=== PATIENT | male | born 1955 | race Caucasian/White ===

== ENCOUNTER 2017-12-17 15:14 | Emergency (ER) | payer OTHER ==
--- OUTSIDE RECORDS SUMMARY | 2017-12-17 15:16 | XMS REPORT ---
:1955 Author Organization eClinicalWorks Care Team Providers Name Role Phone Marcos Daniel Provider Role Unavailable Allergies No Known Allergies Problems Problem Type Condition Code Onset Dates Condition Status Assessment Avascular necrosis of femur, M87.059 Active unspecified laterality Problem Nonalcoholic fatty liver disease K76.0 Active Assessment Hypertension I10 Active Problem Hypertension I10 Active Problem History of pulmonary embolism Z86.711 Active Problem Avascular necrosis of femur, M87.059 Active unspecified laterality Problem Deep venous thrombosis of leg I82.409 Active Problem Persistent insomnia G47.00 Active Problem On anticoagulant therapy Z79.01 Active Problem Tobacco use disorder F17.200 Active Assessment Tobacco use disorder F17.200 Active Assessment Nonalcoholic fatty liver disease K76.0 Active Assessment Persistent insomnia G47.00 Active Assessment On anticoagulant therapy Z79.01 Active Assessment Deep venous thrombosis of leg I82.409 Active Assessment History of pulmonary embolism Z86.711 Active Medications Medication Code Code Instructions Start End Date Status Dosage System Date Soma [facility] 25716624547 350 MG Orally Active 1 tablet as needed Clare [facility] 15012909817 10-325 MG Orally Active 1 tablet as every 6 hrs PRN needed Doxepin HCl ND 15431071810 100 MG Orally Active 1 capsule at bedtime Vasotec [facility] 23355972174 10 MG Orally Active 1 tablet Once a day Ibuprofen ND 92927488056 400 MG Orally Active 1 tablet with food or milk as needed Xarelto [facility] 68015900797 15 MG Orally Active 1 tablet Once a day with food Results No Known Results Summary Purpose eClinicalWorks Submission
--- NOTE | 2017-12-17 17:29 | RAD REPORT ---
EXAM DESCRIPTION: RAD - Shoulder Left 2 View - 12/17/2017 5:11 pm CLINICAL HISTORY: Left shoulder pain FINDINGS: A transverse lucency is present within the lateral aspect of the humeral head. I suspect t his represents prominent trabecula. A nondisplaced fracture can also have this appearance. If clinic ally indicated further evaluation with CT could be obtained. The bones are osteoporotic. A 2 centimeter lucency is present within the humeral head. This may represent a pseudo lesion formed by superimposition of trabecula. A true lesion can also have this appearance. Follow-up x-ray in 3 mo nths is recommended for re-evaluation. Mild to moderate osteoarthritis involves the acromioclavicular joint
--- NOTE | 2017-12-17 18:03 | EDPHYS ---
Physician Documentation [facility] Name: Red Cooper Jr Age: 62 yrs Sex: Male : 1955 Arrival Date: 12/17/2017 Time: 15:17 Bed 18 Private MD: Marcos [facility] ED Physician Minor Bañuelos HPI: 12/17 17:57 This 62 yrs old Male presents to ER via Ambulatory with complaints of gs Shoulder Pain. 17:57 The patient or guardian complains of an injury. left shoulder. Context: The problem was gs sustained at home, resulted from a fall, down stairs, The patient experiences decreased range of motion, when attempts to raise arm. Onset: The symptoms/episode began/occurred acutely, just prior to arrival. Modifying factors: The symptoms are aggravated by lifting weight, movement, rotation of arm. Associated signs and symptoms: Pertinent negatives: abdominal pain, chest pain, diaphoresis, shortness of breath. Severity of symptoms: At their worst the symptoms were moderate, in the emergency department the symptoms are unchanged. The patient has experienced a previous episode. Historical: - Allergies: 15:39 Codeine; sv 15:39 Morphine; sv 15:39 Tramadol HCl; sv 15:39 BP med; sv - Home Meds: 15:39 hydrocodone-acetaminophen 10-325 mg Oral tab [Active]; visotec [Active]; Xarelto 15 mg sv Oral tab daily [Active]; - PMHx: 15:39 Hypertension; pulmonary embolus; sv - PSHx: 15:39 right shoulder; sv - Immunization history:: Adult Immunizations up to date. - Social history:: Smoking status: Patient uses tobacco products, smokes one-half pack cigarettes per day. - Ebola Screening: : No symptoms or risks identified at this time. ROS: 17:57 All other systems are negative. gs Exam: 17:57 Head/Face: Normocephalic, atraumatic. Eyes: Pupils equal round and reactive to light, gs extra-ocular motions intact. Lids and lashes normal. Conjunctiva and sclera are non-icteric and not injected. Cornea within normal limits. Periorbital areas with no swelling, redness, or edema. ENT: Nares patent. No nasal discharge, no septal abnormalities noted. Tympanic membranes are normal and external auditory canals are clear. Oropharynx with no redness, swelling, or masses, exudates, or evidence of obstruction, uvula midline. Mucous membranes moist. Neck: Trachea midline, no thyromegaly or masses palpated, and no cervical lymphadenopathy. Supple, full range of motion without nuchal rigidity, or vertebral point tenderness. No Meningismus. Chest/axilla: Normal chest wall appearance and motion. Nontender with no deformity. No lesions are appreciated. Cardiovascular: Regular rate and rhythm with a normal S1 and S2. No gallops, murmurs, or rubs. Normal PMI, no JVD. No pulse deficits. Respiratory: Lungs have equal breath sounds bilaterally, clear to auscultation and percussion. No rales, rhonchi or wheezes noted. No increased work of breathing, no retractions or nasal flaring. Abdomen/GI: Soft, non-tender, with normal bowel sounds. No distension or tympany. No guarding or rebound. No evidence of tenderness throughout. Back: No spinal tenderness. No costovertebral tenderness. Full range of motion. Skin: Warm, dry with normal turgor. Normal color with no rashes, no lesions, and no evidence of cellulitis. Neuro: Awake and alert, GCS 15, oriented to person, place, time, and situation. Cranial nerves II-XII grossly intact. Motor strength 5/5 in all extremities. Sensory grossly intact. Cerebellar exam normal. Normal gait. 17:57 Constitutional: The patient appears alert, awake. 17:57 Musculoskeletal/extremity: ROM: limited active range of motion due to pain, limited passive range of motion due to pain, Pulses: are normal with no appreciated deficits, Sensation intact. Joints: the left shoulder displays limited range of motion, painful range of motion, tenderness. Vital Signs: 15:37 BP 125 / 83; Pulse 96; Resp 18; Temp 98.9; Pulse Ox 96% ; Weight 102.06 kg; Height 5 sv ft. 10 in. (177.80 cm); Pain 9/10; 18:28 BP 100 / 74; Pulse 76; Resp 14; Temp 97.2; Pulse Ox 99% on R/A; Pain 7/10; ch 15:37 Body Mass Index 32.28 (102.06 kg, 177.80 cm) sv MDM: 17:57 Patient medically screened. gs 17:57 Differential diagnosis: Anterior dislocation without fracture, humeral head fracture, gs tendonitis. Data reviewed: vital signs, nurses notes. Response to treatment: the patient's symptoms have markedly improved after treatment, and as a result, I will discharge patient. 12/17 15:40 Order name: Shoulder Left (2 View) XRAY; Complete Time: 17:32 sv 12/17 18:03 Order name: Sling; Complete Time: 18:21 gs Administered Medications: No medications were administered Disposition: 12/17/17 18:02 Discharged to Home. Impression: 2-part nondisplaced fracture of surgical neck of left humerus. - Condition is Stable. - Discharge Instructions: Humerus Fracture, Treated with Immobilization. - Medication Reconciliation Form, Thank You Letter, Antibiotic Education, Prescription Opioid Use form. - Follow up: Ugo Hodgson MD; When: 2 - 3 days; Reason: Re-evaluation by your physician. Signatures: Dispatcher [employer] EDSarina Wynne RN RN Jing Lazo RN RN Minor Bañuelos MD MD Corrections: (The following items were deleted from the chart) 18:30 18:02 12/17/2017 18:02 Discharged to Home. Impression: 2-part nondisplaced fracture of ch surgical neck of left humerus. Condition is Stable. Forms are Medication Reconciliation Form, Thank You Letter, Antibiotic Education, Prescription Opioid Use. Follow up: Ugo Hodgson; When: 2 - 3 days; Reason: Re-evaluation by your physician. gs
--- NOTE | 2017-12-17 18:03 | ER ---
Nurse's Notes [facility] Name: Red Cooper Jr Age: 62 yrs Sex: Male : 1955 Arrival Date: 12/17/2017 Time: 15:17 Bed 18 Private MD: Daniel Rodríguez Diagnosis: 2-part nondisplaced fracture of surgical neck of left humerus Presentation: 12/17 15:36 Presenting complaint: Patient states: left shoulder pain. Pt reports was coming down sv stairs and was on the last step and slipped and fell and landed on his left shoulder. Transition of care: patient was not received from another setting of care. Onset of symptoms was December 13, 2017. Care prior to arrival: None. 15:36 Method Of Arrival: Ambulatory sv 15:36 Acuity: JENNY 3 sv 18:29 Risk Assessment: Do you want to hurt yourself or someone else? Patient reports no ch desire to harm self or others. Initial Sepsis Screen: Does the patient meet any 2 criteria? No. Patient's initial sepsis screen is negative. Does the patient have a suspected source of infection? No. Patient's initial sepsis screen is negative. Historical: - Allergies: 15:39 Codeine; sv 15:39 Morphine; sv 15:39 Tramadol HCl; sv 15:39 BP med; sv - Home Meds: 15:39 hydrocodone-acetaminophen 10-325 mg Oral tab [Active]; visotec [Active]; Xarelto 15 mg sv Oral tab daily [Active]; - PMHx: 15:39 Hypertension; pulmonary embolus; sv - PSHx: 15:39 right shoulder; sv - Immunization history:: Adult Immunizations up to date. - Social history:: Smoking status: Patient uses tobacco products, smokes one-half pack cigarettes per day. - Ebola Screening: : No symptoms or risks identified at this time. Screenin:59 Abuse screen: Denies threats or abuse. Denies injuries from another. Nutritional ch screening: No deficits noted. Tuberculosis screening: No symptoms or risk factors identified. Fall Risk None identified. Assessment: 17:59 General: Appears in no apparent distress. comfortable, Behavior is calm, cooperative, ch appropriate for age. Pain: Complains of pain in left shoulder Pain currently is 7 out of 10 on a pain scale. at worst was 9 out of 10 on a pain scale. Pain began suddenly. Neuro: No deficits noted. Cardiovascular: No deficits noted. Respiratory: Airway is patent Respiratory effort is even, unlabored, Breath sounds are clear bilaterally. GI: No signs and/or symptoms were reported involving the gastrointestinal system. : No signs and/or symptoms were reported regarding the genitourinary system. Derm: Skin is pink, warm \T\ dry. Musculoskeletal: Capillary refill < 3 seconds, in bilateral fingers. toes. Range of motion: limited in left shoulder. 18:28 Reassessment: Patient appears in no apparent distress at this time. Patient and/or ch family updated on plan of care and expected duration. Pain level reassessed. Patient is alert, oriented x 3, equal unlabored respirations, skin warm/dry/pink. Patient states symptoms have not improved. pt states he has hydrocodone at home he will take. . Vital Signs: 15:37 BP 125 / 83; Pulse 96; Resp 18; Temp 98.9; Pulse Ox 96% ; Weight 102.06 kg; Height 5 sv ft. 10 in. (177.80 cm); Pain 9/10; 18:28 BP 100 / 74; Pulse 76; Resp 14; Temp 97.2; Pulse Ox 99% on R/A; Pain 7/10; ch 15:37 Body Mass Index 32.28 (102.06 kg, 177.80 cm) sv ED Course: 15:17 Patient arrived in ED. mr 15:17 Daniel Rodríguez DO is Private Physician. mr 15:37 Triage completed. sv 15:39 Arm band placed on right wrist. sv 17:08 Patient moved to radiology via wheelchair. mh1 17:08 Shoulder Left (2 View) XRAY In Process Unspecified. EDMS 17:08 X-ray completed. Patient tolerated procedure well. mh1 17:08 Patient moved back from radiology. mh1 17:32 Minor Bañuelos MD is Attending Physician. gs 17:59 Sarina Jones, JAYA is Primary Nurse. ch 17:59 No apparent distress. Resting quietly. ch 17:59 Patient has correct armband on for positive identification. Placed in gown. Bed in low ch position. Call light in reach. Side rails up X 1. Adult w/ patient. 17:59 No provider procedures requiring assistance completed. Patient did not have IV access ch during this emergency room visit. 18:01 Ugo Hodgson MD is Referral Physician. 18:28 Sling applied to left arm. ch Administered Medications: No medications were administered Outcome: 18:02 Discharge ordered by . 18:28 Discharged to home ambulatory. 18:28 Condition: stable 18:28 Discharge instructions given to patient, Instructed on discharge instructions, follow up and referral plans. medication usage, Demonstrated understanding of instructions, follow-up care. 18:30 Patient left the ED. Signatures: Dispatcher [employer] EDSarina Wynne RN RN ch Verde, Stephanie, RN RN sv Rivera, Maria mr Mosley [facility] Minor Bañuelos MD MD
[2017-12-17 18:38] VITALS: BP 100/74; TEMP 97.2; O2SAT 99
== END 2017-12-17 18:30 | disposition home or self-care (01) ==
LOC: ER 15:14
DX: S42.222A 2-part displaced fracture of surgical neck of left humerus, initial encounter for closed fracture (principal); W10.9XXA Fall (on) (from) unspecified stairs and steps, initial encounter; Y93.89 Activity, other specified; Y92.009 Unspecified place in unspecified non-institutional (private) residence as the place of occurrence of the external cause; Z88.6 Allergy status to analgesic agent; Z88.5 Allergy status to narcotic agent; Z88.8 Allergy status to other drugs, medicaments and biological substances; I10 Essential (primary) hypertension; F17.210 Nicotine dependence, cigarettes, uncomplicated
CPT/HCPCS: 99283

== ENCOUNTER 2018-08-29 18:07 | Emergency (ER) | payer OTHER ==
--- OUTSIDE RECORDS SUMMARY | 2018-08-29 18:08 | XMS REPORT ---
[...] End Date Status Dosage System Date Soma [facility] 54658578475 350 MG Orally Active 1 tablet as needed Tennga [facility] 01686255766 10-325 MG Orally Active 1 tablet as every 6 hrs PRN needed Doxepin HCl ND 98365728893 100 MG Orally Active 1 capsule at bedtime Vasotec [facility] 24491181715 10 MG Orally Active 1 tablet Once a day Ibuprofen ND 97098402279 400 MG Orally Active 1 tablet with food or milk as needed Xarelto [facility] 13140387632 15 MG Orally Active 1 tablet Once a day with food Results No Known Results Summary Purpose eClinicalWorks Submission
--- OUTSIDE RECORDS SUMMARY | 2018-08-29 18:09 | XMS REPORT ---
:1955 Author Organization eClinicalWorks Care Team Providers Name Role Phone Daniel Rodríguez Provider Role Unavailable Allergies No Known Allergies Problems Problem Type Condition Code Onset Dates Condition Status Assessment Need for influenza vaccination Z23 Active Problem Nonalcoholic fatty liver disease K76.0 Active Problem Hypertension I10 Active Problem History of pulmonary embolism Z86.711 Active Problem Avascular necrosis of femur, M87.059 Active unspecified laterality Problem Deep venous thrombosis of leg I82.409 Active Problem Persistent insomnia G47.00 Active Problem On anticoagulant therapy Z79.01 Active Problem Tobacco use disorder F17.200 Active Medications Medication Code Code Instructions Start End Date Status Dosage System Date Xarelto [facility] 91586157010 15 MG Orally Active 1 tablet Once a day with food Doxepin HCl [facility] 32743738359 100 MG Orally Active 1 capsule at bedtime [place] [facility] 51019475959 10-325 MG Orally Active 1 tablet as every 6 hrs PRN needed Ibuprofen ND 93756581067 400 MG Orally Active 1 tablet with food or milk as needed Vasotec [facility] 84333977455 10 MG Orally Active 1 tablet Once a day Soma ND 64966509512 350 MG Orally Active 1 tablet as needed Results No Known Results Immunizations Vaccine Administration Date Afluria May 02, 2018 Summary Purpose eClinicalWorks Submission
--- OUTSIDE RECORDS SUMMARY | 2018-08-29 18:09 | XMS REPORT ---
:1955 Author Organization eClinicalWorks Care Team Providers Name Role Phone Daniel Rodríguez Provider Role Unavailable Allergies, Adverse Reactions, Alerts Substance Reaction Event Type Tramadol HCl Info Not Available Drug Allergy Stadol Info Not Available Drug Allergy Morphine Sulfate Info Not Available Drug Allergy Problems Problem Type Condition Code Onset Dates Condition Status Assessment Hypertension I10 Active Problem Nonalcoholic fatty liver disease K76.0 Active Problem Hypertension I10 Active Problem History of pulmonary embolism Z86.711 Active Problem Avascular necrosis of femur, M87.059 Active unspecified laterality Problem Deep venous thrombosis of leg I82.409 Active Problem Persistent insomnia G47.00 Active Problem On anticoagulant therapy Z79.01 Active Problem Tobacco use disorder F17.200 Active Assessment Persistent insomnia G47.00 Active Assessment Nonalcoholic fatty liver disease K76.0 Active Assessment On anticoagulant therapy Z79.01 Active Assessment Deep venous thrombosis of leg I82.409 Active Assessment History of pulmonary embolism Z86.711 Active Assessment Tobacco use disorder F17.200 Active Assessment Avascular necrosis of femur, M87.059 Active unspecified laterality Medications Medication Code Code Instructions Start End Date Status Dosage System Date Ibuprofen [facility] 81494682060 400 MG Orally Active 1 tablet with food or milk as needed Xarelto [facility] 43542274437 15 MG Orally Active 1 tablet Once a day with food Crane [facility] 67146113663 10-325 MG Orally Active 1 tablet as every 6 hrs PRN needed Doxepin HCl ND 93872013401 100 MG Orally Active 1 capsule at bedtime Vasotec [facility] 82063504645 10 MG Orally Active 1 tablet Once a day Soma ND 14976682046 350 MG Orally Active 1 tablet as needed Results No Known Results Summary Purpose eClinicalWorks Submission
[2018-08-29] MEDS ORDERED: NA CHLORIDE 0.9% 1,000 ML ONE (18:54)
[2018-08-29 19:05] LABS: Absolute Lymphocytes (CBC) 1.4 K/uL (0.7-4.9); Absolute Monocytes 1.2 K/uL (0.1-1.3); Basophils % 0.9 % (0-1.3); Hematocrit 44.9 % (39.6-49.0); Lymphocytes % 15.2 % (15.3-44.8); MPV 8.4 fL (7.6-11.3); Monocytes % 13.8 % (3.3-12.3); RBC Red Blood Cell Count 4.67 M/uL (4.33-5.43)
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
[2018-08-29 19:07] LABS: Protime INR 1.01
[2018-08-29 19:24] LABS: ALT/SGPT 25 U/L (12-78); AST/SGOT 29 U/L (15-37); Albumin 3.7 g/dL (3.4-5.0); Alkaline Phosphatase 63 U/L (45-117); BUN Blood Urea Nitrogen 15 mg/dL (7-18); Bicarbonate 27 mmol/L (21-32); Bilirubin Direct 0.2 mg/dL (0-0.2); Bilirubin Total 0.6 mg/dL (0.2-1.0); Glucose Level 98 mg/dL (74-106); Lipase 149 U/L (73-393); Magnesium 1.9 mg/dL (1.8-2.4); NT PRO-BNP 172 pg/mL (<125); Protein, Total 7.1 g/dL (6.4-8.2); Sodium Level 139 mmol/L (136-145); Troponin (Emerg Dept Use Only) < 0.02 ng/mL (0.0-0.045)
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
[2018-08-29 22:02] LABS: Urine Blood TRACE (NEG); Urine Glucose NEGATIVE (NEG); Urine Protein NEGATIVE (NEG)
[2018-08-29 22:34] LABS: Barbiturates NEGATIVE (NEGATIVE); Benzodiazepines NEGATIVE (NEGATIVE); Cocaine NEGATIVE (NEGATIVE); METHAMPHETAM NEGATIVE (NEGATIVE); Methadone NEGATIVE (NEGATIVE); Opiates POSITIVE (NEGATIVE); Phencyclidine NEGATIVE (NEGATIVE); THC Cannibis NEGATIVE (NEGATIVE)
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
[2018-08-29 23:49] VITALS: BP 123/89; TEMP 98.6; O2SAT 97
--- NOTE | 2018-08-30 06:34 | EKG ---
Test Date: 2018-08-29 Test Time: 18:44:29 Certification And Selection Specialist: SWG MEASUREMENT RESULTS: Intervals: Rate: 76 MO: 152 QRSD: 94 QT: 386 QTc: 434 [place]: P: -21 MO: 152 QRS: -11 T: 10 INTERPRETIVE STATEMENTS: Normal sinus rhythm Normal ECG Compared to ECG 12/19/2014 16:32:57 Sinus bradycardia no longer present Electronically Signed On 08-30-18 06:26:59 BLENDING TANK TENDER HELPER by Kodak Boucher
== END 2018-08-29 23:03 | disposition home or self-care (01) ==
LOC: ER 18:07
DX: S00.83XA Contusion of other part of head, initial encounter (principal); S20.229A Contusion of unspecified back wall of thorax, initial encounter; S20.219A Contusion of unspecified front wall of thorax, initial encounter; S80.02XA Contusion of left knee, initial encounter; S80.212A Abrasion, left knee, initial encounter; V49.40XA Driver injured in collision with unspecified motor vehicles in traffic accident, initial encounter; Z79.01 Long term (current) use of anticoagulants; Z88.5 Allergy status to narcotic agent; Z88.6 Allergy status to analgesic agent; Z88.8 Allergy status to other drugs, medicaments and biological substances; Z86.711 Personal history of pulmonary embolism; I10 Essential (primary) hypertension
CPT/HCPCS: 36415; 70450; 71045; 71260; 72125; 74177; 80048; 80076; 80307; 80320; 81003; 83690; 83735; 83880; 84484; 85025; 85610; 87086; 87088; 93005; 96360; 96361; 99285; J7030; Q9967

== ENCOUNTER 2020-04-24 12:54 | Emergency (ER) | payer OTHER ==
[2020-04-24] MEDS ORDERED: LIDOCAINE 1% MPF 5 ML VIAL ONE (14:09)
[2020-04-24] MEDS ORDERED: HYDROCODONE/APAP 10/325 TAB ONE (14:10)
[2020-04-24] MEDS ORDERED: TETANUS & DIPHTHERIA TOX,ADULT 0.5 ML VIAL ONE (14:10)
--- NOTE | 2020-04-24 14:41 | RAD REPORT ---
EXAM DESCRIPTION: RAD - Elbow Right 3 View - 04/24/2020 2:30 pm CLINICAL HISTORY: PAIN COMPARISON: No comparisons FINDINGS: No acute fracture or dislocation. Posterior soft tissue swelling seen.
[2020-04-24] MEDS ORDERED: SMZ./TMP. 800/160 MG TABLET ONE (15:54)
--- NOTE | 2020-04-24 16:19 | EDPHYS ---
Physician Documentation [facility] Name: Red Cooper Jr Age: 64 yrs Sex: Male : 1955 Arrival Date: 04/24/2020 Time: 12:55 Bed 13 Private MD: Marcos [facility] ED Physician Juancarlos Carrasco HPI: 04/24 13:59 This 64 yrs old Male presents to ER via Ambulatory with complaints of Elbow pm1 Injury, Laceration. 13:59 The patient or guardian complains of a laceration, irregular. The complaints affect the pm1 right elbow. Context: The problem was sustained at home, resulted from a fall, missed his footing on last step of stairs and landed on the floor with right elbow. Occurred last night around 2200. No headache, head injury, neck pain. Onset: The symptoms/episode began/occurred last night. Treatment prior to arrival includes: dressing. Modifying factors: The symptoms are alleviated by remaining still, the symptoms are aggravated by movement. Associated signs and symptoms: Pertinent positives: swelling, of the right forearm and hand. Severity of symptoms: in the emergency department the symptoms are actually worse. The patient has not experienced similar symptoms in the past. Historical: - Allergies: 13:11 BP med; jd3 13:11 Codeine; jd3 13:11 Demerol; jd3 13:11 Morphine; jd3 13:11 Tramadol HCl; jd3 - Home Meds: 13:11 Xarelto 15 mg Oral tab daily [Active]; visotec [Active]; hydrocodone-acetaminophen jd3 10-325 mg Oral tab [Active]; enalapril maleate 10 mg Oral tab 1 tab once daily [Active]; - PMHx: 13:11 Hypertension; pulmonary embolus; jd3 - PSHx: 13:11 right shoulder; IVC filter; jd3 - Immunization history:: Adult Immunizations up to date. - Social history:: Smoking status: . ROS: 13:59 Constitutional: Negative for fever, chills, and weight loss, Neck: Negative for injury, pm1 pain, and swelling, Neuro: Negative for headache, weakness, numbness, tingling, and seizure. 13:59 Cardiovascular: Negative for chest pain, palpitations, and edema, Respiratory: Negative for shortness of breath, cough, wheezing, and pleuritic chest pain, Abdomen/GI: Negative for abdominal pain, nausea, vomiting, diarrhea, and constipation, Back: Negative for injury and pain. 13:59 MS/extremity: Positive for laceration, pain, swelling, of the right elbow, Negative for decreased range of motion, deformity. 13:59 Skin: Positive for laceration(s), of the right elbow, Negative for cellulitis. Exam: 13:59 Constitutional: This is a well developed, well nourished patient who is awake, alert, pm1 and in no acute distress. Head/Face: Normocephalic, atraumatic. 13:59 Cardiovascular: Exam negative for acute changes, Rate: normal, Rhythm: regular, Pulses: no pulse deficits are appreciated. 13:59 Respiratory: Exam negative for acute changes, respiratory distress, shortness of breath. 13:59 Musculoskeletal/extremity: Extremities: grossly normal except: noted in the right elbow: laceration, There is no evidence of deformity, ROM: intact in all extremities, Circulation is intact in all extremities. Pulses: noted to be 2+ in the right radial artery, Compartment Syndrome exam of affected extremity: is normal. no numbness, no tingling, no sensation deficit, no palor, no weak pulses. 13:59 Neuro: Exam negative for acute changes, Orientation: is normal, Mentation: is normal, Motor: is normal. Vital Signs: 13:11 BP 151 / 79; Pulse 70; Resp 17 S; Temp 98.2(O); Pulse Ox 98% on R/A; Weight 95.25 kg jd3 (R); Height 5 ft. 8 in. (172.72 cm) (R); Pain 9/10; 14:48 BP 142 / 81; Pulse 66; Resp 16; Temp 97.6(TE); Pulse Ox 98% on R/A; mh5 15:45 BP 134 / 67; Pulse 59; Resp 15 S; Pulse Ox 99% on R/A; ca1 16:30 BP 136 / 76; Pulse 61; Resp 15 S; Pulse Ox 98% on R/A; ca1 13:11 Body Mass Index 31.93 (95.25 kg, 172.72 cm) jd3 Laceration: 16:14 Wound Repair of 7cm ( 2.8in ) subcutaneous laceration to right elbow. Irregularly pm1 shaped.. Distal neuro/vascular/tendon intact. Anesthesia: Local anesthetic administered with 5 mls of 1% lidocaine. Wound prep: Extensive cleansing with betadine with hibiclenz by me, Wound irrigation with saline by me, Particulate matter removal of grass by me, Wound explored extensively, Copious irrigation. Skin closed with 7 4-0 Prolene using simple sutures and sterile technique. Dressed with Neosporin, 4x4's, Kerlix, sling. Patient tolerated well. MDM: 13:41 Patient medically screened. pm1 16:15 Data reviewed: vital signs. Data interpreted: Pulse oximetry: on room air is 98 %. pm1 Interpretation: normal. Counseling: I had a detailed discussion with the patient and/or guardian regarding: the historical points, exam findings, and any diagnostic results supporting the discharge/admit diagnosis, radiology results, the need for outpatient follow up. 16:15 Special discussion: I discussed in detail with the patient the higher chance of wound pm1 infection based on his presenting history. 16:15 ED course: Instructed on suture removal in 14 days. pm1 04/24 13:51 Order name: Elbow Right 3 View XRAY; Complete Time: 14:46 pm1 04/24 13:51 Order name: Prolene, Sutures; Complete Time: 14:07 pm1 04/24 13:51 Order name: Dressing - Wound; Complete Time: 14:01 pm1 04/24 13:51 Order name: Gloves, Sterile; Complete Time: 14:01 pm1 04/24 13:51 Order name: Setup Suture Tray; Complete Time: 14:01 pm1 04/24 13:52 Order name: Sling; Complete Time: 16:48 pm1 Administered Medications: 14:06 Drug: Tetanus-Diphtheria Toxoid Adult 0.5 ml {Qa Engineer: [employer]. Exp: ca1 09/23/2022. Lot #: [id number]. } Route: IM; Site: right deltoid; 15:19 Follow up: Response: No adverse reaction ca1 14:06 Drug: [place] 10 mg-325 mg 1 tabs {Note: rass 0.} Route: PO; ca1 15:19 Follow up: Response: No adverse reaction; Pain is decreased; RASS: Alert and Calm (0) ca1 15:43 Drug: Bactrim (160 mg-800 mg (DS) 1 tablet Route: PO; ca1 16:14 Drug: Lidocaine (1 %) 5 ml {Note: by DELISA Guerrero.} Volume: 5 ml; Route: Infiltration; ca1 16:45 Drug: Ancef 1 grams Route: IM; Site: right deltoid; ca1 Disposition: 04/25 07:14 Co-signature as Attending Physician, Juancarlos Carrasco MD I agree with the assessment and crescencio plan of care. Disposition: 04/24/20 16:19 Discharged to Home. Impression: Laceration without foreign body of elbow. - Condition is Stable. - Discharge Instructions: Laceration Care, Adult. - Prescriptions for Keflex 500 mg Oral Capsule - take 1 capsule by ORAL route every 6 hours for 10 days; 40 capsule. Bactrim DS 800- 160 mg Oral Tablet - take 1 tablet by ORAL route every 12 hours for 10 days; 20 tablet. - Medication Reconciliation Form, Thank You Letter, Antibiotic Education, Prescription Opioid Use form. - Follow up: Emergency Department; When: As needed; Reason: Worsening of condition. Follow up: Private Physician; When: 2 - 3 days; Reason: Recheck today's complaints, Continuance of care, Re-evaluation by your physician. - Problem is new. - Symptoms have improved. Signatures: Dispatcher [employer] EDNJ Juancarlos Carrasco MD MD cha Marinas, Patrick, NP TRACK MECHANIC pm1 Dave Reinoso RN RN jNarda Chairez RN RN ca1 Corrections: (The following items were deleted from the chart) 04/24 16:50 16:19 04/24/2020 16:19 Discharged to Home. Impression: Laceration without foreign body ca1 of elbow. Condition is Stable. Forms are Medication Reconciliation Form, Thank You Letter, Antibiotic Education, Prescription Opioid Use. Follow up: Emergency Department; When: As needed; Reason: Worsening of condition. Follow up: Private Physician; When: 2 - 3 days; Reason: Recheck today's complaints, Continuance of care, Re-evaluation by your physician. Problem is new. Symptoms have improved. pm1
--- NOTE | 2020-04-24 16:19 | ER ---
Nurse's Notes [facility] Name: Red Cooper Jr Age: 64 yrs Sex: Male : 1955 Arrival Date: 04/24/2020 Time: 12:55 Bed 13 Private MD: Daniel Rodríguez Diagnosis: Laceration without foreign body of elbow Presentation: 04/24 13:09 Chief complaint: Patient states: "i fell off my steps last night and landed on my jd3 elbow, but it is cut up pretty good.". Coronavirus screen: At this time, the client does not indicate any symptoms associated with coronavirus-19. Ebola Screen: Patient negative for fever greater than or equal to 101.5 degrees Fahrenheit, and additional compatible Ebola Virus Disease symptoms. Initial Sepsis Screen: Does the patient meet any 2 criteria? No. Patient's initial sepsis screen is negative. Does the patient have a suspected source of infection? No. Patient's initial sepsis screen is negative. Risk Assessment: Do you want to hurt yourself or someone else? Patient reports no desire to harm self or others. Onset of symptoms was April 23, 2020. 13:09 Method Of Arrival: Ambulatory jd3 13:09 Acuity: JENNY 3 jd3 Historical: - Allergies: 13:11 BP med; jd3 13:11 Codeine; jd3 13:11 Demerol; jd3 13:11 Morphine; jd3 13:11 Tramadol HCl; jd3 - Home Meds: 13:11 Xarelto 15 mg Oral tab daily [Active]; visotec [Active]; hydrocodone-acetaminophen jd3 10-325 mg Oral tab [Active]; enalapril maleate 10 mg Oral tab 1 tab once daily [Active]; - PMHx: 13:11 Hypertension; pulmonary embolus; jd3 - PSHx: 13:11 right shoulder; IVC filter; jd3 - Immunization history:: Adult Immunizations up to date. - Social history:: Smoking status: . Screenin:40 Abuse screen: Denies threats or abuse. Denies injuries from another. Nutritional ca1 screening: No deficits noted. Tuberculosis screening: No symptoms or risk factors identified. Fall Risk Fall in past 12 months (25 points). Assessment: 13:40 General: Appears in no apparent distress. comfortable, Behavior is calm, cooperative, ca1 appropriate for age. Pain: Complains of pain in right elbow Pain currently is 9 out of 10 on a pain scale. Neuro: Level of Consciousness is awake, alert, obeys commands, Oriented to person, place, time, situation. Derm: Skin is healthy with good turgor, Skin is pink, warm \\T\\ dry. Musculoskeletal: Circulation, motion, and sensation intact. Capillary refill < 3 seconds, Range of motion: limited in right elbow. Injury Description: Laceration sustained to right elbow is jagged, 2.6 to 7.5 cm long, was sustained 30-60 minutes ago. a small amount of bleeding noted at this time. 14:45 Reassessment: Patient appears in no apparent distress at this time. Patient and/or ca1 family updated on plan of care and expected duration. Pain level reassessed. Patient is alert, oriented x 3, equal unlabored respirations, skin warm/dry/pink. 15:45 Reassessment: Patient appears in no apparent distress at this time. Patient and/or ca1 family updated on plan of care and expected duration. Pain level reassessed. Patient is alert, oriented x 3, equal unlabored respirations, skin warm/dry/pink. 16:49 Reassessment: Patient appears in no apparent distress at this time. Patient and/or ca1 family updated on plan of care and expected duration. Pain level reassessed. Patient is alert, oriented x 3, equal unlabored respirations, skin warm/dry/pink. Vital Signs: 13:11 BP 151 / 79; Pulse 70; Resp 17 S; Temp 98.2(O); Pulse Ox 98% on R/A; Weight 95.25 kg jd3 (R); Height 5 ft. 8 in. (172.72 cm) (R); Pain 9/10; 14:48 BP 142 / 81; Pulse 66; Resp 16; Temp 97.6(TE); Pulse Ox 98% on R/A; mh5 15:45 BP 134 / 67; Pulse 59; Resp 15 S; Pulse Ox 99% on R/A; ca1 16:30 BP 136 / 76; Pulse 61; Resp 15 S; Pulse Ox 98% on R/A; ca1 13:11 Body Mass Index 31.93 (95.25 kg, 172.72 cm) j ED Course: 12:55 Patient arrived in ED. ag5 12:55 Daniel Rodríguez DO is Private Physician. ag5 13:10 Triage completed. jd3 13:11 Arm band placed on. jd3 13:40 Cesar Vargas NP is PHCP. pm1 13:40 Juancarlos Carrasco MD is Attending Physician. pm1 13:40 Patient has correct armband on for positive identification. Bed in low position. Call ca1 light in reach. Side rails up X 1. Pulse ox on. NIBP on. Warm blanket given. 14:01 Narda Perdomo, RN is Primary Nurse. ca1 14:30 Elbow Right 3 View XRAY In Process Unspecified. EDMS 16:14 Assist provider with laceration repair on right elbow that was between 2.6 to 7.5 cm ca1 using sutures. Set up tray. Performed by Cesar Vargas BACK TACKER Dressed with 4X4s, Kerlix, Neosporin, Patient tolerated well. 16:40 Patient did not have IV access during this emergency room visit. ca1 16:48 Sling applied to right arm. ca1 Administered Medications: 14:06 Drug: Tetanus-Diphtheria Toxoid Adult 0.5 ml {Jumpbasting Facing Baster: Help/Systems. Exp: ca1 09/23/2022. Lot #: [id number]. } Route: IM; Site: right deltoid; 15:19 Follow up: Response: No adverse reaction ca1 14:06 Drug: [place] 10 mg-325 mg 1 tabs {Note: rass 0.} Route: PO; ca1 15:19 Follow up: Response: No adverse reaction; Pain is decreased; RASS: Alert and Calm (0) ca1 15:43 Drug: Bactrim (160 mg-800 mg (DS) 1 tablet Route: PO; ca1 16:14 Drug: Lidocaine (1 %) 5 ml {Note: by DELISA Guerrero.} Volume: 5 ml; Route: Infiltration; ca1 16:45 Drug: Ancef 1 grams Route: IM; Site: right deltoid; ca1 Outcome: 16:19 Discharge ordered by . pm1 16:48 Discharged to home ambulatory. ca1 16:48 Condition: stable 16:48 Discharge instructions given to patient, Instructed on discharge instructions, follow up and referral plans. medication usage, Demonstrated understanding of instructions, follow-up care, medications, Prescriptions given X 2. 16:50 Patient left the ED. ca1 Signatures: Dispatcher [employer] EDMS Cesar Vargas, DELISA BACK TACKER pm1 Anila Vogel 5 Dave Reinoso RN RN jd3 Narda Perdomo RN RN ca1 Alissa Sosa ag5 Corrections: (The following items were deleted from the chart) 13:13 13:11 Pulse 70bpm; Resp 17bpm; Spontaneous; Pulse Ox 98% RA; Temp 98.2F Oral; 95.25 kg jd3 Reported; Height 5 ft. 8 in. Reported; BMI: 31.9; Pain 9/10; jd3
[2020-04-24] MEDS ORDERED: CEFAZOLIN SODIUM 1 GM/VIAL ONE (16:50)
[2020-04-24] MEDS ORDERED: WATER FOR INJ,STERILE 10 ML ONE (16:50)
[2020-04-24 17:12] VITALS: TEMP 97.6
[2020-04-24 17:15] VITALS: BP 136/76; O2SAT 98
--- OUTSIDE RECORDS SUMMARY | 2020-04-28 01:07 | XMS REPORT | Continuity of Care Document ---
:1955 Author Organization [facility] t Address [address] [place] [address] Care Team Providers Name Role Phone Unavailable Unavailable Unavailable Problems Condition Condition Condition Status Onset Resolution Last Treating Co mments Source Name Details Category Date Date Treatment Clinician Date Avascular Avascular Diagnosis Active [facility] necrosis necrosis [facility] - of femur, of femur, José Miguel bobbi unspecifie unspecifie l d d Outpati laterality laterality en t Clinics Nonalcohol Nonalcohol Diagnosis Active [facility] ic fatty ic fatty [facility] - liver liver Memoria disease disease l [facility] ent Clinics Hypertensi Hypertensi Diagnosis Active [facility] on on [facility] - Memoria l [facility] ent Clinics History of History of Diagnosis Active [facility] pulmonary pulmonary [facility] s - embolism embolism Memori a l [facility] ent Clinics Deep Deep Diagnosis Active [facility] venous venous [facility] - thrombosis thrombosis Me moria of leg of leg l [facility] ent [facility] Persistent Persistent Diagnosis Active [facility] insomnia insomnia [facility] - Memoria [facility] ent [facility] On On Diagnosis Active [facility] anticoagul anticoagul Desiree kes - ant ant Memoria therapy therapy l [facility] ent [facility] Tobacco Tobacco Diagnosis Active [facility] use use [facility] - disorder disorder Memori a l [facility] ent [facility] Mixed Mixed Diagnosis Active [facility] hyperlipid hyperlipid Desiree kes - emia emia Memoria [facility] ent [facility] Hyperkalem Hyperkalem Diagnosis Active [facility] ia ia [facility] - Memoria [facility] ent [facility] Allergies, Adverse Reactions, Alerts Allergy Allergy Status Severity Reaction(s) Onset Inactive Treating Comm ents Source Name Type Date Date Clinician Tramadol Adverse Active Info Not [facility] HCl Reaction Available [facility] - [facility] ent [facility] Stadol Adverse Active Info Not [facility] Reaction Available kes - Memoria [facility] ent [facility] Morphine Adverse Active Info Not [facility] Sulfate Reaction Available [place] [facility] - Memoria [facility] ent Clinics Medications Ordered Filled Start Stop Current Ordering Indication Dosage Frequency Signature Comments Components Source Medication Medication Date Date Medication? Clinician (SIG) Name Name Atorzac Atorvastati 2019 Yes Daniel [address] [facility] n Calcium n Calcium 2-11 Rodríguez Luke s - 00:00: Memoria 00 [facility] Hydrochloro Hydrochloro 2019 Yes Daniel [address] [facility] thiazide thiazide 2-11 Rodríguez in the Luke s - 00:00: morning Memoria 00 [facility] ent [facility] Vasotec Vasotec Yes Daniel [address] [facility] Rodríguez [facility] ent [facility] Xarelto Xarelto Yes Daniel [address] [facility] Rodríguez with food kes - [facility] ent [facility] [place] Yes Daniel [address] [facility]o Hydrochloro Yes Daniel [address] [facility] thiazide thiazide Rodríguez in the Luke s - morning [facility] ent [facility] Atorvastati Atorvastati Yes Daniel TAKE [address] [facility] n Calcium n Calcium Rodríguez TABLET BY [facility] DAY [facility] Immunizations Ordered Filled Immunization Date Status Comments Sourc e Immunization Name Name Vaughn Mendes 2018-05-[address] [facility] - 00[facility]00 [facility] Procedures This patient has no known procedures. Encounters Start End Encounter Admission Attending Care Care Encounter Source Date/Time Date/Time Type Type Clinicians Facility Department ID 2020-02-26 2020-02-26 Outpatient Nhung Morales [id number] [facility] [address] 09:45:00 09:45:00 [facility] Medicine [facility] ent Clinics 2019-09-01 2019-09-01 Outpatient [place] Hookert [id number] 13:00:00 13:00:00 [facility] 2019-07-01 2019-07-01 Outpatient [place] [id number] 13:15:00 13:15:00 [employer] 2019-06-25 2019-06-25 Outpatient Nhung Hookert [id number] [facility] 16:03:[address] 16:03:[address] Luke s - Drive [facility] Medicine Medicine Outpati ent Clinics 2019-03-30 2019-03-30 [place] [id number] 15:00:00 15:00:[address] [employer] [facility] s - Drive [facility] l Medicine Outpati ent Clinics 2019-01-08 2019-01-08 [place] [id number] 14:30:00 14:30:00 [place] [employer] s - Drive [facility] Medicine Outpati ent Clinics 2018-11-26 2018-11-26 [place] [id number] 16:00:00 16:00:00 [place] [employer] [facility] - Drive [facility] Medicine Outpati ent Clinics 2018-05-02 2018-05-02 [place] [id number] 11:00:00 11:00:00 [place] [employer] [facility] - Drive [facility] Medicine Outpati ent Clinics 2018-03-14 2018-03-14 [place] [id number] 09:15:00 09:15:00 [place] [employer] s - Drive [facility] Medicine Outpati ent Clinics 2017-11-12 2017-11-12 [place] [id number] 09:15:00 09:15:00 [place] [employer] s - Drive [facility] Medicine Outpati ent Clinics Results This patient has no known results.
--- OUTSIDE RECORDS SUMMARY | 2020-04-28 01:08 | XMS REPORT ---
:1955 Author Organization [employer] Care Team Providers Name Role Phone Daniel Rodríguez Provider Role Unavailable Allergies, Adverse Reactions, Alerts Substance Reaction Event Type Tramadol HCl Info Not Available Drug Allergy Stadol Info Not Available Drug Allergy Morphine Sulfate Info Not Available Drug Allergy Problems Problem Type Condition Code Onset Dates Condition Statu s Problem Persistent insomnia G47.00 Active Problem Nonalcoholic fatty liver disease K76.0 Active Problem Avascular necrosis of femur, M87.059 Active unspecified laterality Problem Hypertension I10 Active Problem Mixed hyperlipidemia E78.2 Active Problem Tobacco use disorder F17.200 Active Problem Deep venous thrombosis of leg I82.409 Active Problem History of pulmonary embolism Z86.711 Active Problem On anticoagulant therapy Z79.01 Act waylon Assessment Deep venous thrombosis of leg I82.409 Active Assessment Tobacco use disorder F17.200 Active Assessment Hyperkalemia E87.5 Active Assessment Persistent insomnia G47.00 Active Assessment History of pulmonary embolism Z86.711 Active Assessment Mixed hyperlipidemia E78.2 Active Assessment Nonalcoholic fatty liver disease K76.0 Active Assessment Avascular necrosis of femur, M87.059 Active unspecified laterality Assessment On anticoagulant therapy Z79.01 Act waylon Assessment Hypertension I10 Active Medications Medication Code Code Instructions Start End Status Dosage System Date Date Hydrochlorothiazide [facility] 49879539579 12.5 MG Orally A ctive 1 capsule Once a day in the morning Atorvastatin Calcium [facility] 16452951818 10 MG Orally Ac tive 1 tablet Once a day Xarelto [facility] 70292402461 15 MG Orally Active 1 table t Once a day with food [place] [facility] 84174963357 10-325 MG Active 1 tablet Orally every 6 as needed hrs PRN Vasotec [facility] [id number] 10 MG Orally Active 1 table t Once a day Hydrochlorothiazide [facility] 09970098457 12.5 MG Orally A ctive 1 capsule Once a day in the morning Atorvastatin Calcium [facility] 19113414031 10 MG Active TAKE 1 TABLET BY MOUTH EVERY DAY Results No Known Results Summary Purpose [employer] Submission
== END 2020-04-24 16:50 | disposition home or self-care (01) ==
LOC: ER 12:54
PROC: 0JQG0ZZ Repair Right Lower Arm Subcutaneous Tissue and Fascia, Open Approach (ICD-10-PCS; principal; 2020-04-24)
DX: S51.011A Laceration without foreign body of right elbow, initial encounter (principal); W10.9XXA Fall (on) (from) unspecified stairs and steps, initial encounter; Y93.9 Activity, unspecified; Y92.009 Unspecified place in unspecified non-institutional (private) residence as the place of occurrence of the external cause; I10 Essential (primary) hypertension; Z23 Encounter for immunization; Z79.01 Long term (current) use of anticoagulants; Z86.711 Personal history of pulmonary embolism; Z88.5 Allergy status to narcotic agent; Z88.6 Allergy status to analgesic agent; Z88.8 Allergy status to other drugs, medicaments and biological substances
CPT/HCPCS: 73080; 90471; 90714; 96372; 99284; 12002; J0690

== ENCOUNTER 2020-09-25 07:24 | Emergency (ER) | payer OTHER ==
--- OUTSIDE RECORDS SUMMARY | 2020-09-25 07:26 | XMS REPORT | Continuity of Care Document ---
:1955 Author Organization [facility] t Address [address] [place] [address] Care Team Providers Name Role Phone Unavailable Unavailable Unavailable Problems This patient has no known problems. Allergies, Adverse Reactions, Alerts Allergy Allergy Status Severity Reaction(s) Onset Inactive Treating Comm ents Source Name Type Date Date Clinician Tramadol Adverse Active Info Not [facility] Reaction Available [facility] Stadol Adverse Active Info Not [facility] Reaction Available [facility] Morphine Adverse Active Info Not [facility] Sulfate Reaction Available [facility] Medications Ordered Filled Start Stop Current Ordering Indication Dosage Frequency Signature Comments Components Source Medication Medication Date Date Medication? Clinician (SIG) Name Name Atorradhikatati Atorvastati 2018-07 Yes Daniel [address] [facility] n Calcium n Calcium 2-11 Rodríguez [facility] - 00:00: Memoria 00 [facility] Hydrochloro Hydrochloro 2018-07 Yes Daniel [address] [facility] thiazide thiazide 2-11 Rodríguez in the Luke s - 00:00: morning Memoria 00 [facility] Vasotec Vasotec Yes Daniel [address] [facility]ics Xarelto Xarelto Yes Daniel [address] [address] Rod[facility]guez with food [facility] Waka Waka Yes Daniel [address] [address] Rod[facility]guez as needed [facility] Hydrochloro Hydrochloro Yes Daniel [address] [facility] thiazide thiazide Rodríguez in the Luke s - morning [facility] ent [facility] Atorvastati Atorvastati Yes Daniel TAKE [address] [facility] n Calcium n Calcium Rodríguez TABLET BY [facility] l Out[facility]i ent Clinics Immunizations Ordered Filled Immunization Date Status Comments Sourc e Immunization Name Name Vaughn Mendes 2018-05-[address] [facility] Procedures This patient has no known procedures. Encounters Start End Encounter Admission Attending Care Care Encounter Source Date/Time Date/Time Type Type Clinicians Facility Department ID 2020-08-18 2020-08-18 Out[facility] [id number] [facility] 2020-05-18 2020-05-18 [facility] [id number] [facility] 2020-05-18 2020-05-18 [facility] [id number] [facility] 2020-02-26 2020-02-26 [facility] [id number] [address] 09:45[facility]00 09:45:00 t [facility] - [facility] Medicine Outpati ent Clinics 2019-09-01 2019-09-01 [facility] [id number] [address] 13:00:00 13:00:00 t [place] [facility] - [facility] Out[facility] Clinics 2019-07-01 2019-07-01 [facility] [id number] 13:15:00 13:15:00 t [place] [employer] Luke [facility] - Drive [facility] Out[facility] Clinics 2019-06-25 2019-06-25 [facility] [id number] [address] 16:03:00 16:03:00 t [employer] [facility] - [facility] Medicine Outpat[facility] ent Clinics 2019-03-30 2019-03-30 [facility] [id number] [address] 15:00:00 15:00:00 t [place] - [facility] Medicine Outpati ent Clinics 2019-01-08 2019-01-08 [facility] [id number] 14:30:00 14:30:00 t [place] [facility] Medicine Outpati ent Clinics 2018-11-26 2018-11-26 [facility] [id number] 16:00:00 16:00:00 t [place] [facility] Medicine Outpati ent Clinics 2018-05-02 2018-05-02 [facility] [id number] 11:00:00 11:00:00 t [place] [facility] Medicine Outpati ent Clinics 2018-03-14 2018-03-14 [facility] [id number] 09:15:00 09:15:00 t [place] [facility] Medicine Outpati ent Clinics 2017-11-12 2017-11-12 [facility] [id number] 09:15:00 09:15:00 t [place] [facility] Outpat[facility] ent Clinics Results This patient has no known results.
--- NOTE | 2020-09-25 09:11 | ER ---
Nurse's Notes [facility] Name: Red Cooper Jr Age: 64 yrs Sex: Male : 1955 Arrival Date: 09/25/2020 Time: 07:26 Bed 27 Private MD: Diagnosis: Laceration without foreign body, right foot-planter Presentation: 09/25 07:26 Chief complaint: EMS states: small laceration to bottom of right pinky toe after iw hitting it on the couch this morning. Coronavirus screen: At this time, the client does not indicate any symptoms associated with coronavirus-19. Ebola Screen: Patient negative for fever greater than or equal to 101.5 degrees Fahrenheit, and additional compatible Ebola Virus Disease symptoms Patient denies exposure to infectious person. Patient denies travel to an Ebola-affected area in the 21 days before illness onset. No symptoms or risks identified at this time. Complicating Factors: There are no complicating factors for this patient. Initial Sepsis Screen: Does the patient meet any 2 criteria? No. Patient's initial sepsis screen is negative. Does the patient have a suspected source of infection? No. Patient's initial sepsis screen is negative. Risk Assessment: Do you want to hurt yourself or someone else? Patient reports no desire to harm self or others. Onset of symptoms was September 25, 2020. 07:26 Method Of Arrival: EMS: [facility] iw 07:26 Acuity: JENNY 4 iw Historical: - Allergies: 07:28 Demerol; iw 07:28 Morphine; iw 07:28 Tramadol HCl; iw - Home Meds: 07:28 enalapril maleate 10 mg Oral tab 1 tab once daily [Active]; hydrocodone-acetaminophen iw 10-325 mg Oral tab [Active]; Xarelto 15 mg Oral tab daily [Active]; - PMHx: 07:28 Hypertension; pulmonary embolus; iw - PSHx: 07:28 right shoulder; IVC filter; iw - Immunization history:: Adult Immunizations not up to date. - Social history:: Smoking status: Patient reports the use of cigarette tobacco products, denies chronic smoking, but will smoke occasionally. - Family history:: not pertinent. Screenin:00 Abuse screen: Denies threats or abuse. Denies injuries from another. Nutritional ca1 screening: No deficits noted. Tuberculosis screening: No symptoms or risk factors identified. Fall Risk None identified. Assessment: 09:00 General: Appears in no apparent distress. uncomfortable, Behavior is calm, cooperative, ca1 appropriate for age. Pain: Complains of pain in right foot and plantar aspect of right fifth toe Pain currently is 10 out of 10 on a pain scale. Neuro: Level of Consciousness is awake, alert, obeys commands, Oriented to person, place, time, situation. Derm: Skin is healthy with good turgor, Skin is pink, warm \T\ dry. Musculoskeletal: Circulation, motion, and sensation intact. Capillary refill < 3 seconds. Injury Description: Laceration sustained to plantar aspect of right fifth toe is clean, 0.5 to 2.5 cm long, was sustained less than 30 minutes ago. is bleeding a small amount. 10:00 Reassessment: Patient appears in no apparent distress at this time. Patient is alert, ca1 oriented x 3, equal unlabored respirations, skin warm/dry/pink. Vital Signs: 07:42 BP 126 / 65; Pulse 96; Resp 16; Temp 97.8; Pulse Ox 97% on R/A; Weight 93.44 kg; Height iw 5 ft. 9 in. (175.26 cm); 10:00 BP 128 / 71; Pulse 86; Resp 16 S; Pulse Ox 98% on R/A; ca1 07:42 Body Mass Index 30.42 (93.44 kg, 175.26 cm) iw ED Course: 07:26 Patient arrived in ED. iw 07:27 Triage completed. iw 07:28 Arm band placed on. iw 08:48 Juancarlos Carrasco MD is Attending Physician. crescencio 09:00 Patient has correct armband on for positive identification. Bed in low position. Call ca1 light in reach. Side rails up X2. Pulse ox on. NIBP on. 09:07 Narda Perdomo, JAYA is Primary Nurse. ca1 09:09 Kiran Vogel MD is Referral Physician. crescencio 09:30 Assist provider with laceration repair on plantar aspect of right fifth toe that was ca1 2.5 cm. or less using sutures. Set up tray. Performed by Juancarlos Carrasco MD Dressed with 4X4s, Kerlix, Patient tolerated well. 09:30 Patient did not have IV access during this emergency room visit. ca1 09:35 Foot Right 3 View In Process Unspecified. EDMS 10:10 Ortho shoe applied to right foot. ca1 Administered Medications: 09:12 Drug: Bactrim (160 mg-800 mg (DS) 1 tablet Route: PO; ca1 09:52 Follow up: Response: No adverse reaction ca1 09:28 Drug: Lidocaine-Epinephrine -1%: (1:100,000) 3 ml {Note: By Dr. Carrasco at bedside.} ca1 Volume: 20 ml; Route: Infiltration; 09:31 Drug: Tetanus-Diphtheria Toxoid Adult 0.5 ml {Food Beverage Manager: [employer]. Exp: ca1 12/25/2021. Lot #: [id number]. } Route: IM; Site: right deltoid; 10:20 Follow up: Response: No adverse reaction ca1 09:43 Drug: Phenergan 25 mg Route: IM; Site: right deltoid; ca1 10:20 Follow up: Response: No adverse reaction; Nausea is decreased ca1 09:45 Drug: Demerol 50 mg {Note: rass 0.} Route: IM; Site: left deltoid; ca1 10:20 Follow up: Response: No adverse reaction; Pain is decreased; RASS: Alert and Calm (0) ca1 09:52 Drug: Bactroban Ointment 2 % 1 application Route: Topical; Site: affected area; ca1 Outcome: 09:10 Discharge ordered by . crescencio 10:23 Discharged to home via wheelchair, with friend. ca1 10:23 Condition: stable 10:23 Discharge instructions given to patient, Instructed on discharge instructions, follow up and referral plans. medication usage, wound care, Demonstrated understanding of instructions, follow-up care, medications, wound care, Prescriptions given X 2. 10:25 Patient left the ED. ca1 Signatures: Dispatcher [employer] Juancarlos Abdullahi MD MD cha Williams, Irene, RN RN iw Narda Perdomo RN RN ca1 Corrections: (The following items were deleted from the chart) 07:43 07:42 Pulse 96bpm; Resp 16bpm; Pulse Ox 97% RA; Temp 97.8F; 93.44 kg; Height 5 ft. 9 iw in.; BMI: 30.4; iw 07:43 07:28 Allergies: BP med; iw iw 07:43 07:28 Allergies: Codeine; iw iw 10:22 10:22 Reassessment: Patient appears in no apparent distress at this time. Patient is ca1 alert, oriented x 3, equal unlabored respirations, skin warm/dry/pink. ca1
--- NOTE | 2020-09-25 09:11 | EDPHYS ---
Physician Documentation [facility] Name: Red Cooper Jr Age: 64 yrs Sex: Male : 1955 Arrival Date: 09/25/2020 Time: 07:26 Bed 27 Private MD: ED Physician Juancarlos Carrasco HPI: 09/25 09:02 This 64 yrs old Male presents to ER via EMS with complaints of Laceration. crescencio 09:02 The patient presents with decreased range of motion, pain, that is acute. The crescencio complaints affect the right foot, plantar aspect of right fifth toe. Context: The problem was sustained at home. Onset: The symptoms/episode began/occurred just prior to arrival. Modifying factors: The symptoms are alleviated by elevation of extremity, the symptoms are aggravated by weight bearing, movement. Associated signs and symptoms: The patient has no apparent associated signs or symptoms. Severity of symptoms: At their worst the symptoms were mild, in the emergency department the symptoms are unchanged. The patient has not experienced similar symptoms in the past. Historical: - Allergies: 07:28 Demerol; iw 07:28 Morphine; iw 07:28 Tramadol HCl; iw - Home Meds: 07:28 enalapril maleate 10 mg Oral tab 1 tab once daily [Active]; hydrocodone-acetaminophen iw 10-325 mg Oral tab [Active]; Xarelto 15 mg Oral tab daily [Active]; - PMHx: 07:28 Hypertension; pulmonary embolus; iw - PSHx: 07:28 right shoulder; IVC filter; iw - Immunization history:: Adult Immunizations not up to date. - Social history:: Smoking status: Patient reports the use of cigarette tobacco products, denies chronic smoking, but will smoke occasionally. - Family history:: not pertinent. ROS: 09:02 Constitutional: Negative for fever, chills, and weight loss, Eyes: Negative for injury, crescencio pain, redness, and discharge, ENT: Negative for injury, pain, and discharge, Neck: Negative for injury, pain, and swelling, Cardiovascular: Negative for chest pain, palpitations, and edema, Respiratory: Negative for shortness of breath, cough, wheezing, and pleuritic chest pain, Abdomen/GI: Negative for abdominal pain, nausea, vomiting, diarrhea, and constipation, Back: Negative for injury and pain, : Negative for injury, bleeding, discharge, and swelling, Skin: Negative for injury, rash, and discoloration, Neuro: Negative for headache, weakness, numbness, tingling, and seizure, Psych: Negative for depression, anxiety, suicide ideation, homicidal ideation, and hallucinations, Allergy/Immunology: Negative for hives, rash, and allergies, Endocrine: Negative for neck swelling, polydipsia, polyuria, polyphagia, and marked weight changes, Hematologic/Lymphatic: Negative for swollen nodes, abnormal bleeding, and unusual bruising. 09:02 MS/extremity: Positive for decreased range of motion, pain, swelling, tenderness, of the plantar aspect of right fifth toe. Exam: 09:02 Constitutional: This is a well developed, well nourished patient who is awake, alert, crescencio and in no acute distress. Head/Face: Normocephalic, atraumatic. Eyes: Pupils equal round and reactive to light, extra-ocular motions intact. Lids and lashes normal. Conjunctiva and sclera are non-icteric and not injected. Cornea within normal limits. Periorbital areas with no swelling, redness, or edema. ENT: Nares patent. No nasal discharge, no septal abnormalities noted. Tympanic membranes are normal and external auditory canals are clear. Oropharynx with no redness, swelling, or masses, exudates, or evidence of obstruction, uvula midline. Mucous membranes moist. Neck: Trachea midline, no thyromegaly or masses palpated, and no cervical lymphadenopathy. Supple, full range of motion without nuchal rigidity, or vertebral point tenderness. No Meningismus. Chest/axilla: Normal chest wall appearance and motion. Nontender with no deformity. No lesions are appreciated. Cardiovascular: Regular rate and rhythm with a normal S1 and S2. No gallops, murmurs, or rubs. Normal PMI, no JVD. No pulse deficits. Respiratory: Lungs have equal breath sounds bilaterally, clear to auscultation and percussion. No rales, rhonchi or wheezes noted. No increased work of breathing, no retractions or nasal flaring. Abdomen/GI: Soft, non-tender, with normal bowel sounds. No distension or tympany. No guarding or rebound. No evidence of tenderness throughout. Back: No spinal tenderness. No costovertebral tenderness. Full range of motion. Male : Normal genitalia with no discharge or lesions. Skin: Warm, dry with normal turgor. Normal color with no rashes, no lesions, and no evidence of cellulitis. Neuro: Awake and alert, GCS 15, oriented to person, place, time, and situation. Cranial nerves II-XII grossly intact. Motor strength 5/5 in all extremities. Sensory grossly intact. Cerebellar exam normal. Normal gait. Psych: Awake, alert, with orientation to person, place and time. Behavior, mood, and affect are within normal limits. 09:02 Musculoskeletal/extremity: Extremities: grossly normal except: noted in the plantar aspect of right fifth toe: contusion, decreased ROM, laceration, ROM: limited active range of motion due to pain, limited passive range of motion due to pain, Circulation is intact in all extremities. Sensation intact. Compartment Syndrome exam of affected extremity: is normal. DVT Exam: negative Homans' sign noted on exam, no appreciated bluish discoloration, no erythema, no increased warmth, pain, swelling, tenderness. Vital Signs: 07:42 BP 126 / 65; Pulse 96; Resp 16; Temp 97.8; Pulse Ox 97% on R/A; Weight 93.44 kg; Height iw 5 ft. 9 in. (175.26 cm); 10:00 BP 128 / 71; Pulse 86; Resp 16 S; Pulse Ox 98% on R/A; ca1 07:42 Body Mass Index 30.42 (93.44 kg, 175.26 cm) iw Laceration: 09:30 Wound Repair of 1cm ( 0.4in ) subcutaneous laceration to plantar aspect of right fifth crescencio toe. Irregularly shaped.. Distal neuro/vascular/tendon intact. Anesthesia: Local anesthetic administered with 3 mls of 1% lidocaine w/ Epi. Wound prep: Moderate cleansing with betadine by ak. Skin closed with 3 5-0 Prolene using interrupted sutures and sterile technique. Dressed with Neosporin. Patient tolerated well. MDM: 08:48 Patient medically screened. [facility] 09:06 Differential diagnosis: penetrating trauma. Data reviewed: vital signs, nurses notes, [facility] radiologic studies, plain films. Data interpreted: nuclear monitoring technician: rate is 96 beats/min, Pulse oximetry: on room air is 97 %. Test interpretation: by ED physician or midlevel provider: plain radiologic studies. Counseling: I had a detailed discussion with the patient and/or guardian regarding: radiology results. 09/25 08:58 Order name: Foot Right 3 View XRAY ca1 09/25 08:58 Order name: Foot Right 3 View EDMS 09/25 09:02 Order name: Prolene, Sutures; Complete Time: 09:28 crescencio 09/25 09:02 Order name: Dressing - Wound; Complete Time: 09:28 crescencio 09/25 09:02 Order name: Gloves, Sterile; Complete Time: 09:28 crescencio 09/25 09:02 Order name: Setup Suture Tray; Complete Time: 09:28 crescencio 09/25 09:02 Order name: Post-op shoe; Complete Time: 10:20 crescencio Administered Medications: 09:12 Drug: Bactrim (160 mg-800 mg (DS) 1 tablet Route: PO; ca1 09:52 Follow up: Response: No adverse reaction ca1 09:28 Drug: Lidocaine-Epinephrine -1%: (1:100,000) 3 ml {Note: By Dr. Carrasco at bedside.} ca1 Volume: 20 ml; Route: Infiltration; 09:31 Drug: Tetanus-Diphtheria Toxoid Adult 0.5 ml {[employer]: [employer]. Exp: ca1 12/25/2021. Lot #: [id number]. } Route: IM; Site: right deltoid; 10:20 Follow up: Response: No adverse reaction ca1 09:43 Drug: Phenergan 25 mg Route: IM; Site: right deltoid; ca1 10:20 Follow up: Response: No adverse reaction; Nausea is decreased ca1 09:45 Drug: Demerol 50 mg {Note: rass 0.} Route: IM; Site: left deltoid; ca1 10:20 Follow up: Response: No adverse reaction; Pain is decreased; RASS: Alert and Calm (0) ca1 09:52 Drug: Bactroban Ointment 2 % 1 application Route: Topical; Site: affected area; ca1 Disposition: 09/25/20 09:10 Discharged to Home. Impression: Laceration without foreign body, right foot - planter. - Condition is Stable. - Discharge Instructions: Laceration Care, Adult, Laceration Care, Adult, [id number]. - Prescriptions for Bactroban 2 % Topical Ointment - Apply to affected area 1 application by TOPICAL route every 12 hours; 15 gram. Bactrim DS 800- 160 mg Oral Tablet - take 1 tablet by ORAL route every 12 hours for 10 days; 20 tablet. - Medication Reconciliation Form, Thank You Letter, Antibiotic Education, Prescription Opioid Use form. - Follow up: Private Physician; When: 2 - 3 days; Reason: Recheck today's complaints, Continuance of care, Re-evaluation by your physician. Follow up: Kiran Vogel MD; When: 2 - 3 days; Reason: Recheck today's complaints, Re-evaluation by your physician. - Problem is new. - Symptoms have improved. Signatures: Dispatcher [employer] EDJuancarlos Mosher MD MD cha Williams, Irene RN RN iw Narda Perdomo RN RN ca1 Corrections: (The following items were deleted from the chart) 07:43 07:28 Allergies: BP med; [facility] 07:43 07:28 Allergies: Codeine; iw 09:31 09:02 Wound Repair of 1cm ( 0.4in ) subcutaneous laceration to right foot and plantar crescencio aspect of right fifth toe. Irregularly shaped.. Distal neuro/vascular/tendon intact. Anesthesia: Local anesthetic administered with 3 mls of 1% lidocaine w/ Epi. Wound prep: Moderate cleansing by me. Skin closed with 1 5-0 Prolene using interrupted sutures and sterile technique. Dressed with Neosporin, pressure dressing. Patient tolerated well. [facility] 10:25 09:10 09/25/2020 09:10 Discharged to Home. Impression: Laceration without foreign body, ca1 right foot - planter. Condition is Stable. Forms are Medication Reconciliation Form, Thank You Letter, Antibiotic Education, Prescription Opioid Use. Follow up: Private Physician; When: 2 - 3 days; Reason: Recheck today's complaints, Continuance of care, Re-evaluation by your physician. Follow up: Kiran Vogel; When: 2 - 3 days; Reason: Recheck today's complaints, Re-evaluation by your physician. Problem is new. Symptoms have improved. [facility]
[2020-09-25] MEDS ORDERED: MUPIROCIN 2% OINT 22GM TUBE TOP ONE (09:27)
[2020-09-25] MEDS ORDERED: LIDOCAINE 1% W/EPI 1:100,000 MDV 20 ML VIAL ONE (09:27)
[2020-09-25] MEDS ORDERED: SMZ./TMP. 800/160 MG TABLET ONE (09:27)
[2020-09-25] MEDS ORDERED: TETANUS & DIPHTHERIA TOX,ADULT 0.5 ML VIAL ONE (09:40)
[2020-09-25] MEDS ORDERED: MEPERIDINE HCL 50 MG/ML ONE (10:03)
[2020-09-25] MEDS ORDERED: PROMETHAZINE INJ 25 MG/ML AMP ONE (10:03)
[2020-09-25 10:34] VITALS: TEMP 97.8
[2020-09-25 10:35] VITALS: BP 128/71; O2SAT 98
--- NOTE | 2020-09-25 11:40 | RAD REPORT ---
EXAM DESCRIPTION: RAD - Foot Right 3 View - 09/25/2020 9:29 am CLINICAL HISTORY: PAIN COMPARISON: No comparisons FINDINGS: Mild soft tissue swelling is seen along the lateral aspect of the foot. A minimal fracture is suspected involving the base of the proximal phalanx of the fifth toe. Posterior and plantar calc aneal spurs are present.
== END 2020-09-25 10:25 | disposition home or self-care (01) ==
LOC: ER 07:24
PROC: 0JQQ0ZZ Repair Right Foot Subcutaneous Tissue and Fascia, Open Approach (ICD-10-PCS; principal; 2020-09-25)
DX: S91.114A Laceration without foreign body of right lesser toe(s) without damage to nail, initial encounter (principal); W22.03XA Walked into furniture, initial encounter; Y92.9 Unspecified place or not applicable; I10 Essential (primary) hypertension; F17.210 Nicotine dependence, cigarettes, uncomplicated; Z23 Encounter for immunization; Z79.01 Long term (current) use of anticoagulants; Z86.711 Personal history of pulmonary embolism; Z88.5 Allergy status to narcotic agent; Z88.6 Allergy status to analgesic agent
CPT/HCPCS: 73630; 90471; 90714; 96372; 99284; 12001; J2550; J2175

== ENCOUNTER 2021-11-29 11:40 | Emergency (ER) | payer OTHER ==
--- OUTSIDE RECORDS SUMMARY | 2021-11-29 11:42 | XMS REPORT | Continuity of Care Document ---
:1955 Author Organization [facility] t Address [address] [place] [address] Care Team Providers Name Role Phone Dejuan Rodríguez Primary Care Physician Joaquin Rodríguez Attending Clinician Unavailable YAYA Attending Clinician Unavailable COTA Attending Clinician Unavailable ESDRAS Attending Clinician Unavailable RADIOLOGY Attending Clinician Unavailable Radiology Attending Clinician Unavailable Jacqueline RAMÍREZ Attending Clinician MUTENDERSIRENA Attending Clinician Unavailable Mutendermiyai HOTEL SUPERINTENDENT Attending Clinician Stacia Urbano Attending Clinician Unavailable Jovon LAKE B Attending Clinician Unavailable EDMATTHEW Attending Clinician Unavailable Haily Attending Clinician Unavailable Mary Jo DEWITT Admitting Clinician Unavailable MUTENDERSIRENA Admitting Clinician Unavailable Physician, Primary or Family Admitting Clinician Unavailabl e EDIONWE Admitting Clinician Unavailable Payers Payer Name Policy Type Policy Number Effective Date Expiration Date S [facility] [id number] 2021 STARPLUS OON 00:00:00 EXCEPT [facility] DUAL [id number] 2021 COMP HMO D SNP 00:00:00 [facility] [place] STAR [id number] 2015 PLUS 00:00:00 Problems Condition Condition Condition Status Onset Resolution Last Treating Co mments Source Name Details Category Date Date Treatment Clinician Date Vomiting Vomiting Disease Active 2020-07 NPI:1 83 1-14 [id number] 00:00: 00 Shoulder Shoulder Disease Active NPI:1 83 pain, pain, 9-16 [id number] right right 00:00: 00 No known No known Disease NPI:1 52 active active [id number] problems problems Allergies, Adverse Reactions, Alerts Allergy Allergy Status Severity Reaction(s) Onset Inactive Treating Comm ents Source Name Type Date Date Clinician butorpha DA Active U [facility] nol 2- Clear tartrate 00:00: Baer 00 [facility] morphine DA Active U [facility] 2-03 Clear 00:00: Baer 00 [facility] tramadol DA Active U ELEVATED LFT [facility] A 2- Clear 00:00: Baer 00 [facility] MORPHINE DRUG Active Med Other-Cmnt NPI: 183 INGREDI 03-17 [id number] 00:00: 00 BUTORPHA DRUG Active Med Other-Cmnt NPI: 183 NOL INGREDI 03-17 [id number] TARTRATE 00:00: 00 TRAMADOL DRUG Active Med Other-Cmnt NPI: 183 INGREDI 8 [id number] 00:00: 00 Morphine Propensi Active Other - See Psychosi s NPI:183 ty to comments 03-17 [id number] adverse 00:00: reaction 00 s to drug Butorpha Propensi Active Other - See Headache , NPI:183 nol ty to comments 8 Hot [id number] Tartrate adverse 00:00: flashes reaction 00 s to drug Tramadol Propensi Active Other - See Can't N PI:183 ty to comments 8 urinate [id number] adverse 00:00: reaction 00 s to drug Butorpha Allergy Active 2008-07 Other NPI:152 nol to 2-02 reaction( [id number] [facility] 00:00: s): e 00 [facility]ILL[facility], Other - See comments, Unknown, UnknownHe adache, Hot flashes Morphine Allergy Active 2008-07 Other NPI:152 to 2-02 reaction( [id number] substanc 00:00: s): Other e 00 - See comments, PSYCHOSIS , Unknown, UnknownPs ychosis Pravasta Allergy Active 2008-07 NPI:152 tin to 2- [id number] substanc 00:00: e 00 Tramadol Allergy Active 2008-07 Other NPI:152 to 2-02 reaction( [id number] substanc 00:00: s): e 00 ELEVATED LFT, Other - See comments, Unknown, UnknownCa n't urinate butorpha DA Active U 2008-07 [facility] nol 2-02 Clear tartrate 00:00: Baer 00 [facility] morphine DA Active U 2008-07 [facility] 2- Clear 00:00: Baer 00 [facility] pravasta DA Active U 2008-07 [facility] tin 2-02 Clear 00:00: Baer 00 [facility] tramadol DA Active U 2008-07 [facility] 2-02 Clear 00:00: Baer 00 [facility] butorpha DA Active U 2008-07 [facility] nol 2-02 Clear tartrate 00:00: Baer 00 [facility] morphine DA Active U 2008-07 [facility] 2-02 Clear 00:00: Baer 00 [facility] pravasta DA Active U 2008-07 [facility] tin 2-02 Clear 00:00: Baer 00 [facility] tramadol DA Active U 2008-07 [facility] 2-02 Clear 00:00: Baer 00 [facility] Tramadol Adverse Active Info Not NPI:1 74 HCl Reaction Available [id number] 79 Stadol Adverse Active Info Not NPI:174 Reaction Available 79213 79 Morphine Adverse Active Info Not NPI:1 74 Sulfate Reaction Available 0485 879 Social History Social Habit Start Date Stop Date Quantity Comments Source History SDOH NPI:[id number] Alcohol Frequency History SDOH NPI:[id number] 81 Alcohol Std Drinks History SDOH NPI:[id number] 81 Alcohol Binge Exposure to Not sure NPI:[id number] 1 SARS-CoV-2 (event) Cigarettes smoked 2021-08-31 2021-08-31 NPI:843 [id number] current (pack per 00:00:00 00:00:00 day) - Reported Tobacco use and 2021-08-31 2021-08-31 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 Clinician (SIG) Name Name atorradhikatati Yes 1{tbl} 1 tablet. 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 tablet 32 rivaroxaban 2020-07 Yes 15mg Take 15 mg NPI:183 (XARELTO) 1-16 by mouth [id number] 1 15 mg Tab 13:49: daily. tablet 32 rivaroxaban 2020-07 Yes 15mg Take 15 mg NPI:183 (XARELTO) 1-16 by mouth [id number] 1 15 mg Tab 13:49: daily. tablet 32 hydroCHLORO Yes NPI:15 2 thiazide 5-05 [id number] (HYDRODiuri 00:00: l) 12.5 MG 00 tablet Atorvastati Atorvastati 2018-07 Yes Daniel 1 tablet NPI:174 n Calcium n Calcium 2-11 Rodríguez 0485 879 00:00: 00 Hydrochloro Hydrochloro 2019 Yes Daniel 1 capsule NPI:174 thiazide thiazide 2-11 Rodríguez in the 0485 879 00:00: morning 00 Vasotec Vasotec Yes Daniel 1 tablet NPI :174 Rodríguez [id number] Xarelto Xarelto Yes Daniel 1 tablet NPI :174 Rodríguez with food [id number] [place] Yes Daniel 1 tablet NPI:174 Rodríguez as needed 1604510 Hydrochloro Hydrochloro Yes Daniel 1 capsule NPI:174 thiazide thiazide Rodríguez in the 0485 879 morning Atorvastati Atorvastati Yes Daniel TAKE 1 NPI:174 n Calcium n Calcium Rodríguez TABLET BY [id number] MOUTH EVERY DAY Immunizations Ordered Immunization Filled Immunization Date Status Commen ts Source Name Name Vaughn Mendes 2018-05-02 Completed 00:00:00 Vital Signs Vital Name Observation Time Observation Value Comments Source Body height 2021-08-31 20:26:00 175.3 cm NPI:1528 [id number] Body weight 2021-08-31 20:26:00 103.964 kg NPI:1528 [id number] BMI 2021-08-31 20:26:00 33.85 kg/m2 NPI:1528 144350 Systolic blood pressure 2021-08-27 21:30:40 137 mm[Hg] Diastolic blood 2021-08-27 21:30:40 74 mm[Hg] NPI:1 [id number] pressure Heart rate 2021-08-27 21:30:40 63 /min NPI:1831 [id number] Respiratory rate 2021-08-27 21:30:40 18 /min Oxygen saturation in 2021-08-27 21:30:40 97 /min Arterial blood by Pulse oximetry Body height 2021-08-27 17:11:00 175.3 cm NPI:1831 [id number] Body weight 2021-08-27 17:11:00 112.5 kg NPI:1831 [id number] BMI 2021-08-27 17:11:00 36.63 kg/m2 NPI:183 [id number] Body temperature 2021-08-27 17:08:00 36.5 Alexandra Procedures Procedure Date / Time Performed Performing Clinician Omega karen MR LUMBAR SPINE WO 2021-09-29 17:46:28 Requisition, Paper NPI:18 [id number] CONTRAST NOTICE OF PRIVACY 2021-09-29 15:18:21 Doctor Unassigned, No PRACTICES Name CONSENT/REFUSAL FOR 2021-09-29 15:16:36 Doctor Unassigned, 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 I:[id number] DIAGNOSIS AND TREATMENT Name ASSIGNMENT OF BENEFITS 2021-09-29 15:16:11 Doctor Unassigned, No Name CT PELVIS WO CONTRAST 2021-08-27 19:57:43 Brady Sommers N PI:[id number] XR FEMUR 2 VW LEFT 2021-08-27 17:55:47 Brady Sommers XR HIPS 3 VW LEFT 2021-08-27 17:55:47 Brady Sommers NPI:1 [id number] Encounters Start End Encounter Admission Attending Care Care Encounter Source Date/Time Date/Time Type Type Clinicians Facility Department ID 2021-09-27 Outpatient JASWINDER RodríguezLC STLC NPI:174 09:57:01 [facility] [id number] 2021-09-25 Outpatient Marcos STGÉNESISLC STLMLC NPI:174 13:14:00 [facility] [id number] 2021-09-19 Outpatient Marcos STGÉNESISLC STLC NPI:174 11:19:00 [facility] [id number] 2021-09-14 Outpatient YAYA [facility] [id number] NPI:152 17:05:40 [place] [id number] 2021-09-01 Outpatient Rodríguez, STLMLC STLMLC [id number] NPI:174 11:11:01 Daniel [id number] 2021-08-28 Outpatient COTA, [facility] [id number] NPI:152 10:58:16 [place] [id number] 2021-08-16 Outpatient Rodríguez, STLMLC STLMLC [id number] NPI:174 13:34:44 Daniel [id number] 2021-08-16 Outpatient Rodríguez, STLMLC STLMLC [id number] NPI:174 13:34:30 Daniel 95617 [id number] 2021-08-16 Outpatient Rodríguez, STLMLC STLMLC [id number] NPI:174 12:59:44 Daniel 12350 [id number] 2021-08-16 Outpatient Rodríguez, STLMLC STLMLC [id number] NPI:174 12:31:55 Daniel 19883 [id number] 2021-08-16 Outpatient Rodríguez, STLMLC STLMLC [id number] NPI:174 12:25:32 Daniel [id number] 2021-08-16 Outpatient Rodríguez, STLMLC STLMLC [id number] NPI:174 11:59:34 Daniel 11655 [id number] 2021-08-16 Outpatient Rodríguez, STLMLC STLMLC [id number] NPI:174 11:30:32 Daniel 65928 [id number] 2021-08-16 Outpatient Rodríguez, STLMLC STLMLC [id number] NPI:174 11:21:27 Daniel 89913 [id number] 2021-08-16 Outpatient Rodríguez, STLMLC STLMLC [id number] NPI:174 11:07:05 Daniel [id number] 2021-08-16 Outpatient Rodríguez, STLMLC STLMLC [id number] NPI:174 11:06:43 Daniel 94721 [id number] 2021-08-16 Outpatient Rodríguez, STLMLC STLMLC [id number] NPI:174 11:06:18 Daniel [id number] 2021-08-16 Outpatient Rodríguez, STLMLC STLMLC [id number] NPI:174 11:06:03 [facility] [id number] 2021-11-17 2021-11-17 ambulatory STLMLC STLMLC [id number] NPI:174 00:00:00 00:00:00 [id number] 2021-11-17 2021-11-17 ambulatory STLMLC STLMLC [id number] NPI:174 00:00:00 00:00:00 [id number] 2021-11-08 2021-11-08 Outpatient DEWITT, [facility] [id number] [place] 00:00:00 00:00:00 VAIBHAVE 069 Metho di 2021-11-01 2021-11-01 Outpatient DEWITT, [facility] [id number] [place] 00:00:00 00:00:00 VAIBHAVE 036 Metho di 2021-10-27 2021-10-27 Outpatient DEWITT, [facility] [id number] [place] 00:00:00 00:00:00 VAIBHAVE 946 Metho di 2021-10-20 2021-10-20 Outpatient DEWITT, [facility] [id number] [place] 00:00:00 00:00:00 VAIBHAVE 719 Metho di 2021-10-10 2021-10-10 Outpatient DEWITT, [facility] [id number] [place] 00:00:00 00:00:00 VAIBHAVE 098 Metho di 2021-09-29 2021-09-29 Outpatient R RADIOLOGY [facility] [id number] NPI:183 09:22:34 23:59:00 [id number] 2021-09-29 2021-09-29 Hospital Radiology [facility] [id number] NPI:183 08:45:00 23:59:00 [facility] [id number] [place] 4.2.7.2.686 [place] [id number] 2021-09-27 2021-09-27 ambulatory STLMLC STLMLC [id number] NPI:174 00:00:00 00:00:00 [id number] 2021-09-27 2021-09-27 ambulatory STLMLC STLMLC [id number] NPI:174 00:00:00 00:00:00 [id number] 2021-09-26 2021-09-26 ambulatory STLMLC STLMLC [id number] NPI:174 00:00:00 00:00:00 [id number] 2021-09-19 2021-09-19 ambulatory STLMLC STLMLC [id number] NPI:174 00:00:00 00:00:00 [id number] 2021-08-31 2021-08-31 Office MadelinjyotiSHLEBY 6400 1.2.840.114 [id number] NPI:152 15:00:00 16:23:[address] [id number] [id number] 2021-08-27 2021-08-27 Emergency X MUTENDEREKI [facility] [id number] NPI:183 11:00:00 15:39:00 , BRADY 7996 986 3359-02-06 2021-08-27 Emergency Mutendereki [facility] 1.2.840.114 [id number] NPI:183 11:00:00 15:39:00 , [facility] [id number] [id number] [place] 4.2.7.2.686 [place] [id number] [place] [address] ([facility]) 2021-08-24 2021-08-24 Emergency EM White, [facility]AC[facility] AERS [id number] [facility] 15:25:00 16:37:00 Jesus [id number] [facility] 2021-08-24 2021-08-24 Emergency EM White, HCACL [facility]L [id number] [facility] 15:25:00 16:37:00 Jesus 09 [facility] 2021-06-22 2021-06-22 ambulatory STLMLC STLMLC [id number] NPI:174 00:00:00 00:00:00 [id number] 2021-06-08 2021-06-08 Transition LANDON Sigala 1.2.840.114 [id number] NPI:183 00:00:00 00:00:00 of Darius BERNABE 350.1.13.10 [id number] [place] 4.2.7.2.686 [id number] 2021-06-04 2021-06-06 Outpatient Kateryna [facility] [id number] NPI:183 15:51:00 13:45:00 MADDIE [id number] 2021-05-17 2021-05-17 Outpatient STLMLC STLMLC [id number] NPI:174 00:00:00 00:00:00 [id number] 2021-02-25 2021-02-25 Emergency EM Haily, [facility] AERS [id number] [facility] 12:19:00 13:45:00 Tarrell [id number] [facility] 2020-11-23 2020-11-23 Outpatient STLMLC STLMLC [id number] NPI:174 00:00:00 00:00:00 [id number] 2020-08-18 2020-08-18 Outpatient STLMLC STLMLC [id number] NPI:174 00:00:00 00:00:00 [id number] 2020-05-18 2020-05-18 Outpatient STLMLC STLMLC [id number] NPI:174 00:00:00 00:00:00 [id number] 2020-05-18 2020-05-18 Outpatient STLMLC STLMLC [id number] NPI:174 00:00:00 00:00:00 [id number] 2020-02-26 2020-02-26 Out[facility] [id number] NPI:174 09:45:00 09:45:[address] 0485 879 [employer] [facility] Medicine Medicine 2019-09-01 2019-09-01 Out[facility] [id number] NPI:174 13:00:00 13:00:[address] 0485 879 [employer] [facility] Medicine 2019-07-01 2019-07-01 Outpatient [facility] [id number] NPI:174 13:15:00 13:15:[address] 0485 879 [employer] [facility] Medicine Medicine 2019-06-25 2019-06-25 Out[facility] [id number] NPI:174 16:03:00 16:03:[address] 0485 879 [employer] [facility] Medicine 2019-03-30 2019-03-30 Out[facility] [id number] NPI:174 15:00:00 15:00:[address] [facility] Medicine 2019-01-08 2019-01-08 Out[facility] [id number] NPI:174 14:30:00 14:30:[address] [facility] Medicine 2018-11-26 2018-11-26 Out[facility] [id number] NPI:174 16:00:00 16:00:[address] [facility] Medicine 2018-05-02 2018-05-02 Out[facility] [id number] NPI:174 11:00:00 11:00:[address] [facility] Medicine Medicine 2018-03-14 2018-03-14 Out[facility] [id number] NPI:174 09:15:00 09:15:[address] [facility] Medicine 2017-11-12 2017-11-12 [facility] [id number] NPI:174 09:15:00 09:15:[address] [facility] Medicine Results Test Description Test Time Test Comments Results Result Sour e Comments - XR HIP FRANKI 2021-08-24 W/PELVIS 00:00:00 [facility] : 1955 Sex: M FAX: Jesus Urbano MD [phone] [place]: [place] St: PRE Name: MAL COOPER FSED : 1955 Age/S: 65/M [address] [facility] Unit #: [id number] Loc: [place] [address] Phys: Jesus Urbano MD Acct: [id number] Dis Date: Status: PRE ER PHONE #: Exam Date: 08/24/2021 1550 FAX #: Reason: fall, left hip pain. [facility] avasc necrosis EXAMS: CPT CODE: [id number] XR HIP FRANKI W/PELVIS 55555 PROCEDURE INFORMATION: Exam: XR Bilateral Hips Exam date and time: 08/24/2021 3:39 PM Age: 65 years old Clinical indication: Injury or trauma; Fall; Sprain or strain; Bilateral; Hip; Additional info: Fall, left hip pain. [facility] avasc necrosis TECHNIQUE: Imaging protocol: XR bilateral hips. Views: 3 or 4 views of hips with pelvis when performed. COMPARISON: No relevant prior studies available. FINDINGS: Bones/joints: Marked sclerotic and lytic architectural distortion within the left femoral head, consistent with avascular necrosis. The left femoral head contours are relatively well preserved. The bilateral hip joint spaces are preserved. Moderate lower lumbar degenerative changes. No acute fracture, malalignment, or dislocation of the bilateral hips or imaged pelvis. No aggressive bony lesions. Soft tissues: Unremarkable soft tissues. No unusual radiopaque foreign bodies. IMPRESSION: 1. Left femoral head avascular necrosis. 2. Lower lumbar spondylosis. 3. No acute fracture. at 1602 Reported and signed by: Robles Tucker M.D. CC: Jesus Urbano MD Technologist: RT Sruthi(R)(CT) Trnscrd Date/Time/By: 08/24/2021 (160) : By: [email or web address] Orig Print D/T: S: 08/24/2021 (1638) PAGE 1 Signed Report CBC W/AUTO DIFF 2021-02-26 00:20:00 Test Item Value Reference Range Interpretation Comme nts WHITE BLOOD CELL (test code = WBC) 10.1 K/uL 3.5-11.0 N RED BLOOD CELL (test code = RBC) 3.72 M/uL 4.00-5.60 L HEMOGLOBIN (test code = HGB) 12.2 GM/DL 12.5-16.9 L HEMATOCRIT (test code = HCT) 34.8 % 40.0-54.0 L MEAN CELL VOLUME (test code = MCV) 93.5 fL 81.0-99.0 N MEAN CELL HGB (test code = MCH) 32.8 pg 27.0-31.0 H MEAN CELL HGB CONCETRATION (test code = MCHC) 35.1 GM/DL 33.0-37. 0 N RED CELL DISTRIBUTION WIDTH CV (test code = RDW) 13.8 % 11.5- 14.5 N PLATELET COUNT (test code = PLT) 174 K/mm3 150-400 N MEAN PLATELET VOLUME (test code = MPV) 12.2 FL 8.8-13.1 N NEUTROPHIL % (test code = NT%) 76.2 % 40.0-76.0 H LYMPHOCYTE % (test code = LY%) 11.6 % 15.0-40.0 L MIXED % (test code = MX%) 12.2 % 3.0-15.0 N NEUTROPHIL # (test code = NT#) 7.7 K/uL 1.8-7.6 H LYMPHOCYTE # (test code = LY#) 1.2 K/uL 1.0-3.8 N MIXED # (test code = MX#) 1.2 k/mm3 0.1-0.8 H BASIC METABOLIC [id number] 13:06:00 Test Item Value Reference Range Interpretation Comments SODIUM (test code = NA/ABG) 136 MEQ/L 134-147 N POTASSIUM (test code = K/ABG) 5.2 MEQ/L 3.4-5.0 H CHLORIDE (test code = CL/ABG) 104 MEQ/L 100-108 N CREATININE ABG (test code = 1.4 mg/dL 0.8-1.3 H CREAABG) POC IONIZED CALCIUM (test code = 1.15 MMOL/L 1.12-1.32 N POCCA) POC GLUCOSE (test code = POCGLU) 124 MG/DL
--- NOTE | 2021-11-29 12:11 | ER ---
Nurse's Notes [facility] Name: Red Cooper Jr Age: 66 yrs Sex: Male : 1955 Arrival Date: 11/29/2021 Time: 11:43 Bed 12 Private MD: Diagnosis: Pain in right toe(s) Presentation: 11/29 12:05 Chief complaint: Patient states: Pain and swelling to right little toe x 1 week, jl7 reports having old sutures in from a laceration repair here 1 year ago. Coronavirus screen: At this time, the client does not indicate any symptoms associated with coronavirus-19. Ebola Screen: No symptoms or risks identified at this time. Initial Sepsis Screen: Does the patient meet any 2 criteria? No. Patient's initial sepsis screen is negative. Does the patient have a suspected source of infection? No. Patient's initial sepsis screen is negative. Risk Assessment: Do you want to hurt yourself or someone else? Patient reports no desire to harm self or others. Onset of symptoms was November 22, 2021. 12:05 Method Of Arrival: Ambulatory jl7 12:05 Acuity: JENNY 3 jl7 Triage Assessment: 12:07 General: Appears in no apparent distress. uncomfortable, Behavior is calm, cooperative, jl7 appropriate for age. Pain: Complains of pain in right fifth toe Pain currently is 6 out of 10 on a pain scale. Historical: - Allergies: 12:07 Demerol; jl7 12:07 Morphine; jl7 12:07 Tramadol HCl; jl7 - PMHx: 12:07 Hypertension; pulmonary embolus; jl7 - PSHx: 12:07 IVC filter; jl7 - Immunization history:: Client reports receiving the 2nd dose of the Covid vaccine. - Social history:: Smoking status: Patient reports the use of cigarette tobacco products, cigars. Screenin:10 Abuse screen: Denies threats or abuse. Denies injuries from another. Nutritional ld1 screening: No deficits noted. Tuberculosis screening: No symptoms or risk factors identified. Fall Risk None identified. Assessment: 12:10 Reassessment: See triage assessment. ld1 Vital Signs: 12:05 BP 150 / 100; Pulse 77; Resp 17; Temp 97.8; Pulse Ox 100% on R/A; Weight 99.79 kg; jl7 Height 5 ft. 9 in. (175.26 cm); Pain 6/10; 12:05 Body Mass Index 32.49 (99.79 kg, 175.26 cm) jl7 ED Course: 11:43 Patient arrived in ED. ds1 11:54 Gustavo Mccann PA is PHCP. [facility] 11:54 Cj Griffith DO is Attending Physician. [facility] 11:57 Mary Solorio, RN is Primary Nurse. ld1 12:06 Triage completed. jl7 12:07 Arm band placed on right wrist. jl7 12:10 Patient has correct armband on for positive identification. Bed in low position. Call ld1 light in reach. Side rails up X2. Pulse ox on. NIBP on. Door closed. Noise minimized. 12:10 No provider procedures requiring assistance completed. Patient did not have IV access ld1 during this emergency room visit. Administered Medications: No medications were administered Outcome: 12:11 Discharge ordered by MD. [facility] 12:16 Discharged to home ambulatory. ld1 12:16 Condition: stable 12:16 Discharge instructions given to patient, Instructed on discharge instructions, follow up and referral plans. Demonstrated understanding of instructions, follow-up care. 12:17 Patient left the ED. ld1 Signatures: Gustavo Mccann PA PA jmm Sanford, Demi ds1 Carroll Bradshaw RN RN [facility] Mary Solorio, RN RN ld1
--- NOTE | 2021-11-29 12:11 | EDPHYS ---
Physician Documentation [facility] Name: Red Cooper Jr Age: 66 yrs Sex: Male : 1955 Arrival Date: 11/29/2021 Time: 11:43 Bed 12 Private MD: ED Physician Cj Griffith HPI: 11/29 12:10 This 66 yrs old Male presents to ER via Ambulatory with complaints of Toe Swelling/pain.jmm 12:10 The patient presents with pain. Onset: The symptoms/episode began/occurred gradually. jmm This is a 66 year old male with a history of htn, pe that presents to the ED with complaints of right 5th toe pain secondary to a suture placed 1.5 year ago. Patient was sent by pcp due to pain. Denies fever, chills, foul smelling drainage.. Historical: - Allergies: 12:07 Demerol; jl7 12:07 Morphine; jl7 12:07 Tramadol HCl; jl7 - PMHx: 12:07 Hypertension; pulmonary embolus; jl7 - PSHx: 12:07 IVC filter; jl7 - Immunization history:: Client reports receiving the 2nd dose of the Covid vaccine. - Social history:: Smoking status: Patient reports the use of cigarette tobacco products, cigars. ROS: 12:10 Constitutional: Negative for fever, chills, and weight loss, Cardiovascular: Negative jmm for chest pain, palpitations, and edema, Respiratory: Negative for shortness of breath, cough, wheezing, and pleuritic chest pain. 12:10 MS/extremity: Positive for pain. 12:10 All other systems are negative. Exam: 12:10 Constitutional: This is a well developed, well nourished patient who is awake, alert, jmm and in no acute distress. Head/Face: atraumatic. Eyes: EOMI, no conjunctival erythema appreciated ENT: Moist Mucus Membranes Neck: Trachea midline, Supple Chest/axilla: Normal chest wall appearance and motion. Cardiovascular: Regular rate and rhythm. No edema appreciated Respiratory: Normal respirations, no respiratory distress appreciated Abdomen/GI: Non distended, soft Back: Normal ROM 12:10 Skin: no erythema or induration, purulent drainage appreciated to the right 5th toe. 12:10 Neuro: Orientation: is normal, Mentation: is normal, Memory: is normal. 12:10 Psych: Behavior/mood is pleasant, cooperative. Vital Signs: 12:05 BP 150 / 100; Pulse 77; Resp 17; Temp 97.8; Pulse Ox 100% on R/A; Weight 99.79 kg; jl7 Height 5 ft. 9 in. (175.26 cm); Pain 6/10; 12:05 Body Mass Index 32.49 (99.79 kg, 175.26 cm) jl7 MDM: 12:10 Patient medically screened. [facility] 12:10 Data reviewed: vital signs, nurses notes. Counseling: I had a detailed discussion with ibeth the patient and/or guardian regarding: the historical points, exam findings, and any diagnostic results supporting the discharge/admit diagnosis, the need for outpatient follow up, to return to the emergency department if symptoms worsen or persist or if there are any questions or concerns that arise at home. Administered Medications: No medications were administered Disposition: 13:12 Co-signature as Attending Physician, Cj Griffith DO I was immediately available on-site ms3 in the Emergency Department for consultation in the care of the patient.. Disposition Summary: 11/29/21 12:11 Discharge Ordered Location: Home [facility] Condition: Stable [facility] Diagnosis - Pain in right toe(s) [facility] Followup: [facility] - With: Private Physician - When: As needed - Reason: Recheck today's complaints, Continuance of care, Re-evaluation by your physician Forms: - Medication Reconciliation Form [facility] - Thank You Letter jm - Antibiotic Education jmm - Prescription Opioid Use [facility] Signatures: Gustavo Mccann PA PA jmm Leal, Jahala RN RN jl7 Cj Griffith DO DO ms3
[2021-11-29 12:41] VITALS: BP 150/100; TEMP 97.8; O2SAT 100
== END 2021-11-29 12:17 | disposition home or self-care (01) ==
LOC: ER 11:40
DX: M79.674 Pain in right toe(s) (principal); I10 Essential (primary) hypertension; F17.290 Nicotine dependence, other tobacco product, uncomplicated; Z88.5 Allergy status to narcotic agent; Z86.711 Personal history of pulmonary embolism
CPT/HCPCS: 99283

== ENCOUNTER 2022-01-05 13:38 | Emergency (ER) | payer OTHER ==
--- OUTSIDE RECORDS SUMMARY | 2022-01-05 13:40 | XMS REPORT | Continuity of Care Document ---
:1955 Author Organization [facility] t Address 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 Clinician Stacia Urbano Attending Clinician Unavailable Jovon LAKE B Attending Clinician Unavailable EDIONLORI Attending Clinician Unavailable Haily Attending Clinician Unavailable Mary Jo DEWITT Admitting Clinician Unavailable MUTENDERSIRENA Admitting Clinician Unavailable Physician, Primary or Family Admitting Clinician Unavailabl e EDIONWE Admitting Clinician Unavailable Payers Payer Name Policy Type Policy Number Effective Date Expiration Date S Formerly [facility] [id number] 2021 STARPLUS OON 00:00:00 EXCEPT HHS [facility]/[facility] DUAL [id number] 2021 COMP HMO D SNP 00:00:00 [facility] [place] [id number] 2015 PLUS 00:00:00 Problems Condition Condition Condition Status Onset Resolution Last Treating Co mments Source Name Details Category Date Date Treatment Clinician Date Vomiting Vomiting Disease Active 2020-07 Unive rs 1-14 ity of 00:00: [facility] Shoulder Shoulder Disease Active Unive rs pain, pain, 9-16 ity of right right 00:00: [facility] No known No known Disease [place] active active Health problems problems Allergies, Adverse Reactions, Alerts Allergy Allergy Status Severity Reaction(s) Onset Inactive Treating Comm ents Source Name Type Date Date Clinician butorpha DA Active U [facility] nol 2-03 Clear tartrate 00:00: Baer 00 [facility] morphine DA Active U PSYCHOSIS [facility] 2-03 Clear 00:00: Baer 00 [facility] tramadol DA Active U ELEVATED LFT HC A 2-03 Clear 00:00: Baer 00 [facility] MORPHINE DRUG Active Med Other-Cmnt Univ ers INGREDI 8-27 ity of 00:00: [facility] BUTORPHA DRUG Active Med Other-Cmnt Univ ers NOL INGREDI 827 ity of TARTRATE 00:00: [facility] TRAMADOL DRUG Active Med Other-Cmnt Univ ers INGREDI 8-27 ity of 00:00: [facility] Morphine Propensi Active Other - See Psychosi s Univers ty to comments 8-27 ity of adverse 00:00: [place] reaction 00 Medical s to Branch drug Butorpha Propensi Active Other - See Headache , Univers nol ty to comments 8-27 Hot ity of Tartrate adverse 00:00: flashes [place] reaction 00 Medical s to Branch drug Tramadol Propensi Active Other - See Can't U nivers ty to comments 8-27 urinate ity of adverse 00:00: [place] reaction 00 Medical s to Branch drug Butorpha Allergy Active 2008-07 Other [place] nol to 2-02 reaction( Health substanc 00:00: s): e 00 CHILLS, Other - See comments, Unknown, UnknownHe adache, Hot flashes Morphine Allergy Active 2008-07 Other [place] to 08-23 reaction( Health substanc 00:00: s): Other e 00 - See comments, PSYCHOSIS , Unknown, UnknownPs ychosis Pravasta Allergy Active 2008-07 [place] tin to 08-23 Health substanc 00:00: e 00 Tramadol Allergy Active 2008-07 Other [place] to 08-23 reaction( Health substanc 00:00: s): e 00 ELEVATED LFT, Other - See comments, Unknown, UnknownCa n't urinate butorpha DA Active U 2008-07 [facility] nol 2- Clear tartrate 00:00: Baer 00 [facility] morphine DA Active U 2008-07 [facility] 2- Clear 00:00: Baer 00 [facility] pravasta DA Active U 2008-07 [facility] tin 2- Clear 00:00: Baer 00 [facility] tramadol DA Active U 2008-07 [facility] 2- Clear 00:00: Baer 00 [facility] butorpha DA Active U 2008-07 [facility] nol 2- Clear tartrate 00:00: Baer 00 [facility] morphine DA Active U 2008-07 [facility] 2- Clear 00:00: Baer 00 [facility] pravasta DA Active U 2008-07 [facility] tin 2- Clear 00:00: Baer 00 [facility] tramadol DA Active U 2008-07 [facility] 2- Clear 00:00: Baer 00 [facility] Tramadol Adverse Active Info Not Commo n HCl Reaction Available [facility] Stadol Adverse Active Info Not Common Reaction Available [facility] Morphine Adverse Active Info Not Commo n Sulfate Reaction Available [facility] Social History Social Habit Start Date Stop Date Quantity Comments Source History SDDC University o f Alcohol Frequency [place] [facility] History [facility] University o f Alcohol Std Drinks [place] [facility] History [facility] University o f Alcohol Binge [place] [facility] Exposure to Not sure University of SARS-CoV-2 (event) [facility] Cigarettes smoked 2021-08-31 2021-08-31 [facility] (pack per 00:00:00 00:00:00 day) - Reported Tobacco use and 2021-08-31 2021-08-31 Smokeless tobacco [facility] exposure 00:00:00 00:00:00 non-user Alcohol intake 2021-08-31 2021-08-31 Current drinker [place] [facility]th 00:00:00 00:00:00 of alcohol (finding) Alcohol Comment 2015-03-17 2015-03-17 Occasional Universit y of 00:00:00 00:00:00 Drinker [facility] Sex Assigned At [birth year] [facility] 00:00:00 00:00:00 Smoking Status Start Date Stop Date Source Smokes tobacco daily 2021-08-31 00:00:00 [facility] Medications Ordered Filled Start Stop Current Ordering Indication Dosage Frequency Signature Comments Components Source Medication Medication Date Date Medication? Clinician (SIG) Name Name sayra Yes 1{tbl} 1 tablet. ME n (Lipitor) 2-10 Health 20 MG 14:31: tablet 49 rivaroxaban Yes 1 tablet [place] (Xarelto) 210 with food Healt h 15 MG 14:31: tablet 49 HYDROcodone 2021- No 2{tbl} 2 tablet, Univers -acetaminop 2-06 02-06 Oral, ity of hen (NORCO 22:15: 21:31 ONCE, 1 Kwabena as 5) 5-325 mg 00 :00 dose, On Medi ca tablet 2 08/27/21 Branc h tablet at 1615, LENNIE HYDROcodone 2021- No 2{tbl} 2 tablet, Univers -acetaminop 2-06 02-06 Oral, ity of hen (NORCO 18:30: 17:38 ONCE, 1 Kwabena as 5) 5-325 mg 00 :00 dose, On Medi ca tablet 2 08/27/21 Branc h tablet at 1230, LENNIE rivaroxaban 2020-07 Yes 15mg Take 15 mg Univers (XARELTO) 1-16 by mouth ity of 15 mg Tab 13:49: daily. [address] rivaroxaban 2020-07 Yes 15mg Take 15 mg Univers (XARELTO) 1-16 by mouth ity of 15 mg Tab 13:49: daily. [address] rivaroxaban 2020-07 Yes 15mg Take 15 mg Univers (XARELTO) 1-16 by mouth ity of 15 mg Tab 13:49: daily. [facility] [address] hydroCHLORO Yes [place] thiazide 5-05 Health (HYDRODiuri 00:00: l) 12.5 MG 00 tablet Atorvastati Atorvastati 2018-07 Yes Daniel 1 tablet Common n Calcium n Calcium 2-11 Rodríguez Spir it 00:00: - [facility]I 00 [facility] Hydrochloro Hydrochloro 2018-07 Yes Daniel 1 capsule Common thiazide thiazide 2-11 Rodríguez in the Spir it 00:00: morning - [facility]I 00 [facility] Vasotec Vasotec Yes Daniel 1 tablet Com mon Rodríguez [facility] Xarelto Xarelto Yes Daniel 1 tablet Com mon Rodríguez with food [facility] Yes Daniel 1 tablet Common Rodríguez as needed [facility] Hydrochloro Hydrochloro Yes Daniel 1 capsule Common thiazide thiazide Rodríguez in the Spir it [facility] Atorvastati Atorvastati Yes Daniel TAKE 1 Common n Calcium n Calcium Rodríguez TABLET BY Spirit MOUTH - CHI EVERY DAY [facility] Immunizations Ordered Immunization Filled Immunization Date Status Commen ts Source Name Name Aflmaritza Afluria 2018-05-02 Completed [facility] 00:00:00 [facility] Vital Signs Vital Name Observation Time Observation Value Comments Source Body height 2021-08-31 20:26:00 175.3 cm [facility] Body weight 2021-08-31 20:26:00 103.964 kg [facility] BMI 2021-08-31 20:26:00 33.85 kg/m2 [facility] Systolic blood 2021-08-27 21:30:40 137 mm[Hg] Univer sity of pressure [facility] Diastolic blood 2021-08-27 21:30:40 74 mm[Hg] Unive rsity of pressure [facility] Heart rate 2021-08-27 21:30:40 63 /min Universi of [facility] Respiratory rate 2021-08-27 21:30:40 18 /min [facility] Oxygen saturation in 2021-08-27 21:30:40 97 /min [facility] Arterial blood by [facility] Pulse oximetry Branch Body height 2021-08-27 17:11:00 175.3 cm [facility] Body weight 2021-08-27 17:11:00 112.5 kg [facility] BMI 2021-08-27 17:11:00 36.63 kg/m2 [facility] Body temperature 2021-08-27 17:08:00 36.5 [facility] Procedures Procedure Date / Time Performed Performing Clinician Salvatore jones MR LUMBAR SPINE WO 2021-09-29 17:46:28 Requisition, [facility] NOTICE OF PRIVACY 2021-09-29 15:18:21 Doctor Unassigned, No [facility] CONSENT/REFUSAL FOR 2021-09-29 15:16:36 Doctor Unassigned, No [facility] DIAGNOSIS AND [facility] TREATMENT ASSIGNMENT OF BENEFITS 2021-09-29 15:16:11 Doctor Unassigned, No [facility] CT PELVIS WO CONTRAST 2021-08-27 19:57:43 Brady Sommers [facility] XR FEMUR 2 VW LEFT 2021-08-27 17:55:47 Brady Sommers [facility] XR HIPS 3 VW LEFT 2021-08-27 17:55:47 Brady Sommers [facility] Encounters Start End Encounter Admission Attending Care Care Encounter Source Date/Time Date/Time Type Type Clinicians Facility Department ID 2021-09-27 Outpatient Rodríguez, STLMLC STLC [id number] Common 09:57:01 [facility] 2021-09-25 Outpatient Rodríguez, STLMLC STLMLC [id number] Common 13:14:00 [facility] 2021-09-19 Outpatient Rodríguez, STLMLC STLMLC [id number] Common 11:19:00 [facility] 2021-09-14 Outpatient YAYA [facility] [id number] [place] 17:05:40 [facility] 2021-09-01 Outpatient Rodríguez, STLMLC STLMLC [id number] Common 11:11:01 Daniel [facility] 2021-08-28 Outpatient COTA, [facility] [id number] [place] 10:58:16 [facility] 2021-08-16 Outpatient Rodríguez, STLMLC STLMLC [id number] Common 13:34:44 Daniel [facility] 2021-08-16 Outpatient Rodríguez, STLMLC STLMLC [id number] Common 13:34:30 Daniel [facility] 2021-08-16 Outpatient Rodríguez, STLMLC STLMLC [id number] Common 12:59:44 Daniel [facility] 2021-08-16 Outpatient Rodríguez, STLMLC STLMLC [id number] Common 12:31:55 Daniel 95620 [facility] 2021-08-16 Outpatient Rodríguez, STLMLC STLMLC [id number] Common 12:25:32 Daniel [facility] 2021-08-16 Outpatient Rodríguez, STLMLC STLMLC [id number] Common 11:59:34 Daniel 65096 [facility] 2021-08-16 Outpatient Rodríguez, STLMLC STLMLC [id number] Common 11:30:32 Daniel 11259 [facility] 2021-08-16 Outpatient Rodríguez, STLMLC STLMLC [id number] Common 11:21:27 Daniel 43588 [facility] 2021-08-16 Outpatient Rodríguez, STLMLC STLMLC [id number] Common 11:07:05 Daniel 23634 [facility] 2021-08-16 Outpatient Rodríguez, STLMLC STLMLC [id number] Common 11:06:43 Daniel 15875 [facility] 2021-08-16 Outpatient Rodríguez, STLMLC STLMLC [id number] Common 11:06:18 Daniel 87970 [facility] 2021-08-16 Outpatient Rodríguez, STLMLC STLMLC [id number] Common 11:06:03 Daniel 80549 [facility] 2021-12-20 2021-12-20 Outpatient DEWITT, [facility] [id number] [address] [place] 00:00:00 00:00:00 VAIBHAVE 956 [place] 2021-11-17 2021-11-17 ambulatory STLMLC STLMLC [id number] Common 00:00:00 00:00:00 [facility] 2021-11-17 2021-11-17 ambulatory STLMLC STLMLC [id number] Common 00:00:00 00:00:00 [facility] 2021-11-08 2021-11-08 Outpatient DEWITT, [facility] [id number] [address] [place] 00:00:00 00:00:00 VAIBHAVE 069 [place] 2021-11-01 2021-11-01 Outpatient DEWITT, [facility] [id number] [address] [place] 00:00:00 00:00:00 VAIBHAVE 036 [place] 2021-10-27 2021-10-27 Outpatient DEWITT, [facility] [id number] [address] [place] 00:00:00 00:00:00 VAIBHAVE 946 [place] 2021-10-20 2021-10-20 Outpatient DEWITT, [facility] [id number] [address] [place] 00:00:00 00:00:00 VAIBHAVE 719 [place] 2021-10-10 2021-10-10 Outpatient DEWITT, [facility] [id number] [address] [place] 00:00:00 00:00:00 VAIBHAVE 098 [place] 2021-09-29 2021-09-29 Outpatient R RADIOLOGY [facility] [id number] [facility] 09:22:34 23:59:00 ity of [facility] 2021-09-29 2021-09-29 Hospital Radiology [facility] [id number] [facility] 08:45:00 23:59:00 Lucy AMAYA [id number] ity [facility] [id number] [facility] [id number] [facility] [address] 2021-09-27 2021-09-27 ambulatory STLMLC STLMLC [id number] Common 00:00:00 00:00:00 [facility] 2021-09-27 2021-09-27 ambulatory STLMLC STLMLC [id number] Common 00:00:00 00:00:00 [facility] 2021-09-26 2021-09-26 ambulatory STLMLC STLMLC [id number] Common 00:00:00 00:00:00 [facility] 2021-09-19 2021-09-19 ambulatory STLMLC STLMLC [id number] Common 00:00:00 00:00:00 [facility] 2021-08-31 2021-08-31 Office Hawjyoti, UTP 6400 [id number] [place] 15:00:00 16:23:16 Visit Grabiel DOUGLAS [id number] [facility] [id number] 2021-08-27 2021-08-27 Emergency X MUTENDEREKI MEMB ERT [id number] Univers 11:00:00 15:39:00 , BRADY [facility] 2021-08-27 2021-08-27 Emergency Mutendereki [facility] [id number] Univers 11:00:00 15:39:00 , [facility] [id number] [facility] [id number] [facility] [place] [id number] [address] ([facility]) 2021-08-24 2021-08-24 Emergency EM White, HCACL AERS [id number] [facility] 15:25:00 16:37:00 Jesus [id number] [facility] 2021-08-24 2021-08-24 Emergency EM White, HCACL HCACL [id number] [facility] 15:25:00 16:37:00 Jesus 09 [facility] 2021-06-22 2021-06-22 ambulatory STLMLC STLMLC [id number] Common 00:00:00 00:00:00 [facility] 2021-06-08 2021-06-08 Transition LANDON Sigala [id number] Univers 00:00:00 00:00:00 of Darius BERNABE [id number] it y of ASHLEE [id number] Yovany fishman [id number] [place] [address] Branch 2021-06-04 2021-06-06 Outpatient X CEFERINO [facility] CRESENCIO [id number] Univers 15:51:00 13:45:[address] [facility] 2021-05-17 2021-05-17 Outpatient STLMLC STLMLC [id number] Common 00:00:00 00:00:00 [facility] 2021-02-25 2021-02-25 Emergency EM Haily, HCACL AERS [id number] [facility] 12:19:00 13:45:00 Shima [id number] [facility] 2020-11-23 2020-11-23 Outpatient STLMLC STLMLC [id number] Common 00:00:00 00:00:00 [facility] 2020-08-18 2020-08-18 Outpatient STLMLC STLMLC [id number] Common 00:00:00 00:00:00 [facility] 2020-05-18 2020-05-18 Outpatient STLMLC STLMLC [id number] Common 00:00:00 00:00:00 [facility] 2020-05-18 2020-05-18 Outpatient STLMLC STLMLC [id number] Common 00:00:00 00:00:00 [facility] 2020-02-26 2020-02-26 [facility] [id number] Common 09:45:00 09:45:00 [address] [place] [address] [facility] 2019-09-01 2019-09-01 Outpatient [facility] [id number] Common 13:00:00 13:00:00 [place] [address] [place] [facility] 2019-07-01 2019-07-01 Outpatient [facility] [id number] Common 13:15:00 13:15:00 [place] [address] Sp[address] [facility] 2019-06-25 2019-06-25 Out[facility] [id number] Common 16:03:00 16:03:00 [place] [address] Sp[address] [facility] 2019-03-30 2019-03-30 Out[facility] [id number] Common 15:00:00 15:00:00 [place] [address] Sp[address] [facility] 2019-01-08 2019-01-08 Out[facility] [id number] Common 14:30:00 14:30:00 [place] [address] Sp[address] [facility] 2018-11-26 2018-11-26 [facility] [id number] Common 16:00:00 16:00:00 [place] [address] Sp[address] [facility] 2018-05-02 2018-05-02 Out[facility] [id number] Common 11:00:00 11:00:00 [place] [address] Sp[address] [facility] 2018-03-14 2018-03-14 Out[facility] [id number] Common 09:15:00 09:15:00 [place] [address] Sp[address] [facility] 2017-11-12 2017-11-12 Out[facility] [id number] Common 09:15:00 09:15:00 [place] [address] Sp[place] [address] [facility] Results Test Description Test Time Test Comments Results Result Sourc e Comments - XR HIP FRANKI 2021-08-24 W/PELVIS 00:00:00 [facility] VILLA LAKEName: MAL COOPER : 1955 Sex: M FAX: Jesus Urbano MD [phone] [place]: [place] St: PRE Name: MAL COOPER FSED : 1955 Age/S: 65/M [address] [facility]. Unit #: [id number] Loc: [place] [address] Phys: Jesus Urbano MD Acct: [id number] Dis Date: Status: PRE ER PHONE #: Exam Date: 08/24/2021 1550 FAX #: Reason: fall, left hip pain. [facility] avasc necrosis EXAMS: CPT CODE: [id number] XR HIP FRANKI W/PELVIS 57850 PROCEDURE INFORMATION: Exam: XR Bilateral Hips Exam date and time: 08/24/2021 3:39 PM Age: 65 years old Clinical indication: Injury or trauma; Fall; Sprain or strain; Bilateral; Hip; Additional info: Fall, left hip pain. [facility] avasc necrosis TECHNIQUE: Imaging protocol: XR [...] CC: Jesus Urbano MD Technologist: RT Sruthi(R)(CT) Trnflrd Date/Time/By: 08/24/2021 (1306) : By: [email or web address] Orig Print D/T: S: 08/24/2021 (9600) PAGE 1 Signed Report CBC W/AUTO DIFF [...] MX#) 1.2 k/mm3 0.1-0.8 H BASIC METABOLIC [id number] 13:06:00 Test Item Value Reference Range Interpretation [...]
[2022-01-05] MEDS ORDERED: IBUPROFEN 400 MG TAB ONE (14:06)
[2022-01-05] MEDS ORDERED: HYDROCODONE/APAP 10/325 TAB ONE (14:06)
[2022-01-05] MEDS ORDERED: IBUPROFEN 200 MG TAB PO ONE (14:07)
[2022-01-05] MEDS ORDERED: dexAMETHasone 10 MG/ML VIAL ONE (14:08)
--- NOTE | 2022-01-05 14:36 | RAD REPORT ---
EXAM DESCRIPTION: RAD - Hand Right 3 View - 01/05/2022 2:10 pm CLINICAL HISTORY: SWELLING COMPARISON: No comparisons FINDINGS/IMPRESSION: No acute fracture. No malalignment. No soft tissue gas. No radiopaque foreign b joselyn at the site of concern. Degenerative changes are present at the base of the thumb and first MCP. Small 1-2 mm radiopaque foreign body in the soft tissues of the wrist at the level of the distal ulna r diaphysis.
--- NOTE | 2022-01-05 17:27 | ER ---
Nurse's Notes [facility] caret Name: Red Cooper Jr Age: 66 yrs Sex: Male : 1955 Arrival Date: 01/05/2022 Time: 13:40 Bed 11 Private MD: Daniel Rodríguez Diagnosis: Insect Envenomation Presentation: 01/05 13:51 Chief complaint: Patient states: got stung by a red wasp 3 days ago, still has swelling iw in right hand. Coronavirus screen: At this time, the client does not indicate any symptoms associated with coronavirus-19. Ebola Screen: Patient negative for fever greater than or equal to 101.5 degrees Fahrenheit, and additional compatible Ebola Virus Disease symptoms Patient denies exposure to infectious person. Patient denies travel to an Ebola-affected area in the 21 days before illness onset. No symptoms or risks identified at this time. Onset: The symptoms/episode began/occurred 3 day(s) ago. Anaphylaxis evaluation, no signs or symptoms of anaphylaxis were noted. Initial Sepsis Screen: Does the patient meet any 2 criteria? No. Patient's initial sepsis screen is negative. Does the patient have a suspected source of infection? No. Patient's initial sepsis screen is negative. Risk Assessment: Do you want to hurt yourself or someone else? Patient reports no desire to harm self or others. Onset of symptoms was January 01, 2022. 13:51 Method Of Arrival: Ambulatory iw 13:51 Acuity: JENNY 4 iw Historical: - Allergies: 14:07 Demerol; iw 14:07 Morphine; iw 14:07 Tramadol HCl; iw - PMHx: 14:07 Hypertension; pulmonary embolus; iw - PSHx: 14:07 IVC filter; iw Screenin:10 Abuse screen: Denies threats or abuse. Denies injuries from another. Nutritional iw screening: No deficits noted. Tuberculosis screening: No symptoms or risk factors identified. Fall Risk None identified. Assessment: 14:09 General: Appears in no apparent distress. Behavior is calm, cooperative. Pain: iw Complains of pain in right hand. Neuro: Level of Consciousness is awake, alert, obeys commands, Oriented to person, place, time, situation, Moves all extremities. Cardiovascular: Patient's skin is warm and dry. Respiratory: Airway is patent Respiratory effort is even, unlabored, Breath sounds are clear bilaterally. Derm: Skin is pink, warm \T\ dry. Musculoskeletal: Swelling present in right hand. 15:54 Reassessment: Patient appears in no apparent distress at this time. Patient and/or jb4 family updated on plan of care and expected duration. Pain level reassessed. Patient is alert, oriented x 3, equal unlabored respirations, skin warm/dry/pink. Patient states feeling better. 17:38 Reassessment: Patient appears in no apparent distress at this time. Patient and/or jb4 family updated on plan of care and expected duration. Pain level reassessed. Patient is alert, oriented x 3, equal unlabored respirations, skin warm/dry/pink. Vital Signs: 13:58 BP 143 / 93; Pulse 89; Resp 16; Temp 98.0; Pulse Ox 96% on R/A; iw 17:38 BP 163 / 90; Pulse 58; Resp 16; Pulse Ox 97% on R/A; jb4 ED Course: 13:40 Patient arrived in ED. rg4 13:40 Daniel Rodríguez DO is Private Physician. rg4 13:45 Gustavo Mccann PA is PHCP. jmm 13:45 Devaughn Lyon MD is Attending Physician. jmm 13:52 Triage completed. iw 13:58 Aleshia Song, RN is Primary Nurse. iw 14:10 No provider procedures requiring assistance completed. Patient did not have IV access iw during this emergency room visit. 14:11 Hand Right 3 View XRAY In Process Unspecified. EDMS 17:27 Jaspal Martínez MD is Referral Physician. jmm 17:38 Patient has correct armband on for positive identification. Bed in low position. Call jb4 light in reach. Side rails up X 1. Administered Medications: 14:07 Drug: Decadron (dexamethasone) 10 mg Route: IM; Site: left deltoid; iw 16:00 Follow up: Response: No adverse reaction; Marked relief of symptoms jb4 14:07 Drug: Ibuprofen 800 mg Route: PO; iw 16:00 Follow up: Response: No adverse reaction; Marked relief of symptoms jb4 14:07 Drug: [place] (HYDROcodone-acetaminophen) 10 mg-325 mg 1 tabs Route: PO; iw 16:00 Follow up: Response: No adverse reaction; Marked relief of symptoms jb4 17:37 Drug: Bactrim (trimethoprim-sulfamethoxazole) (160 mg-800 mg (DS) 1 tablet Route: PO; jb4 17:38 Follow up: Response: Medication administered at discharge. jb4 17:37 Drug: Doxycycline 100 mg Route: PO; jb4 17:38 Follow up: Response: Medication administered at discharge. jb4 Medication: 17:38 VIS not applicable for this client. jb4 Outcome: 17:27 Discharge ordered by . ibeth 17:38 Discharged to home ambulatory. jb4 17:38 Condition: stable 17:38 Discharge instructions given to patient, Instructed on discharge instructions, follow up and referral plans. medication usage, Demonstrated understanding of instructions, follow-up care, medications, Prescriptions given X 3. 17:39 Patient left the ED. jb4 Signatures: Dispatcher [employer] EDMS Gustavo Mccann PA PA jmm Williams, Irene, Eli Christie RN rg4 Ricky Mendez RN RN jb4
--- NOTE | 2022-01-05 17:27 | EDPHYS ---
Physician Documentation [facility] Name: Red Cooper Jr Age: 66 yrs Sex: Male : 1955 Arrival Date: 01/05/2022 Time: 13:40 Bed 11 Private MD: Marcos Daniel ED Physician Devaughn Lyon HPI: 01/05 13:52 This 66 yrs old Male presents to ER via Ambulatory with complaints of Hand Swelling, jmm Bee Sting. 13:52 The patient or guardian reports pain. Onset: The symptoms/episode began/occurred jmm acutely, 3 day(s) ago. Modifying factors: The symptoms are alleviated by nothing, the symptoms are aggravated by nothing. This is a 36 year old male with a history of htn, pe that presents to the ED with complaints of right hand swelling which occurred after a sting from a wasp. Patient states he developed increased swelling and pain today. Denies fever or chills. . Historical: - Allergies: 14:07 Demerol; iw 14:07 Morphine; iw 14:07 Tramadol HCl; iw - PMHx: 14:07 Hypertension; pulmonary embolus; iw - PSHx: 14:07 IVC filter; iw ROS: 13:52 Constitutional: Negative for fever, chills, and weight loss, Cardiovascular: Negative jmm for chest pain, palpitations, and edema, Respiratory: Negative for shortness of breath, cough, wheezing, and pleuritic chest pain. 13:52 MS/extremity: Positive for pain. 13:52 All other systems are negative. Exam: 13:52 Constitutional: This is a well developed, well nourished patient who is awake, alert, jmm and in no acute distress. Head/Face: atraumatic. Eyes: EOMI, no conjunctival erythema appreciated ENT: Moist Mucus Membranes Neck: Trachea midline, Supple Chest/axilla: Normal chest wall appearance and motion. Cardiovascular: Regular rate and rhythm. No edema appreciated Respiratory: Normal respirations, no respiratory distress appreciated Abdomen/GI: Non distended, soft Back: Normal ROM Skin: General appearance color normal 13:52 Musculoskeletal/extremity: edema noted to the right hand, compartments are soft, full radial pulse, sensation is intact, rom limited by pain and swelling. 13:52 Skin: Appearance: Color: normal in color. 13:52 Neuro: Orientation: is normal, Mentation: is normal, Memory: is normal. 13:52 Psych: Behavior/mood is pleasant, cooperative. Vital Signs: 13:58 BP 143 / 93; Pulse 89; Resp 16; Temp 98.0; Pulse Ox 96% on R/A; iw 17:38 BP 163 / 90; Pulse 58; Resp 16; Pulse Ox 97% on R/A; jb4 MDM: 13:52 Patient medically screened. [facility] 17:26 Data reviewed: vital signs, nurses notes. Counseling: I had a detailed discussion with [facility] the patient and/or guardian regarding: the historical points, exam findings, and any diagnostic results supporting the discharge/admit diagnosis, the need for outpatient follow up, to return to the emergency department if symptoms worsen or persist or if there are any questions or concerns that arise at home. 19:46 ED course: Patient is alert and non toxic in appearance in the ED. No pain on the [facility] flexor surface. Edema most likely allergic vs infectious. Patient given strict return precautions. Patient understood and agrees with the plan of care. Dr. Coburn evaluated the patient as well and agrees with the plan of care. . 17 13:52 Order name: Hand Right 3 View XRAY; Complete Time: 14:59 [facility] Administered Medications: 14:07 Drug: Decadron (dexamethasone) 10 mg Route: IM; Site: left deltoid; iw 16:00 Follow up: Response: No adverse reaction; Marked relief of symptoms jb4 14:07 Drug: Ibuprofen 800 mg Route: PO; iw 16:00 Follow up: Response: No adverse reaction; Marked relief of symptoms jb4 14:07 Drug: [place] (HYDROcodone-acetaminophen) 10 mg-325 mg 1 tabs Route: PO; iw 16:00 Follow up: Response: No adverse reaction; Marked relief of symptoms jb4 17:37 Drug: Bactrim (trimethoprim-sulfamethoxazole) (160 mg-800 mg (DS) 1 tablet Route: PO; jb4 17:38 Follow up: Response: Medication administered at discharge. jb4 17:37 Drug: Doxycycline 100 mg Route: PO; jb4 17:38 Follow up: Response: Medication administered at discharge. jb4 Disposition: 01/06 08:07 Co-signature as Attending Physician, Devaughn Lyon MD I agree with the assessment ma2 and plan of care. Disposition Summary: 01/05/22 17:27 Discharge Ordered Location: Home [facility] Condition: Stable [facility] Diagnosis - Insect Envenomation [facility] Followup: jm - With: Jaspal Martínez MD - When: 2 - 3 days - Reason: Recheck today's complaints, Continuance of care, Re-evaluation by your physician Discharge Instructions: - Discharge Summary Sheet [facility] - Insect Bite, Adult [facility] Forms: - Medication Reconciliation Form [facility] - Thank You Letter [facility] - Antibiotic Education [facility] - Prescription Opioid Use [facility] Prescriptions: - Doxycycline Hyclate 100 mg Oral Tablet - take 1 tablet by ORAL route every 12 hours; 20 tablet; Refills: 0, Product [facility] Selection Permitted - Medrol (Richard) 4 mg Oral Tablets, Dose Pack - take 1 tablet by ORAL route as directed - follow package instructions; 1 m packet; Refills: 0, Product Selection Permitted - Bactrim DS 800-160 mg Oral Tablet - take 1 tablet by ORAL route every 12 hours for 10 days; 20 tablet; Refills: 0, [facility] Product Selection Permitted Signatures: Dispatcher [employer] EDGustavo Quintero PA PA jmm Williams, Irene, RN RN Ricky Ram RN RN jb4 Devaughn Lyon MD MD ma2
[2022-01-05] MEDS ORDERED: DOXYCYCLINE 100 MG CAP PO ONE (17:38)
[2022-01-05] MEDS ORDERED: SMZ./TMP. 800/160 MG TABLET ONE (17:38)
[2022-01-05 17:44] VITALS: TEMP 98
[2022-01-05 17:46] VITALS: BP 163/90; O2SAT 97
== END 2022-01-05 17:39 | disposition home or self-care (01) ==
LOC: ER 13:38
DX: T63.441A Toxic effect of venom of bees, accidental (unintentional), initial encounter (principal); I10 Essential (primary) hypertension; Z88.5 Allergy status to narcotic agent
CPT/HCPCS: 73130; 96372; 99283; J1100

== ENCOUNTER 2022-03-11 18:34 | Emergency (ER) | payer OTHER ==
--- OUTSIDE RECORDS SUMMARY | 2022-03-11 18:38 | XMS REPORT | Continuity of Care Document ---
:1955 Author Organization [facility] t Address [address] [place] [address] Care Team Providers Name Role Phone Daniel Rodríguez Primary Care Physician [phone] Daniel Rodríguez Attending Clinician Unavailable DELFINO JAVIER Attending Clinician Unavailable MICHAEL COTA Attending Clinician Unavailable CAL DEWITT Attending Clinician Unavailable RADIOLOGY Attending Clinician Unavailable Radiology Attending Clinician Unavailable Grabiel Herrera Attending Clinician BRADY SOMMERS Attending Clinician Unavailable Brady Black Attending Clinician Jesus Urbano Attending Clinician Unavailable Pattie Sigala RN Attending Clinician Unavailable MADDIE DE LA VEGA Attending Clinician Unavailable Shima Johansen Attending Clinician Unavailable CAL DEWITT Admitting Clinician Unavailable FRANKY BRADY Admitting Clinician Unavailable Physician, No Primary or Family Admitting Clinician UnavailMADDIE Haley Admitting Clinician Unavailable Payers Payer Name Policy Type Policy Number Effective Date Expiration Date S asher [facility] [id number] 2021 STARPLUS OON 00:00:00 EXCEPT HHS [facility] DUAL [id number] 2021 COMP HMO D SNP 00:00:00 [facility] STAR [id number] 2015 PLUS 00:00:00 Problems Condition Condition Condition Status Onset Resolution Last Treating Co mments Source Name Details Category Date Date Treatment Clinician Date Vomiting Vomiting Disease Active 2020-07 Unive rs 1-14 ity of 00:00: [place] 00 [facility] Shoulder Shoulder Disease Active Unive rs pain, pain, 9-16 ity of right right 00:00: 00 [facility] No known No known Disease [place] active active Health problems problems Allergies, Adverse Reactions, Alerts Allergy Allergy Status Severity Reaction(s) Onset Inactive Treating Comm ents Source Name Type Date Date Clinician butorpha DA Active U [facility] nol 2-03 Clear tartrate 00:00: [facility] 00 [facility] morphine DA Active U [facility] 2-03 Clear 00:00: [place] 00 [facility] tramadol DA Active U ELEVATED LFT HC A 2-03 Clear 00:00: Ba[place] 00 [facility] MORPHINE DRUG Active Med Other-Cmnt Univ ers INGREDI 8- ity of 00:00: [place] 00 [facility] BUTORPHA DRUG Active Med Other-Cmnt Univ ers NOL INGREDI 8 ity of TARTRATE 00:00: [place] 00 [facility] TRAMADOL DRUG Active Med Other-Cmnt Univ ers INGREDI 827 ity of 00:00: [place] 00 [facility] Morphine Propensi Active Other - See Psychosi s Univers ty to comments 03-17 ity of adverse 00:00: [place] reaction 00 Medical s to Branch drug Butorpha Propensi Active Other - See Headache , Univers nol ty to comments 03-17 Hot ity of Tartrate adverse 00:00: flashes [place] reaction 00 Medical s to Branch drug Tramadol Propensi Active Other - See Can't U nivers ty to comments 8-27 urinate ity of adverse 00:00: [place] reaction 00 Medical s to Branch drug Butorpha Allergy Active 2008-07 Other [place] nol to 08-23 reaction( Health substanc 00:00: s): [...] nol 2-02 Clear tartrate 00:00: [place] 00 [facility] morphine DA Active U 2008-07 [facility] 2-02 Clear 00:00: [place] 00 [facility] pravasta DA Active U 2008-07 [facility] tin 2-02 Clear 00:00: [place] 00 [facility] tramadol DA Active U 2008-07 [facility] 2-02 Clear 00:00: [place] 00 [facility] butorpha DA Active U 2008-07 [facility] nol 2-02 Clear tartrate 00:00: [place] 00 [facility] morphine DA Active U 2008-07 [facility] 2-02 Clear 00:00: [place] 00 [facility] pravasta DA Active U 2008-07 [facility] tin 2-02 Clear 00:00: [place] 00 [facility] tramadol DA Active U 2008-07 [facility] 2-02 Clear 00:00: [place] 00 [facility] Tramadol Adverse Active Info Not Commo n HCl Reaction Available [facility] Stadol Adverse Active Info Not Common Reaction Available [facility] Morphine Adverse Active Info Not Commo n Sulfate Reaction Available [facility] Social History Social Habit Start Date Stop Date Quantity Comments Source History [facility]VA University o f Alcohol Frequency [facility] Branch History [facility] University o f Alcohol Std Drinks [facility] History SDOH University o f Alcohol Binge [facility] al Branch Exposure to Not sure University of SARS-CoV-2 (event) [facility] Cigarettes smoked 2021-08-31 2021-08-31 [facility] current (pack per 00:00:00 00:00:00 day) - Reported Tobacco use and 2021-08-31 2021-08-31 Smokeless tobacco [facility] exposure 00:00:00 00:00:00 non-user Alcohol intake 2021-08-31 2021-08-31 Current drinker [facility] 00:00:00 00:00:00 of alcohol (finding) Alcohol Comment 2015-03-17 2015-03-17 Occ[facility]ional Universit y of 00:00:00 00:00:00 Drinker [facility] Sex Assigned At [birth year] [facility] 00:00:00 00:00:00 Smoking Status Start Date Stop Date Source Smokes tobacco daily 2021-08-31 00:00:00 [facility] Medications Ordered Filled Start Stop Current Ordering Indication Dosage Frequency Signature Comments Components Source Medication Medication Date Date Medication? Clinician (SIG) Name Name sayra Yes 1{tbl} 1 tablet. UT n (Lipitor) 2-10 Health 20 MG 14:31: tablet 49 rivaroxaban Yes 1 tablet [facility] (Xarelto) 2-10 with food Healt h 15 MG 14:31: tablet 49 HYDROcodone 2021- No 2{tbl} 2 tablet, Univers -acetaminop 2-12 21-06 Oral, ity of hen (NORCO 22:15: 21:31 [...] ity of 15 mg Tab 13:49: daily. [place] tablet Medical Branch rivaroxaban 2020-07 Yes 15mg Take 15 mg Univers (XARELTO) 1-16 by mouth ity of 15 mg Tab 13:49: daily. [place] tablet 32 Medical Branch rivaroxaban 2020-07 Yes 15mg Take 15 mg Univers (XARELTO) 1-16 by mouth ity of 15 mg Tab 13:49: daily. [place] [address] Medical Branch hydroCHLORO Yes [facility] thiazide 5-05 Health (HYDRODiuri 00:00: l) 12.5 MG 00 tablet Atorvastati Atorvastati 2018-07 Yes Daniel 1 tablet Common n Calcium n Calcium 2-11 Rodríguez Spir it 00:00: [facility] 00 [facility] Hydrochloro Hydrochloro 2018-07 Yes Daniel 1 capsule Common thiazide thiazide 2-11 Rodríguez in the Spir it 00:00: morning [facility] 00 [facility] Vasotec Vasotec Yes Daniel 1 tablet Com mon Rodríguez [facility] Xarelto Xarelto Yes Daniel 1 tablet Com mon Rodríguez with food [facility] [place] Yes Daniel 1 tablet Common Rodríguez as needed [facility] Hydrochloro Hydrochloro Yes Daniel 1 capsule Common thiazide thiazide Rodríguez in the Spir it [facility] Atorvastati Atorvastati Yes Daniel TAKE 1 Common n Calcium n Calcium Rodríguez TABLET BY [facility] MOUTH [facility] EVERY DAY [facility] Immunizations Ordered Immunization Filled Immunization Date Status Commen ts Source Name Name Afluria Afluria 2018-05-02 Completed [facility] 00:00:00 [facility] Vital Signs Vital Name Observation Time Observation Value Comments Source Body height 2021-08-31 20:26:00 175.3 cm [facility] Body weight 2021-08-31 20:26:00 103.964 kg [facility] BMI 2021-08-31 20:26:00 33.85 kg/m2 [facility] Systolic blood 2021-08-27 21:30:40 137 mm[Hg] Univer sity of pressure [facility] Diastolic blood 2021-08-27 21:30:40 74 mm[Hg] Unive rsity of pressure [facility] Heart rate 2021-08-27 21:30:40 63 /min [facility] Respiratory rate 2021-08-27 21:30:40 18 /min [facility] Oxygen saturation in 2021-08-27 21:30:40 97 /min [facility] Arterial blood by [facility] Pulse oximetry Branch Body height 2021-08-27 17:11:00 175.3 cm [facility] Body weight 2021-08-27 17:11:00 112.5 kg [facility] BMI 2021-08-27 17:11:00 36.63 kg/m2 [facility] Body temperature 2021-08-27 17:08:00 36.5 Alexandra [facility] Procedures Procedure Date / Time Performed Performing Clinician Salvatore e MR LUMBAR SPINE WO 2021-09-29 17:46:28 Requisition, Paper [facility] NOTICE OF PRIVACY 2021-09-29 15:18:21 Doctor Unassigned, No [facility] CONSENT/REFUSAL FOR 2021-09-29 15:16:36 Doctor Unassigned, No [facility] DIAGNOSIS AND [facility] TREATMENT ASSIGNMENT OF BENEFITS 2021-09-29 15:16:11 Doctor Unassigned, No [facility] CT PELVIS WO CONTRAST 2021-08-27 19:57:43 Brady Sommers [facility] XR FEMUR 2 VW LEFT 2021-08-27 17:55:47 Brady Sommers [facility] XR HIPS 3 VW LEFT 2021-08-27 17:55:47 Brady Sommers [facility] Encounters Start End Encounter Admission Attending Care Care Encounter Source Date/Time Date/Time Type Type Clinicians Facility Department ID 2022-02-06 [facility] [id number] Common 16:22:00 [facility] 2022-01-17 [facility] [id number] Common 09:38:00 [facility] 2021-09-27 Outpatient Rodríguez, STLMLC STLMLC [id number] Common 09:57:01 Daniel [facility] 2021-09-25 Outpatient Rodríguez, STLMLC STLMLC [id number] Common 13:14:00 Daniel [facility] 2021-09-19 Outpatient Rodríguez, STLMLC STLMLC [id number] Common 11:19:00 Daniel [facility] 2021-09-14 Outpatient JAVIER, [facility] [id number] [place] 17:05:40 [facility] 2021-09-01 Outpatient Rodríguez, STLMLC STLMLC [id number] Common 11:11:01 Daniel [facility] 2021-08-28 Outpatient COTA, [facility] [id number] [place] 10:58:16 [facility] 2021-08-16 Outpatient Rodríguez, STLMLC STLMLC [id number] Common 13:34:44 Daniel [facility] 2021-08-16 Outpatient Rodríguez, STLMLC STLMLC [id number] Common 13:34:30 Daniel [facility] 2021-08-16 Outpatient Rodríguez, STLMLC STLMLC [id number] Common 12:59:44 Daniel [facility] 2021-08-16 Outpatient Rodríguez, STLMLC STLMLC [id number] Common 12:31:55 Daniel 36316 [facility] 2021-08-16 Outpatient Rodríguez, STLMLC STLMLC [id number] Common 12:25:32 Daniel 80040 [facility] 2021-08-16 Outpatient Rodríguez, STLMLC STLMLC [id number] Common 11:59:34 Daniel 74501 [facility] 2021-08-16 Outpatient Rodríguez, STLMLC STLMLC [id number] Common 11:30:32 Daniel 80254 [facility] 2021-08-16 Outpatient Rodríguez, STLMLC STLMLC [id number] Common 11:21:27 Daniel 70206 [facility] 2021-08-16 Outpatient Rodríguez, STLMLC STLMLC [id number] Common 11:07:05 Daniel 01685 [facility] 2021-08-16 Outpatient Rodríguez, STLMLC STLMLC [id number] Common 11:06:43 Daniel 01441 [facility] 2021-08-16 Outpatient Rodríguez, STLMLC STLMLC [id number] Common 11:06:18 Daniel 90324 [facility] 2021-08-16 Outpatient Rodríguez, STLMLC STLMLC [id number] Common 11:06:03 Daniel 26805 [facility] 2022-01-17 2022-01-17 ambulatory STLMLC STLMLC [id number] Common 00:00:00 00:00:00 [facility] 2022-01-08 2022-01-08 ambulatory STLMLC STLMLC [id number] Common 00:00:00 00:00:00 [facility] 2021-12-20 2021-12-20 Outpatient DEWITT, [facility] [id number] [place] 00:00:00 00:00:00 VAIBHAVE 956 [place] 2021-11-17 2021-11-17 ambulatory STLMLC STLMLC [id number] Common 00:00:00 00:00:00 [facility] 2021-11-17 2021-11-17 ambulatory STLMLC STLMLC [id number] Common 00:00:00 00:00:00 [facility] 2021-11-08 2021-11-08 Outpatient DEWITT, [facility] [id number] [address] [place] [address] 00:00:00 00:00:00 VAIBHAVE 069 [place] 2021-11-01 2021-11-01 Outpatient DEWITT, [facility] [id number] [address] [place] [address] 00:00:00 00:00:00 VAIBHAVE [address] 2021-10-27 2021-10-27 Outpatient DEWITT, [facility] [id number] [address] [place] [address] 00:00:00 00:00:00 VAIBHAVE [address] 2021-10-20 2021-10-20 Outpatient ESDRAS, [facility] [id number] 00:00:00 00:00:00 VAIBHAVE 719 [place] 2021-10-10 2021-10-10 Outpatient ESDRAS, [facility] [id number] [place] 00:00:00 00:00:00 VAIBHAVE 098 Metho juvencio 2021-09-29 2021-09-29 Outpatient R RADIOLOGY [facility] [id number] Univers 09:22:34 23:59:00 ity [facility] 2021-09-29 2021-09-29 Hospital Radiology [facility] [id number] Univers 08:45:00 23:59:00 Encounter JOSE LUIS [id number] evgeny [facility] [id number] [facility] [id number] [facility] 804 Branch 2021-09-27 2021-09-27 ambulatory STLMLC STLMLC [id number] Common 00:00:00 00:00:00 [facility] 2021-09-27 2021-09-27 ambulatory STLMLC STLMLC [id number] Common 00:00:00 00:00:00 [facility] 2021-09-26 2021-09-26 ambulatory STLMLC STLMLC [id number] Common 00:00:00 00:00:00 [facility] 2021-09-19 2021-09-19 ambulatory STLMLC STLMLC [id number] Common 00:00:00 00:00:00 [facility] 2021-08-31 2021-08-31 Office Hawks, [facility] 6400 [id number] [place] 15:00:00 16:23:16 Visit Grabiel KING [id number] [facility] [id number] 2021-08-27 2021-08-27 Emergency X MUTENDEREKI [facility] ERT [id number] Univers 11:00:00 15:39:00 , BRADY ity [facility] 2021-08-27 2021-08-27 Emergency Mutendereki [facility] [id number] Univers 11:00:00 15:39:00 , Brady CALIX [id number] ity of CLEAR [id number] Yovany BAER [id number] [place] [address] Branch ([facility]) 2021-08-24 2021-08-24 Emergency EM White, HCACL AERS [id number] [facility] 15:25:00 16:37:00 Jesus [id number] [facility] 2021-08-24 2021-08-24 Emergency EM White, HCACL HCACL [id number] [facility] 15:25:00 16:37:00 Jesus 09 [facility] 2021-06-22 2021-06-22 ambulatory STLMLC STLMLC [id number] Common 00:00:00 00:00:00 [facility] 2021-06-08 2021-06-08 Transition LANDON Sigala [id number] Univers 00:00:00 00:00:00 of Darius Pattie Jessica BERNABE [id number] it y of [place] [id number] Yovany fishman [id number] [place] [address] Branch 2021-06-04 2021-06-06 Outpatient X CEFERINO, [facility] [id number] Univers 15:51:00 13:45:00 MADDIE ity [facility] 2021-05-17 2021-05-17 Outpatient STLMLC STLMLC [id number] Common 00:00:00 00:00:00 [facility] 2021-02-25 2021-02-25 Emergency EM Haily, [facility]AC[facility] AERS [id number] [facility] 12:19:00 13:45:00 Shima [id number] [facility] 2020-11-23 2020-11-23 Outpatient STLMLC STLMLC [id number] Common 00:00:00 00:00:00 [facility] 2020-08-18 2020-08-18 Outpatient STLMLC STLMLC [id number] Common 00:00:00 00:00:00 [facility] 2020-05-18 2020-05-18 Outpatient STLMLC STLMLC [id number] Common 00:00:00 00:00:00 [facility] 2020-05-18 2020-05-18 Outpatient STLMLC STLMLC [id number] Common 00:00:00 00:00:00 [facility] 2020-02-26 2020-02-26 Out[facility] [id number] Common 09:45:00 09:45:[address] [facility] 2019-09-01 2019-09-01 Outpatient [facility] [id number] Common 13:00:00 13:00:[address] [facility] 2019-07-01 2019-07-01 Outpatient [facility] [id number] Common 13:15:00 13:15:[address] [facility] 2019-06-25 2019-06-25 Out[facility] [id number] Common 16:03:00 16:03:[address] [facility] 2019-03-30 2019-03-30 Out[facility] [id number] Common 15:00:00 15:00:[address] [facility] 2019-01-08 2019-01-08 Outpatient [facility] [id number] Common 14:30:00 14:30:[address] [facility] 2018-11-26 2018-11-26 Out[facility] [id number] Common 16:00:00 16:00:[address] [facility] 2018-05-02 2018-05-02 Out[facility] [id number] Common 11:00:00 11:00:[address] [facility] 2018-03-14 2018-03-14 Out[facility] [id number] Common 09:15:00 09:15:[address] [facility] 2017-11-12 2017-11-12 Outpatient [facility] [id number] Common 09:15:00 09:15:[address] [facility] Results Test Description Test Time Test Comments Results Result [facility] e Comments - XR HIP FRANKI 2021-08-24 W/PELVIS 00:00:00 [facility]: MAL COOPER : 1955 Sex: M FAX: Jesus Urbano MD [phone] [place]: [place] St: PRE Name: MAL COOPER FSED : 1955 Age/S: 65/M [address] [facility] Unit #: [id number] Loc: [place] [address] Phys: Jesus Urbano MD Acct: [id number] Dis Date: Status: PRE ER PHONE #: Exam Date: 08/24/2021 1550 FAX #: Reason: fall, left hip pain. h avasc necrosis EXAMS: CPT CODE: [id number] XR HIP FRANKI W/PELVIS [id number] PROCEDURE INFORMATION: Exam: XR Bilateral Hips Exam date and time: 08/24/2021 3:39 PM Age: 65 years old Clinical indication: Injury or trauma; Fall; Sprain or strain; Bilateral; Hip; Additional info: Fall, left hip pain. Pmh avasc necrosis TECHNIQUE: Imaging protocol: XR bilateral [...] CC: Jesus Urbano MD Technologist: RT Sruthi(R)(CT) Trnilrd Date/Time/By: 08/24/2021 (1602) : By: [email or web address] Orig Print D/T: S: 08/24/2021 (2451) PAGE 1 Signed Report CBC W/AUTO DIFF [...] MX#) 1.2 k/mm3 0.1-0.8 H BASIC METABOLIC [id number] 13:06:00 Test Item Value Reference Range Interpretation [...]
--- NOTE | 2022-03-11 19:15 | RAD REPORT ---
EXAM DESCRIPTION: RAD - Chest Single View - 03/11/2022 6:56 pm CLINICAL HISTORY: BLUNT CHEST TRAUMA COMPARISON: Portable August 2018 TECHNIQUE: AP portable chest image was obtained 03/11/2022 6:56 pm . FINDINGS: Lungs are clear. Interstitial markings match comparison. Heart and vasculature are normal. No measurable pleural effusion and no pneumothorax. No acute bony abnormality seen. No acute aortic findings suspected. IMPRESSION: No acute cardiopulmonary process.
[2022-03-11 19:17] LABS: Absolute Lymphocytes (CBC) 1.7 K/uL (0.7-4.9); Hematocrit 40.3 % (39.6-49.0); Lymphocytes % 14.8 % (15.3-44.8); MCV 91.4 fL (80-100); MPV 7.8 fL (7.6-11.3)
[2022-03-11] MEDS ORDERED: NA CHLORIDE 0.9% 1,000 ML ONE (19:20)
[2022-03-11] MEDS ORDERED: FENTANYL CITR 100 MCG/2 ML ONE ×2 (19:20→20:21)
[2022-03-11] MEDS ORDERED: TETANUS & DIPHTHERIA TOX,ADULT 0.5 ML VIAL ONE (19:21)
[2022-03-11 19:23] LABS: Protime INR 1.08
[2022-03-11 19:37] LABS: Potassium 4.2 mmol/L (3.5-5.1); Troponin High Sensitivity 16.2 pg/mL (<58.9)
[2022-03-11] MEDS ORDERED: CEFAZOLIN SODIUM 1 GM/VIAL ONE (19:42)
--- NOTE | 2022-03-11 20:25 | RAD REPORT ---
EXAM DESCRIPTION: CT - Head C Spine Cap Wo Con - 03/11/2022 8:03 pm CLINICAL HISTORY: fall, head, neck, chest and abdomen pain COMPARISON: <Comparisons> TECHNIQUE: Axial [address] head images were obtained. Axial [address] cervical spine images were obtain ed with sagittal and coronal reconstruction images reviewed. Axial 5 mm images of the chest, abdomen and pelvis were obtained. All CT scans are performed using dose optimization technique as appropriate and may include automated exposure control or mA/KV adjustment according to patient size. FINDINGS: No intracranial hemorrhage, mass or edema. No midline shift or abnormal fluid collection. Ventricles are normal. Volume loss changes minimal. No significant chronic ischemic change. Mastoid a ir cells and paranasal sinuses are clear. No skull fracture. Dense arterial tree calcifications are present. Cervical bodies are normal in height and alignment. No fracture or acute bone finding.All disc levels except C2-3 show some degree of loss in height. Endplate spurring and uncovertebral joint hypertroph y changes are present. Bony foraminal encroachment changes are present from C3-4 through C6-7.No prev ertebral soft tissue thickening or paraspinal mass.Central canal detail is inherently limited on CT i maging. CT chest shows no pneumothorax, pulmonary contusion or pleural fluid collection. No mediastinal hem atoma and the aorta and pulmonary arteries are unremarkable. No chest will mass or abnormal axillary finding. No displaced rib fracture or other significant bony finding. Minimal hiatal hernia present. CT abdomen and pelvis show no injury to solid abdominal viscera. Bilateral renal cysts are present. G allbladder and biliary tree are unremarkable. No bowel injury or significant finding. No free air, fr ee fluid or abnormal stranding. No mass or bulky lymphadenopathy. Minimal fat filled inguinal hernias are present. No urinary bladder abnormality. No measurable hematoma in the subcutaneous fatty tissu es. No acute traumatic bone injury. AVN of the left femoral head is present. IMPRESSION: No significant CT Head finding. Cervical spine degenerative changes are present without acute finding. No significant CT Chest finding. No significant CT Abdomen and Pelvis finding. AVN of the left femoral head.
[2022-03-11] MEDS ORDERED: HYDROMORPHONE HCL 1 MG/ML INJ ONE ×2 (20:27→21:20)
--- NOTE | 2022-03-11 21:23 | RAD REPORT ---
EXAM DESCRIPTION: RAD - Hand Right 3 View - 03/11/2022 8:42 pm CLINICAL HISTORY: PAIN, trauma COMPARISON: Hand Right 3 View dated 01/05/2022 FINDINGS: No fracture is identified. There is no dislocation or periosteal reaction noted. IP joint space narrowing seen. Small marginal spurs are present. No erosive component. First MCP joint degene rative changes are present. No air or foreign body in the soft tissues. IMPRESSION: Right hand degenerative bone and joint changes as detailed. No acute finding.
--- NOTE | 2022-03-11 21:24 | RAD REPORT ---
EXAM DESCRIPTION: RAD - Hand Left 3 View - 03/11/2022 8:42 pm CLINICAL HISTORY: PAIN COMPARISON: None. FINDINGS: No fracture, dislocation or periosteal reaction noted. No acute or destructive bone proces s seen. IP joint space narrowing is present. Small marginal spurs are seen without erosive component. First MCP joint degenerative change present and mild. Mild degenerative change at the trapezium firs t metacarpal articulation. No air or foreign body in the soft tissues. IMPRESSION: Left hand bone and joint degenerative change. No acute finding.
--- NOTE | 2022-03-11 21:44 | EDPHYS ---
Physician Documentation [facility] Name: Red Cooper Jr Age: 66 yrs Sex: Male : 1955 Arrival Date: 03/11/2022 Time: 18:38 Bed 17 Private MD: ED Physician Juancarlos Carrasco HPI: 03/11 18:45 This 66 yrs old Male presents to ER via EMS with complaints of Fall Injury. cp 18:45 Details of fall: The patient fell from a height, dock, and struck water, [place]. cp Onset: The symptoms/episode began/occurred just prior to arrival. Associated injuries: The patient sustained injury to the chest, specifically the left lateral anterior chest and left lateral posterior chest, abrasion, contusion, ecchymosis, pain with breathing, pain with movement, right hand, laceration, painful injury, left hand, laceration, painful injury. Historical: - Allergies: 18:46 Demerol; jl7 18:46 Morphine; jl7 18:46 Tramadol HCl; jl7 - Home Meds: 18:46 enalapril maleate 10 mg Oral tab 1 tab once daily [Active]; Xarelto 10 mg oral tab jl7 [Active]; - PMHx: 18:46 Hypertension; pulmonary embolus; jl7 - PSHx: 18:46 IVC filter; jl7 - Immunization history: Last tetanus immunization: unknown. - Social history:: Smoking status: Patient reports the use of cigarette tobacco products, smokes one-half pack cigarettes per day. ROS: 18:50 Constitutional: Negative for body aches, chills, fever, poor PO intake. cp 18:50 Cardiovascular: Positive for chest pain, Negative for edema, palpitations. cp 18:50 Eyes: Negative for injury, pain, redness, and discharge. cp 18:50 Neck: Negative for pain with movement, pain at rest, stiffness. 18:50 Respiratory: Negative for cough, shortness of breath, wheezing. 18:50 Abdomen/GI: Positive for abdominal pain, Negative for vomiting, diarrhea, constipation. 18:50 Skin: Positive for laceration(s), of the chest, abdomen, right hand and left hand. cp 18:50 Neuro: Negative for altered mental status, headache, loss of consciousness, syncope, weakness. 18:50 All other systems are negative. cp Exam: 18:55 Constitutional: The patient appears in no acute distress, alert, awake, cp non-diaphoretic, non-toxic, well developed, well nourished, uncomfortable. 18:55 Head/Face: Normocephalic, atraumatic. cp 18:55 Eyes: Periorbital structures: appear normal, Conjunctiva: normal, no exudate, no injection, Sclera: no appreciated abnormality, Lids and lashes: appear normal, bilaterally. 18:55 ENT: External ear(s): are unremarkable, Nose: is normal, Mouth: Lips: moist, Oral mucosa: pink and intact, moist, Posterior pharynx: Airway: no evidence of obstruction, patent. 18:55 Neck: C-spine: vertebral tenderness, is not appreciated, crepitus, is not appreciated. 18:55 Chest/axilla: Inspection: ecchymosis, that is mild, of the left lateral anterior chest and left lateral posterior chest Palpation: crepitus, is not appreciated, tenderness, that is severe, of the left lateral anterior chest and left lateral posterior chest. 18:55 Cardiovascular: Rate: normal, Rhythm: irregular, Edema: is not appreciated, JVD: is not appreciated. 18:55 Respiratory: the patient does not display signs of respiratory distress, Respirations: labored breathing, is not present, shallow respirations, that is mild, Breath sounds: decreased breath sounds, are not appreciated, rhonchi, are not appreciated, stridor, is not appreciated, wheezing: is not appreciated. 18:55 Abdomen/GI: Inspection: bruising, anterior aspect of left lateral abdomen, distension, is not seen, Bowel sounds: active, all quadrants, Palpation: soft, in all quadrants, moderate abdominal tenderness, in the anterior aspect of left lateral abdomen and left upper quadrant, rebound tenderness, is not appreciated, involuntary guarding, is not appreciated. 18:55 Back: pain, that is moderate, of the thoracic area, ROM is painful, with all movement. 18:55 Musculoskeletal/extremity: Extremities: noted in the right hand: laceration, pain, swelling, tenderness, noted in the left hand: pain, swelling, tenderness. 18:55 Neuro: Orientation: to person, place \T\ time. Mentation: is normal, Motor: moves all fours, strength is normal, Sensation: is normal. Vital Signs: 18:38 BP 102 / 76; Pulse 87; Resp 19; Temp 98.2; Pulse Ox 97% ; Weight 97.52 kg; Height 5 ft. jl7 9 in. (175.26 cm); Pain 10/10; 19:00 BP 118 / 76; Pulse 92; Resp 17; Pulse Ox 96% ; jl7 21:42 BP 120 / 80; Pulse 94; Resp 17; Pulse Ox 100% ; ke1 18:38 Body Mass Index 31.75 (97.52 kg, 175.26 cm) jl7 [place] Coma Score: 18:38 Eye Response: spontaneous(4). Verbal Response: oriented(5). Motor Response: obeys jl7 commands(6). Total: 15. 19:00 Eye Response: spontaneous(4). Verbal Response: oriented(5). Motor Response: obeys jl7 commands(6). Total: 15. Trauma Score (Adult): 18:38 Eye Response: spontaneous(1); Verbal Response: oriented(1); Motor Response: obeys jl7 commands(2); Systolic BP: > 89 mm Hg(4); Respiratory Rate: 10 to 29 per min(4); [place] Score: 15; Trauma Score: 12 MDM: 18:45 Patient medically screened. 21:15 Data reviewed: vital signs, nurses notes, lab test result(s), EKG, radiologic studies, cp CT scan, plain films. Test interpretation: by ED physician or midlevel provider: ECG, plain radiologic studies. 03/11 18:41 Order name: Basic Metabolic Panel; Complete Time: 19:41 03/11 19:41 Interpretation: Normal except: CL 109; CO2 20; BUN 34; CRE 1.64; GFR 45. 03/11 18:41 Order name: CBC with Diff; Complete Time: 19:25 03/11 19:25 Interpretation: Normal except: WBC 11.60; HGB 13.2; MCV 91.4; LYM% 14.8; NEUT A 8.2. 03/11 18:41 Order name: NT PRO-BNP; Complete Time: 19:41 03/11 19:41 Interpretation: Abnormal: NT PRO-BNP 2901. 03/11 18:41 Order name: PT-INR; Complete Time: 19:25 03/11 18:41 Order name: Troponin HS; Complete Time: 19:41 cp 03/11 18:41 Order name: Type And Screen; Complete Time: 20:02 cp 03/11 18:41 Order name: XRAY Chest (1 view); Complete Time: 19:25 cp 03/11 18:41 Order name: Ptt, Activated; Complete Time: 19:25 cp 03/11 18:41 Order name: CT Traumagram (Head C Spine CAP W Con) cp 03/11 19:45 Order name: Head C Spine Cap Wo Con; Complete Time: 20:33 EDMS 03/11 21:08 Interpretation: Report reviewed. 03/11 20:18 Order name: Hand Right 3 View XRAY cp 03/11 20:18 Order name: XRAY Hand LEFT 3 View 03/11 20:53 Order name: INCENTIVE SPIROMETRY cp 03/11 18:41 Order name: EKG; Complete Time: 18:43 cp 03/11 18:41 Order name: Cardiac monitoring; Complete Time: 19:18 cp 03/11 18:41 Order name: EKG - Nurse/Tech; Complete Time: 22:12 cp 03/11 18:41 Order name: IV Saline Lock; Complete Time: 19:18 cp 03/11 18:41 Order name: Labs collected and sent; Complete Time: 19:18 cp 03/11 18:41 Order name: O2 Per Protocol; Complete Time: 19:18 cp 03/11 18:41 Order name: O2 Sat Monitoring; Complete Time: 19:18 cp 03/11 19:42 Order name: Wound Care; Complete Time: 22:12 cp EC:44 Rate is 86 beats/min. Rhythm is irregular. QRS interval is normal. QT interval is cp normal. Interpreted by me. Reviewed by me. 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 Exp: ke1 11/25/2023. Lot #: [id number]. } Route: IM; Site: right deltoid; 22:28 Follow up: Response: No adverse reaction ke 19:28 Drug: NS 0.9% 1000 ml Route: IV; Rate: 500 ml/hr; Site: right forearm; ke1 20:30 Follow up: IV Status: Completed infusion ke1 19:43 Drug: Ancef (cefazolin) 1 grams Route: IVPB; Site: right forearm; ke1 22:29 Follow up: Response: No adverse reaction; IV Status: Completed infusion ke1 20:16 Not Given (Physician Discretion): fentaNYL (PF) 25 mcg IVP once ke1 20:20 Drug: Dilaudid (HYDROmorphone) 1 mg Route: IVP; Site: right forearm; ke1 20:45 Follow up: Response: Pain is decreased ke1 21:14 Drug: Dilaudid (HYDROmorphone) 1 mg Route: IVP; Site: right forearm; ke1 21:30 Follow up: Response: No adverse reaction; Marked relief of symptoms; Pain is decreased ke1 Disposition Summary: 03/11/22 21:44 Discharge Ordered Location: Home crescencio Problem: new crescencio Symptoms: have improved crescencio Condition: Stable crescencio Diagnosis - Laceration without foreign body of left front wall of thorax without penetration crescencio into thoracic cavity, initial encounter - Hand Laceration/ Open wound of hand - bilateral crescencio - Fall down embankment (hill), initial encounter crescencio - Contusion of thorax, unspecified, initial encounter crescencio Followup: cp - With: Private Physician - When: 1 - 2 days - Reason: Wound Recheck Discharge Instructions: - Discharge Summary Sheet cp - Contusion cp - Nonsutured Laceration Care cp - Blunt Chest Trauma cp Forms: - Medication Reconciliation Form crescencio - Thank You Letter crescencio - Antibiotic Education crescencio - Prescription Opioid Use crescencio Prescriptions: - Doxycycline Hyclate 100 mg Oral Tablet - take 1 tablet by ORAL route every 12 hours; 20 tablet; Refills: 0, Product cp Selection Permitted - Cyclobenzaprine 5 mg Oral Tablet - take 1 tablet by ORAL route 3 times per day As needed; 15 tablet; Refills: 0, crescencio Product Selection Permitted Signatures: Dispatcher [employer] EDMS Juancarlos Carrasco MD MD cha Page, Corey, PA PA cp Leal, Jahala RN RN jl7 Mark Sanchez RN RN ke1 Corrections: (The following items were deleted from the chart) 19:45 18:46 Head C Spine Cap W Con ordered. EDMS EDMS
--- NOTE | 2022-03-11 21:44 | ER ---
Nurse's Notes [facility] Name: Red Cooper Jr Age: 66 yrs Sex: Male : 1955 Arrival Date: 03/11/2022 Time: 18:38 Bed 17 Private MD: Diagnosis: Laceration without foreign body of left front wall of thorax without penetration into thoracic cavity, initial encounter;Hand Laceration/ Open wound of hand-bilateral;Fall down embankment (hill), initial encounter;Contusion of thorax, unspecified, initial encounter Presentation: 03/11 18:38 Chief complaint: EMS states: Pt tripped over flip flop and fell about [address] [facility] concrete at the docs, multiple abrasions to arms and left lateral abdomen, pt denies SOB, did not hit head, does take Xarelto. Care prior to arrival: None. Mechanism of Injury: Fall from standing position. approximately 9 feet. Trauma event details: Injury occurred in the [facility], Injury occurred: in a public building. Injury occurred: March 11, 2022 Injury occurred at: 17:20. 18:38 Acuity: JENNY 2 jl7 18:38 Method Of Arrival: EMS: [facility] jl7 18:46 Coronavirus screen: At this time, the client does not indicate any symptoms associated [facility] with coronavirus-19. Ebola Screen: No symptoms or risks identified at this time. Initial Sepsis Screen: Does the patient meet any 2 criteria? No. Patient's initial sepsis screen is negative. Does the patient have a suspected source of infection? No. Patient's initial sepsis screen is negative. Risk Assessment: Do you want to hurt yourself or someone else? Patient reports no desire to harm self or others. Onset of symptoms was March 11, 2022 at 17:20. Historical: - Allergies: 18:46 Demerol; jl7 18:46 Morphine; jl7 18:46 Tramadol HCl; jl7 - Home Meds: 18:46 enalapril maleate 10 mg Oral tab 1 tab once daily [Active]; Xarelto 10 mg oral tab jl7 [Active]; - PMHx: 18:46 Hypertension; pulmonary embolus; jl7 - PSHx: 18:46 IVC filter; jl7 - Immunization history: Last tetanus immunization: unknown. - Social history:: Smoking status: Patient reports the use of cigarette tobacco products, smokes one-half pack cigarettes per day. Screenin:38 Abuse screen: Denies threats or abuse. Denies injuries from another. Tuberculosis jl7 screening: No symptoms or risk factors identified. 18:47 Nutritional screening: No deficits noted. jl7 19:00 Fall Risk IV access (20 points). Total Correa Fall Scale indicates No Risk (0-24 pts). jl7 Primary Survey: 18:38 NO uncontrolled hemorrhage observed. A: The client is alert. Airway: patent. jl7 Breathing/Chest: Spontaneous respiratory effort, equal unlabored respirations, breath sounds clear bilaterally, regular pattern, symmetrical chest rise and fall. Respiratory effort: spontaneous, unlabored, Breath sounds: clear, bilaterally. Respiratory pattern: regular, Chest inspection: symmetrical rise and fall of the chest. Circulation: Hemorrhage: No external hemorrhage noted. Pulses: palpable right radial artery and left radial artery. Skin color: pink, Skin temperature: warm, Cardiac rhythm: atrial fibrillation. Disability Client is alert. Exposure/Environment: All clothing and personal items were removed. Forensic evidence collection is not deemed to be indicated at this time. Items placed in patient belonging bag. There is no evidence of uncontrolled external bleeding. Obvious injury(ies) are noted at this time: multiple abrasions to bilateral arms and left lateral abdomen. 19:00 Reassessment Alertness and Airway: Airway Patent Breathing: Respiratory effort ke1 Spontaneous Breath sounds Clear Respiratory pattern Regular Chest inspection Symmetrical Circulation: Heart rhythm Atrial fibrillation Heart tones Present. Assessment: 18:38 General: Appears in no apparent distress. uncomfortable, Behavior is calm, cooperative, jl7 appropriate for age. Pain: Complains of pain in anterior aspect of left lateral abdomen Pain currently is 1000 out of 10 on a pain scale. Neuro: Jason Agitation-Sedation Scale (RASS): +1 Restless Level of Consciousness is awake, alert, obeys commands, Oriented to person, place, time, situation. Cardiovascular: Patient's skin is warm and dry. Respiratory: Airway is patent Respiratory effort is even, unlabored, Respiratory pattern is regular, symmetrical. Derm: Skin is pink, warm \T\ dry. Vital Signs: 18:38 BP 102 / 76; Pulse 87; Resp 19; Temp 98.2; Pulse Ox 97% ; Weight 97.52 kg; Height 5 ft. jl7 9 in. (175.26 cm); Pain 10/10; 19:00 BP 118 / 76; Pulse 92; Resp 17; Pulse Ox 96% ; jl7 21:42 BP 120 / 80; Pulse 94; Resp 17; Pulse Ox 100% ; ke1 18:38 Body Mass Index 31.75 (97.52 kg, 175.26 cm) jl7 [place] Coma Score: 18:38 Eye Response: spontaneous(4). Verbal Response: oriented(5). Motor Response: obeys jl7 commands(6). Total: 15. 19:00 Eye Response: spontaneous(4). Verbal Response: oriented(5). Motor Response: obeys jl7 commands(6). Total: 15. Trauma Score (Adult): 18:38 Eye Response: spontaneous(1); Verbal Response: oriented(1); Motor Response: obeys jl7 commands(2); Systolic BP: > 89 mm Hg(4); Respiratory Rate: 10 to 29 per min(4); [place] Score: 15; Trauma Score: 12 ED Course: 18:38 Patient arrived in ED. jl7 18:38 Juancarlos Rodrigues PA is PHCP. cp 18:38 Jing Asher MD is Attending Physician. cp 18:38 Patient has correct armband on for positive identification. Placed in gown. Bed in low jl7 position. Call light in reach. Side rails up X2. 18:38 Client placed on continuous cardiac and pulse oximetry monitoring. NIBP monitoring jl7 applied. Warm blanket given. 18:38 Patient maintains SpO2 saturation greater than 95% on room air. Thermoregulation: warm jl7 blanket given to patient. 18:42 Triage completed. jl7 18:46 Arm band placed on right wrist. jl7 18:55 Initial lab(s) drawn, by il, sent to lab. T\T\S collected, blood band applied to patient. jl7 Inserted saline lock: 22 gauge in right forearm, using aseptic technique. Blood collected. 18:58 XRAY Chest (1 view) In Process Unspecified. EDMS 19:07 Carroll Bradshaw, JAYA is Primary Nurse. jl7 19:40 Juancarlos Carrasco MD is Attending Physician. cp 20:05 Head C Spine Cap Wo Con In Process Unspecified. EDMS 20:44 Hand Right 3 View XRAY In Process Unspecified. EDMS 20:44 XRAY Hand LEFT 3 View In Process Unspecified. EDMS 22:23 wound treatment. IV discontinued. ke1 Administered Medications: 19:24 Drug: fentaNYL (PF) 25 mcg Route: IVP; Site: right forearm; ke1 19:45 Follow up: Response: Pain is decreased ke1 19:27 Drug: Tetanus-Diphtheria Toxoid Adult 0.5 ml {Director Of Compensation: [employer]. Exp: ke1 11/25/2023. Lot #: [id number]. } Route: IM; Site: right deltoid; 22:28 Follow up: Response: No adverse reaction ke1 19:28 Drug: NS 0.9% 1000 ml Route: IV; Rate: 500 ml/hr; Site: right forearm; ke1 20:30 Follow up: IV Status: Completed infusion ke1 19:43 Drug: Ancef (cefazolin) 1 grams Route: IVPB; Site: right forearm; ke1 22:29 Follow up: Response: No adverse reaction; IV Status: Completed infusion ke1 20:16 Not Given (Physician Discretion): fentaNYL (PF) 25 mcg IVP once ke1 20:20 Drug: Dilaudid (HYDROmorphone) 1 mg Route: IVP; Site: right forearm; ke1 20:45 Follow up: Response: Pain is decreased ke1 21:14 Drug: Dilaudid (HYDROmorphone) 1 mg Route: IVP; Site: right forearm; ke1 21:30 Follow up: Response: No adverse reaction; Marked relief of symptoms; Pain is decreased ke1 Medication: 22:25 VIS not applicable for this client. ke1 Outcome: 21:44 Discharge ordered by . crescencio 22:26 Discharged to home via wheelchair. ke1 22:26 Condition: good 22:26 Discharge instructions given to patient. 22:29 Patient left the ED. ke1 Signatures: Dispatcher [employer] Juancarlos Abdullahi MD MD cha Page, Corey, PA PA cp Leal, Jahala RN RN jl7 Mark Sanchez RN RN ke1 Corrections: (The following items were deleted from the chart) 19:29 19:24 fentaNYL (PF) 25 mcg IVP in right antecubital ke1 ke1 19:29 19:28 NS 0.9% 1000 ml IV at 500 ml/hr in right antecubital ke1 ke1
[2022-03-12 01:37] VITALS: TEMP 98.2
[2022-03-12 01:42] VITALS: BP 120/80; O2SAT 100
--- NOTE | 2022-03-12 08:07 | EKG ---
Test Date: 2022-03-11 Test Time: 20:37:41 Superintendent Logging: BOED MEASUREMENT RESULTS: Intervals: Rate: 86 CT: QRSD: 94 QT: 358 QTc: 428 [place]: P: CT: QRS: 18 T: 50 INTERPRETIVE STATEMENTS: Atrial fibrillation Nonspecific T wave abnormality Abnormal ECG Compared to ECG 08/29/2018 18:44:29 T-wave abnormality now present Sinus rhythm no longer present Electronically Signed On 03-12-22 08:06:20 CDT by Eugene Mack
--- NOTE | 2022-03-12 08:07 | EKG ---
Test Date: 2022-03-11 Test Time: 20:38:44 Slab Stripper: OBED MEASUREMENT RESULTS: Intervals: Rate: 92 MD: QRSD: 96 QT: 364 QTc: 450 [place]: P: MD: QRS: 26 T: 61 INTERPRETIVE STATEMENTS: Atrial fibrillation Abnormal ECG Compared to ECG 03/11/2022 20:37:41 T-wave abnormality no longer present Electronically Signed On 03-12-22 08:06:19 CDT by Eugene Mack
== END 2022-03-11 22:29 | disposition home or self-care (01) ==
LOC: ER 18:34
DX: S21.112A Laceration without foreign body of left front wall of thorax without penetration into thoracic cavity, initial encounter (principal); S61.412A Laceration without foreign body of left hand, initial encounter; S61.411A Laceration without foreign body of right hand, initial encounter; S20.20XA Contusion of thorax, unspecified, initial encounter; W17.81XA Fall down embankment (hill), initial encounter; Z23 Encounter for immunization; I10 Essential (primary) hypertension; F17.210 Nicotine dependence, cigarettes, uncomplicated; Z88.5 Allergy status to narcotic agent; Z79.01 Long term (current) use of anticoagulants
CPT/HCPCS: 96365; 93005 ×2; 85025; 80048; 36415; 86900; 86850; 85610; 86901; 85730; 84484; 83880; 70450; 71250; 72125; 71045; 73130 ×2; 90471; 90714; 96375; 99284; 96366; J3010 ×2; J1170 ×2; J7030; J0690

== ENCOUNTER 2023-01-11 11:31 | Emergency (ER) | payer OTHER ==
--- OUTSIDE RECORDS SUMMARY | 2023-01-11 11:39 | XMS REPORT | Continuity of Care Document ---
:1955 Author Organization [facility] t Address [address] [facility]. [address] [place] [address] Care Team Providers Name Role Phone Daniel Rodríguez Primary Care Physician [phone] Daniel Rodríguez Attending Clinician Unavailable DELFINO JAVIER Attending Clinician Unavailable MICHAEL COTA Attending Clinician Unavailable WILLIAM TY Attending Clinician Unavailable Callum Stallworth Attending Clinician CALLUM HAAS Attending Clinician Unavailable Doctor Unassigned, [place] Attending Clinician Unavailable TOMMIE NICK Attending Clinician Unavailable Tommie Nick MD Attending Clinician Tej Martines MD Attending Clinician TEJ MARTINES Attending Clinician Unavailable Max Alejandro CRNA Attending Clinician Leandro Begum MD Attending Clinician [phone] Mal Buckley PTA Attending Clinician Unavailable Dl LAND, William Attending Clinician Nurse, Chris Alan Attending Clinician Unavailable Doc Kaiser MD Attending Clinician Michelle Zamorano PT Attending Clinician Unavailable CAL DEWITT Attending Clinician Unavailable RADIOLOGY Attending Clinician Unavailable Radiology Attending Clinician Unavailable Grabiel Herrera Attending Clinician FERNANDA SOMMERS Attending Clinician Unavailable Fernanda Black Attending Clinician Jessu Urbano Attending Clinician Unavailable Pattie Sigala RN Attending Clinician Unavailable MADDIE DE LA VEGA Attending Clinician Unavailable Anjelica Gilmore Attending Clinician Maddie De La Vega MD Attending Clinician Shima Johansen Attending Clinician Unavailable TOMMIE NICK Admitting Clinician Unavailable TEJ MARTINES Admitting Clinician Unavailable Tej Martines MD Admitting Clinician WILLIAM TY Admitting Clinician Unavailable CAL DEWITT Admitting Clinician Unavailable FERNANDA SOMMERS Admitting Clinician Unavailable Physician, No Primary or Family Admitting Clinician Unavaila MADDIE Bah Admitting Clinician Unavailable Maddie De La Vega MD Admitting Clinician Payers Payer Name Policy Type Policy Number Effective Date Expiration Date S asher [facility] [id number] 2021 [employer] [place] 00:00:00 EXCEPT [facility] MEDICA[facility] OF [id number] 2022 [place] 00:[place]:00 [facility] [id number] [facility] [place] [id number] [facility] [id number] [facility] Problems Condition Condition Condition Status Onset Resolution Last Treating Co mments Source Name Details Category Date Date Treatment Clinician Date Avascular Avascular Disease Active Overview: Univers necrosis necrosis 4-24 Formattin ity of of bone of of bone of 00:00: g of this [place] left hip left hip 00 note Medica l might be Branch different from the original. Added automatic ally from request for surgery [id number] Atrial Atrial Disease Active Univers fibrillati fibrillati 2-13 it y of on with on with 00:00: [place] RVR RVR [address] [place] [address] Branch Obesity Obesity Disease Active Univers (BMI (BMI 2-13 ity of 30-39.9) 30-39.9) 00:00: [address] Branch Primary Primary Disease Active Univers hypertensi hypertensi 2-13 it y of on on 00:00: [address] Branch Cigarette Cigarette Disease Active Uni vers smoker smoker 2-13 ity of 00:00: [address] Vomiting Vomiting Disease Active 2020-07 Unive rs 1-14 ity of 00:00: [address] Shoulder Shoulder Disease Active Unive rs pain, pain, 9-16 ity of right right 00:00: [address] [id number] Stage 3a Problem Comm on chronic Spirit kidney - [facility] disease [facility] [id number] Morbid Problem Commo n 9104 (severe) Spirit obesity - [facility] due to [facility] [id number] Body mass Problem Com mon index Spirit [BMI] - [facility] 40.0-44.9, [facility] [id number] Nonalcohol Problem Co mmon ic fatty Spirit liver - [facility] disease [facility] Deep Deep Problem Common venous venous Spirit thrombosis thrombosis - [facility] of leg of leg [facility] Hypertensi Hypertensi Problem C ommon on on Spirit - [facility] [id number] Tobacco Problem Commo n use Spirit disorder - [facility] [id number] On Problem Common anticoagul Spirit ant - [facility] therapy [facility] [id number] History of Problem Co mmon pulmonary Spirit embolism - [facility] [id number] Persistent Problem Co mmon insomnia [facility] - [facility] [id number] 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, - [facility] unspecifie [facility] laterality [facility] [id number] Mixed Problem Common hyperlipid Spirit emia - [facility] [id number] Iron Problem Common deficiency Spirit anemia, - [facility] unspecifie [facility] iron [facility] type No known No known Disease [place] active active Health problems problems Allergies, Adverse Reactions, Alerts Allergy Allergy Status Severity Reaction(s) Onset Inactive Treating Comm ents Source Name Type Date Date Clinician butorpha DA Active U [facility] nol 2 Clear tartrate 00:00: [place] 00 [facility] morphine DA Active U PSYCHOSIS [facility] 08-24 Clear 00:00: [place] 00 [facility] tramadol DA Active U ELEVATED LFT HC A 08-24 Clear 00:00: [place] 00 [facility] MORPHINE DRUG Active Med Other-Cmnt [facility] ers INGREDI 03-17 ity of 00:00: [place] 00 Medical Branch BUTORPHA DRUG Active Med Other-Cmnt [facility] ers NOL INGREDI 03-17 ity of TARTRATE 00:00: [place] 00 Medical [...] See Can't U nivers ty to comments 8 urinate ity of adverse 00:00: [place] reaction 00 Medical s to Branch drug butorpha DA Active U 2008-07 [facility] nol 2- Clear tartrate 00:00: [place] 00 [facility] morphine DA Active U 2008-07 [facility] 2- Clear 00:00: [place] 00 [facility] pravasta DA Active U 2008-07 [facility] tin 2 Clear 00:00: [place] 00 [facility] tramadol DA Active U 2008-07 [facility] 2 Clear 00:00: [place] 00 [facility] butorpha DA Active U 2008-07 [facility] nol 08-23 Clear tartrate 00:00: [place] 00 [facility] morphine DA Active U 2008-07 [facility] - Clear 00:00: [place] 00 [facility] pravasta DA Active U 2008-07 [facility] tin - Clear 00:00: [place] 00 [facility] tramadol DA Active U 2008-07 [facility] - Clear 00:00: [place] 00 [facility] Butorpha Allergy Active 2008-07 Other [place] nol [...] - See comments, Unknown, UnknownCa n't urinate MIRTAZAP DRUG Active Anxiety Univers INE INGREDI 7-20 ity of 00:00: [place] 00 Medical Branch Mirtazap Propensi Active Anxiety Leg Unive rs ine ty to 7-20 swelling ity of adverse 00:00: [place] reaction 00 Medical s Branch PRAVASTA DRUG Active Other-Cmnt Univ ers TIN INGREDI 2-12 ity of 00:00: [place] 00 Medical Branch Pravasta Drug Active Other - See Pancreati Univers tin Allergy comments 2-12 c ity of 00:00: problems [place] 00 Medical Branch 1285 Drug Active Unknown Common allergy [facility] morphine morphine Active Unknown Commo n [facility] tramadol tramadol Active Unknown Commo n [facility] Social History Social Habit Start Date Stop Date Quantity Comments Source History SDOH University o f Alcohol Frequency [place] M edical Branch History SDOH University o f Alcohol Std Drinks [place] [facility] History SDOH University o f Alcohol Binge [place] Medic al Branch Gender identity [facility] Sexual orientation [facility] History of Tobacco Current Smoker Co mmon [facility] - Use [facility] Exposure to 2022-11-30 2022-12-10 Not sure University of SARS-CoV-2 (event) 00:00:00 15:00:00 [facility] Tobacco use and 2022-04-06 2022-04-06 Smokeless tobacco Un iversity of exposure 00:00:00 00:00:00 non-user [facility] Cigarettes smoked 2021-08-31 2021-08-31 [facility] (pack per 00:00:00 00:00:00 day) - Reported Alcohol intake 2021-08-31 2021-08-31 Current drinker [facility] 00:00:00 00:00:00 of alcohol (finding) Alcohol Comment 2015-03-17 2015-03-17 Occasional Universit y of 00:00:00 00:00:00 Drinker [facility] Sex Ass[birth year] At [birth year] [facility] 00:00:00 00:00:00 Hospital Smoking Status Start Date Stop Date Source Tobacco smoking consumption [facility] unknown Smokes tobacco daily 2022-04-06 00:00:00 Univers ity of [facility] Medications Ordered Filled Start Stop Current Ordering Indication Dosage Frequency Signature Comments Components Source Medication Medication Date Date Medication? Clinician (SIG) Name Name ketorolac No 30mg 30 mg, Unive rs (TORADOL) 12-03 Intramuscu ity of injection 19:00: 18:45 lar, ONCE, [place] 30 mg 00 :00 1 dose, On [facility] 12/03/22 at 1400, LENNIE acetaminoph 2022- No 975mg 975 mg, U nivers en 12-03 Oral, ONCE ity of (TYLENOL) 18:30: 18:43 NOW, 1 [place] tablet 975 00 :00 dose, On Medic al mg [facility] 12/03/22 at 1330, LENNIE gabapentin 2022- No 300mg 300 mg, Un jocelyn (NEURONTIN) 12-03 Oral, ity of capsule 300 17:30: 18:43 ONCE, 1 [place] mg 00 :00 dose, On [facility] 12/03/22 at 1230, LENNIE gabapentin 3-0 Yes [id number] 100mg Take 1 Univers (NEURONTIN) 5-15 [id number] capsule by ity of 100 mg 00:00: mouth in [place] capsule 00 the Medical morning Branch and 1 capsule at noon and 1 capsule in the evening. acetaminoph 3-0 Yes [id number] 650mg Take 1 Univers en (TYLENOL 5-15 [id number] tablet by i ty of ARTHRITIS 00:00: mouth [place] PAIN) 650 00 every 8 Medical mg CR (eight) Branch tablet hours as needed for Pain. gabapentin 3-0 Yes [id number] 100mg Take 1 Univers (NEURONTIN) 5-15 [id number] capsule by ity of 100 mg 00:00: mouth in [place] capsule 00 the Medical morning Branch and 1 capsule at noon and 1 capsule in the evening. acetaminoph 3-0 Yes [id number] 650mg Take 1 Univers en (TYLENOL 5-15 [id number] tablet by i ty of ARTHRITIS 00:00: mouth [place] PAIN) 650 00 every 8 Medical mg CR (eight) Branch tablet hours as needed for Pain. gabapentin 2022-0 Yes [id number] 100mg Take 1 Univers (NEURONTIN) 5-15 [id number] capsule by ity of 100 mg 00:00: mouth in [place] capsule 00 the Medical morning Branch and 1 capsule at noon and 1 capsule in the evening. acetaminoph 3-0 Yes [id number] 650mg Take 1 Univers en (TYLENOL 5-15 [id number] tablet by i ty of ARTHRITIS 00:00: mouth [place] PAIN) 650 00 every 8 Medical mg CR (eight) Branch tablet hours as needed for Pain. gabapentin 3-0 Yes [id number] 100mg Take 1 Univers (NEURONTIN) 5-15 [id number] capsule by ity of 100 mg 00:00: mouth in [place] capsule 00 the Medical morning Branch and 1 capsule at noon and 1 capsule in the evening. acetaminoph 2023-0 Yes [id number] 650mg Take 1 Univers en (TYLENOL 5-15 [id number] tablet by i ty of ARTHRITIS 00:00: mouth [place] PAIN) 650 00 every 8 Medical mg CR (eight) Branch tablet hours as needed for Pain. gabapentin 3-0 Yes [id number] 100mg Take 1 Univers (NEURONTIN) 5-15 [id number] capsule by ity of 100 mg 00:00: mouth in [place] capsule 00 the Medical morning Branch and 1 capsule at noon and 1 capsule in the evening. acetaminoph 2023-0 Yes [id number] 650mg Take 1 Univers en (TYLENOL 5-15 [id number] tablet by i ty of ARTHRITIS 00:00: mouth [place] PAIN) 650 00 every 8 Medical mg CR (eight) Branch tablet hours as needed for Pain. gabapentin 2023-0 Yes [id number] 100mg Take 1 Univers (NEURONTIN) 5-15 [id number] capsule by ity of 100 mg 00:00: mouth in [place] capsule the morning Branch and 1 capsule at noon and 1 capsule in the evening. acetaminoph 2023-0 Yes [id number] 650mg Take 1 Univers en (TYLENOL 5-15 [id number] tablet by i ty of ARTHRITIS 00:00: mouth [place] PAIN) 650 00 every 8 Medical mg CR (eight) Branch tablet hours as needed for Pain. gabapentin 2022-0 Yes [id number] 100mg Take 1 Univers (NEURONTIN) 5-15 [id number] capsule by ity of 100 mg 00:00: mouth in [place] capsule the and 1 capsule at noon and 1 capsule in the evening. acetaminoph 3-0 Yes [id number] 650mg Take 1 Univers en (TYLENOL 5-15 [id number] tablet by i ty of ARTHRITIS 00:00: mouth [place] PAIN) 650 00 every 8 Medical mg CR (eight) Branch tablet hours as needed for Pain. gabapentin 2022-0 Yes [id number] 100mg Take 1 Univers (NEURONTIN) 5-15 [id number] capsule by ity of 100 mg 00:00: mouth in [place] capsule the and 1 capsule at noon and 1 capsule in the evening. acetaminoph 2022-0 Yes [id number] 650mg Take 1 Univers en (TYLENOL 5-15 [id number] tablet by i ty of ARTHRITIS 00:00: mouth [place] PAIN) 650 00 every 8 Medical mg CR (eight) Branch tablet hours as needed for Pain. aspirin 2022-0 Yes 325mg 325 mg, Univer s tablet 325 11-27 Oral, ity of mg 14:00: DAILY, [place] [address] First dose Medical on Sat Branch 11/27/22 at 0900, Until Discontinu ed, Routine, PACU aspirin 2022-0 202- No 325mg 325 mg, Unive rs tablet 325 11-27- Oral, ity of mg 14:00: 23:12 DAILY, [place] 00 :57 First dose Medical on e Branch 11/27/22 at 0900, Until Discontinu ed, Routine, PACU HYDROcodone 2022- No 1{tbl} 1 tablet, Univers -acetaminop 11-26-08 Oral, ity of hen (NORCO) 21:15: 20:05 ONCE, 1 [place] 10-325 mg 00 :00 dose, On Medica l tablet 1 Sat11/26/22 Branc h tablet at 1615, Routine HYDROcodone 2022- No 1{tbl} 1 tablet, Univers -acetaminop 11-26- Oral, ity of hen (NORCO) 21:15: 20:05 ONCE, 1 [place] 10-325 mg 00 :00 dose, On Medica l tablet 1 Sat11/26/22 Branc h tablet at 1615, Routine albumin 2022- No IV Univers (ALBUMINAR 11-26- Infusion, ity of 25%) 25 % 16:54: 17:10 CONTINUOUS [place] injection 00 :07 PRN, Medical Starting Branch on Sat11/26/22 at 1154, Until Sat11/26/22 at 1210, Intra-op albumin 2022- No IV Univers (ALBUMINAR 11-26- Infusion, ity of 25%) 25 % 16:54: 17:10 CONTINUOUS [place] injection 00 :07 PRN, Medical Starting Branch on Sat11/26/22 at 1154, Until Sat11/26/22 at 1210, Intra-op ePHEDrine 2022- No Slow IV Univ ers 25 mg/5 mL 11-26 Push, ONCE it y of (5 mg/mL) 16:47: 17:09 INTRA [place] syringe 00 :49 PROCEDURE, Medica l Starting Branch on Sat11/26/22 at 1147, Until Sat11/26/22 at 1209, Routine, Intra-op ePHEDrine 2022- No Slow IV Univ ers 25 mg/5 mL 11-26- Push, ONCE it y of (5 mg/mL) 16:47: 17:09 INTRA [place] syringe 00 :49 PROCEDURE, Medica l Starting Branch on Sat11/26/22 at 1147, Until Sat11/26/22 at 1209, Routine, Intra-op Melatonin 5 2023-0 Yes 5mg Take 1 Univ ers mg tablet 5-08 tablet by ity o f 16:12: mouth in [place] [address] the Medical morning. Branch Melatonin 5 2023-0 Yes 5mg Take 1 Univ ers mg tablet 5-08 tablet by ity o f 16:12: mouth in [place] [address] the Medical morning. Branch Melatonin 5 2023-0 Yes 5mg Take 1 Univ ers mg tablet 5-08 tablet by ity o f 16:12: mouth in [place] [address] the Medical morning. Branch Melatonin 5 2023-0 Yes 5mg Take 1 Univ ers mg tablet 5-08 tablet by ity o f 16:12: mouth in [place] [address] the Medical morning. Branch Melatonin 5 2023-0 Yes 5mg Take 1 Univ ers mg tablet 5-08 tablet by ity o f 16:12: mouth in [place] [address] the Medical morning. Branch Melatonin 5 2023-0 Yes 5mg Take 1 Univ ers mg tablet 5-08 tablet by ity o f 16:12: mouth in [place] [address] the Medical morning. Branch Melatonin 5 2023-0 Yes 5mg Take 1 Univ ers mg tablet 5-08 tablet by ity o f 16:12: mouth in [place] [address] the Medical morning. Branch Melatonin 5 2023-0 Yes 5mg Take 1 Univ ers mg tablet 5-08 tablet by ity o f 16:12: mouth in [place] [address] the Medical morning. Branch Melatonin 5 2023-0 Yes 5mg Take 1 Univ ers mg tablet 5-08 tablet by ity o f 16:12: mouth in [place] [address] the Medical morning. Branch Melatonin 5 2023-0 Yes 5mg Take 1 Univ ers mg tablet 5-08 tablet by ity o f 16:12: mouth in [place] [address] the Medical morning. Branch Melatonin 5 2023-0 Yes 5mg Take 1 Univ ers mg tablet 5-08 tablet by ity o f 16:12: mouth in [place] [address] the Medical morning. Branch Melatonin 5 2023-0 Yes 5mg Take 1 Univ ers mg tablet 5-08 tablet by ity o f 16:12: mouth in [place] [address] the Medical morning. Branch Melatonin 5 2023-0 Yes 5mg Take 1 Univ ers mg tablet 5-08 tablet by ity o f 16:12: mouth in [place] 57 the Medical morning. Branch ketamine 2022-0 2022- No Intravenou Un jocelyn (KETALAR) 5-08 05-08 s, ONCE ity of injection 15:54: 17:08 INTRA [place] 00 :44 PROCEDURE, Medical Starting Branch on Sat11/26/22 at 1054, Until Sat11/26/22 at 1208, Routine, Intra-op ketamine 2022-0 2022- No Intravenou Un jocelyn (KETALAR) 5-08 05-08 s, ONCE ity of injection 15:54: 17:08 INTRA [place] 00 :44 PROCEDURE, Medical Starting Branch on Sat11/26/22 at 1054, Until Sat11/26/22 at 1208, Routine, Intra-op FENTanyl PF 2022-0 Yes 25ug 25 mcg, Uni vers (SUBLIMAZE 5-08 Slow IV ity of (PF)) 15:34: Push, [place] injection 41 Q5MIN PRN, Medi ca 25 mcg 4 doses, Branch Starting on Sat11/26/22 at 1034, Until Discontinu ed, Routine, Pain (scale 7-10), PACU FENTanyl PF 2022-0 Yes 25ug 25 mcg, Uni vers (SUBLIMAZE 5-08 Slow IV ity of (PF)) 15:34: Push, [place] injection 41 Q5MIN PRN, Medi ca 25 mcg 4 doses, Branch Starting on Sat11/26/22 at 1034, Until Discontinu ed, Routine, Pain (scale 4-6), PACU FENTanyl PF 2022-0 2022- No 25ug 25 mcg, Un jocelyn (SUBLIMAZE 5-08 05-08 Slow IV ity o f (PF)) 15:34: 23:12 Push, [place] injection 41 :57 Q5MIN PRN, Medi ca 25 mcg 4 doses, Branch Starting on Sat11/26/22 at 1034, Until Sat11/26/22 at 1812, Routine, Pain (scale 7-10), PACU FENTanyl PF 2022-0 2022- No 25ug 25 mcg, Un jocelyn (SUBLIMAZE 5-08 05-08 Slow IV ity o f (PF)) 15:34: 23:12 Push, [place] injection 41 :57 Q5MIN PRN, Medi ca 25 mcg 4 doses, Branch Starting on Sat11/26/22 at 1034, Until Sat11/26/22 at 1812, Routine, Pain (scale 4-6), PACU sugammadex 2022- No IV Push, Un jocelyn (BRIDION) 11-26 ONCE INTRA ity of injection 15:27: 15:44 PROCEDURE, [place] 00 :04 Starting Medical on Mon Branch 11/26/22 at 1027, Until Sat11/26/22 at 1044, Routine, Intra-op sugammadex 2022- No IV Push, Un jocelyn (BRIDION) 11-26 ONCE INTRA ity of injection 15:27: 15:44 PROCEDURE, [place] 00 :04 Starting Medical on Mon Branch 11/26/22 at 1027, Until Sat11/26/22 at 1044, Routine, Intra-op ondansetron 2022- No Slow IV Un jocelyn (ZOFRAN 11-26 Push, ONCE ity o f (PF)) 15:19: 15:44 INTRA [place] injection 00 :04 PROCEDURE, Medi ca Starting Branch on 11/26/22 at 1019, Until Sat11/26/22 at 1044, Routine, Intra-op ondansetron 2022- No Slow IV Un jocelyn (ZOFRAN 11-26 Push, ONCE ity o f (PF)) 15:19: 15:44 INTRA [place] injection 00 :04 PROCEDURE, [facility] ca Starting Branch on Sat11/26/22 at 1019, Until Sat11/26/22 at 1044, Routine, Intra-op tranexamic 2022- No Intravenou Univers acid 11-26-08 s, ity of (CYKLOKAPRO 15:17: 15:44 CONTINUOUS [place] N) 1,000 mg 00 :04 PRN, Medical in NaCl Starting Branch 0.9% (NS) on Sat 100 mL 11/26/22 at piggyback 1017, Until Sat11/26/22 at 1044, Administer over 60 Minutes, 100 mL, Intra-op tranexamic 2022- No Intravenou Univers acid 11-26 05-08 s, ity of (CYKLOKAPRO 15:17: 15:44 CONTINUOUS [place] N) 1,000 mg 00 :04 PRN, Medical in NaCl Starting Branch 0.9% (NS) on Sat 100 mL 11/26/22 at piggyback 1017, Until Sat11/26/22 at 1044, Administer over 60 Minutes, 100 mL, Intra-op cefTRIAXone 2022- No Slow IV Un jocelyn (ROCEPHIN) 11-26 Push, ONCE it y of injection 15:07: 15:44 INTRA [place] : PROCEDURE, Medical Starting Branch on Sat11/26/22 at 1007, Until Sat11/26/22 at 1044, LENNIE, Intra-op cefTRIAXone 2022- No Slow IV Un jocelyn (ROCEPHIN) 11-26 Push, ONCE it y of injection 15:07: 15:44 INTRA [place] PROCEDURE, Medical Starting Branch on Sat11/26/22 at 1007, Until Sat11/26/22 at 1044, LENNIE, Intra-op HYDROmorphO 2022- No Slow IV Un jocelyn ne 11-26 Push, ONCE ity of (DILAUDID) 14:04: 15:44 INTRA [place] injection 00 :04 PROCEDURE, Medi ca Starting Branch on Sat11/26/22 at 0904, Until Discontinu ed, Routine, Intra-op HYDROmorphO 2022- No Slow IV Un jocelyn ne 11-26 Push, ONCE ity of (DILAUDID) 14:04: 15:44 INTRA [place] injection 00 :04 PROCEDURE, Medi ca Starting Branch on Sat11/26/22 at 0904, Until Discontinu ed, Routine, Intra-op bupivacaine 2022- No PRN, Unive rs (preserv 11-26 Starting ity of free) 13:57: 15:44 on Sat (SENSORCAIN 00 :38 11/26/22 at [facility]) 0.25 0857, Branch % (2.5 Intra-op mg/mL) 30 mL, BUPivacaine liposome (PF) (EXPAREL (PF)) 1.3 % (13.3 mg/mL) 266 mg, NaCl 0.9% (NS) 50 mL sodium 2022- No PRN, Univers chloride 11-26 Starting ity of 0.9 % 13:57: 15:44 on Mon [place] irrigation 00 :38 11/26/22 at [facility] solution 0857, Branch Until Sat11/26/22 at 1044, Intra-op acetaminoph 2022- No IV Unive rs en ADULT 11-26 Infusion, ity o f ([facility]) 13:47: 15:44 Administer [place] injection 00 :04 over 15 Medical Minutes, Branch ONCE INTRA PROCEDURE, Starting on Sat11/26/22 at 0847, Until Discontinu ed, Routine, Intra-op dexamethaso 2022- No IV Push, U nivers ne 11-26 ONCE INTRA ity of (DECADRON 13:47: 15:44 PROCEDURE, [place] PHOSPHATE) 00 :04 Starting Medic al injection on Sat Branch 11/26/22 at 0847, Until Discontinu ed, Routine, Intra-op dexmedeTOMI 2022- No Intravenou Univers Dine 11-26 s, ONCE ity of (PRECEDEX) 13:47: 15:44 INTRA [place] injection 00 :04 PROCEDURE, [facility] Starting Branch on Sat11/26/22 at 0847, Until Discontinu ed, Routine, Intra-op acetaminoph 2022- No IV Unive rs en ADULT 11-26 Infusion, ity o f ([facility]) 13:47: 15:44 Administer [place] injection 00 :04 over 15 Medical Minutes, Branch ONCE INTRA PROCEDURE, Starting on Sat11/26/22 at 0847, Until Discontinu ed, Routine, Intra-op dexamethaso 2022- No IV Push, U nivers ne 11-26 ONCE INTRA ity of (DECADRON 13:47: 15:44 PROCEDURE, [place] PHOSPHATE) 00 :04 Starting Medic al injection on Sat Branch 11/26/22 at 0847, Until Discontinu ed, Routine, Intra-op dexmedeTOMI 2022- No Intravenou Univers Dine 11-26 s, ONCE ity of (PRECEDEX) 13:47: 15:44 INTRA [place] injection 00 :04 PROCEDURE, [facility] Starting Branch on Sat11/26/22 at 0847, Until Discontinu ed, Routine, Intra-op ceFAZolin 2022- No Intravenou U nivers (ANCEF) 11-26-08 s, ONCE ity of injection 13:35: 15:44 INTRA [place] 00 :04 PROCEDURE, Medical Starting Branch on Sat11/26/22 at 0835, Until Discontinu ed, LENNIE, Intra-op ceFAZolin 2022- No Intravenou U nivers (ANCEF) 11-26-08 s, ONCE ity of injection 13:35: 15:44 INTRA [place] 00 :04 PROCEDURE, Medical Starting Branch on Sat11/26/22 at 0835, Until Discontinu ed, LENNIE, Intra-op PHENYLephri 2022- No Slow IV Un jocelyn ne 1000 11-2608 Push, ONCE ity o f mcg/10 mL 13:23: 15:44 INTRA [place] in 0.9% 00 :04 PROCEDURE, Medica l NaCl Starting Branch syringe on Sat11/26/22 at 0823, Until Discontinu ed, Routine, Intra-op PHENYLephri 2022- No Slow IV Un jocelyn ne 1000 11-26-08 Push, ONCE ity o f mcg/10 mL 13:23: 15:44 INTRA [place] in 0.9% 00 :04 PROCEDURE, Medica l NaCl Starting Branch syringe on Sat11/26/22 at 0823, Until Discontinu ed, Routine, Intra-op rocuronium 2022- No IV Push, Un jocelyn (ZEMURON) 11-26-08 ONCE INTRA ity of injection 13:17: 15:44 PROCEDURE, [place] 00 :04 Starting Medical on Sat Branch 11/26/22 at 0817, Until Discontinu ed, Routine, Intra-op lidocaine 2022- No Intravenou U nivers 1% 11-26-08 s, ONCE ity of (XYLOCAINE) 13:17: 15:44 [place]TRA [place] 100 mg/10 00 :04 PROCEDURE, Medi ca mL (1 %) Starting Branch injection on Sat11/26/22 at 0817, Until Discontinu ed, Routine, Intra-op propofoL IV 2022- No Intravenou Univers infusion 11-2608 s, ONCE ity of 13:17: 15:44 INTRA [place] 00 :04 PROCEDURE, Medical Starting Branch on Sat11/26/22 at 0817, Until Discontinu ed, Routine, Intra-op rocuronium IV Push, Un jocelyn (ZEMURON) 11-26-08 ONCE INTRA ity of injection 13:17: 15:44 PROCEDURE, [place] 00 :04 Starting Medical on Sat Branch 11/26/22 at 0817, Until Discontinu ed, Routine, Intra-op lidocaine 2022- No Intravenou U nivers 1% 11-26 s, ONCE ity of (XYLOCAINE) 13:17: 15:44 [place]TRA [place] 100 mg/10 00 :04 PROCEDURE, Medi ca mL (1 %) Starting Branch injection on Sat11/26/22 at 0817, Until Discontinu ed, Routine, Intra-op propofoL IV Intravenou Univers infusion 11-26 s, ONCE ity of 13:17: 15:44 INTRA [place] 00 :04 PROCEDURE, Medical Starting Branch on Sat11/26/22 at 0817, Until Discontinu ed, Routine, Intra-op lactated 2022- No IV [facility] IV 11-26-08 Infusion, ity of infusion 13:11: 15:44 CONTINUOUS [place] 00 :04 PRN, Medical Starting Branch on Sat11/26/22 at 0811, Until Discontinu ed, Routine, Intra-op lactated 2022- No IV [facility] ringers IV 11-26-08 Infusion, ity of infusion 13:11: 15:44 CONTINUOUS [place] 00 :04 PRN, Medical Starting Branch on Sat11/26/22 at 0811, Until Discontinu ed, Routine, Intra-op bupivacaine Caudal [facility] vers (preserv 11-26 Block, ity of free) 13:06: 15:44 ONCE INTRA [place] (SENSORCAIN 00 :04 PROCEDURE, Me dical E MPF) 0.25 Starting Bran ch % (2.5 on Sat mg/mL) 11/26/22 at injection 0806, Until Discontinu ed, Routine, Intra-op bupivacaine 2022- No Caudal Uni vers (preserv 11-26 Block, ity of free) 13:06: 15:44 ONCE INTRA [place] (SENSORCAIN 00 :04 PROCEDURE, Me dical E MPF) 0.25 Starting Bran ch % (2.5 on Mon mg/mL) 11/26/22 at injection 0806, Until Discontinu ed, Routine, Intra-op FENTanyl PF 2022- No Intravenou [facility] (SUBLIMAZE 11-26- s, ONCE ity o f (PF)) 13:03: 15:44 INTRA [place] injection 00 :04 PROCEDURE, Medi ca Starting Branch on Sat11/26/22 at 0803, Until Discontinu ed, Routine, Intra-op FENTanyl PF 2022- No Intravenou [facility] (SUBLIMAZE 11-26- s, ONCE ity o f (PF)) 13:03: 15:44 INTRA [place] injection 00 :04 PROCEDURE, Medi ca Starting Branch on Sat11/26/22 at 0803, Until Discontinu ed, Routine, Intra-op celecoxib 2022- No 400mg 400 mg, Uni vers (CELEBREX) 11-26 Oral, ity of capsule 400 12:15: 12:13 ONCE, 1 [place] mg 00 :00 dose, On Medical Sat11/26/22 Branch at 0715, Routine, DSU Pre-op gabapentin 2022- No 300mg 300 mg, [facility] (NEURONTIN) 11-26 Oral, ity of tablet 300 12:15: 12:15 ONCE, 1 [place] mg 00 :00 dose, On Medical Sat11/26/22 Branch at 0715, Routine, DSU Pre-op lactated 2022- No 1000mL at 42 Un[facility] ringers IV 11-26 mL/hr, ity of infusion 12:15: 12:22 1,000 mL, [place] 1,000 mL 00 :00 IV Medical Infusion, Branch ONCE, 1 dose, On Sat11/26/22 at 0715, Routine, DSU Pre-op celecoxib 2022- No 400mg 400 mg, [facility] vers (CELEBREX) 5-08 05-08 Oral, ity of capsule 400 12:15: 12:13 ONCE, 1 [place] mg 00 :00 dose, On Medical 11/26/22 Branch at 0715, Routine, DSU Pre-op gabapentin 2022-2022- No 300mg 300 mg, [facility] (NEURONTIN) 11-26-08 Oral, ity of tablet 300 12:15: 12:15 ONCE, 1 [place] mg 00 :00 dose, On Medical 11/26/22 Branch at 0715, Routine, DSU Pre-op lactated 2022- No 1000mL at 42 [facility] ringers IV 11-26-08 mL/hr, ity of infusion 12:15: 12:22 1,000 mL, [place] 1,000 mL 00 :00 IV Medical Infusion, Branch ONCE, 1 dose, On 11/26/22 at 0715, Routine, DSU Pre-op Melatonin 5 3-0 Yes 5mg Take 1 [facility] mg tablet 5-08 tablet by ity o f 10:44: mouth in [place] [id number] the Medical morning. Branch Melatonin 5 3-0 Yes 5mg Take 1 [facility] ers mg tablet 5-08 tablet by ity o f 10:44: mouth in [place] [address] the Medical morning. Branch rivaroxaban 3-0 2023- No 15mg Take 1 Uni vers 15 mg 5-08 05-08 tablet by ity of tablet 10:29: 00:00 mouth in [place] 44 :00 the Medical morning. Branch rivaroxaban 3-0 2023- No 15mg Take 1 [facility] vers 15 mg 5-08 05-08 tablet by ity of tablet 10:29: 00:00 mouth in [place] 44 :00 the Medical morning. Branch rivaroxaban 2023-0 2023- No 15mg Take 1 [facility] vers 15 mg 5-08 05-08 tablet by ity of tablet 10:29: 00:00 mouth in [place] 44 :00 the Medical morning. Branch rivaroxaban 2023-0 2023- No 15mg Take 1 [facility] vers 15 mg 5-08 05-08 tablet by ity of tablet 10:29: 00:00 mouth in [place] 44 :00 the Medical morning. Branch rivaroxaban 2023-0 2023- No 15mg Take 1 [facility] vers 15 mg 5-08 05-08 tablet by ity of tablet 10:29: 00:00 mouth in [place] 44 :00 the Medical morning. Branch tranexamic 2023-0 2023- Yes 1000mg [facility] ers acid 5-08 05-08 ity of (CYKLOKAPRO 05:00: 16:59 [place] N) 1,000 mg 00 :00 Medical in NaCl Branch 0.9% (NS) 250 mL piggyback tranexamic 2023-0 2023- Yes 1000mg [facility] ers acid 5-08 05-08 ity of (CYKLOKAPRO 05:00: 16:59 [place] N) 1,000 mg 00 :00 Medical in NaCl Branch 0.9% (NS) 250 mL piggyback tranexamic 2023-0 2023- No 1000mg Univ ers acid 5-08 05-08 ity of (CYKLOKAPRO 05:00: 16:59 [place] N) 1,000 mg 00 :00 Medical in NaCl Branch 0.9% (NS) 250 mL piggyback rivaroxaban 2023-0 Yes 15mg Take 1 [facility] ers 15 mg 5-08 tablet by ity of tablet 00:00: mouth in [place] 00 the Medical morning. Branch Indication s: dvt prophylaxa is rivaroxaban 2023-0 Yes 15mg Take 1 [facility] ers 15 mg 5-08 tablet by ity of tablet 00:00: mouth in [place] 00 the Medical morning. Branch Indication s: dvt prophylaxa is rivaroxaban 2023-0 Yes 15mg Take 1 [facility] ers 15 mg 5-08 tablet by ity of tablet 00:00: mouth in [place] 00 the Medical morning. Branch Indication s: dvt prophylaxa is rivaroxaban 2023-0 Yes 15mg Take 1 [facility] ers 15 mg 5-08 tablet by ity of tablet 00:00: mouth in [place] 00 the Medical morning. Branch Indication s: dvt prophylaxa is rivaroxaban 2023-0 Yes 15mg Take 1 [facility] ers 15 mg 5-08 tablet by ity of tablet 00:00: mouth in [place] 00 the Medical morning. Branch Indication s: dvt prophylaxa is rivaroxaban 2023-0 Yes 15mg Take 1 [facility] 15 mg 5-08 tablet by ity of tablet 00:00: mouth in [place] 00 the Medical morning. Branch Indication s: dvt prophylaxa is rivaroxaban 2023-0 Yes 15mg Take 1 [facility] ers 15 mg 5-08 tablet by ity of tablet 00:00: mouth in [place] 00 the Medical morning. Branch Indication s: dvt prophylaxa is rivaroxaban 2023-0 Yes 15mg Take 1 [facility] ers 15 mg 5-08 tablet by ity of tablet 00:00: mouth in [place] 00 the Medical morning. Branch Indication s: dvt prophylaxa is rivaroxaban 2023-0 Yes 15mg Take 1 [facility] ers 15 mg 5-08 tablet by ity of tablet 00:00: mouth in [place] 00 the Medical morning. Branch Indication s: dvt prophylaxa is rivaroxaban 2023-0 Yes 15mg Take 1 [facility] ers 15 mg 5-08 tablet by ity of tablet 00:00: mouth in [place] 00 the Medical morning. Branch Indication s: dvt prophylaxa is rivaroxaban 2023-0 Yes 15mg Take 1 [facility] ers 15 mg 5-08 tablet by ity of tablet 00:00: mouth in [place] 00 the Medical morning. Branch Indication s: dvt prophylaxa is rivaroxaban 2023-0 Yes 15mg Take 1 [facility] ers 15 mg 5-08 tablet by ity of tablet 00:00: mouth in [place] 00 the Medical morning. Branch Indication s: dvt prophylaxa is rivaroxaban 2023-0 Yes 15mg Take 1 [facility] 15 mg 5-08 tablet by ity of tablet 00:00: mouth in [place] 00 the Medical morning. Branch Indication s: dvt prophylaxa is aspirin 325 2023-0 2023- Yes [id number] 325mg Take 1 [facility] mg tablet -02 24-06 tablet by ity of 00:00: 04:59 mouth in [place] 00 :00 the Medical morning Branch and 1 tablet in the evening. Take with meals. Do all this for 28 days. aspirin 325 2023-0 2023- Yes [id number] 325mg Take 1 [facility] mg tablet -02 24-06 tablet by ity of 00:00: 04:59 mouth in [place] 00 :00 the Medical morning Branch and 1 tablet in the evening. Take with meals. Do all this for 28 days. aspirin 325 2023-0 2023- Yes [id number] 325mg Take 1 [facility] mg tablet -02 24-06 tablet by ity of 00:00: 04:59 mouth in [place] 00 :00 the Medical morning Branch and 1 tablet in the evening. Take with meals. Do all this for 28 days. aspirin 325 2022- Yes [id number] 325mg Take 1 [facility] mg tablet 11-26-06 tablet by ity of 00:00: 04:59 mouth in [place] 00 :00 the [facility] morning [place] and 1 tablet in the evening. Take with meals. Do all this for 28 days. aspirin 325 2022- Yes [id number] 325mg Take 1 [facility] mg tablet 11-26-06 tablet by ity of 00:00: 04:59 mouth in [place] 00 :00 the [facility] and 1 tablet in the evening. Take with meals. Do all this for 28 days. aspirin 325 2022- Yes [id number] 325mg Take 1 [facility] mg tablet 11-26- tablet by ity of 00:00: 04:59 mouth in [place] 00 :00 the [facility] morning [place] and 1 tablet in the evening. Take with meals. Do all this for 28 days. aspirin 325 2022- Yes [id number] 325mg Take 1 [facility] mg tablet 11-26- tablet by ity of 00:00: 04:59 mouth in [place] 00 :00 the [facility] and 1 tablet in the evening. Take with meals. Do all this for 28 days. aspirin 325 2022- Yes [id number] 325mg Take 1 [facility] mg tablet 11-26- tablet by ity of 00:00: 04:59 mouth in [place] 00 :00 the [facility] and 1 tablet in the evening. Take with meals. Do all this for 28 days. aspirin 325 2022- Yes [id number] 325mg Take 1 [facility] mg tablet 11-26- tablet by ity of 00:00: 04:59 mouth in [place] 00 :00 the [facility] and 1 tablet in the evening. Take with meals. Do all this for 28 days. HYDROcodone 2022- Yes [id number] 1{tbl} Take 1 U nivers -acetaminop 11-26-16 tablet by it y of hen 10-325 00:00: 04:59 mouth [place] mg tablet 00 :00 every 6 Medical (six) Branch hours as needed for Pain (scale 4-6) or Pain (scale 7-10) for up to 7 days. Indication s: acute pain HYDROcodone 2022-2022- Yes 4647 1{tbl} Take 1 U nivers -acetaminop 5-08 05-16 tablet by it y of hen 10-325 00:00: 04:59 mouth [place] mg tablet 00 :00 every 6 Medical (six) Branch hours as needed for Pain (scale 4-6) or Pain (scale 7-10) for up to 7 days. Indication s: acute pain HYDROcodone 2022- Yes 4647 1{tbl} Take 1 U nivers -acetaminop 5-08 05-16 tablet by it y of hen 10-325 00:00: 04:59 mouth [place] mg tablet 00 :00 every 6 Medical (six) Branch hours as needed for Pain (scale 4-6) or Pain (scale 7-10) for up to 7 days. Indication s: acute pain HYDROcodone 2022- Yes 4647 1{tbl} Take 1 U nivers -acetaminop 5-08 05-16 tablet by it y of hen 10-325 00:00: 04:59 mouth [place] mg tablet 00 :00 every 6 Medical (six) Branch hours as needed for Pain (scale 4-6) or Pain (scale 7-10) for up to 7 days. Indication s: acute pain HYDROcodone 2022- Yes 4647 1{tbl} Take 1 U nivers -acetaminop 5-08 05-16 tablet by it y of hen 10-325 00:00: 04:59 mouth [place] mg tablet 00 :00 every 6 Medical (six) Branch hours as needed for Pain (scale 4-6) or Pain (scale 7-10) for up to 7 days. Indication s: acute pain HYDROcodone 2022- Yes 4647 1{tbl} Take 1 U nivers -acetaminop 5-08 05-16 tablet by it y of hen 10-325 00:00: 04:59 mouth [place] mg tablet 00 :00 every 6 Medical (six) Branch hours as needed for Pain (scale 4-6) or Pain (scale 7-10) for up to 7 days. Indication s: acute pain Melatonin 5 Yes 5mg Take 1 Univ ers mg tablet 4-27 tablet by ity o f 12:18: mouth in [place] 40 the Medical morning. Branch rivaroxaban Yes 15mg Take 1 [facility] ers 15 mg 4-27 tablet by ity of tablet 12:15: mouth in [place] 08 the Medical morning. Branch enoxaparin 2022- Yes [id number] 40mg inject 0.4 [facility] (LOVENOX) 4-21 04-27 mL under ity o f 40 mg/0.4 00:00: 04:59 the skin [place] mL 00 :00 in the Medical injection morning Branch for 5 days. enoxaparin 2022- Yes [id number] 40mg inject 0.4 [facility] (LOVENOX) 4-21 04-27 mL under ity o f 40 mg/0.4 00:00: 04:59 the skin [place] mL 00 :00 in the Medical injection morning Branch for 5 days. enoxaparin 2022- No [id number] 40mg inject 0.4 [facility] (LOVENOX) 4-21 04-27 mL under ity o f 40 mg/0.4 00:00: 04:59 the skin [place] mL 00 :00 in the Medical injection morning Branch for 5 days. enoxaparin 2022- No [id number] 40mg inject 0.4 [facility] (LOVENOX) 4-21 04-27 mL under ity o f 40 mg/0.4 00:00: 04:59 the skin [place] mL 00 :00 in the Medical injection morning Branch for 5 days. enoxaparin 2022- No [id number] 40mg inject 0.4 [facility] (LOVENOX) 11-09 04-27 mL under ity o f 40 mg/0.4 00:00: 04:59 the skin [place] mL 00 :00 in the Medical injection morning Branch for 5 days. HYDROcodone Yes 1{tbl} Take 1 [facility] -acetaminop 4-05 tablet by ity of hen 10-325 00:00: mouth as [place] mg tablet 00 needed. Medical Branch HYDROcodone 2022- No 1{tbl} Take 1 U nivers -acetaminop 4-05 05-08 tablet by it y of hen 10-325 00:00: 00:00 mouth as [place] mg tablet 00 :00 needed. Medical Branch HYDROcodone 2022-0 3- No 1{tbl} Take 1 U nivers -acetaminop 4-05 05-08 tablet by it y of hen 10-325 00:00: 00:00 mouth as [place] mg tablet 00 :00 needed. Medical Branch HYDROcodone 2022-0 3- No 1{tbl} Take 1 U nivers -acetaminop 4-05 05-08 tablet by it y of hen 10-325 00:00: 00:00 mouth as [place] mg tablet 00 :00 needed. Medical Branch HYDROcodone 2022-2022- No 1{tbl} Take 1 U nivers -acetaminop 4-05 05-08 tablet by it y of hen 10-325 00:00: 00:00 mouth as [place] mg tablet 00 :00 needed. Medical Branch hydroCHLORO 2023-0 Yes 12.5mg Take 1 [facility] thiazide 3-27 capsule by ity o f 12.5 mg 00:00: mouth in [place] capsule 00 the Medical morning. Branch hydroCHLORO 2023-0 Yes 12.5mg Take 1 [facility] [place] thiazide 3-27 capsule by ity o f 12.5 mg 00:00: mouth in [place] capsule 00 the Medical morning. Branch hydroCHLORO 2023-0 Yes 12.5mg Take 1 [facility] [place] thiazide 3-27 capsule by ity o f 12.5 mg 00:00: mouth in [place] capsule 00 the Medical morning. Branch hydroCHLORO 2023-0 Yes 12.5mg Take 1 [facility] [place] thiazide 3-27 capsule by ity o f 12.5 mg 00:00: mouth in [place] capsule 00 the Medical morning. Branch hydroCHLORO 2023-0 Yes 12.5mg Take 1 [facility] [place] thiazide 3-27 capsule by ity o f 12.5 mg 00:00: mouth in [place] capsule 00 the Medical morning. Branch hydroCHLORO 2023-0 Yes 12.5mg Take 1 [facility] [place] thiazide 3-27 capsule by ity o f 12.5 mg 00:00: mouth in [place] capsule 00 the Medical morning. Branch hydroCHLORO 2023-0 Yes 12.5mg Take 1 [facility] [place] thiazide 3-27 capsule by ity o f 12.5 mg 00:00: mouth in [place] capsule 00 the Medical morning. Branch hydroCHLORO 2023-0 Yes 12.5mg Take 1 [facility] [place] thiazide 3-27 capsule by ity o f 12.5 mg 00:00: mouth in [place] capsule 00 the Medical morning. Branch hydroCHLORO 2023-0 Yes 12.5mg Take 1 [facility] [place] thiazide 3-27 capsule by ity o f 12.5 mg 00:00: mouth in [place] capsule 00 the Medical morning. Branch hydroCHLORO 2023-0 Yes 12.5mg Take 1 [facility] [place] thiazide 3-27 capsule by ity o f 12.5 mg 00:00: mouth in [place] capsule 00 the Medical morning. Branch hydroCHLORO 2023-0 Yes 12.5mg Take 1 [facility] [place] thiazide 3-27 capsule by ity o f 12.5 mg 00:00: mouth in [place] capsule 00 the Medical morning. Branch hydroCHLORO 2023-0 Yes 12.5mg Take 1 [facility] [place] thiazide 3-27 capsule by ity o f 12.5 mg 00:00: mouth in [place] capsule 00 the Medical morning. Branch hydroCHLORO 2023-0 Yes 12.5mg Take 1 [facility] [place] thiazide 3-27 capsule by ity o f 12.5 mg 00:00: mouth in [place] capsule 00 the Medical morning. Branch hydroCHLORO 2023-0 Yes 12.5mg Take 1 [facility] [place] thiazide 3-27 capsule by ity o f 12.5 mg 00:00: mouth in [place] capsule 00 the Medical morning. Branch hydroCHLORO 2023-0 Yes 12.5mg Take 1 [facility] [place] thiazide 3-27 capsule by ity o f 12.5 mg 00:00: mouth in [place] capsule 00 the Medical morning. Branch hydroCHLORO 2023-0 Yes 12.5mg Take 1 [facility] [place] thiazide 3-27 capsule by ity o f 12.5 mg 00:00: mouth in [place] capsule 00 the Medical morning. Branch metoprolol 2023-0 Yes [id number] 25mg Take 1 U nivers succinate 3-17 tablet by ity o f XL 25 mg 24 00:00: mouth in [place] hr tablet 00 the Medical morning. Branch metoprolol 2023-0 Yes [id number] 25mg Take 1 U nivers succinate 3-17 tablet by ity o f XL 25 mg 24 00:00: mouth in [place] hr tablet 00 the Medical morning. Branch metoprolol 2023-0 Yes [id number] 25mg Take 1 U nivers succinate 3-17 tablet by ity o f XL 25 mg 24 00:00: mouth in [place] hr tablet 00 the Medical morning. Branch metoprolol 2022-0 Yes [id number] 25mg Take 1 U nivers succinate 3-17 tablet by ity o f XL 25 mg 24 00:00: mouth in [place] hr tablet 00 the Medical morning. Branch metoprolol 2022-0 Yes [id number] 25mg Take 1 U nivers succinate 3-17 tablet by ity o f XL 25 mg 24 00:00: mouth in [place] hr tablet 00 the Medical morning. Branch metoprolol 2022-0 Yes [id number] 25mg Take 1 U nivers succinate 3-17 tablet by ity o f XL 25 mg 24 00:00: mouth in [place] hr tablet 00 the Medical morning. Branch metoprolol 2022-0 Yes [id number] 25mg Take 1 U nivers succinate 3-17 tablet by ity o f XL 25 mg 24 00:00: mouth in [place] hr tablet 00 the Medical morning. Branch metoprolol 2022-0 Yes [id number] 25mg Take 1 U nivers succinate 3-17 tablet by ity o f XL 25 mg 24 00:00: mouth in [place] hr tablet 00 the Medical morning. Branch metoprolol 2022-0 Yes [id number] 25mg Take 1 U nivers succinate 3-17 tablet by ity o f XL 25 mg 24 00:00: mouth in [place] hr tablet 00 the Medical morning. Branch metoprolol 2022-0 Yes [id number] 25mg Take 1 U nivers succinate 3-17 tablet by ity o f XL 25 mg 24 00:00: mouth in [place] hr tablet 00 the Medical morning. Branch metoprolol 2022-0 Yes [id number] 25mg Take 1 U nivers succinate 3-17 tablet by ity o f XL 25 mg 24 00:00: mouth in [place] hr tablet 00 the Medical morning. Branch metoprolol 3-0 Yes [id number] 25mg Take 1 U nivers succinate 3-17 tablet by ity o f XL 25 mg 24 00:00: mouth in [place] hr tablet 00 the Medical morning. Branch metoprolol 3-0 Yes [id number] 25mg Take 1 U nivers succinate 3-17 tablet by ity o f XL 25 mg 24 00:00: mouth in [place] hr tablet 00 the Medical morning. Branch metoprolol 3-0 Yes [id number] 25mg Take 1 U nivers succinate 3-17 tablet by ity o f XL 25 mg 24 00:00: mouth in [place] hr tablet 00 the Medical morning. Branch metoprolol 3-0 Yes [id number] 25mg Take 1 U nivers succinate 3-17 tablet by ity o f XL 25 mg 24 00:00: mouth in [place] hr tablet 00 the Medical morning. Branch metoprolol 3-0 Yes [id number] 25mg Take 1 U nivers succinate 3-17 tablet by ity o f XL 25 mg 24 00:00: mouth in [place] hr tablet 00 the Medical morning. Branch metoprolol 3-0 Yes [id number] 25mg Take 1 U nivers succinate 3-17 tablet by ity o f XL 25 mg 24 00:00: mouth in [place] hr tablet 00 the Medical morning. Branch metoprolol 2022-0 Yes [id number] 25mg Take 1 U nivers succinate 3-17 tablet by ity o f XL 25 mg 24 00:00: mouth in [place] hr tablet 00 the Medical morning. Branch metoprolol 2022-0 Yes [id number] 25mg Take 1 U nivers succinate 3-17 tablet by ity o f XL 25 mg 24 00:00: mouth in [place] hr tablet 00 the Medical morning. Branch metoprolol 3-0 Yes [id number] 25mg Take 1 U nivers succinate 3-17 tablet by ity o f XL 25 mg 24 00:00: mouth in [place] hr tablet 00 the Medical morning. Branch metoprolol 3-0 Yes [id number] 25mg Take 1 U nivers succinate 3-17 tablet by ity o f XL 25 mg 24 00:00: mouth in [place] hr tablet 00 the Medical morning. Branch metoprolol 3-0 Yes [id number] 25mg Take 1 U nivers succinate 3-17 tablet by ity o f XL 25 mg 24 00:00: mouth in [place] hr tablet 00 the Medical morning. Branch metoprolol 3-0 Yes [id number] 25mg Take 1 U nivers succinate 3-17 tablet by ity o f XL 25 mg 24 00:00: mouth in [place] hr tablet 00 the Medical morning. Branch atorvastati 2023-0 Yes 20mg Take 1 Univ ers n 20 mg 2-24 tablet by ity of tablet 00:00: mouth in [place] 00 the Medical morning. Branch atorvastati 2023-0 Yes 20mg Take 1 Univ ers n 20 mg 2-24 tablet by ity of tablet 00:00: mouth in [place] the Medical morning. Branch atorvastati 2023-0 Yes 20mg Take 1 Univ ers n 20 mg 2-24 tablet by ity of tablet 00:00: mouth in [place] the Medical morning. Branch atorvastati 2023-0 Yes 20mg Take 1 Univ ers n 20 mg 2-24 tablet by ity of tablet 00:00: mouth in [place] the Medical morning. Branch atorvastati 2023-0 Yes 20mg Take 1 Univ ers n 20 mg 2-24 tablet by ity of tablet 00:00: mouth in [place] the Medical morning. Branch atorvastati 2023-0 Yes 20mg Take 1 Univ ers n 20 mg 2-24 tablet by ity of tablet 00:00: mouth in [place] the Medical morning. Branch atorvastati 2023-0 Yes 20mg Take 1 Univ ers n 20 mg 2-24 tablet by ity of tablet 00:00: mouth in [place] the Medical morning. Branch atorvastati 2023-0 Yes 20mg Take 1 Univ ers n 20 mg 2-24 tablet by ity of tablet 00:00: mouth in [place] the Medical morning. Branch atorvastati 2023-0 Yes 20mg Take 1 Univ ers n 20 mg 2-24 tablet by ity of tablet 00:00: mouth in [place] 00 the Medical morning. Branch atorvastati 2023-0 Yes 20mg Take 1 Univ ers n 20 mg 2-24 tablet by ity of tablet 00:00: mouth in [place] 00 the Medical morning. Branch atorvastati 2023-0 Yes 20mg Take 1 Univ ers n 20 mg 2-24 tablet by ity of tablet 00:00: mouth in [place] 00 the Medical morning. Branch atorvastati 2023-0 Yes 20mg Take 1 Univ ers n 20 mg 2-24 tablet by ity of tablet 00:00: mouth in [place] 00 the Medical morning. Branch atorvastati 2022-0 Yes 20mg Take 1 Univ ers n 20 mg 2-24 tablet by ity of tablet 00:00: mouth in [place] 00 the Medical morning. Branch atorvastati 2022-0 Yes 20mg Take 1 Univ ers n 20 mg 2-24 tablet by ity of tablet 00:00: mouth in [place] 00 the Medical morning. Branch atorvastati 2022-0 Yes 20mg Take 1 Univ ers n 20 mg 2-24 tablet by ity of tablet 00:00: mouth in [place] 00 the Medical morning. Branch atorvastati 2022-0 Yes 20mg Take 1 Univ ers n 20 mg 2-24 tablet by ity of tablet 00:00: mouth in [place] 00 the Medical morning. Branch enalapril 2022-0 2022- No 10mg Take 10 mg U nivers 10 mg 2-22 -22 by mouth ity of tablet 14:53: 00:00 in the [place] 52 :00 morning. Medical Branch metoprolol 2022-0 Yes [id number] 25mg Take 1 U nivers succinate 2-22 tablet by ity o f XL 25 mg 24 00:00: mouth in [place] hr tablet 00 the Medical morning. Branch metoprolol 2022-0 Yes [id number] 25mg Take 1 U nivers succinate 2-22 tablet by ity o f XL 25 mg 24 00:00: mouth in [place] hr tablet 00 the Medical morning. Branch metoprolol 2022-0 Yes [id number] 25mg Take 1 U nivers succinate 2-22 tablet by ity o f XL 25 mg 24 00:00: mouth in [place] hr tablet 00 the Medical morning. Branch metoprolol 2022-0 3- No [id number] 25mg Take 1 [facility] succinate 2-22 03-17 tablet by ity of XL 25 mg 24 00:00: 00:00 mouth in [place] hr tablet 00 :00 the Medical morning. Branch metoprolol 2022-0 3- No [id number] 25mg Take 1 [facility] succinate 2-22 03-17 tablet by ity of XL 25 mg 24 00:00: 00:00 mouth in [place] hr tablet 00 :00 the Medical morning. Branch rivaroxaban 2022-0 Yes 15mg Take 15 mg [facility] 15 mg 2-13 by mouth ity of tablet 13:33: daily. [place] 14 Medical Branch enalapril 3-0 Yes 10mg Take 10 mg [facility] 10 mg 2-13 by mouth ity of tablet 13:33: in the [place] 14 morning. Medical Branch rivaroxaban 2023-0 Yes 15mg Take 15 mg [facility] 15 mg 2-13 by mouth ity of tablet 13:33: daily. [place] 14 Medical Branch enalapril 3-0 Yes 10mg Take 10 mg [facility] 10 mg 2-13 by mouth ity of tablet 13:33: in the [place] 14 morning. Medical Branch rivaroxaban 2023-0 Yes 15mg Take 15 mg [facility] 15 mg 2-13 by mouth ity of tablet 13:33: daily. [place] 14 Medical Branch enalapril 3-0 Yes 10mg Take 10 mg [facility] 10 mg 2-13 by mouth ity of tablet 13:33: in the [place] 14 morning. Medical Branch rivaroxaban 3-0 Yes 15mg Take 15 mg [facility] 15 mg 2-13 by mouth ity of tablet 13:33: daily. [place] 14 Medical Branch enalapril 3-0 Yes 10mg Take 10 mg [facility] 10 mg 2-13 by mouth ity of tablet 13:33: in the [place] 14 morning. Medical Branch rivaroxaban 3-0 Yes 15mg Take 15 mg [facility] 15 mg 2-13 by mouth ity of tablet 13:33: daily. [place] 14 Medical Branch enalapril 3-0 Yes 10mg Take 10 mg [facility] 10 mg 2-13 by mouth ity of tablet 13:33: in the [place] 14 morning. Medical Branch rivaroxaban 3-0 Yes 15mg Take 15 mg [facility] 15 mg 2-13 by mouth ity of tablet 13:33: daily. [place] 14 Medical Branch enalapril 3-0 Yes 10mg Take 10 mg [facility] 10 mg 2-13 by mouth ity of tablet 13:33: in the [place] 14 morning. Medical Branch rivaroxaban 2023-0 Yes 15mg Take 15 mg [facility] 15 mg 2-13 by mouth ity of tablet 13:33: daily. [place] 14 Medical Branch rivaroxaban 3-0 Yes 15mg Take 15 mg [facility] 15 mg 2-13 by mouth ity of tablet 13:33: daily. [place] 14 Medical Branch rivaroxaban Yes 15mg Take 15 mg [facility] 15 mg 2-13 by mouth ity of tablet 13:33: daily. [address] rivaroxaban Yes 15mg Take 15 mg [facility] 15 mg 2-13 by mouth ity of tablet 13:33: daily. [address] rivaroxaban Yes 15mg Take 15 mg [facility] 15 mg 2-13 by mouth ity of tablet 13:33: daily. [address] rivaroxaban Yes 15mg Take 15 mg [facility] 15 mg 2-13 by mouth ity of tablet 13:33: daily. [address] rivaroxaban Yes 15mg Take 15 mg [facility] 15 mg 2-13 by mouth ity of tablet 13:33: daily. [address] rivaroxaban Yes 15mg Take 15 mg [facility] 15 mg 2-13 by mouth ity of tablet 13:33: daily. [address] rivaroxaban Yes 15mg Take 15 mg [facility] 15 mg 2-13 by mouth ity of tablet 13:33: daily. [address] atorvastati Yes 1{tbl} 1 tablet. [place] (Lipitor) [...] ity of 15 mg Tab 13:49: daily. [address] rivaroxaban 2020-07 Yes 15mg Take 15 mg [facility] (XARELTO) 1-16 by mouth ity of 15 mg Tab 13:49: daily. [address] rivaroxaban 2020-07 Yes 15mg Take 15 mg [facility] (XARELTO) 1-16 by mouth ity of 15 mg Tab 13:49: daily. [address] rivaroxaban 2020-07 Yes 15mg Take 15 mg [facility] (XARELTO) 1-16 by mouth ity of 15 mg Tab 13:49: daily. [address] rivaroxaban 2020-07 Yes 15mg Take 15 mg [facility] (XARELTO) 1-16 by mouth ity of 15 mg Tab 13:49: daily. [address] rivaroxaban 2020-07 Yes 15mg Take 15 mg [facility] (XARELTO) 1-16 by mouth ity of 15 mg Tab 13:49: daily. [address] rivaroxaban 2020-07 Yes 15mg Take 15 mg [facility] (XARELTO) 1-16 by mouth ity of 15 mg Tab 13:49: daily. [address] rivaroxaban 2020-07 Yes 15mg Take 15 mg [facility] (XARELTO) 1-16 by mouth ity of 15 mg Tab 13:49: daily. [address] rivaroxaban 2020-07 Yes 15mg Take 15 mg [facility] (XARELTO) 1-16 by mouth ity of 15 mg Tab 13:49: daily. [address] rivaroxaban 2020-07 Yes 15mg Take 15 mg [facility] (XARELTO) 1-16 by mouth ity of 15 mg Tab 13:49: daily. [address] rivaroxaban 2020-07 Yes 15mg Take 15 mg [facility] (XARELTO) 1-16 by mouth ity of 15 mg Tab 13:49: daily. [address] rivaroxaban 2020-07 Yes 15mg Take 15 mg [facility] (XARELTO) 1-16 by mouth ity of 15 mg Tab 13:49: daily. [address] rivaroxaban 2020-07 Yes 15mg Take 15 mg [facility] (XARELTO) 1-16 by mouth ity of 15 mg Tab 13:49: daily. [place] tablet [facility] hydroCHLORO 0 Yes [facility] thiazide 5-05 [facility] (HYDRODiuri 00:00: l) 12.5 MG 00 tablet Atorvastati Atorvastati 2018-07 Yes Daniel 1 tablet Common n Calcium n Calcium 2-11 [facility] 00:[facility]: - [facility] 00 [facility] Hydrochloro Hydrochloro 2018-07 Yes Daniel 1 capsule Common thiazide thiazide 2-11 [facility] in the Spir [facility] 00:00: morning - [facility] 00 [facility] Vasotec Vasotec Yes Daniel 1 tablet Com mon Rodríguez [facility] Xarelto Xarelto Yes Daniel 1 tablet Com mon Rodríguez with food [facility] [place] Yes Daniel 1 tablet Common Rodríguez as needed [facility] Hydrochloro Hydrochloro Yes Daniel 1 capsule Common thiazide thiazide [facility] in the Sp[facility] morning [facility] Atorvastati Atorvastati Yes Daniel TAKE 1 Common n Calcium n Calcium Rodríguez TABLET BY Spirit MOUTH - [facility] EVERY DAY [facility] Vasotec 10 Vasotec 10 No Vasotec 10 MG MG MG Xarelto 15 Xarelto 15 No 1{table QD Xarelto 15 MG MG t_with_ MG food} Flax Seeds Flax Seeds No Flax Seeds Vasotec 10 Vasotec 10 No 1{table QD Vasotec 10 MG MG t} MG hydroCHLORO hydroCHLORO No 1{capsu QD hydroCHLOR thiazide thiazide le_in_t Othiazide 12.5 MG 12.5 MG he_morn 12.5 MG ing} Multivitami Multivitami No Multivitam n n in [place] No 1{table [place] 10-325 MG 10-325 MG t_as_ne 10-325 MG eded} Atorvastati Atorvastati No Atorvastat n Calcium n Calcium in Calcium 20 MG 20 MG 20 MG Fish Oil Fish Oil No Fish Oil Stafford 3 Stafford 3 No Stafford 3 hydroCHLORO hydroCHLORO No hydroCHLOR thiazide thiazide Othiazide 12.5 MG 12.5 MG 12.5 MG Atorvastati Atorvastati No 1{table QD Atorvastat n Calcium n Calcium t} in Calcium 20 MG 20 MG 20 MG [place] No 1{table [place] 10-325 MG 10-325 MG t_as_ne 10-325 MG eded} Fish Oil Fish Oil No Fish Oil Stafford 3 Stafford 3 No Stafford 3 Flax Seeds Flax Seeds No Flax Seeds Multivitami Multivitami No Multivitam n n in Atorvastati Atorvastati No Atorvastat n Calcium n Calcium in Calcium 20 MG 20 MG 20 MG Vasotec 10 Vasotec 10 No 1{table QD Vasotec 10 MG MG t} MG hydroCHLORO hydroCHLORO No 1{capsu QD hydroCHLOR thiazide thiazide le_in_t Othiazide 12.5 MG 12.5 MG he_morn 12.5 MG ing} Enalapril Enalapril No Enalapril Maleate 10 Maleate 10 Maleate 10 MG MG MG Xarelto 15 Xarelto 15 No 1{table QD Xarelto 15 MG MG t_with_ MG food} hydroCHLORO hydroCHLORO No hydroCHLOR thiazide thiazide Othiazide 12.5 MG 12.5 MG 12.5 MG Vasotec 10 Vasotec 10 No Vasotec 10 MG MG MG Atorvastati Atorvastati No 1{table QD Atorvastat n Calcium n Calcium t} in Calcium 20 MG 20 MG 20 MG hydroCHLORO hydroCHLORO No 1{capsu QD hydroCHLOR thiazide thiazide le_in_t Othiazide 12.5 MG 12.5 MG he_morn 12.5 MG ing} Fish Oil Fish Oil No Fish Oil Multivitami Multivitami No Multivitam n n in [place] No 1{table [place] 10-325 MG 10-325 MG t_as_ne 10-325 MG eded} Stafford 3 Stafford 3 No Stafford 3 Atorvastati Atorvastati No Atorvastat n Calcium n Calcium in Calcium 20 MG 20 MG 20 MG Atorvastati Atorvastati No 1{table QD Atorvastat n Calcium n Calcium t} in Calcium 20 MG 20 MG 20 MG Vasotec 10 Vasotec 10 No 1{table QD Vasotec 10 MG MG t} MG hydroCHLORO hydroCHLORO No hydroCHLOR thiazide thiazide Othiazide 12.5 MG 12.5 MG 12.5 MG Xarelto 15 Xarelto 15 No 1{table QD Xarelto 15 MG MG t_with_ MG food} Enalapril Enalapril No Enalapril Maleate 10 Maleate 10 Maleate 10 MG MG MG Vasotec 10 Vasotec 10 No Vasotec 10 MG MG MG Flax Seeds Flax Seeds No Flax Seeds hydroCHLORO hydroCHLORO No 1{capsu QD hydroCHLOR thiazide thiazide le_in_t Othiazide 12.5 MG 12.5 MG he_morn 12.5 MG ing} Xarelto 15 Xarelto 15 No 1{table QD Xarelto 15 MG MG t_with_ MG food} Vasotec 10 Vasotec 10 No 1{table QD Vasotec 10 MG MG t} MG Atorvastati Atorvastati No 1{table QD Atorvastat n Calcium n Calcium t} in Calcium 20 MG 20 MG 20 MG [place] No 1{table [place] 10-325 MG 10-325 MG t_as_ne 10-325 MG eded} Multivitami Multivitami No Multivitam n n in Vasotec 10 Vasotec 10 No 1{table QD Vasotec 10 MG MG t} MG hydroCHLORO hydroCHLORO No 1{capsu QD hydroCHLOR thiazide thiazide le_in_t Othiazide 12.5 MG 12.5 MG he_morn 12.5 MG ing} Fish Oil Fish Oil No Fish Oil Atorvastati Atorvastati No 1{table QD Atorvastat n Calcium n Calcium t} in Calcium 20 MG 20 MG 20 MG Flax Seeds Flax Seeds No Flax Seeds hydroCHLORO hydroCHLORO No hydroCHLOR thiazide thiazide Othiazide 12.5 MG 12.5 MG 12.5 MG Enalapril Enalapril No Enalapril Maleate 10 Maleate 10 Maleate 10 MG MG MG Vasotec 10 Vasotec 10 No Vasotec 10 MG MG MG Xarelto 15 Xarelto 15 No 1{table QD Xarelto 15 MG MG t_with_ MG food} Stafford 3 Stafford 3 No Stafford 3 Atorvastati Atorvastati No Atorvastat n Calcium n Calcium in Calcium 20 MG 20 MG 20 MG [place] No 1{table [place] 10-325 MG 10-325 MG t_as_ne 10-325 MG eded} Multivitami Multivitami No Multivitam n n in Vasotec 10 Vasotec 10 No 1{table QD Vasotec 10 MG MG t} MG hydroCHLORO hydroCHLORO No 1{capsu QD hydroCHLOR thiazide thiazide le_in_t Othiazide 12.5 MG 12.5 MG he_morn 12.5 MG ing} Fish Oil Fish Oil No Fish Oil Atorvastati Atorvastati No 1{table QD Atorvastat n Calcium n Calcium t} in Calcium 20 MG 20 MG 20 MG Flax Seeds Flax Seeds No Flax Seeds hydroCHLORO hydroCHLORO No hydroCHLOR thiazide thiazide Othiazide 12.5 MG 12.5 MG 12.5 MG Enalapril Enalapril No Enalapril Maleate 10 Maleate 10 Maleate 10 MG MG MG Vasotec 10 Vasotec 10 No Vasotec 10 MG MG MG Xarelto 15 Xarelto 15 No 1{table QD Xarelto 15 MG MG t_with_ MG food} Stafford 3 Stafford 3 No Stafford 3 Atorvastati Atorvastati No Atorvastat n Calcium n Calcium in Calcium 20 MG 20 MG 20 MG [place] No 1{table [place] 10-325 MG 10-325 MG t_as_ne 10-325 MG eded} Multivitami Multivitami No Multivitam n n in Vasotec 10 Vasotec 10 No 1{table QD Vasotec 10 MG MG t} MG hydroCHLORO hydroCHLORO No 1{capsu QD hydroCHLOR thiazide thiazide le_in_t Othiazide 12.5 MG 12.5 MG he_morn 12.5 MG ing} Fish Oil Fish Oil No Fish Oil Atorvastati Atorvastati No 1{table QD Atorvastat n Calcium n Calcium t} in Calcium 20 MG 20 MG 20 MG Flax Seeds Flax Seeds No Flax Seeds hydroCHLORO hydroCHLORO No hydroCHLOR thiazide thiazide Othiazide 12.5 MG 12.5 MG 12.5 MG Enalapril Enalapril No Enalapril Maleate 10 Maleate 10 Maleate 10 MG MG MG Vasotec 10 Vasotec 10 No Vasotec 10 MG MG MG Xarelto 15 Xarelto 15 No 1{table QD Xarelto 15 MG MG t_with_ MG food} Stafford 3 Stafford 3 No Stafford 3 Atorvastati Atorvastati No Atorvastat n Calcium n Calcium in Calcium 20 MG 20 MG 20 MG [place] No 1{table [place] 10-325 MG 10-325 MG t_as_ne 10-325 MG eded} Multivitami Multivitami No Multivitam n n in Vasotec 10 Vasotec 10 No 1{table QD Vasotec 10 MG MG t} MG hydroCHLORO hydroCHLORO No 1{capsu QD hydroCHLOR thiazide thiazide le_in_t Othiazide 12.5 MG 12.5 MG he_morn 12.5 MG ing} Fish Oil Fish Oil No Fish Oil Atorvastati Atorvastati No 1{table QD Atorvastat n Calcium n Calcium t} in Calcium 20 MG 20 MG 20 MG Flax Seeds Flax Seeds No Flax Seeds hydroCHLORO hydroCHLORO No hydroCHLOR thiazide thiazide Othiazide 12.5 MG 12.5 MG 12.5 MG Enalapril Enalapril No Enalapril Maleate 10 Maleate 10 Maleate 10 MG MG MG Vasotec 10 Vasotec 10 No Vasotec 10 MG MG MG Xarelto 15 Xarelto 15 No 1{table QD Xarelto 15 MG MG t_with_ MG food} Stafford 3 Stafford 3 No Stafford 3 Atorvastati Atorvastati No Atorvastat n Calcium n Calcium in Calcium 20 MG 20 MG 20 MG [place] No 1{table [place] 10-325 MG 10-325 MG t_as_ne 10-325 MG eded} Multivitami Multivitami No Multivitam n n in Vasotec 10 Vasotec 10 No 1{table QD Vasotec 10 MG MG t} MG hydroCHLORO hydroCHLORO No 1{capsu QD hydroCHLOR thiazide thiazide le_in_t Othiazide 12.5 MG 12.5 MG he_morn 12.5 MG ing} Fish Oil Fish Oil No Fish Oil Atorvastati Atorvastati No 1{table QD Atorvastat n Calcium n Calcium t} in Calcium 20 MG 20 MG 20 MG Flax Seeds Flax Seeds No Flax Seeds hydroCHLORO hydroCHLORO No hydroCHLOR thiazide thiazide Othiazide 12.5 MG 12.5 MG 12.5 MG Enalapril Enalapril No Enalapril Maleate 10 Maleate 10 Maleate 10 MG MG MG Vasotec 10 Vasotec 10 No Vasotec 10 MG MG MG Xarelto 15 Xarelto 15 No 1{table QD Xarelto 15 MG MG t_with_ MG food} Stafford 3 Stafford 3 No Stafford 3 Atorvastati Atorvastati No Atorvastat n Calcium n Calcium in Calcium 20 MG 20 MG 20 MG [place] No 1{table [place] 10-325 MG 10-325 MG t_as_ne 10-325 MG eded} Xarelto 15 Xarelto 15 No 1{table QD Xarelto 15 MG MG t_with_ MG food} Fish Oil Fish Oil No Fish Oil Atorvastati Atorvastati No 1{table QD Atorvastat n Calcium n Calcium t} in Calcium 20 MG 20 MG 20 MG Stafford 3 Stafford 3 No Stafford 3 Flax Seeds Flax Seeds No Flax Seeds hydroCHLORO hydroCHLORO No hydroCHLOR thiazide thiazide Othiazide 12.5 MG 12.5 MG 12.5 MG [place] No 1{table [place] 10-325 MG 10-325 MG t_as_ne 10-325 MG eded} Vasotec 10 Vasotec 10 No Vasotec 10 MG MG MG Atorvastati Atorvastati No Atorvastat n Calcium n Calcium in Calcium 20 MG 20 MG 20 MG Enalapril Enalapril No Enalapril Maleate 10 Maleate 10 Maleate 10 MG MG MG Vasotec 10 Vasotec 10 No 1{table QD Vasotec 10 MG MG t} MG hydroCHLORO hydroCHLORO No 1{capsu QD hydroCHLOR thiazide thiazide le_in_t Othiazide 12.5 MG 12.5 MG he_morn 12.5 MG ing} Multivitami Multivitami No Multivitam n n in Atorvastati Atorvastati No 1{table QD Atorvastat n Calcium n Calcium t} in Calcium 20 MG 20 MG 20 MG [place] No 1{table [place] 10-325 MG 10-325 MG t_as_ne 10-325 MG eded} Vasotec 10 Vasotec 10 No Vasotec 10 MG MG MG Multivitami Multivitami No Multivitam n n in hydroCHLORO hydroCHLORO No hydroCHLOR thiazide thiazide Othiazide 12.5 MG 12.5 MG 12.5 MG Stafford 3 Stafford 3 No Stafford 3 Flax Seeds Flax Seeds No Flax Seeds Xarelto 15 Xarelto 15 No 1{table QD Xarelto 15 MG MG t_with_ MG food} Atorvastati Atorvastati No Atorvastat n Calcium n Calcium in Calcium 20 MG 20 MG 20 MG Vasotec 10 Vasotec 10 No 1{table QD Vasotec 10 MG MG t} MG Enalapril Enalapril No Enalapril Maleate 10 Maleate 10 Maleate 10 MG MG MG Fish Oil Fish Oil No Fish Oil hydroCHLORO hydroCHLORO No 1{capsu QD hydroCHLOR thiazide thiazide le_in_t Othiazide 12.5 MG 12.5 MG he_morn 12.5 MG ing} Atorvastati Atorvastati No 1{table QD Atorvastat n Calcium n Calcium t} in Calcium 20 MG 20 MG 20 MG [place] No 1{table [place] 10-325 MG 10-325 MG t_as_ne 10-325 MG eded} Vasotec 10 Vasotec 10 No Vasotec 10 MG MG MG Multivitami Multivitami No Multivitam n n in hydroCHLORO hydroCHLORO No hydroCHLOR thiazide thiazide Othiazide 12.5 MG 12.5 MG 12.5 MG Stafford 3 Stafford 3 No Stafford 3 Flax Seeds Flax Seeds No Flax Seeds Xarelto 15 Xarelto 15 No 1{table QD Xarelto 15 MG MG t_with_ MG food} Atorvastati Atorvastati No Atorvastat n Calcium n Calcium in Calcium 20 MG 20 MG 20 MG Vasotec 10 Vasotec 10 No 1{table QD Vasotec 10 MG MG t} MG Enalapril Enalapril No Enalapril Maleate 10 Maleate 10 Maleate 10 MG MG MG Fish Oil Fish Oil No Fish Oil hydroCHLORO hydroCHLORO No 1{capsu QD hydroCHLOR thiazide thiazide le_in_t Othiazide 12.5 MG 12.5 MG he_morn 12.5 MG ing} hydroCHLORO hydroCHLORO No hydroCHLOR thiazide thiazide Othiazide 12.5 MG 12.5 MG 12.5 MG Enalapril Enalapril No Enalapril Maleate 10 Maleate 10 Maleate 10 MG MG MG Atorvastati Atorvastati No Atorvastat n Calcium n Calcium in Calcium 20 MG 20 MG 20 MG Vasotec 10 Vasotec 10 No 1{table QD Vasotec 10 MG MG t} MG Flax Seeds Flax Seeds No Flax Seeds [place] No 1{table [place] 10-325 MG 10-325 MG t_as_ne 10-325 MG eded} Stafford 3 Stafford 3 No Stafford 3 Vasotec 10 Vasotec 10 No Vasotec 10 MG MG MG Fish Oil Fish Oil No Fish Oil Multivitami Multivitami No Multivitam n n in Xarelto 15 Xarelto 15 No 1{table QD Xarelto 15 MG MG t_with_ MG food} Xarelto 15 Xarelto 15 No 1{table QD Xarelto 15 MG MG t_with_ MG food} Fish Oil Fish Oil No Fish Oil Atorvastati Atorvastati No Atorvastat n Calcium n Calcium in Calcium 20 MG 20 MG 20 MG hydroCHLORO hydroCHLORO No hydroCHLOR thiazide thiazide Othiazide 12.5 MG 12.5 MG 12.5 MG Multivitami Multivitami No Multivitam n n in Vasotec 10 Vasotec 10 No 1{table QD Vasotec 10 MG MG t} MG [place] No 1{table [place] 10-325 MG 10-325 MG t_as_ne 10-325 MG eded} Flax Seeds Flax Seeds No Flax Seeds Atorvastati Atorvastati No 1{table QD Atorvastat n Calcium n Calcium t} in Calcium 20 MG 20 MG 20 MG Enalapril Enalapril No Enalapril Maleate 10 Maleate 10 Maleate 10 MG MG MG hydroCHLORO hydroCHLORO No 1{capsu QD hydroCHLOR thiazide thiazide le_in_t Othiazide 12.5 MG 12.5 MG he_morn 12.5 MG ing} Vasotec 10 Vasotec 10 No Vasotec 10 MG MG MG Stafford 3 Stafford 3 No Stafford 3 Atorvastati Atorvastati No 1{table QD Atorvastat n Calcium n Calcium t} in Calcium 20 MG 20 MG 20 MG [place] No 1{table [place] 10-325 MG 10-325 MG t_as_ne 10-325 MG eded} Vasotec 10 Vasotec 10 No Vasotec 10 MG MG MG Multivitami Multivitami No Multivitam n n in hydroCHLORO hydroCHLORO No hydroCHLOR thiazide thiazide Othiazide 12.5 MG 12.5 MG 12.5 MG Stafford 3 Stafford 3 No Stafford 3 Flax Seeds Flax Seeds No Flax Seeds Xarelto 15 Xarelto 15 No 1{table QD Xarelto 15 MG MG t_with_ MG food} Atorvastati Atorvastati No Atorvastat n Calcium n Calcium in Calcium 20 MG 20 MG 20 MG Vasotec 10 Vasotec 10 No 1{table QD Vasotec 10 MG MG t} MG Enalapril Enalapril No Enalapril Maleate 10 Maleate 10 Maleate 10 MG MG MG Fish Oil Fish Oil No Fish Oil hydroCHLORO hydroCHLORO No 1{capsu QD hydroCHLOR thiazide thiazide le_in_t Othiazide 12.5 MG 12.5 MG he_morn 12.5 MG ing} Immunizations Ordered Filled Immunization Date Status Comments Sourc e Immunization Name Name Influenza Virus 2022-04-06 Completed [facility] Influenza Virus 2022-04-06 Completed [facility] 65+ Influenza Virus 2022-04-06 Completed [facility] Vacc[facility] 00:00:[facility] [place] [facility] 65+ Influenza Virus 2022-04-06 Completed [facility] Vacc[facility]quad 00:00:00 [place] [facility] 65+ Influenza Virus 2022-04-06 Completed [facility] Vaccine[facility]quad 00:00:00 [place] [facility] 65+ Influenza Virus 2022-04-06 Completed [facility] Vaccine[facility]quad 00:00:00 [place] [facility] 65+ Influenza Virus 2022-04-06 Completed [facility]quad 00:00:00 [place] [facility] 65+ Influenza Virus 2022-04-06 Completed [facility] Vacc[facility]quad 00:00:00 [place] [facility] 65+ Influenza Virus 2022-04-06 Completed [facility] Vaccine,quad 00:00:00 [place] [facility] 65+ Influenza Virus 2022-04-06 Completed [facility] Vaccine,quad 00:00:00 [place] [facility] 65+ Influenza Virus 2022-04-06 Completed [facility] Vaccine,quad 00:00:00 [place] [facility] 65+ Influenza Virus 2022-04-06 Completed [facility] Vaccine,quad 00:00:00 [place] [facility] 65+ Influenza Virus 2022-04-06 Completed [facility] Vaccine,quad 00:00:00 [place] [facility] 65+ Influenza Virus 2022-04-06 Completed [facility] Vaccine,quad 00:00:00 [place] [facility] 65+ Influenza Virus 2022-04-06 Completed [facility] Vaccine,quad 00:00:00 [place] [facility] 65+ Influenza Virus 2022-04-06 Completed [facility] Vaccine,quad 00:00:00 [place] [facility] 65+ Influenza Virus 2022-04-06 Completed [facility] Vaccine,quad 00:00:00 [place] [facility] 65+ Influenza Virus 2022-04-06 Completed [facility] Vaccine,quad 00:00:00 [place] [facility] 65+ Influenza Virus 2022-04-06 Completed [facility] Vaccine,quad 00:00:00 [place] [facility] 65+ Influenza Virus 2022-04-06 Completed [facility] Vaccine,quad 00:00:00 [place] [facility] 65+ Influenza Virus 2022-04-06 Completed [facility] Vaccine,quad 00:00:00 [place] [facility] 65+ Influenza Virus 2022-04-06 Completed [facility] Vaccine,quad 00:00:00 [place] [facility] 65+ Influenza Virus 2022-04-06 Completed [facility] Vaccine,quad 00:00:00 [place] [facility] 65+ Influenza Virus 2022-04-06 Completed [facility] Vaccine,quad 00:00:00 [place] [facility] 65+ Influenza Virus 2022-04-06 Completed [facility] Vaccine,quad 00:00:00 [place] [facility] 65+ Influenza Virus 2022-04-06 Completed [facility] Vaccine,quad 00:00:00 [place] [facility] 65+ Influenza Virus 2022-04-06 Completed [facility] Vaccine,quad 00:00:00 [place] [facility] 65+ Influenza Virus 2022-04-06 Completed [facility] Vaccine,quad 00:00:00 [place] [facility] 65+ Influenza Virus 2022-04-06 Completed [facility] Vaccine,quad 00:00:00 [place] [facility] 65+ Influenza Virus 2022-04-06 Completed [facility] Vaccine,quad 00:00:00 [place] [facility] 65+ Influenza Virus 2022-04-06 Completed [facility] Vaccine,quad 00:00:00 [place] [facility] 65+ Influenza Virus 2022-04-06 Completed [facility] Vaccine,quad 00:00:00 [place] [facility] 65+ Influenza Virus 2022-04-06 Completed [facility] Vaccine,quad 00:00:00 [place] [facility] 65+ Influenza Virus 2022-04-06 Completed [facility] Vaccine,quad 00:00:00 [place] [facility] 65+ Influenza Virus 2022-04-06 Completed [facility] Vaccine,quad 00:00:00 [place] [facility] 65+ Influenza Virus 2022-04-06 Completed [facility] Vaccine,quad 00:00:00 [place] [facility] 65+ Influenza Virus 2022-04-06 Completed [facility] Vaccine,quad 00:00:00 [facility] 65+ Influenza Virus 2022-04-06 Completed [facility] Vaccine,quad 00:00:00 [facility] 65+ Influenza Virus 2022-04-06 Completed [facility] Vaccine,quad 00:00:00 [facility] 65+ Influenza Virus 2022-04-06 Completed [facility] Vaccine,quad 00:00:00 [place] [facility] 65+ Influenza Virus 2022-04-06 Completed [facility] Vaccine,quad 00:00:00 [facility] 65+ Influenza Virus 2022-04-06 Completed [facility] Vaccine,quad 00:00:00 [facility] FluAD FluAD 2021-05-22 Completed [facility] 13:03:00 [facility] FluAD FluAD 2021-05-22 Completed [facility] - 13:03:00 [facility] FluAD FluAD 2021-05-22 Completed [facility] - 13:03:00 [facility] FluAD FluAD 2021-05-22 Completed [facility] - 13:03:00 [facility] FluAD FluAD 2021-05-22 Completed [facility] - 13:03:00 [facility] FluAD FluAD 2021-05-22 Completed [facility] - 13:03:00 [facility] FluAD FluAD 2021-05-22 Completed [facility] - 13:03:00 [facility] FluAD FluAD 2021-05-22 Completed [facility] - 13:03:00 [facility] FluAD FluAD 2021-05-22 Completed [facility] - 13:03:00 [facility] FluAD FluAD 2021-05-22 Completed [facility] - 13:03:00 [facility] FluAD FluAD 2021-05-22 Completed [facility] - 13:03:00 [facility] FluAD FluAD 2021-05-22 Completed [facility] - 13:03:00 [facility] FluAD FluAD 2021-05-22 Completed [facility] - 13:03:00 [facility] FluAD FluAD 2021-05-22 Completed [facility] - 13:03:00 [facility] Afluria Afluria 2018-05-02 Completed [facility] - 11:21:00 [facility] Afluria Afluria 2018-05-02 Completed [facility] - 11:21:00 [facility] Afluria Afluria 2018-05-02 Completed [facility] - 11:21:00 [facility] Afluria Afluria 2018-05-02 Completed [facility] - 11:21:00 [facility] Afluria Afluria 2018-05-02 Completed [facility] - 11:21:00 [facility] Afluria Afluria 2018-05-02 Completed [facility] - 11:21:00 [facility] Afluria Afluria 2018-05-02 Completed [facility] - 11:21:00 [facility] Afluria Afluria 2018-05-02 Completed [facility] - 11:21:00 [facility] Afluria Afluria 2018-05-02 Completed [facility] - 11:21:00 [facility] Afluria Afluria 2018-05-02 Completed [facility] - 11:21:00 [facility] Afluria Afluria 2018-05-02 Completed [facility] - 11:21:00 [facility] Afluria Afluria 2018-05-02 Completed [facility] - 11:21:00 [facility] Afluria Afluria 2018-05-02 Completed [facility] - 11:21:00 [facility] Afluria Afluria 2018-05-02 Completed [facility] - 11:21:00 [facility] Afluria Afluria 2018-05-02 Completed [facility] - 11:21:00 [facility] Afluria Afluria 2018-05-02 Completed [facility] - 00:00:00 [facility] Vital Signs Vital Name Observation Time Observation Value Comments Source Body height 2023-01-10 13:08:00 175.3 cm [facility] Body weight 2023-01-10 13:08:00 97.705 kg [facility] BMI 2023-01-10 13:08:00 31.81 kg/m2 [facility] Systolic blood 2022-12-10 20:30:00 110 mm[Hg] [facility] pressure [facility] Diastolic blood 2022-12-10 20:30:00 72 mm[Hg] [facility] Heart rate 2022-12-10 20:30:00 76 /min [facility] Body height 2022-12-10 20:30:00 172.7 cm [facility] Body weight 2022-12-10 20:30:00 99.383 kg [facility] BMI 2022-12-10 20:30:00 33.31 kg/m2 [facility] Body weight 2022-12-03 17:19:00 90.719 kg [facility] BMI 2022-12-03 17:19:00 30.41 kg/m2 [facility] Oxygen saturation in 2022-12-03 17:19:00 98 /min [facility] Arterial blood by [facility] Pulse oximetry Branch Systolic blood 2022-12-03 17:19:00 150 mm[Hg] [facility] of pressure [facility] Diastolic blood 2022-12-03 17:19:00 99 mm[Hg] [facility] pressure [facility] Heart rate 2022-12-03 17:19:00 99 /min [facility] Body temperature 2022-12-03 17:19:00 37 Alexandra [facility] Respiratory rate 2022-12-03 17:19:00 18 /min [facility] Body height 2022-12-03 17:19:00 172.7 cm [facility] Body height 2022-11-29 13:43:00 172.7 cm [facility] Body weight 2022-11-29 13:43:00 98.884 kg [facility] BMI 2022-11-29 13:43:00 33.15 kg/m2 [facility] [place] [facility] Branch Systolic blood 2022-11-26 20:45:00 121 mm[Hg] Univer sity of [facility] Diastolic blood 2022-11-26 20:45:00 78 mm[Hg] Unive rsity of pressure [facility] Respiratory rate 2022-11-26 20:45:00 19 /min Univ ersity of [facility] Oxygen saturation in 2022-11-26 20:45:00 97 /min University of Arterial blood by [facility] ca Pulse oximetry Branch Heart rate 2022-11-26 20:21:00 63 /min [facility] Body temperature 2022-11-26 15:42:00 36.39 Alexandra Univ [facility] Body height 2022-11-15 17:00:00 172.7 cm [facility] Body weight 2022-11-15 17:00:00 98.884 kg [facility] BMI 2022-11-15 17:00:00 33.15 kg/m2 [facility] Systolic blood 2022-11-26 16:32:00 78 mm[Hg] Univer [facility]ity of [facility] Diastolic blood 2022-11-26 16:32:00 56 mm[Hg] Unive rsity of pressure [facility] Respiratory rate 2022-11-26 16:32:00 11 /min Univ ers[facility] Oxygen saturation in 2022-11-26 16:32:00 91 /min [facility] Arterial blood by [facility] Pulse oximetry Branch Heart rate 2022-11-26 16:00:00 74 /min [facility] Body temperature 2022-11-26 15:42:00 36.39 Alexandra Univ [facility] Body height 2022-11-15 17:00:00 172.7 cm [facility] Body weight 2022-11-15 17:00:00 98.884 kg [facility] BMI 2022-11-15 17:00:00 33.15 kg/m2 [facility] Respiratory rate 2022-11-26 15:34:00 23 /min Univ [facility] Body height 2022-11-09 14:34:00 172.7 cm [facility] Body weight 2022-11-09 14:34:00 98.884 kg [facility] BMI 2022-11-09 14:34:00 33.15 kg/m2 [facility] Systolic blood 2022-10-05 19:07:00 121 mm[Hg] Univer [facility] Diastolic blood 2022-10-05 19:07:00 74 mm[Hg] Unive rsity of [facility] Heart rate 2022-10-05 19:07:00 79 /min [facility] Respiratory rate 2022-10-05 19:07:00 22 /min Univ [facility] Body height 2022-10-05 19:07:00 172.7 cm [facility] Body weight 2022-10-05 19:07:00 99.111 kg [facility] [place] [facility] [place] BMI 2022-10-05 19:07:00 33.22 kg/m2 Universi ty [facility] Oxygen saturation in 2022-10-05 19:07:00 97 /min University of Arterial blood by [facility] Pulse oximetry Branch Systolic blood 2022-09-03 19:25:00 99 mm[Hg] Univer sity of pressure [facility] Diastolic blood 2022-09-03 19:25:00 65 mm[Hg] Unive rsity of pressure [facility] Heart rate 2022-09-03 19:25:00 89 /min Universi ty [facility] Respiratory rate 2022-09-03 19:25:00 16 /min Univ ersity of [facility] Body height 2022-09-03 19:25:00 172.7 cm Universi ty [facility] Body weight 2022-09-03 19:25:00 96.616 kg Universi ty [facility] BMI 2022-09-03 19:25:00 32.39 kg/m2 Universi ty [facility] Oxygen saturation in 2022-09-03 19:25:00 96 /min University of Arterial blood by [facility] Pulse oximetry Branch height 2022-07-11 13:10:00 61 [in_i] [facility] weight 2022-07-11 13:10:00 221.1 [lb_av] [facility] temperature 2022-07-11 13:10:00 97.7 [degF] Common [facility] bmi 2022-07-11 13:10:00 41.77 kg/m2 [facility] oximetry 2022-07-11 13:10:00 95 % [facility] respiratory rate 2022-07-11 13:10:00 17 /min Comm on [facility] blood pressure 2022-07-11 13:10:00 112 mm[Hg] Common [facility] - systolic [facility] blood pressure 2022-07-11 13:10:00 64 mm[Hg] Common [facility] - diastolic [facility] Body height 2022-05-24 13:05:00 172.7 cm Universi ty of [facility] Body weight 2022-05-24 13:05:00 100.245 kg Universi ty of [facility] BMI 2022-05-24 13:05:00 33.60 kg/m2 Universi ty of [facility] Body height 2022-04-26 13:37:00 172.7 cm Universi ty of [facility] Body weight 2022-04-26 13:37:00 100.245 kg Universi ty of [facility] BMI 2022-04-26 13:37:00 33.60 kg/m2 Universi ty of [facility] height 2022-04-20 09:10:00 61 [in_i] [facility] weight 2022-04-20 09:10:00 219 [lb_av] [facility] temperature 2022-04-20 09:10:00 97.5 [degF] [facility] bmi 2022-04-20 09:10:00 41.38 kg/m2 [facility] oximetry 2022-04-20 09:10:00 96 % [facility] respiratory rate 2022-04-20 09:10:00 16 /min Comm on [facility] blood pressure 2022-04-20 09:10:00 111 mm[Hg] Common [facility] - systolic [facility] blood pressure 2022-04-20 09:10:00 69 mm[Hg] Common [facility] - diastolic [facility] Systolic blood 2022-04-06 13:28:00 120 mm[Hg] Univer sity of pressure [facility] Diastolic blood 2022-04-06 13:28:00 76 mm[Hg] Unive rsity of pressure [facility] Heart rate 2022-04-06 13:28:00 69 /min Universi ty of [facility] Body height 2022-04-06 13:28:00 172.7 cm Universi ty of [facility] Body weight 2022-04-06 13:28:00 100.517 kg Universi ty [facility] BMI 2022-04-06 13:28:00 33.69 [facility]m2 [facility] Oxygen saturation in 2022-04-06 13:28:00 100 /min University Arterial blood by [facility] Pulse oximetry Branch height 2022-01-17 10:30:00 61 [in_i] Common [facility] weight 2022-01-17 10:30:00 218.8 [lb_av] [facility] temperature 2022-01-17 10:30:00 97.9 [degF] Common [facility] bmi 2022-01-17 10:30:00 41.34 kg/m2 [facility] oximetry 2022-01-17 10:30:00 95 % [facility] respiratory rate 2022-01-17 10:30:00 17 /min Comm on [facility] blood pressure 2022-01-17 10:30:00 138 mm[Hg] Common [facility] - systolic [facility] blood pressure 2022-01-17 10:30:00 78 mm[Hg] Common [facility] - diastolic [facility] height 2021-09-27 09:50:00 61 [in_i] Common [facility] weight 2021-09-27 09:50:00 232.7 [lb_av] [facility] temperature 2021-09-27 09:50:00 97.0 [degF] Common [facility] bmi 2021-09-27 09:50:00 43.96 kg/m2 [facility] oximetry 2021-09-27 09:50:00 95 % [facility] respiratory rate 2021-09-27 09:50:00 16 /min Comm on [facility] blood pressure 2021-09-27 09:50:00 137 mm[Hg] Common [facility] - systolic [facility] blood pressure 2021-09-27 09:50:00 66 mm[Hg] Common [facility] - diastolic [facility] height 2021-09-27 09:20:00 61 [in_i] Common [facility] weight 2021-09-27 09:20:00 232.7 [lb_av] [facility] temperature 2021-09-27 09:20:00 97.0 [degF] Common [facility] bmi 2021-09-27 09:20:00 43.96 kg/m2 Common S [facility] oximetry 2021-09-27 09:20:00 95 % [facility] respiratory rate 2021-09-27 09:20:00 16 /min Comm on [facility] blood pressure 2021-09-27 09:20:00 137 mm[Hg] Common [facility] - systolic [facility] blood pressure 2021-09-27 09:20:00 66 mm[Hg] Common [facility] - diastolic [facility] Body height 2021-08-31 20:26:00 175.3 cm [facility] Body weight 2021-08-31 20:26:00 103.964 kg [facility] BMI 2021-08-31 20:26:00 33.85 kg/m2 [facility] Systolic blood 2021-08-27 21:30:40 137 mm[Hg] Univer sity of [facility] Diastolic blood 2021-08-27 21:30:40 74 mm[Hg] Unive rsity of [facility] Heart rate 2021-08-27 21:30:40 63 /min [facility] Respiratory rate 2021-08-27 21:30:40 18 /min [facility] Oxygen saturation in 2021-08-27 21:30:40 97 /min [facility] Arterial blood by [facility] Pulse oximetry Branch Body height 2021-08-27 17:11:00 175.3 cm [facility] Body weight 2021-08-27 17:11:00 112.5 kg [facility] BMI 2021-08-27 17:11:00 36.63 kg/m2 [facility] Body temperature 2021-08-27 17:08:00 36.5 [facility] height 2021-06-22 13:00:00 61 [in_i] [facility] weight 2021-06-22 13:00:00 221.8 [lb_av] [facility] temperature 2021-06-22 13:00:00 98.0 [degF] [facility] bmi 2021-06-22 13:00:00 41.9 kg/m2 [facility] oximetry 2021-06-22 13:00:00 95 % [facility] respiratory rate 2021-06-22 13:00:00 16 /min Comm on [facility] blood pressure 2021-06-22 13:00:00 135 mm[Hg] [facility] systolic [facility] blood pressure 2021-06-22 13:00:00 72 mm[Hg] [facility] diastolic [facility] Procedures Procedure Date / Time Performing Clinician Source Performed REFERRAL- 2022-12-24 05:01:00 Doctor Unassigned, No [facility] REQUEST/RESPONSE Name [facility] CONSENT/REFUSAL FOR 2022-12-03 18:38:36 Doctor Unassigned, No [facility] DIAGNOSIS AND TREATMENT Name [facility] ASSIGNMENT OF BENEFITS 2022-12-03 18:37:55 Doctor Unassigned, No [facility] Name [facility] XR HIPS 3 VW LEFT 2022-12-03 18:19:55 Tommie Nick [facility] DUPLEX VENOUS LEG LEFT 2022-12-03 17:45:00 Tommie Nick [facility] - BY VASCULAR LAB [facility] XR HIP 1 VW BILATERAL 2022-11-26 17:02:48 [facility]j [facility]H CONFIRMATION (LAB 2022-11-26 13:42:00 Tej Martines Un [facility] ONLY) Medical Branch ABORH CONFIRMATION (LAB 2022-11-26 13:42:00 Tej Martines Un [facility] ONLY) Medical Branch INTUBATION 2022-11-26 13:21:00 [facility] o f [facility] NERVE BLOCK 2022-11-26 13:12:38 [facility] TOTAL HIP ARTHROPLASTY 2022-11-26 12:56:00 Tej Martines [facility] BASIC METABOLIC PANEL 2022-11-26 12:17:00 Tej Martines [facility] (NA, K, CL, CO2, [facility] GLUCOSE, BUN, CREATININE, CA) CBC WITH DIFF 2022-11-26 12:17:00 Tej Martines [facility] PROTHROMBIN TIME / INR 2022-11-26 12:17:00 Tej Martines [facility] HB ABO GROUPING 2022-11-26 12:17:00 Tej Martines [facility] BASIC METABOLIC PANEL 2022-11-26 12:17:00 Tej Martines [facility] (NA, K, CL, CO2, [facility] GLUCOSE, BUN, CREATININE, CA) CBC WITH DIFF 2022-11-26 12:17:00 Tej Martines [facility] PROTHROMBIN TIME / INR 2022-11-26 12:17:00 Tej Martines [facility] HB ABO GROUPING 2022-11-26 12:17:00 Tej Martines [facility] URINALYSIS 2022-11-26 12:03:00 Tej Martines [facility] URINALYSIS 2022-11-26 12:03:00 Tej Martines [facility] DISCLOSURE AND CONSENT, 2022-11-12 05:01:00 Doctor Unassigned, N o [facility] MEDICAL AND SURGICAL Name Medical [facility] PROCEDURES DISCLOSURE AND CONSENT, 2022-11-12 05:01:00 Doctor Unassigned, N o [facility] MEDICAL AND SURGICAL Name Medical [facility] PROCEDURES ASSIGNMENT OF BENEFITS 2022-10-05 18:52:25 Doctor Unassigned, No [facility] HB ECG ROUTINE & RHYTHM 2022-09-03 19:36:45 William Ty [facility] MR HIP RIGHT WO 2022-04-13 18:38:26 Tej Martines [facility] Branch FLU 2022-04-06 15:07:35 Doctor Unassigned, No [facility] VACC(),65+YR,0 [facility] .5 ML,IM,ADJUVANTED,QUAD(F LUAD) MR LUMBAR SPINE WO 2021-09-29 17:46:28 Requisition, Paper [facility] NOTICE OF PRIVACY 2021-09-29 15:18:21 Doctor Unassigned, No [facility] PRACTICES [facility] CONSENT/REFUSAL FOR 2021-09-29 15:16:36 Doctor Unassigned, No [facility] DIAGNOSIS AND TREATMENT [facility] ASSIGNMENT OF BENEFITS 2021-09-29 15:16:11 Doctor Unassigned, No [facility] CT PELVIS WO CONTRAST 2021-08-27 19:57:43 Fernanda Sommers [facility] XR FEMUR 2 VW LEFT 2021-08-27 17:55:47 Fernanda Sommers [facility] XR HIPS 3 VW LEFT 2021-08-27 17:55:47 Fernanda Sommers [facility] Plan of Care Planned Activity Planned Date Details Comments Source Future Scheduled 2023-01-07 65+ [facility]OCOCCAL [facility] 15:39:31 VACCINE (1 - PCV) [code = 65+ PNEUMOCOCCAL VACCINE (1 - PCV)] Future Scheduled 2023-01-07 COVID-19 VACCINE (3 - [facility] 15[facility]39:31 Moderna series) [code = COVID-19 VACCINE (3 - Moderna series)] Future Scheduled 2023-01-07 INFLUENZA VACCINE [facility] 15:39:31 [code = INFLUENZA VACCINE] Future Scheduled 2023-01-07 [facility] 15:39:31 malignant neoplasm of colon (procedure) [code = 265829041] Future Scheduled 2023-01-07 [facility] Test 15:39:31 malignant neoplasm of colon (procedure) [code = 038098938] Future Scheduled 2023-01-07 [facility] Test 15:39:31 malignant neoplasm of colon (procedure) [code = 966515876] Future Scheduled 2023-01-07 [facility] Test 15:39:31 malignant neoplasm of colon (procedure) [code = 496738132] Future Scheduled 2023-01-07 [facility] Test 15:39:31 malignant neoplasm of colon (procedure) [code = 302480014] Future Scheduled 2023-01-07 SHINGLES VACCINES (1 [facility] 15:39:31 of 2) [code = SHINGLES VACCINES (1 of 2)] Encounters Start End Encounter Admission Attending Care Care Encounter Source Date/Time Date/Time Type Type Clinicians Facility Department ID 2022-08-22 Outpatient Rodríguez, STLMLC STLMLC [id number] Common 13:38:00 Daniel [address]73 [facility] 2022-07-10 Outpatient Rodríguez, STLMLC STLMLC [id number] Common 13:37:00 Daniel [facility] 2022-07-09 Outpatient Rodríguez, STLMLC STLMLC [id number] Common 09:36:00 Daniel [facility] 2022-02-06 Outpatient Rodríguez, STLMLC STLMLC [id number] Common 16:22:00 Daniel [facility] 2022-01-17 Outpatient Rodríguez, STLMLC STLMLC [id number] Common 09:38:00 Daniel [facility] 2021-09-27 Outpatient Rodríguez, STLMLC STLMLC [id number] Common 09:57:01 Daniel [facility] 2021-09-25 Outpatient Rodríguez, STLMLC STLMLC [id number] Common 13:14:00 Daniel [facility] 2021-09-19 Outpatient Rodríguez, STLMLC STLMLC [id number] Common 11:19:00 Daniel [facility] 2021-09-14 Outpatient JAVIER, [facility] [id number] [place] 17:05:40 [facility] 2021-09-01 Outpatient Rdoríguez, STLMLC STLMLC [id number] Common 11:11:01 Daniel [facility] 2021-08-28 Outpatient COTA, [facility] [id number] [place] 10:58:16 [facility] 2021-08-16 Outpatient Rodríguez, STLMLC STLMLC [id number] Common 13:34:44 Daniel [facility] 2021-08-16 Outpatient Rodríguez, STLMLC STLMLC [id number] Common 13:34:30 Daniel [facility] 2021-08-16 Outpatient Rodríguez, STLMLC STLMLC [id number] Common 12:59:44 Daniel 22900 [facility] 2021-08-16 Outpatient Rodríguez, STLMLC STLMLC [id number] Common 12:31:55 Daniel 34254 [facility] 2021-08-16 Outpatient Rodríguez, STLMLC STLMLC [id number] Common 12:25:32 Daniel 70875 [facility] 2021-08-16 Outpatient Rodríguez, STLMLC STLMLC [id number] Common 11:59:34 Daniel 99855 [facility] 2021-08-16 Outpatient Rodríguez, STLMLC STLMLC [id number] Common 11:30:32 Daniel 48807 [facility] 2021-08-16 Outpatient Rodríguez, STLMLC STLMLC [id number] Common 11:21:27 Daniel 96053 [facility] 2021-08-16 Outpatient Rodríguez, STLMLC STLMLC [id number] Common 11:07:05 Daniel 61612 [facility] 2021-08-16 Outpatient Rodríguez, STLMLC STLMLC [id number] Common 11:06:43 Daniel 11504 [facility] 2021-08-16 Outpatient Rodríguez, STLMLC STLMLC [id number] Common 11:06:18 Daniel 06501 [facility] 2021-08-16 Outpatient Rodríguez, STLMLC STLMLC [id number] Common 11:06:03 Daniel 18215 [facility] 2023-01-10 2023-01-10 Office MAKAYLA Haas 1.2.840.114 [id number] Univers 08:15:00 08:30:00 Visit [facility] [id number] it y of [place] 4.2.7.2.686 Kwabena as NIDA?BLEA [id number] Pr brad FRANCIS [address] [facility] OFFICE [facility] 2023-01-10 2023-01-10 [facility] [id number] Univers 08:20:00 08:24:00 [facility] 2023-01-02 2023-01-02 Telephone [facility] [id number] Univers 00:00:00 00:00:00 [facility] HEALTH 350.1.13.10 it y of [place] 4.2.7.2.686 Kwabena as NIDA?BLEA [id number] Pr brad FRANCIS[address] 2022-12-24 2022-12-24 Orders Doctor CALVIN 1..840.114 [id number] Univers 00:00:00 00:00:00 Only Unassigned, LUKE 350.1.13.10 ity of [facility] 4.2.7.2.686 Kwabena as [id number] [address] 2022-12-10 2022-12-10 [facility] [id number] Univers 15:30:00 23:59:00 [facility] 2022-12-10 2022-12-10 [facility] 1..840.114 [id number] Univers 15:00:00 15:15:00 Visit [facility] HEALTH 350.1.13.10 it y of [place] 4.2.7.2.686 Kwabena as NIDA?BLEA [id number] Pr brad FRANCIS[address] OFFICE [facility] 2022-12-03 2022-12-03 Emergency X FLAVIA [facility] ERT [id number] Univers 12:23:00 [facility] 2022-12-03 2022-12-03 Emergency [facility] 1..840.114 10 [id number] Univers 12:23:00 14:24:00 Tommie AMAYA 350.1.13.10 i ty [place] [id number] [facility] [address] [place] 2022-11-29 2022-11-29 Outpatient R SAMINA [facility] [id number] Univers 08:30:00 09:27:25 CALLUM itdon [facility] 2022-11-29 2022-11-29 Office [facility] 1.2.840.114 [id number] Univers 08:30:00 09:27:25 Visit [facility] 350.1.13.10 it y of [place] 4.2.7.2.686 Kwabena as NIDA?BLEA [id number] [address] OFFICE [facility] 2022-11-28 2022-11-28 Telephone [facility] 1.2.840.114 [id number] Univers 00:00:00 00:00:00 Tej CALIX 350.1.13.10 it y of [facility] 4.2.7.2.686 Kwabena as NIDA?BLEA [id number] [address] OFFICE [facility] 2022-11-26 2022-11-26 Outpatient [facility] SOR [id number] Univers 06:53:00 15:58:00 TEJBRETT pepper [facility] 2022-11-26 2022-11-26 Hospital [facility] 1.2.840.114 [id number] Univers 06:53:00 15:58:00 Encounter Tej SANDOVALBRANDEN 350.1.13.10 ity [facility] [place] [id number] [facility] [address] 2022-11-26 2022-11-26 Surgery [facility] 1.2.980.133 [id number] Univers 08:20:00 11:32:00 Tej Nanci SANODVALBRANDEN 350.1.13.10 i [place] [id number] [facility] [address] 2022-11-26 2022-11-26 Anesthesia Max Alejandro [facility] 1.2.840.11 [id number] Univers 08:11:00 10:44:00 Event MikiBullockLeandro LORIBRANDEN 35 0.1.13.10 ity [facility] 4.2.[place] [id number] [address] 2022-11-16 2022-11-16 Outpatient R BOBBI [facility] [id number] Univers 10:15:00 11:29:30 TEJ howelldon [facility] 2022-11-16 2022-11-16 Ancillary Mal Buckley [facility] 1.2.840. 114 [id number] Univers 10:15:00 11:00:00 Visit Tej Martines 350.1.13.10 ity of [facility] 4.2.7.2.[place] [id number] Pr dickay OQUENDO [address] [facility] 2022-11-12 2022-11-12 Prep For Bobbi [facility] 1..840.114 [id number] Univers 00:00:00 00:00:[address] [facility] 350.1.13.10 it y [facility] 4.2.7.2.686 Kwabena as NIDA?BLEA [id number] Pr dickay CRUZ 198 [facility] OFFICE [facility] 2022-11-09 2022-11-09 Outpatient R SAMINA [facility] [id number] Univers 10:00:00 23:59:00 CALLUM pepper [facility] 2022-11-09 2022-11-09 Office Callum Haas [facility] 1.2.840.114 [id number] Univers 11:15:00 11:15:[address] [facility] 350.1.13.10 ity of [facility] 4.2.7.2.686 Kwabena as NIDA?BLEA [id number] Pr dickay CRUZ [address] [facility] OFFICE [facility] 2022-10-05 2022-10-05 Outpatient R DL [facility] [id number] Univers 14:20:00 14:26:09 WILLIAM mendoza f [facility] 2022-10-05 2022-10-05 [facility] 1.2.840.114 [id number] Univers 14:20:00 14:26:09 Visit William S[place]OV[place] 350.1.13.10 ity [facility] 4.2.[place] [id number] Pr dic[address] 2022-10-05 2022-10-05 Orders Doctor CALVIN 1.2.840.114 [id number] Univers 00:00:00 00:00:00 Only Unassigned, LUKE 350.1.13.10 [facility] 4.2.7.2.686 Kwabena as [id number] [address] 2022-10-04 2022-10-04 [facility] [id number] [facility] 09:40:00 09:40:00 WILLIAM pepper o f [facility] 2022-09-12 2022-09-12 Telephone [facility] 1.2.790.177 [id number] Univers 00:00:00 00:00:00 Deangeloandie LOR[place] 350.1.13.10 ity [facility] [place] [id number] Pr dic[address] 2022-09-12 2022-09-12 [facility] 1.2.180.185 [id number] Univers 00:00:00 00:00:00 Qiayoliandie S[place] 350.1.13.10 ity [facility] 4[place] [id number] Pr dic[address] 2022-09-06 2022-09-06 Telephone [facility] 1.2.924.389 [id number] Univers 00:00:00 00:00:00 Qiangjun [place] 350.1.13.10 ity [facility] 4.[place] [id number] [address] 2022-09-05 2022-09-05 Outpatient [facility] [id number] Univers 09:35:36 23:59:00 WILLIAM howelly o f [facility] 2022-09-03 2022-09-03 Outpatient R DL [facility] [id number] Univers 13:20:00 13:52:58 WILLIAM pepper o f [facility] 2022-09-03 2022-09-03 [facility] 1.2.840.114 [id number] Univers 13:20:00 13:52:58 Visit Deangeloandie AMAYA 350.1.13.10 ity of [place] [phone] Pr dical NAL 059 [facility] 2022-07-11 2022-07-11 Telephone [facility] 1.2.840.114 [id number] Univers 00:00:00 00:00:00 Tej Christine HEALTH 350.1.13.10 it y of [place] 4.2.7.2.686 Kwabena as NIDA?BLEA [phone] Pr brad CRUZ [address] [place] [address] 2022-07-11 2022-07-11 OFFICE STLMLC STLMLC [id number] Co mmon 00:00:00 00:00:00 VISIT Spirit ESTAB PT - CHI LEVEL 4 [facility] 2022-07-04 2022-07-04 (TEL) STLMLC STLMLC [id number] Co mmon 00:00:00 00:00:00 [facility] 2022-05-24 2022-05-24 [facility] [id number] Univers 08:11:13 23:59:00 TEJ pepper [facility] 2022-05-24 2022-05-24 Office [facility] 1.2.717.112 [id number] Univers 08:30:00 08:35:43 Visit Tej CALIX 350.1.13.10 it y of [facility] 4.2.7.2.686 Kwabena as NIDA?BLEA [phone] Pr brad CRUZ [address] [place] [address] 2022-04-26 2022-04-26 [facility]patient [facility] [id number] Univers 08:45:00 08:49:17 TEJ pepper [facility] 2022-04-26 2022-04-26 Office [facility] 1.2.465.248 [id number] Univers 08:45:00 08:49:17 Visit Tej Christine HEALTH 350.1.13.10 it y of [place] 4.2.7.2.686 Kwabena as NIDA?BLEA [phone] Pr brad FRANCIS[address] MEDICAL OFFICE BUILDING 2022-04-20 2022-04-20 (TEL) STLMLC STLMLC [id number] Co mmon 00:00:00 00:00:00 Spirit - CHI [facility] 2022-04-20 2022-04-20 OFFICE STLMLC STLMLC [id number] Co mmon 00:00:00 00:00:00 VISIT Spirit ESTAB PT - CHI LEVEL 4 [facility] 2022-04-13 2022-04-13 Outpatient [facility] [id number] Univers 12:12:02 23:59:00 TEJBRETT pepper [facility] 2022-04-13 2022-04-13 Hospital [facility] 1.2.840.114 [id number] Univers 12:12:02 23:59:00 Encounter Tej AMAYA 350.1.13.10 ity of [place]NE [phone] [facility] [address] 2022-04-13 2022-04-13 Letter Doctor CALVIN 1.2.840.114 [id number] Univers 00:00:00 00:00:00 (Out) Unassigned, LUKE 350.1.13.10 ity of [facility] 4.2.7.2.686 Kwabena as [phone] [facility] [address] 2022-04-06 2022-04-06 Outpatient [facility] [id number] Univers 08:30:00 11:42:45 TEJ pepper [facility] 2022-04-06 2022-04-06 Office [facility] 1.2.562.784 [id number] Univers 08:30:00 11:42:45 Visit Tej Christine HEALTH 350.1.13.10 it y of [place] 4.2.7.2.686 Kwabena as NIDA?BLEA [phone] Me dical KNEY [address] [facility] OFFICE BUILDING 2022-04-06 2022-04-06 Nurse Nurse, Chris Alan [facility] 1.2.840.114 [id number] [facility] 09:20:00 10:14:[address] [facility] 350.1.13.10 itMauricio 4.2.7.2.686 Kwabena as NIDA?BLEA [phone] Pr dickay CRUZ [address] [facility] OFFICE [facility] 2022-03-01 2022-03-01 Documentat Jaun 1.2.840.1 [id number] Methodi 00:00:00 00:00:00 ion Michelle [address]323.1.[address] 3.430.2.7 Hospit a .3.724550 l .8 2022-01-17 2022-01-17 OFFICE STLMLC STLC [id number] Co mmon 00:00:00 00:00:00 [facility] LEVEL 4 [facility] 2022-01-08 2022-01-08 (TEL) STLMLC STLMLC [id number] Co mmon 00:00:00 00:00:00 [facility] 2021-12-20 2021-12-20 Outpatient [facility] [id number] [address] 00:00:00 00:00:00 VAIBHAVE [address] 2021-11-17 2021-11-17 (TEL) STLMLC STLMLC [id number] Co mmon 00:00:00 00:00:00 [facility] 2021-11-17 2021-11-17 (TEL) STLMLC STLMLC [id number] Co mmon 00:00:00 00:00:00 [facility] 2021-11-08 2021-11-08 Outpatient [facility] [id number] [address] 00:00:00 00:00:[address] 2021-11-01 2021-11-01 Outpatient [facility] [id number] [address] 00:00:00 00:00:[address] 2021-10-27 2021-10-27 Outpatient [facility] [id number] [address] 00:00:00 00:00:00 VAIBHAVE 946 [address] 2021-10-20 2021-10-20 Outpatient ESDRAS [facility] [id number] [address] 00:00:00 00:00:00 VAIBHAVE 719 [address] 2021-10-10 2021-10-10 Outpatient [facility]SDRAS [facility] [id number] [address] 00:00:00 00:00:00 VAIBHAVE 098 [address] 2021-09-29 2021-09-29 Outpatient R RADIOLOGY [facility] [id number] [facility] 09:22:34 23:59:00 ity [facility] 2021-09-29 2021-09-29 Hospital Radiology [facility] 1.2.840.114 [id number] Univers 08:45:00 23:59:00 Encounter JOSE LUIS 350.1.13.10 ity [facility] 4.2.7.2.686 [facility] [id number] [place] [address] [address] 2021-09-27 2021-09-27 OFFICE STLMLC STLMLC [id number] Co mmon 00:00:00 00:00:00 VISIT EST Spir it PT LEVEL 3 - CHI [facility] 2021-09-27 2021-09-27 SUB ANNUAL STLMLC STLMLC [id number] Common 00:00:00 00:00:00 [facility] Spirit WELLNESS - CHI VISIT [facility] 2021-09-26 2021-09-26 (TEL) STLMLC STLMLC [id number] Co mmon 00:00:00 00:00:00 Spirit - CHI [facility] 2021-09-19 2021-09-19 (TEL) STLMLC STLMLC [id number] Co mmon 00:00:00 00:00:00 Spirit - CHI [facility] 2021-08-31 2021-08-31 Office SHELBY Phillips 6400 1.2.840.114 [id number] [place] 15:00:00 16:23:16 Visit Grabiel KING 350.1.13.58 [facility] 9.2.7.2.686 [id number] [id number] 2021-08-27 2021-08-27 Emergency X MUTENDEREKI [facility] ERT [id number] Univers 11:00:00 15:39:00 , FERNANDA dantedon of [facility] 2021-08-27 2021-08-27 Emergency Mutendereki [facility] 1.2.840.114 [id number] Univers 11:00:00 15:39:00 , Fernanda CALIX 350.1.13.10 ity of [place] [phone] [place] [address] [address] ([facility]) 2021-08-24 2021-08-24 Emergency EM White, HCACL AERS [id number] [facility] 15:25:00 16:37:00 Jesus 09 [facility] 2021-06-22 2021-06-22 [facility] [id number] Co mmon 00:00:00 00:00:00 VISIT Spirit ESTAB PT - CHI LEVEL 4 [facility] 2021-06-08 2021-06-08 Transition LANDON Sigala 1.2.840.114 [id number] Univers 00:00:00 00:00:00 of Care Pattie B BERNABE 350.1.13.10 it y [place] [id number] [facility] [address] 2021-06-07 2021-06-07 Transition LANDON Sigala 1.2.840.114 [id number] Univers 00:00:00 00:00:00 of Care Pattie B BERNABE 350.1.13.10 [place] [id number] [facility] [address] 2021-06-04 2021-06-06 Outpatient X CEFERINO [facility] [id number] Univers 15:51:00 13:45:00 MADDIE pepper of [facility] 2021-06-04 2021-06-06 Emergency Anjelica Andrews [facility] 1.2.840. 114 [id number] Univers 15:51:00 13:45:00 Maddie De La Vega 350.1.13.10 ity of [place] 4.2.7.2.686 [facility] [id number] [place] 6[address] 2021-06-04 2021-06-06 Outpatient Kateryna DE LA VEGA [facility] [id number] Univers 15:51:00 13:45:00 MADDIE pepper [facility] 2021-05-17 2021-05-17 (TEL) STLMLC STLMLC [id number] Co mmon 00:00:00 00:00:00 [facility] 2021-02-25 2021-02-25 Emergency EM Haily, HCACL AERS [id number] [facility] 12:19:00 13:45:00 Tarrell 24 [facility] 2020-11-23 2020-11-23 Outpatient STLMLC STLMLC [id number] Common 00:00:00 00:00:00 [facility] 2020-08-18 2020-08-18 Outpatient STLMLC STLMLC [id number] Common 00:00:00 00:00:00 [facility] 2020-05-18 2020-05-18 Outpatient STLMLC STLMLC [id number] Common 00:00:00 00:00:00 [facility] 2020-05-18 2020-05-18 Outpatient STLMLC STLMLC [id number] Common 00:00:00 00:00:00 [facility] 2020-02-26 2020-02-26 Outpatient [facility] [id number] Common 09:45:00 09:45:00 [facility] [place] [address] [facility] 2019-09-01 2019-09-01 Outpatient [facility] [id number] Common 13:00:00 13:00:00 [facility] [place] [address] Sp[address] [facility] 2019-07-01 2019-07-01 Outpatient [facility] [id number] Common 13:15:00 13:15:00 [facility] [place] [address] [facility] 2019-06-25 2019-06-25 Outpatient [facility] [id number] Common 16:03:00 16:03:00 [facility] [address] [facility] 2019-03-30 2019-03-30 Outpatient [facility] [id number] Common 15:00:00 15:00:00 [facility] [place] [address] [facility] 2019-01-08 2019-01-08 Outpatient [facility] [id number] Common 14:30:00 14:30:00 [facility] [place] [address] [facility] 2018-11-26 2018-11-26 Outpatient [facility] [id number] Common 16:00:00 16:00:00 [facility] [place] [address] [facility] 2018-05-02 2018-05-02 Outpatient [facility] [id number] Common 11:00:00 11:00:00 [facility] [place] [address] [facility] 2018-03-14 2018-03-14 Outpatient [facility] [id number] Common 09:15:00 09:15:00 [facility] [place] [address] [facility] 2017-11-12 2017-11-12 Outpatient [facility] [id number] Common 09:15:00 09:15:00 [facility] [place] [address] [facility] Results Test Description Test Time Test Comments Results Result Comments Source ABORH Confirmation (Lab Only) 2022-11-26 13:51:00 Test Item Value Reference Range Interpretation Comme nts ABO & RH (test code = 20) AB [facility]2022-11-26 13:51:00 Test Item Value Reference Range Interpretation Comments ABO & RH (test code = 20) AB Negative [facility] (NA, K, CL, CO2, GLUCOSE, BUN, CREATININE, CA)2022-11-26 13:21:58 Test Item Value Reference Range Interpretation Comments NA (test code = 139 mmol/L 135-145 0246623174) K (test code = 4.0 mmol/L 3.5-5.0 8196165114) CL (test code = 105 mmol/L 98-108 9055972929) CO2 TOTAL (test code = 29 mmol/L 23-31 7141595503) AGAP (test code = 5 2-16 2013195950) BUN (test code = 42 mg/dL 7-23 H 5181513259) GLUCOSE (test code = 102 mg/dL 70-110 2851927525) CREATININE (test code = 2.26 mg/dL 0.60-1.25 H 3691215740) CALCIUM (test code = 8.7 mg/dL 8.6-10.6 2869087892) eGFR (test code = 28.9 mL/min/1.73m2 0823875627) ROBERT (test code = ROBERT) Association of Glomerular Filtration Rate (GFR) and Staging of Kidney Disease* + --+ --+ ------+| GFR (mL/min/1.73 m2) ?| With Kidney Damage ?| ?Without Kidney Damage+ --------+ --------+ +| ?>90 ?| ?Stage one ?| ? Normal ?+ ---+ ---+ -------+| ?60-89 ?| ?Stage two ?| ? Decreased GFR ? + --+ --+ ------+| ?30-59 ?| ?Stage three ?| ? Stage three ? + --+ --+ ------+| ?15-29 ?| ?Stage four ? | ? Stage four ?+ ---+ ---+ -------+| ?<15 (or dialysis) ? ?| ?Stage five ? | ? Stage five ?+ ---+ ---+ -------+ *Each stage assumes the associated GFR level has been in effect for at least three months. ?Stages 1 to 5, with or without kidney disease, indicate chronic kidney disease. Notes: Determination of stages one and two (with eGFR >59mL/min/1.73 m2) requires estimation of kidney damage for at least three months as defined by structural or functional abnormalities of the kidney, manifested by either:Pathological abnormalities or Markers of kidney damage (including abnormalities in the composition of the blood or urine or abnormalities in imaging tests). Lab Interpretation Abnormal (test code = 58318-5) [facility] METABOLIC PANEL (NA, K, CL, CO2, GLUCOSE, BUN, CREATININE, CA)2022-11-26 13:21:58 Test Item Value Reference Range Interpretation Comments NA (test code = 139 mmol/L 135-145 6586051508) K (test code = 4.0 mmol/L 3.5-5.0 5153013752) CL (test code = 105 mmol/L 98-108 6645818693) CO2 TOTAL (test code = 29 mmol/L 23-31 7142110731) AGAP (test code = 5 2-16 7865203904) BUN (test code = 42 mg/dL 7-23 H 2774477370) GLUCOSE (test code = 102 mg/dL 70-110 1607770803) CREATININE (test code = 2.26 mg/dL 0.60-1.25 H 9695433635) CALCIUM (test code = 8.7 mg/dL 8.6-10.6 7446580877) eGFR (test code = 28.9 mL/min/1.73m2 4466678204) ROBERT (test code = ROBERT) Association of Glomerular Filtration Rate (GFR) and Staging of Kidney Disease* + --+ --+ ------+| GFR (mL/min/1.73 m2) ?| With Kidney Damage ?| ?Without Kidney Damage+ --------+ --------+ +| ?>90 ?| ?Stage one ?| ? Normal ?+ ---+ ---+ -------+| ?60-89 ?| ?Stage two ?| ? Decreased GFR ? + --+ --+ ------+| ?30-59 ?| ?Stage three ?| ? Stage three ? + --+ --+ ------+| ?15-29 ?| ?Stage four ? | ? Stage four ?+ ---+ ---+ -------+| ?<15 (or dialysis) ? ?| ?Stage five ? | ? Stage five ?+ ---+ ---+ -------+ *Each stage assumes the associated GFR level has been in effect for at least three months. ?Stages 1 to 5, with or without kidney disease, indicate chronic kidney disease. Notes: Determination of stages one and two (with eGFR >59mL/min/1.73 m2) requires estimation of kidney damage for at least three months as defined by structural or functional abnormalities of the kidney, manifested by either:Pathological abnormalities or Markers of kidney damage (including abnormalities in the composition of the blood or urine or abnormalities in imaging tests). Lab Interpretation Abnormal (test code = 70573-6) [facility] / [id number] 12:40:21 Test Item Value Reference Range Interpretation Comments PROTIME PATIENT (test 12.3 See_Comment [Auto mated message] code = 5964-2) The system Post[employer] generated this result transmitted ref erence range: 12.0 - 1 4.7 Seconds. The re ference range was not u sed to interpret this result as normal/abnor mal. INR (test code = 6301-6) 0.9 Nor mal INR <1.1; Warfarin Therap eutic range 2.0 to 3. 0 or 2.5 to 3.5, dep ending upon the indica tions. Lab Interpretation (test Normal code = 88008-6) [facility] / [id number] 12:40:21 Test Item Value Reference Range Interpretation Comments PROTIME PATIENT (test 12.3 See_Comment [Auto mated message] code = 5964-2) The system [employer] generated this result transmitted ref erence range: 12.0 - 1 4.7 Seconds. The re ference range was not u sed to interpret this result as normal/abnor mal. INR (test code = 6301-6) 0.9 Nor mal INR <1.1; Warfarin Therap eutic range 2.0 to 3. 0 or 2.5 to 3.5, dep ending upon the indica tions. Lab Interpretation (test Normal code = 57300-3) [facility] WITH [id number] 12:39:05 Test Item Value Reference Range Interpretation Comments WBC (test code = 5.63 See_Comment [Automated 5290-2) message] The sy stem which generated this result transmitted reference range : 4.20 - 10.70 10*3/?L. The reference range was not used to interpret this result as normal/abnormal . RBC (test code = 4.40 See_Comment [Automated 317-8) message] The sy stem which generated this result transmitted reference range : 4.26 - 5.52 10*6/?L. The reference range was not used to interpret this result as normal/abnormal . HGB (test code = 13.5 g/dL 12.2-16.4 718-7) HCT (test code = 41.6 % 38.4-49.3 4544-3) MCV (test code = 94.5 fL 81.7-95.6 787-2) MCH (test code = 30.7 pg 26.1-32.7 785-6) MCHC (test code = 32.5 g/dL 31.2-35.0 786-4) RDW-SD (test code = 49.1 fL 38.5-51.6 61921-6) RDW-CV (test code = 14.1 % 12.1-15.4 788-0) PLT (test code = 128 See_Comment L [Automated 777-3) message] The sy stem which generated this result transmitted reference range : 150 - 328 10*3/ ?L. The reference r sommer was not used to interpret this result as normal/abnormal . MPV (test code = 10.8 fL 9.8-13.0 77954-8) IPF % (test code = 4.0 % 1.2-10.7 Platelet count 4592532591) measured by fluorescence method. NRBC/100 WBC (test 0.0 See_Comment [Automat ed code = 1484395512) message] The system which generated this result transmitted reference range : 0.0 - 10.0 /100 WBCs. The refer ence range was not u sed to interpret th is result as normal/abnormal . NRBC x10^3 (test code See_Comment [Auto mated = 9693357534) message] The s ystem which generated this result transmitted reference range : 10*3/?L. The reference range was not used to interpret this result as normal/abnormal . GRAN MAT (NEUT) % 51.3 % (test code = 770-8) IMM GRAN % (test code 0.20 % = 5887046234) LYMPH % (test code = 22.9 % 736-9) MONO % (test code = 14.9 % 5905-5) EOS % (test code = 9.6 % 713-8) BASO % (test code = 1.1 % 706-2) GRAN MAT x10^3(ANC) 2.89 10*3/uL 1.99-6.95 (test code = 3493113041) IMM GRAN x10^3 (test 0.00-0.06 code = 0292455258) LYMPH x10^3 (test code 1.29 10*3/uL 1.09-3.23 = 731-0) MONO x10^3 (test code 0.84 10*3/uL 0.36-1.02 = 742-7) EOS x10^3 (test code = 0.54 10*3/uL 0.06-0.53 H 711-2) BASO x10^3 (test code 0.06 10*3/uL 0.01-0.09 = 704-7) Lab Interpretation Abnormal (test code = 93398-7) [facility] WITH [id number] 12:39:05 Test Item Value Reference Range Interpretation Comments WBC (test code = 5.63 See_Comment [Automated 6590-2) message] The sy stem which generated this result transmitted reference range : 4.20 - 10.70 10*3/?L. The reference range was not used to interpret this result as normal/abnormal . RBC (test code = 4.40 See_Comment [Automated 619-8) message] The sy stem which generated this result transmitted reference range : 4.26 - 5.52 10*6/?L. The reference range was not used to interpret this result as normal/abnormal . HGB (test code = 13.5 g/dL 12.2-16.4 718-7) HCT (test code = 41.6 % 38.4-49.3 4544-3) MCV (test code = 94.5 fL 81.7-95.6 787-2) MCH (test code = 30.7 pg 26.1-32.7 785-6) MCHC (test code = 32.5 g/dL 31.2-35.0 786-4) RDW-SD (test code = 49.1 fL 38.5-51.6 99783-8) RDW-CV (test code = 14.1 % 12.1-15.4 788-0) PLT (test code = 128 See_Comment L [Automated 777-3) message] The sy stem which generated this result transmitted reference range : 150 - 328 10*3/ ?L. The reference r sommer was not used to interpret this result as normal/abnormal . MPV (test code = 10.8 fL 9.8-13.0 01480-8) IPF % (test code = 4.0 % 1.2-10.7 Platelet count 6772496594) measured by fluorescence method. NRBC/100 WBC (test 0.0 See_Comment [Automat ed code = 4820300106) message] The system which generated this result transmitted reference range : 0.0 - 10.0 /100 WBCs. The refer ence range was not u sed to interpret th is result as normal/abnormal . NRBC x10^3 (test code See_Comment [Auto mated = 9115162356) message] The s ystem which generated this result transmitted reference range : 10*3/?L. The reference range was not used to interpret this result as normal/abnormal . GRAN MAT (NEUT) % 51.3 % (test code = 770-8) IMM GRAN % (test code 0.20 % = 1980147033) LYMPH % (test code = 22.9 % 736-9) MONO % (test code = 14.9 % 5905-5) EOS % (test code = 9.6 % 713-8) BASO % (test code = 1.1 % 706-2) GRAN MAT x10^3(ANC) 2.89 10*3/uL 1.99-6.95 (test code = 7140316980) IMM GRAN x10^3 (test 0.00-0.06 code = 7030801743) LYMPH x10^3 (test code 1.29 10*3/uL 1.09-3.23 = 731-0) MONO x10^3 (test code 0.84 10*3/uL 0.36-1.02 = 742-7) EOS x10^3 (test code = 0.54 10*3/uL 0.06-0.53 H 711-2) BASO x10^3 (test code 0.06 10*3/uL 0.01-0.09 = 704-7) Lab Interpretation Abnormal (test code = 22451-7) [facility] 12:26:00 Test Item Value Reference Range Interpretation Comments ABO & RH (test code = 20) AB Negative IAT (test code = 1185) Negative [facility] -2022-11-26 12:26:00 Test Item Value Reference Range Interpretation Comments ABO & RH (test code = 20) AB Negative IAT (test code = 1185) Negative [facility]2022-[facility]-24 00:00:00result- XR HIP FRANKI [id number] 00:00:00 [facility] : 1955 Sex: M FAX: Jesus Urbano MD [phone] [place]: [place] St: PRE Name: MAL COOPER FSED : 1955 Age/S: 65/M [address] [facility] Unit #: [id number] Loc: [place] [address] Phys: Jesus Urbano MD Acct: [id number] Dis Date: Status: PRE ER PHONE #: Exam Date: 08/24/2021 1550 FAX #: Reason: fall, left hip pain. pmh avasc necrosis EXAMS: CPT CODE: [id number] XR HIP FRANKI W/PELVIS 18080 PROCEDURE INFORMATION: Exam: XR Bilateral Hips Exam date and time: 08/24/2021 3:39 PM Age: 65 years old Clinical indication: Injury or trauma; Fall; Sprain or strain; Bilateral; Hip; Additional info: Fall, left hip pain. Pmh avasc necrosis TECHNIQUE: Imaging protocol: XR bilateral hips. Views: 3 or 4 views of hips with pelvis when perfor med. COMPARISON: No relevant prior studies available. FINDINGS: [...] aggressive bony lesions. Soft tissues: Unremarkable soft tissues.No unusual radiopaque foreign bodies. IMPRESSION: 1. Left femoral head avascular necrosis. 2. Lower lumbar spondylosis. 3. No acute fracture. at 1602 Reported and signed by: Robles Tucker M.D. CC: Jesus Urbano MD Technologist: RT Sruthi(R)(CT) Trncord Date/Time/By: 08/24/2021 (1602) : By: [email or web address] Orig Print D/T: S: 08/24/2021 (4513) PAGE 1 Signed ReportCBC W/AUTO [id number] 00:20:00 Test Item Value Reference Range Interpretation Comments WHITE BLOOD CELL (test code = WBC) [...] 27.0-31.0 H MEAN CELL HGB CONCETRATION (test 35.1 GM/DL 33.0-37.0 N code = MCHC) RED CELL DISTRIBUTION WIDTH CV 13.8 % 11.5-14.5 N (test code = RDW) PLATELET COUNT (test code = PLT) 174 K/mm3 150-400 N MEAN PLATELET VOLUME (test code = 12.2 FL 8.8-13.1 N MPV) NEUTROPHIL % (test code = NT%) 76.2 % 40.0-76.0 H LYMPHOCYTE % (test code = LY%) 11.6 % 15.0-40.0 L MIXED % (test code = MX%) 12.2 % 3.0-15.0 N NEUTROPHIL # (test code = NT#) 7.7 K/uL 1.8-7.6 H LYMPHOCYTE # (test code = LY#) 1.2 K/uL 1.0-3.8 N MIXED # (test code = MX#) 1.2 k/mm3 0.1-0.8 H BASIC METABOLIC [id number] 13:06:00 Test Item Value Reference Range Interpretation [...] GLUCOSE (test code = POCGLU) 124 MG/DL Notes Date/Time Note Provider Source 2021-08-24 15:32:00-00:00 [facility] ([facility]) EMERGENCY PROVIDER REPORT REPORT#:[id number] REPORT STATUS: Signed DATE:08/24/21 TIME: 1532 PATIENT: MAL COOPER UNIT #: [id number] ROOM/BED: AGE: 65 SEX: M PCP PHYS: Undefined Provider SERVICE AUTHOR: Jesus Urbano MD * ALL edits or amendments must be made on the el [employer]/computer document * HPI-Hip/Pelvis Prob/Inj General Confirmed Patient Yes Patient Type New patient Initial Greet Date/Time 08/24/21 1525 Presentation Chief Complaint Hip injury L, Hip pain L Hx Obtained From Patient Onset Occurred Yesterday Symptom Duration Constant Progression since Onset Unchanged Context of Onset Home injury Caused by Fall on ground Location Hip, L lateral aspect Quality Aching Radiation Does not radiate Severity: Onset Moderate Severity: Current Moderate Free Text HPI Notes Free Text HPI Notes 65-year-old male patient wit h a past medical history of hypertension reports to the [facility] department complaining of left hip pain (for which she has a history of avascular necrosis) after a kristen und-level fall yesterday. Patient ambulated in with a help of a wa lker. Also complains of conjunctivitis in the right eye Review of Systems ROS Statements All systems rev neg except as marked. Focused Review of Systems Musculoskeletal Reports: Joint pain. Past Medical History - Adult Stated Complaint FALL Allergies Coded Allergies: butorphanol tartrate (From Stadol) (CHILLS 08/24) morphine (PSYCHOSIS 08/24/21) tramadol (ELEVATED LFT 08/24/21) Home Medications Active Scripts ACETAMINOPHEN (TYLENOL) 650 MG PO PRN PRN Pain ACETAMINOPHEN (TYLENOL) 650 MG PO PRN PRN Pain #30 TABS Prov: 02/25/21 DOXYCYCLINE MONOHYDRATE (MONODOX) 100 MG PO Q12H DOXYCYCLINE MONOHYDRATE (MONODOX) 100 MG PO Q12 H #14 CAPS Prov: 02/25/21 AMOXICILLIN/CLAV K (AUGMENTIN 875/125 MG) 875 MG PO Q12H AMOXICILLIN/CLAV K (AUGMENTIN 875/125 MG) 875 M G PO Q12H #14 TABS Prov: 02/25/21 IBUPROFEN (MOTRIN) 600 MG PO QID PRN PRN PAIN IBUPROFEN (MOTRIN) 600 MG PO QID PRN PRN PAIN # 30 TABS Prov: 02/25/21 Past Medical History: Reports: Hypertension. Physical Exam Vital Signs Vital Signs First Documented: Result Date Time Pulse Ox 95 02/ 1527 B/P 139/77 02/ 1527 B/P Mean 97 / 1527 O2 Delivery Room air / 1527 Temp 37.2 02/03 1527 Pulse 68 02/ 1527 Resp 18 / 1527 Last Documented: Result Date Time Pulse Ox 95 02/ 1527 B/P 139/77 02/ 1527 B/P Mean 97 02/ 1527 O2 Delivery Room air / 1527 Temp 37.2 02/ 1527 Pulse 68 02/ 1527 Resp 18 / 1527 Review of Vital Signs Reviewed Focused PE General/Const General/Const Awake, Alert, Well appearing MS Head Head Normocephalic MS Neck Neck Atraumatic, Supple, Full range of motion, No swelling, Non-tender Resp/Chest Respiratory/Chest Atraumatic, Breath sounds NL, Breath sounds = bilat, No respiratory distress, No rales, No rhonchi, No w heezing Cardiovascular Cardiovascular Heart rate NL, Regular rhythm, H eart sounds NL, Peripheral circulation NL Abdomen/GI Abdomen/GI Soft, Non-tender, No guarding, No re bound MS Back Back Inspection NL, Non-tender, No CVA tenderne ss Skin Skin Color NL, Warm, Dry, Intact, Turgor NL, No swelling Neurologic Neurologic Oriented X3, Speech NL, No motor def icits, No sensory deficits Interpretation Diagnostics Lab Results Interpretation Results Recent Impressions: RADIOLOGY - XR HIP FRANKI W/PELVIS 08/24 1545 Report Impression - Status: SIGNED Entered: 08/24/2021 1603 IMPRESSION: 1. Left femoral head avascular necrosis. 2. Lower lumbar spondylosis. 3. No acute fracture. Impression By: Mc - Robles Tucker M.D. Re-Evaluation [facility] ED Course Medication(s) Ordered Medication(s) Ordered: Central Nervous System Agents Sig/Yariel Start time Last Medication Dose Route Stop Time Status Admin Ketorolac 30 MG X1ED STA 08/24 1529 DC Tromethamine IM 08/24 1530 Patient Discharge Departure Vital Signs/Condition Vital Signs First Documented: Result Date Time Pulse Ox 95 08/24 1527 B/P 139/77 / 1527 B/P Mean 97 / 1527 O2 Delivery Room air / 1527 Temp 37.2 02/ 1527 Pulse 68 02/ 1527 Resp 18 / 1527 Last Documented: Result Date Time Pulse Ox 95 / 1527 B/P 139/77 / 1527 B/P Mean 97 / 1527 O2 Delivery Room air / 1527 Temp 37.2 02/ 1527 Pulse 68 02/ 1527 Resp 18 / 1527 All vital signs available at the time of this en try have been reviewed. Clinical Impression Clinical Impression Primary Impression: Hip pain, left Secondary Impressions: Conjunctivitis Disposition Decision Discharge )( Discharged to Home Yes (1633) )( Time 1633 )( Date 08/24/21 Discharge/Care Plan Counseled Regarding Diagnosi s, Imaging studies, Prescriptions, Need for follow- up, When to return to ED (Auto) Prescriptions Current Visit Scripts POLYMYXIN B SULF/TMP 10,000U -1MG/ML (POLYTRIM 10,000U-1MG/ML OPHTH SOLN 10 ML) 1 DROP RIGHT EYE Q3H POLYMYXIN B SULF/TMP 10,000U-1MG/ML (POLYTRIM 1 0,000U-1MG/ML OPHTH SOLN 10 ML) 1 DROP RIGHT EYE Q3H #10 ML WHILE AWAKE (MAX 6X PER DAY) ACETAMINOPHEN/CODEINE (TYLENOL WITH CODE INE #3 300/30 MG) 1 TAB PO Q4H PRN PRN ACUTE PAIN ACETAMINOPHEN/CODEINE (TYLENOL WITH CODEINE #3 300/30 MG) 1 TAB PO Q4H PRN PRN ACUTE PAIN #15 TABS Patient Instructions ED Conjunctivitis, Bacteria l, ED Hip Contusion Referrals PRIMARY CARE OUTPT CLINIC: As Needed Discharge Note I have spoken with the patie nt and/or caregivers. I have explained the patient's condition, diagnoses and ronald atment plan based on the information available to me at this time. I have answered the patient's and/ or caregiver's questions and addressed any concerns. The patient and/or careg jocelyn have as good an understanding of the patient 's diagnosis, condition and treatment plan as can be expected at this point. The vital signs have bee n stable. The patient's condition is stable and appr opriate for discharge from the emergency department. The patient will pursue further outpatient evalu ation with the primary care physician or other designated or consulting phys ician as outlined in the discharge instructions. The patient and/or caregivers are agreeable to this plan of care and follow-up instructions have been exp lained in detail. The patient and/or caregivers have received these instructio ns in written format and have expressed an understanding of the discharge inst ructions. The patient and/or caregivers are aware that any significant change in condition or worsening of symptoms should prompt an immediate return to [facility] or the closest emergency department or a call to 911. Electronically Signed by Jesus Urbano MD on 0 08/24/21 at 7732 RPT #:[id number] END OF REPORT 2021-02-25 12:22:00-00:00 [facility] ([facility]) EMERGENCY PROVIDER REPORT REPORT#:[id number] REPORT STATUS: Signed DATE:02/25/21 TIME: 122 PATIENT: MAL COOPER UNIT #: [id number] ROOM/BED: AGE: 65 SEX: M PCP PHYS: No Primary or Family Ph ysician SERVICE AUTHOR: Shima Johansen MD * ALL edits or amendments must be made on the [employer]/computer document * HPI-Extremity Prob Lower Free Text HPI Notes Free Text HPI Notes This is a 65-year-old male with a past medical h istory significant for hypertension presenting to the emergency departm ent for a foot infection. Patient reports that he was fishing this past when he dropped approximately an 80 pound fish on his foot. Only injury at the time was a scratch. Reports over the ne xt 2 days his left foot began getting progressively worsened pain with swelling and redness. No syst emic features such as nausea, vomiting, chest pain, shortness breath, fevers, chills, or fatigue. Has not attempted any [id number]-kontqrv medication. Has n o other complaints at this time. General Initial Greet Date/Time 02/25/21 1221 Presentation Chief Complaint Foot problem L Review of Systems Free Text ROS Notes Free Text ROS Notes In addition to that document ed in the HPI above, the additional ROS was obtained : Constitutional: Denies fevers or chills Eyes: Denies vision changes ENMT: Denies sore throat CV: Denies chest pain Resp: Denies SOB, or wheezing GI: Denies abdominal pain, nausea, vomiting or d iarrhea : Denies dysuria, hematuria, or difficulty uri nating MSK: Denies swelling, pain, or injury Skin: New wound. Denies new rashes, or color crescencio nge Neuro: Denies headache, new numbness, tingling o r weakness Endocrine: Denies unexpected weight loss or weig ht gain. Heme: Denies bleeding disorders Psy: Denies SI, or depressed mood Past Medical History - Adult Stated Complaint LEFT FOOT SWELLING AND PAINFUL Allergies Coded Allergies: butorphanol tartrate (From Stadol) (06/22/09) morphine (06/22/09) pravastatin (06/22/09) tramadol (06/22/09) Pt reports no significant: P ast surgical history, Family history, Social history Past Medical History: Reports: Hypertension. Physical Exam Vital Signs Vital Signs First Documented: Result Date Time Pulse Ox 95 08/ 1220 B/P 135/69 08/07 1220 B/P Mean 91 08/07 1220 O2 Delivery Room air 08/ 1220 Temp 37.2 08/ 1220 Pulse 78 08/ 1220 Resp 18 08 1220 Last Documented: Result Date Time Pulse Ox 95 08/07 1220 B/P 135/69 08/07 1220 B/P Mean 91 08/07 1220 O2 Delivery Room air 08/ 1220 Temp 37.2 08/07 1220 Pulse 78 08/07 1220 Resp 18 08/ 1220 Const: Well-nourished, Well-developed in no appa rent distress. Head: Normocephalic/Atraumatic. Eyes: No conjunctival injection, symmetrical lid s. ENMT: Atraumatic, Moist MM. Neck: Symmetric, trachea midline. Cardio: Regular rate, and rhythm. No murmurs, ru bs, or gallops. Peripheral pulses 2+ and equal in all extremities. RESP: Unlabored respiratory effort. CTAB. GI: Nontender/Nondistended, No guarding or rebou nd tenderness. MSK: Right foot and ankle is mildly swollen and tender to the touch with overlying erythema. No discharge noted. Dorsalis pedis pulses are intact. Extremities w/o deformity. No cyanosis or clubbi ng. Skin: Warm, Dry. No rashes or lesions. Neuro: Awake, Alert, Oriented (AAO) x3. Sensatio n grossly intact. Psych: Appropriate mood and affect. Review of Vital Signs Reviewed Interpretation Diagnostics Lab Results Interpretation Results Laboratory Tests: 02/25 1259 Blood Gas Sodium (134 - 147 MEQ/L) 136 Potassium (3.4 - 5.0 MEQ/L) 5.2 H Chloride (100 - 108 MEQ/L) 104 Ionized Calcium (1.12 - 1.32 MMOL/L) 1.15 Chemistry POC Creatinine (0.8 - 1.3 mg/dL) 1.4 H POC Glucose (mg/dL) (MG/DL) 124 Re-Evaluation MDM Free Text MDM Notes Free Text MDM Notes This is a 65-year-old male presented to emergency department with symptoms and physical exam evidence that is consistent with a cellulitis of the left lower extremity. No evidence of systemic invol vement as he has no systemic features. I will obtain a CBC to rule out significant infe ction and a BMP. I will give the patient a dose of Ancef here in the emergency department and discharged the patient with a prescription for doxycycl ine which will also cover vibrio given that it was a wound that was in an aquatic envir onment. Patient was in agreement with this plan. CBC and BMP were unremarkable. Patient is discharged hemodynamically stable con dition with prescription for doxycycline. He was given strict return precauti ons. CBC and BMP were unremarkable. Patient was discharged in hemodynamicall y stable condition with a prescription for doxycycline and Augmentin. ED Course Medication(s) Ordered Medication(s) Ordered: Anti-Infective Agents Sig/Yariel Start time Last Medication Dose Route Stop Time Status Admin Ceftriaxone Sodium 1,000 MG X1ED STA 02/25 1258 DC 08/ IM 02/25 1259 1316 Cefazolin Sodium 1 GM X1ED STA 02/25 1222 DC Sodium Chloride 10 ML IV / 1224 Cardiovascular Drugs Sig/Yariel Start time Last Medication Dose Route Stop Time Status Admin Lidocaine HCl 2.1 ML X1ED STA 02/25 1258 DC 08/ 07 IM 08/ 1259 1317 Patient Discharge Departure Vital Signs/Condition Vital Signs First Documented: Result Date Time Pulse Ox 95 08/07 1220 B/P 135/69 08/07 1220 B/P Mean 91 08/07 1220 O2 Delivery Room air 08/07 1220 Temp 37.2 08/07 1220 Pulse 78 08/07 1220 Resp 18 08/07 1220 Last Documented: Result Date Time Pulse Ox 95 08/07 1220 B/P 135/69 08/07 1220 B/P Mean 91 08/07 1220 O2 Delivery Room air 08/07 1220 Temp 37.2 08/07 1220 Pulse 78 08/07 1220 Resp 18 08/07 1220 All vital signs available at the time of this en try have been reviewed. Clinical Impression Clinical Impression Primary Impression: Cellulitis Discharge/Care Plan (Auto) Prescriptions Current Visit Scripts DOXYCYCLINE MONOHYDRATE (MONODOX) 100 MG PO Q12H DOXYCYCLINE MONOHYDRATE (MONODOX) 100 MG PO Q12 H #14 CAPS UNTIL FINISHED AMOXICILLIN/CLAV K (AUGMENTIN 875/125 MG) 875 MG PO Q12H 7 Days #14 TABS Patient Instructions ED Cellulitis Additional Instructions You were seen here in the emergency department f or a foot infection. We have given you a dose of IV antibiotics here in the e mergency department and a prescription for antibiotics which you are to ta ke as prescribed until completely gone. Please return to the emergency department if the redness worsens or the swelling wors ens. Please return if you develop nausea, vomiting, chest pain, shortness of breath, or for any conc erns you may have. Please follow-up with your primary care doctor nestor jones. Referrals PRIMARY CARE Departure Forms [facility] PCP LIST Electronically Signed by Shima Johansen MD on 02/08 at 1332 RPT #:[id number] END OF REPORT 2021-02-25 12:22:00-00:[address] [facility] (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 Patient reports that he was fishing this past when he dropped approximately an 80 pound fish on his foot. Only injury at the time was a scratch. Reports over the ne xt 2 days his left foot began getting progressively worsened pain with swelling and redness. No syst emic features such as nausea, vomiting, chest pain, shortness breath, fevers, chills, or fatigue. Has not attempted any rkyy-roz-ibiiyrb medication. Has n o other complaints at this time. General Initial Greet Date/Time 02/25/21 1221 Presentation Chief Complaint Foot problem L Review of Systems Free Text ROS Notes Free Text ROS Notes In addition to that document ed in the HPI above, the additional ROS was obtained : Constitutional: Denies fevers or chills Eyes: Denies vision changes ENMT: Denies sore throat CV: Denies chest pain Resp: Denies SOB, or wheezing GI: Denies abdominal pain, nausea, vomiting or d iarrhea : Denies dysuria, hematuria, or difficulty uri nating MSK: Denies swelling, pain, or injury Skin: New wound. Denies new rashes, or color crescencio nge Neuro: Denies headache, new numbness, tingling o r weakness Endocrine: Denies unexpected weight loss or weig ht gain. Heme: Denies bleeding disorders Psy: Denies SI, or depressed mood Past Medical History - Adult Stated Complaint LEFT FOOT SWELLING AND PAINFUL Allergies Coded Allergies: butorphanol tartrate (From Stadol) (06/22/09) morphine (06/22/09) pravastatin (06/22/09) tramadol (06/22/09) Pt reports no significant: P ast surgical history, Family history, Social history Past Medical History: Reports: Hypertension. Physical Exam Vital Signs Vital Signs First Documented: Result Date Time Pulse Ox 95 08/07 1220 B/P 135/69 08/07 1220 B/P Mean 91 08/07 1220 O2 Delivery Room air 08/ 1220 Temp 37.2 08/07 1220 Pulse 78 08/07 1220 Resp 18 08/ 1220 Last Documented: Result Date Time Pulse Ox 95 08/07 1220 B/P 135/69 08/07 1220 B/P Mean 91 08/07 1220 O2 Delivery Room air 08/07 1220 Temp 37.2 08/07 1220 Pulse 78 08/07 1220 Resp 18 08/07 1220 Const: Well-nourished, Well-developed in no appa rent distress. Head: Normocephalic/Atraumatic. Eyes: No conjunctival injection, symmetrical lid s. ENMT: Atraumatic, Moist MM. Neck: Symmetric, trachea midline. Cardio: Regular rate, and rhythm. No murmurs, r ubs, or gallops. Peripheral pulses 2+ and equal in all extremities. RESP: Unlabored respiratory effort. CTAB. GI: Nontender/Nondistended, No guarding or rebou nd tenderness. MSK: Right foot and ankle is mildly swollen and tender to the touch with overlying erythema. No discharge noted. Dorsalis pedis pulses are intact. Extremities w/o deformity. No cyanosis or clubbi ng. Skin: Warm, Dry. No rashes or lesions. Neuro: Awake, Alert, Oriented (AAO) x3. Sensatio n grossly intact. Psych: Appropriate mood and affect. Review of Vital Signs Reviewed Interpretation Diagnostics Lab Results Interpretation Results Laboratory Tests: 02/25 1259 Blood Gas Sodium (134 - 147 MEQ/L) 136 Potassium (3.4 - 5.0 MEQ/L) 5.2 H Chloride (100 - 108 MEQ/L) 104 Ionized Calcium (1.12 - 1.32 MMOL/L) 1.15 Chemistry POC Creatinine (0.8 - 1.3 mg/dL) 1.4 H POC Glucose (mg/dL) (MG/DL) 124 Re-Evaluation MDM Free Text MDM Notes Free Text MDM Notes This is a 65-year-old male presented to emergency department with symptoms and physical exam evidence that is consistent with a cellulitis of the left lower extremity. No evidence of s ystemic involvement as he has no systemic features. I will obtain a CBC to rule out significant infe ction and a BMP. I will give the patient a dose of Ancef here in the emergency department and discharged the patient with a prescription for doxycycl ine which will also cover vibrio given that it was a wound that was in an aquatic envir onment. Patient was in agreement with this plan. CBC and BMP were unremarkable. Patient is discharged hemodynamically stable con dition with prescription for doxycycline. He was given strict return precauti ons. CBC and BMP were unremarkable. Patient was discharged in hemodynamicall y stable condition with a prescription for doxycycline and Augmentin. ED Course Medication(s) Ordered Medication(s) Ordered: Anti-Infective Agents Sig/Yariel Start time Last Medication Dose Route Stop Time Status Admin Ceftriaxone Sodium 1,000 MG X1ED STA 02/25 1258 DC 08/ IM 02/25 1259 1316 Cefazolin Sodium 1 GM X1ED STA 02/25 1222 DC Sodium Chloride 10 ML IV 02/25 1224 Cardiovascular Drugs Sig/Yariel Start time Last Medication Dose Route Stop Time Status Admin Lidocaine HCl 2.1 ML X1ED STA 02/25 1258 DC / IM 02/25 1259 1317 Patient Discharge Departure Vital Signs/Condition Vital Signs First Documented: Result Date Time Pulse Ox 95 08/ 1220 B/P 135/69 08/07 1220 B/P Mean 91 08/07 1220 O2 Delivery Room air 08/ 1220 Temp 37.2 08/07 1220 Pulse 78 08/07 1220 Resp 18 08/ 1220 Last Documented: Result Date Time Pulse Ox 95 08/07 1220 B/P 135/69 08/07 1220 B/P Mean 91 08/07 1220 O2 Delivery Room air 08/ 1220 Temp 37.2 08/07 1220 Pulse 78 08/07 1220 Resp 18 02/25 1220 All vital signs available at the time of this en try have been reviewed. Clinical Impression Clinical Impression Primary Impression: Cellulitis Discharge/Care Plan (Auto) Prescriptions Current Visit Scripts DOXYCYCLINE MONOHYDRATE (MONODOX) 100 MG PO Q12H DOXYCYCLINE MONOHYDRATE (MONODOX) 100 MG PO Q12 H #14 CAPS UNTIL FINISHED AMOXICILLIN/CLAV K (AUGMENTIN 875/125 MG) 875 MG PO Q12H 7 Days #14 TABS Patient Instructions ED Cellulitis Additional Instructions You were seen here in the emergency department f or a foot infection. We have given you a dose of IV antibiotics here in the e mergency department and a prescription for antibiotics which you are to ta ke as prescribed until completely gone. Please return to the emergency department if the redness worsens or the swelling wors ens. Please return if you develop nausea, vomiting, chest pain, shortness of breath, or for any conc erns you may have. Please follow-up with your primary care doctor otherwis e. Referrals PRIMARY CARE Departure Forms [facility] PCP LIST Electronically Signed by Shima Johansen MD on 02/08 at 1332 Addendum 1: 02/25/21 1333 by Shima Johansen MD Provider Time Updates Greet Date/Time Date/Time Seen by Provider 02/25/21 1221 Disposition Discharge )( Discharged to Home Yes )( Time 1333 )( Date 02/25/21 Electronically Signed by Shima Johansen MD on 02/08 at 1333 RPT #:[id number] END OF REPORT"
[2023-01-11] MEDS ORDERED: FENTANYL CITR 100 MCG/2 ML ONE ×3 (11:54→17:07)
[2023-01-11] MEDS ORDERED: HYDROMORPHONE HCL 0.5 MG/0.5 ML INJ ONE ×2 (12:11→12:40)
--- NOTE | 2023-01-11 12:27 | RAD REPORT ---
EXAM DESCRIPTION: RAD - Hip Left 2 View - 01/11/2023 12:19 pm CLINICAL HISTORY: Pain;Deformity COMPARISON: No comparisons TECHNIQUE: Left hip, AP and frogleg views of the left hip. FINDINGS: There is no fracture. Displaced left total hip arthroplasty, with superior and posterior t ranslation of the femoral component relative to the acetabular cup. Triangular osseous density adjace nt to the inferior margin of the acetabular cup, may relate to a small chip fracture. Soft tissue swe lling. No other suspicious osseous lesion. IMPRESSION: Displaced left total hip arthroplasty as above. Possible chip fracture adjacent to the m argin of the acetabular cup.
[2023-01-11] MEDS ORDERED: propofoL 200 MG/20 ML VIAL IV ONE ×2 (13:06)
[2023-01-11] MEDS ORDERED: NA CHLORIDE 0.9% 1,000 ML ONE (13:11)
--- NOTE | 2023-01-11 14:10 | RAD REPORT ---
EXAM DESCRIPTION: RAD - Hip Left 1 View - 01/11/2023 1:51 pm CLINICAL HISTORY: post reduction Pain COMPARISON: Hip Left 2 View dated 01/11/2023 FINDINGS: Single frontal postsurgical image left hip. Left total hip arthroplasty. No unexpected pos toperative finding.
--- NOTE | 2023-01-11 14:37 | EDPHYS ---
Physician Documentation [facility] Name: Red Cooper Jr Age: 67 yrs Sex: Male : 1955 Arrival Date: 01/11/2023 Time: 11:31 Bed 3 Private MD: ED Physician Santiago Pinzon HPI: 01/11 11:43 This 67 yrs old Male presents to ER via EMS with complaints of Hip Pain. rn 11:43 The patient or guardian reports pain, possible dislocation. sustained from lifting and rn bending leg The patient is not able to ambulate. Patient is not able to bear weight. The complaints affect the left hip. Onset: The symptoms/episode began/occurred just prior to arrival. Modifying factors: The symptoms are alleviated by remaining still, the symptoms are aggravated by any movement. Associated signs and symptoms: Pertinent positives: None. Pertinent negatives: abdominal pain, chest pain, fever, incontinence. Severity of symptoms: At their worst the symptoms were moderate, in the emergency department the symptoms are unchanged. The patient has not experienced similar symptoms in the past. The patient has been recently seen by a physician:. Pt reports hip replacement 7 weeks ago, bending and lifting left leg, felt a pop and then fell to ground. . Historical: - Allergies: 11:35 Demerol; jl7 11:35 Morphine; jl7 11:35 Tramadol HCl; jl7 - PMHx: 11:35 Hypertension; pulmonary embolus; jl7 - PSHx: 11:35 IVC filter; Left hip; jl7 - Immunization history:: Adult Immunizations unknown. - Social history:: Smoking status: unknown. - Family history:: not pertinent. - Hospitalizations: : No recent hospitalization is reported. ROS: 11:43 Constitutional: Negative for fever, chills, and weight loss, Cardiovascular: Negative rn for chest pain, palpitations, and edema, Respiratory: Negative for shortness of breath, cough, wheezing, and pleuritic chest pain, Abdomen/GI: Negative for abdominal pain, nausea, vomiting, diarrhea, and constipation, MS/Extremity: + left hip pain Skin: Negative for injury, rash, and discoloration, Neuro: Negative for headache, weakness, numbness, tingling, and seizure. Exam: 11:43 Constitutional: This is a well developed, well nourished patient who is awake, alert, rn appears in pain Skin: Warm, dry MS/ Extremity: Pulses equal, no cyanosis. Left hip externally rotated with pain upon slightest movement Neuro: Awake and alert, GCS 15 Vital Signs: 11:48 BP 132 / 102; Pulse 100; Resp 23; Pulse Ox 97% on R/A; ld1 11:59 BP 119 / 89; Pulse 99; Resp 18; Pulse Ox 97% on R/A; Pain 10/10; ld1 12:25 BP 124 / 98; Pulse 104; Resp 18; Pulse Ox 98% ; ko1 12:45 BP 143 / 103; Pulse 101; Resp 20; Pulse Ox 99% on R/A; os 13:15 BP 142 / 102; Pulse 106; Resp 21; Pulse Ox 100% on R/A; os 14:30 BP 134 / 97; Pulse 88; Resp 17; Pulse Ox 99% on R/A; os 11:59 Pain Scale: Adult ld1 Procedures: 14:32 Reduction: of the left hip, using traction, manipulation, Patient tolerated well. Post rn reduction film - reveals improved alignment. 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 MDM: 11:33 Patient medically screened. rn 14:32 Differential diagnosis: hip fracture, dislocation. Data reviewed: vital signs, nurses rn notes, radiologic studies, plain films, and as a result, I will discharge patient. Counseling: I had a detailed discussion with the patient and/or guardian regarding: the historical points, exam findings, and any diagnostic results supporting the discharge/admit diagnosis, radiology results, the need for outpatient follow up, to return to the emergency department if symptoms worsen or persist or if there are any questions or concerns that arise at home. Response to treatment: the patient's symptoms have markedly improved after treatment, and as a result, I will discharge patient. Special discussion: I discussed with the patient/guardian in detail that at this point there is no indication for admission to the hospital. It is understood, however, that if the symptoms persist or worsen the patient needs to return immediately for re-evaluation. Based on the history and exam findings, there is no indication for further emergent testing or inpatient evaluation. I discussed with the patient/guardian the need to see the orthopedic surgeon for further evaluation of the symptoms. ED course: Hip reduced, tolerated well, feels much better, consulted with Dr. Hodgson who did original surgery 7 weeks ago, is happy with results, will see him as outpt as needed. . 01/11 11:33 Order name: XRAY Hip LEFT 2 view; Complete Time: 12:36 rn 01/11 13:26 Order name: XRAY Hip LEFT 1 view; Complete Time: 14:32 rn 01/11 11:33 Order name: IV Start; Complete Time: 11:41 rn 01/11 11:33 Order name: NPO; Complete Time: 11:41 rn Administered Medications: 11:48 Drug: fentaNYL (PF) IVP 75 mcg Route: IVP; Site: left forearm; ld1 11:59 Follow up: Response: No adverse reaction ld1 12:41 Follow up: Response: No adverse reaction; No change in condition os 12:05 Drug: HYDROmorphone IVP 0.5 mg Route: IVP; Site: left forearm; jl7 12:41 Follow up: Response: No adverse reaction; No change in condition os 12:41 Drug: HYDROmorphone IVP 0.5 mg Route: IVP; Site: left forearm; os 15:05 Drug: Propofol IVP 140 mg {Note: Propofol was administered during conscious sedation.} os Route: IVP; Site: right antecubital; 15:06 Drug: fentaNYL (PF) IVP 100 mcg Route: IVP; Site: right antecubital; os Disposition Summary: 01/11/23 14:36 Discharge Ordered Location: Home rn Problem: new rn Symptoms: have improved rn Condition: Stable rn Diagnosis - Dislocation of internal left hip prosthesis, initial encounter rn Followup: rn - With: Ugo Hodgson MD - When: As needed - Reason: Recheck today's complaints, Re-evaluation by your physician Discharge Instructions: - Discharge Summary Sheet rn - Hip Dislocation rn - Closed Reduction for Prosthetic Hip Joint Dislocation, Care After rn Forms: - Medication Reconciliation Form rn - Thank You Letter rn - Antibiotic continuous churn buttermaker - Prescription Opioid Use rn Prescriptions: - acetaminophen-codeine 300-30 mg Oral tablet - take 1 tablet by ORAL route every 6-8 hours As needed; 12 tablet; Refills: 0, rn Product Selection Permitted Signatures: Dispatcher [employer] Santiago Newman MD MD rn Leal, Jahala, RN RN jl7 Mary Griffith RN RN ld1 Dion Bullard MD MD rt Brandi Magana RN RN os
--- NOTE | 2023-01-11 14:37 | ER ---
Nurse's Notes [facility] Name: Red Cooper Jr Age: 67 yrs Sex: Male : 1955 Arrival Date: 01/11/2023 Time: 11:31 Bed 3 Private MD: Diagnosis: Dislocation of internal left hip prosthesis, initial encounter Presentation: 01/11 11:33 Chief complaint: EMS states: Left hip replacement 7 weeks ago. Pt lifted leg and felt jl7 pop. Left leg with external rotation noted. Coronavirus screen: At this time, the client does not indicate any symptoms associated with coronavirus-19. Ebola Screen: No symptoms or risks identified at this time. Initial Sepsis Screen: Does the patient meet any 2 criteria? No. Patient's initial sepsis screen is negative. Does the patient have a suspected source of infection? No. Patient's initial sepsis screen is negative. Risk Assessment: Do you want to hurt yourself or someone else? Patient reports no desire to harm self or others. Onset of symptoms was January 11, 2023. Care prior to arrival: Medication(s) given: 200 mcg Fentanyl. 11:33 Method Of Arrival: EMS: [facility] jl7 11:33 Acuity: JENNY 3 jl7 Historical: - Allergies: 11:35 Demerol; jl7 11:35 Morphine; jl7 11:35 Tramadol HCl; jl7 - PMHx: 11:35 Hypertension; pulmonary embolus; jl7 - PSHx: 11:35 IVC filter; Left hip; jl7 - Immunization history:: Adult Immunizations unknown. - Social history:: Smoking status: unknown. - Family history:: not pertinent. - Hospitalizations: : No recent hospitalization is reported. Screenin:48 [facility] ED Fall Risk Assessment (Adult) History of falling in the last 3 months, ld1 including since admission Yes- single mechanical fall (1 pt). Abuse screen: Denies threats or abuse. Denies injuries from another. Nutritional screening: No deficits noted. Tuberculosis screening: No symptoms or risk factors identified. Assessment: 11:48 General: Appears in no apparent distress. uncomfortable, Behavior is cooperative, ld1 anxious. Pain: Complains of pain in left hip Pain does not radiate. Pain currently is 10 out of 10 on a pain scale. Quality of pain is described as throbbing. Neuro: Level of Consciousness is awake, alert, obeys commands, Oriented to person, place, time, situation. Cardiovascular: Capillary refill < 3 seconds Patient's skin is warm and dry. Rhythm is atrial fibrillation. Respiratory: Airway is patent Respiratory effort is even, unlabored. GI: Abdomen is round non-distended. : No signs and/or symptoms were reported regarding the genitourinary system. EENT: No signs and/or symptoms were reported regarding the EENT system. Derm: No signs and/or symptoms reported regarding the dermatologic system. Musculoskeletal: No signs and/or symptoms reported regarding the musculoskeletal system. 14:35 Reassessment: Patient had a dislocated left hip. Conscious sedation was performed os w/consent signed by Pt. Time out, 1415, Dr. Pinzon \T\ Patriciontmicki present in the room with primary RN. Patient.s alderet score 10 preprocedure. See Paper charting for further procedure notes. Patient's post procedure melvi score 10 was achieved \T\ 1335. Vital Signs: 11:48 BP 132 / 102; Pulse 100; Resp 23; Pulse Ox 97% on R/A; ld1 11:59 BP 119 / 89; Pulse 99; Resp 18; Pulse Ox 97% on R/A; Pain 10/10; ld1 12:25 BP 124 / 98; Pulse 104; Resp 18; Pulse Ox 98% ; ko1 12:45 BP 143 / 103; Pulse 101; Resp 20; Pulse Ox 99% on R/A; os 13:15 BP 142 / 102; Pulse 106; Resp 21; Pulse Ox 100% on R/A; os 14:30 BP 134 / 97; Pulse 88; Resp 17; Pulse Ox 99% on R/A; os 11:59 Pain Scale: Adult ld1 ED Course: 11:32 Patient arrived in ED. jl7 11:33 Santiago Pinzon MD is Attending Physician. rn 11:35 Triage completed. jl7 11:35 Arm band placed on right wrist. jl7 11:46 Warm blanket given. Pillow given. Diet: Patient is NPO. Client placed on continuous mm9 cardiac and pulse oximetry monitoring. NIBP monitoring applied. personnel monitor on. Pulse ox on. NIBP on. 11:46 Maintain EMS IV. Dressing intact. Good blood return noted. Site clean \T\ dry. mm9 11:48 Mary Griffith, RN is Primary Nurse. ld1 11:48 Patient has correct armband on for positive identification. Placed in gown. Bed in low ld1 position. Call light in reach. Side rails up X2. 11:48 No provider procedures requiring assistance completed. ld1 12:21 XRAY Hip LEFT 2 view In Process Unspecified. EDMS 13:52 XRAY Hip LEFT 1 view In Process Unspecified. EDMS 14:35 Ugo Hodgson MD is Referral Physician. rn 15:09 IV discontinued, intact, bleeding controlled, No redness/swelling at site. Pressure ko1 dressing applied. Administered Medications: 11:48 Drug: fentaNYL (PF) IVP 75 mcg Route: IVP; Site: left forearm; ld1 11:59 Follow up: Response: No adverse reaction ld1 12:41 Follow up: Response: No adverse reaction; No change in condition os 12:05 Drug: HYDROmorphone IVP 0.5 mg Route: IVP; Site: left forearm; jl7 12:41 Follow up: Response: No adverse reaction; No change in condition os 12:41 Drug: HYDROmorphone IVP 0.5 mg Route: IVP; Site: left forearm; os 15:05 Drug: Propofol IVP 140 mg {Note: Propofol was administered during conscious sedation.} os Route: IVP; Site: right antecubital; 15:06 Drug: fentaNYL (PF) IVP 100 mcg Route: IVP; Site: right antecubital; os Medication: 11:48 VIS not applicable for this client. ld1 Outcome: 14:36 Discharge ordered by . rn 15:09 Discharged to home via wheelchair, with family. ko1 15:09 Condition: improved 15:09 Discharge instructions given to patient, Instructed on discharge instructions, follow up and referral plans. medication usage, Demonstrated understanding of instructions, follow-up care. 15:18 Patient left the ED. ko1 Signatures: Dispatcher [employer] Santiago Newman MD MD rn Leal, Jahala, RN RN jl7 Mary Griffith, [place]A [place] ld1 Kaye Decker RN RN ko1 Anila Vogel mm9 Brandi Magana RN RN os
[2023-01-11 15:31] VITALS: BP 134/97; O2SAT 99
== END 2023-01-11 15:18 | disposition home or self-care (01) ==
LOC: ER 11:31
PROC: 0SSBXZZ Reposition Left Hip Joint, External Approach (ICD-10-PCS; principal; 2023-01-11)
DX: T84.021A Dislocation of internal left hip prosthesis, initial encounter (principal); I10 Essential (primary) hypertension; Z88.5 Allergy status to narcotic agent; Z96.642 Presence of left artificial hip joint
CPT/HCPCS: 73502; 73501; 99285; 27252; J2704; J3010 ×2; J1170 ×2; J7030

== ENCOUNTER → 2023-08-12 | Emergency (ER) | payer OTHER ==
--- NOTE | 2023-08-12 15:00 | EDPHYS ---
Physician Documentation [facility] Name: eRd Cooper Jr Age: 67 yrs Sex: Male : 1955 Arrival Date: 08/12/2023 Time: 14:47 Bed IW8 Private MD: ED Physician Dion Bullard HPI: 08/12 15:03 This 67 yrs old Male presents to ER via Ambulatory with complaints of Ear Pain. sb4 15:03 The patient presents with pain, that is acute. The complaints affect the left ear. sb4 Onset: The symptoms/episode began/occurred yesterday. Modifying factors: The symptoms are alleviated by nothing, the symptoms are aggravated by nothing. Associated signs and symptoms: Pertinent positives: headache, sore throat. The patient has not experienced similar symptoms in the past. The patient has not recently seen a physician. Historical: - Allergies: 14:57 Demerol; ld1 14:57 Morphine; ld1 14:57 Tramadol HCl; ld1 - PMHx: 14:57 Hypertension; pulmonary embolus; ld1 - PSHx: 14:57 IVC filter; Left hip; ld1 - Immunization history:: Adult Immunizations up to date. - Social history:: Smoking status: Patient reports the use of cigarette tobacco products, smokes one pack cigarettes per day. Patient/guardian denies using alcohol. ROS: 15:03 Constitutional: Negative for fever, chills, and weight loss, sb4 15:03 ENT: Positive for ear pain, 15:03 All other systems are negative, Exam: 15:03 Constitutional: This is a well developed, well nourished patient who is awake, alert, sb4 and in no acute distress. Head/Face: Normocephalic, atraumatic. Eyes: Extra-ocular motions intact. Periorbital areas with no swelling, redness, or edema. Cardiovascular: Regular rate and rhythm with a normal S1 and S2. Respiratory: Lungs have equal breath sounds bilaterally, clear to auscultation and percussion. No rales, rhonchi or wheezes noted. No increased work of breathing, no retractions or nasal flaring. Abdomen/GI: Soft, non-tender, no distension. Skin: Warm, dry with normal turgor. Normal color with no rashes, no lesions, and no evidence of cellulitis. MS/ Extremity: Pulses equal, no cyanosis. Neurovascular intact. Full, normal range of motion. 15:03 ENT: TM's: bulging, fluid levels, on the left, Examination of the other ear shows no obvious abnormality, Posterior pharynx: is normal, no acute changes, Tonsils: absent, Vital Signs: 14:58 BP 144 / 102; Pulse 83; Resp 18; Temp 98.6(TE); Pulse Ox 99% on R/A; Weight 92.53 kg; ld1 Height 5 ft. 9 in. ; Pain 0/10; 14:58 Body Mass Index 30.13 (92.53 kg, 175.26 cm) ld1 14:58 Pain Scale: Adult ld1 MDM: 14:59 Patient medically screened. sb4 15:03 Differential diagnosis: otitis media, otitis externa, ruptured TM, foreign body, acute sb4 otalgia. Data reviewed: vital signs, nurses notes, and as a result, I will discharge patient. Counseling: I had a detailed discussion with the patient and/or guardian regarding the historical points, exam findings, and any diagnostic results supporting the discharge/admit diagnosis, to return to the emergency department if symptoms worsen or persist or if there are any questions or concerns that arise at home. Administered Medications: No medications were administered Disposition: 18:48 Co-signature as Attending Physician, Dion Bullard MD I reviewed the patient's care rt provided by the Advanced Practice Provider and agree with the diagnosis and treatment plan. Disposition Summary: 08/12/23 14:59 Discharge Ordered Notes: Location: Home sb4 Problem: new sb4 Symptoms: are unchanged sb4 Condition: Stable sb4 Diagnosis - Acute serous otitis media, left ear sb4 Followup: sb4 - With: Lorelei Garcia MD - When: As needed - Reason: Recheck today's complaints, Re-evaluation by your physician Discharge Instructions: - Discharge Summary Sheet sb4 - Otitis Media, Adult sb4 Forms: - Medication Reconciliation Form sb4 - Thank You Letter sb4 - Antibiotic Education sb4 - Prescription Opioid Use sb4 - Patient Portal Instructions sb4 - Leadership Thank You Letter sb4 Prescriptions: - Amoxicillin 875 mg Oral Tablet - take 1 tablet ORAL route every 12 hours for 10 days; 20 tablet; Refills: 0, sb4 Product Selection Permitted Signatures: Mary Griffith RN RN ld1 Brook Buckley, BRETT PA-C sb4 Dion Bullard MD MD rt
--- NOTE | 2023-08-12 15:00 | ER ---
Nurse's Notes [facility] Name: Red Cooper Jr Age: 67 yrs Sex: Male : 1955 Arrival Date: 08/12/2023 Time: 14:47 Bed IW8 Private MD: Diagnosis: Acute serous otitis media, left ear Presentation: 08/12 14:57 Chief complaint: Patient states: Headache, fever, sore throat, left ear pain. ld1 Coronavirus screen: At this time, the client does not indicate any symptoms associated with coronavirus-19. Ebola Screen: No symptoms or risks identified at this time. Risk Assessment: Do you want to hurt yourself or someone else? Patient reports no desire to harm self or others. Onset of symptoms was August 12, 2023 at 14:57. 14:57 Method Of Arrival: Ambulatory ld1 14:57 Acuity: JENNY 4 ld1 15:03 Initial Sepsis Screen: Does the patient meet any 2 criteria? No. Patient's initial ld1 sepsis screen is negative. Does the patient have a suspected source of infection? No. Patient's initial sepsis screen is negative. Triage Assessment: 14:58 General: Appears in no apparent distress. comfortable, Behavior is calm, cooperative, ld1 appropriate for age. Pain: Complains of pain in face and left ear. EENT: Reports pain in left ear. Neuro: Level of Consciousness is awake, alert, obeys commands, Oriented to person, place, time, situation. Cardiovascular: Capillary refill < 3 seconds Patient's skin is warm and dry. Respiratory: Airway is patent Respiratory effort is even, unlabored. GI: Abdomen is flat, non-distended. : No signs and/or symptoms were reported regarding the genitourinary system. Derm: No signs and/or symptoms reported regarding the dermatologic system. Musculoskeletal: No signs and/or symptoms reported regarding the musculoskeletal system. Historical: - Allergies: 14:57 Demerol; ld1 14:57 Morphine; ld1 14:57 Tramadol HCl; ld1 - PMHx: 14:57 Hypertension; pulmonary embolus; ld1 - PSHx: 14:57 IVC filter; Left hip; ld1 - Immunization history:: Adult Immunizations up to date. - Social history:: Smoking status: Patient reports the use of cigarette tobacco products, smokes one pack cigarettes per day. Patient/guardian denies using alcohol. Screenin:59 [facility] ED Fall Risk Assessment (Adult) History of falling in the last 3 months, ld1 including since admission No falls in past 3 months (0 pts). Abuse screen: Denies threats or abuse. Denies injuries from another. Nutritional screening: No deficits noted. Tuberculosis screening: No symptoms or risk factors identified. Assessment: 14:59 Reassessment: See triage assessment. ERP in triage. ld1 Vital Signs: 14:58 BP 144 / 102; Pulse 83; Resp 18; Temp 98.6(TE); Pulse Ox 99% on R/A; Weight 92.53 kg; ld1 Height 5 ft. 9 in. ; Pain 0/10; 14:58 Body Mass Index 30.13 (92.53 kg, 175.26 cm) ld1 14:58 Pain Scale: Adult ld1 ED Course: 14:50 Patient arrived in ED. mr 14:52 [facility]. sb4 14:52 Dion Blulard MD is Attending Physician. sb4 14:57 Triage completed. ld1 14:58 Arm band placed on right wrist. ld1 14:59 Lorelei Garcia MD is Referral Physician. sb4 14:59 Patient has correct armband on for positive identification. Placed in gown. Bed in low ld1 position. Call light in reach. Side rails up X2. Pulse ox on. NIBP on. Door closed. Noise minimized. Warm blanket given. 14:59 No provider procedures requiring assistance completed. Patient did not have IV access ld1 during this emergency room visit. Administered Medications: No medications were administered Medication: 14:59 VIS not applicable for this client. ld1 Outcome: 14:59 Discharge ordered by . sb4 15:03 Discharged to home ambulatory, ld1 15:03 Condition: stable 15:03 Discharge instructions given to patient, Instructed on discharge instructions, follow up and referral plans. medication usage, Demonstrated understanding of instructions, follow-up care, medications, Prescriptions given X 1, 15:03 Patient left the ED. ld1 Signatures: Lidia Rabago, Reg Reg mr Mary Griffith, RN RN ld1 Brook Buckley PA-C PA-C sb4
[2023-08-12 15:34] VITALS: BP 144/102; TEMP 98.6; O2SAT 99
== END ==
LOC: ER 14:47
DX: H65.02 Acute serous otitis media, left ear (principal); R51.9 Headache, unspecified; F17.210 Nicotine dependence, cigarettes, uncomplicated; Z88.5 Allergy status to narcotic agent
CPT/HCPCS: 99283

== ENCOUNTER → 2023-08-23 | Emergency (ER) | payer OTHER ==
[~2023-08-23] MED LIST: HYDROCODONE/APAP 5/325 MG TAB ONE
--- NOTE | 2023-08-23 16:43 | ER ---
Nurse's Notes [facility] Name: Red Cooper Jr Age: 67 yrs Sex: Male : 1955 Arrival Date: 08/23/2023 Time: 16:18 Bed 19 Private MD: Diagnosis: Acute serous otitis media, left ear Presentation: 08/23 16:25 Chief complaint: EMS states: Seen in ED on 08/12 for left ear pain, on amoxicillin but hb feeling worse, now c/o headache, left ear pain, and congestion. Coronavirus screen: Client presents with at least one sign or symptom that may indicate coronavirus-19. Provider contacted for isolation considerations. Ebola Screen: No symptoms or risks identified at this time. Initial Sepsis Screen: Does the patient meet any 2 criteria? No. Patient's initial sepsis screen is negative. Does the patient have a suspected source of infection? No. Patient's initial sepsis screen is negative. Risk Assessment: Do you want to hurt yourself or someone else? Patient reports no desire to harm self or others. Onset of symptoms was October 04, 2023. 16:25 Method Of Arrival: EMS: [facility] hb 16:25 Acuity: JENNY 3 hb Historical: - Allergies: 16:32 Demerol; hb 16:32 Morphine; hb 16:32 Tramadol HCl; hb - PMHx: 16:32 Hypertension; pulmonary embolus; hb - PSHx: 16:32 IVC filter; Left hip; hb - Immunization history:: Adult Immunizations up to date. - Social history:: Smoking status: Patient reports the use of cigarette tobacco products, smokes one-half pack cigarettes per day. Screenin:43 [facility] ED Fall Risk Assessment (Adult) Score/Fall Risk Level 0 - 2 = Low Risk hb Oriented to surroundings, Maintained a safe environment, Educated pt \T\ family on fall prevention, incl call for assistance when getting out of bed. Abuse screen: Denies threats or abuse. Denies injuries from another. Nutritional screening: No deficits noted. Tuberculosis screening: No symptoms or risk factors identified. Assessment: 16:43 General: Appears in no apparent distress. Behavior is calm, cooperative. Pain: Pain hb currently is 7 out of 10 on a pain scale. Neuro: Level of Consciousness is awake, alert, obeys commands, Oriented to person, place, time, situation. Cardiovascular: Patient's skin is warm and dry. Respiratory: Respiratory effort is even, unlabored, Respiratory pattern is regular, symmetrical. GI: No signs and/or symptoms were reported involving the gastrointestinal system. : No signs and/or symptoms were reported regarding the genitourinary system. EENT: Reports pain since left ear pain. Derm: Skin is pink, warm \T\ dry. Musculoskeletal: No signs and/or symptoms reported regarding the musculoskeletal system. Vital Signs: 16:25 BP 136 / 103; Pulse 79; Resp 16; Temp 98.1(O); Pulse Ox 100% on R/A; Weight 90.72 kg; hb Height 5 ft. 8 in. ; Pain 8/10; 16:25 Body Mass Index 30.41 (90.72 kg, 172.72 cm) hb 16:25 Pain Scale: Adult hb ED Course: 16:25 Patient arrived in ED. hb 16:26 Cj Griffith DO is Attending Physician. ms3 16:31 Triage completed. hb 16:32 Arm band placed on. hb 16:42 Jing Rain MD is Referral Physician. ms3 16:44 Patient has correct armband on for positive identification. Provided Education on: . 17:11 Sarina Akers is Primary Nurse. cp4 17:11 No provider procedures requiring assistance completed. Patient did not have IV access cp4 during this emergency room visit. Administered Medications: 16:48 Drug: HYDROcodone-acetaminophen PO 5 mg-325 mg 1 tabs PO once Route: PO; hb Medication: 16:44 VIS not applicable for this client. Outcome: 16:42 Discharge ordered by . ms3 17:11 Discharged to home ambulatory, cp4 17:11 Condition: stable 17:11 Discharge instructions given to patient, Instructed on discharge instructions, follow up and referral plans. medication usage, Demonstrated understanding of instructions, follow-up care, medications, Prescriptions given X 1, 17:12 Patient left the ED. cp4 Signatures: Nuzhat Barnett, RN RN Cj Griffith DO DO ms3 Sarina Akers cp4
--- NOTE | 2023-08-23 16:43 | EDPHYS ---
Physician Documentation [facility] Name: Red Cooper Jr Age: 67 yrs Sex: Male : 1955 Arrival Date: 08/23/2023 Time: 16:18 Bed 19 Private MD: ED Physician Cj Griffith HPI: 08/23 16:47 This 67 yrs old Male presents to ER via EMS with complaints of Headache, Ear Pain. ms3 16:47 67-year-old male with past medical history of hypertension, PE, DVT presents [place] [facility] [place] [place] for left ear pain that has been ongoing for 10 days. Patient states he also has throat pain. Patient states his discomfort is an 8/10 described as sharp and shooting pain. Patient denies any alleviating or inciting factors. Historical: - Allergies: 16:32 Demerol; hb 16:32 Morphine; hb 16:32 Tramadol HCl; hb - PMHx: 16:32 Hypertension; pulmonary embolus; hb - PSHx: 16:32 IVC filter; Left hip; hb - Immunization history:: Adult Immunizations up to date. - Social history:: Smoking status: Patient reports the use of cigarette tobacco products, smokes one-half pack cigarettes per day. ROS: 16:47 Constitutional: Negative for fever, and chills. Neck: Negative for injury, pain, and ms3 swelling, Cardiovascular: Negative for chest pain, and palpitations. Respiratory: Negative for shortness of breath, cough, wheezing, and pleuritic chest pain, Abdomen/GI: Negative for abdominal pain, nausea, vomiting, diarrhea, and constipation, 16:47 ENT: Positive for ear pain, 16:47 All other systems are negative, Exam: 16:47 Constitutional: This is a well developed, well nourished patient who is awake, alert, ms3 and in no acute distress. Head/Face: Normocephalic, atraumatic. 16:47 Chest/axilla: Normal chest wall appearance and motion. Nontender with no deformity. Cardiovascular: Regular rate and rhythm with a normal S1 and S2. No gallops, murmurs, or rubs. Normal PMI, no JVD. No pulse deficits. Respiratory: Lungs have equal breath sounds bilaterally, clear to auscultation and percussion. No rales, rhonchi or wheezes noted. No increased work of breathing, no retractions or nasal flaring. Abdomen/GI: Soft, non-tender, with normal bowel sounds. No distension or tympany. No guarding or rebound. No evidence of tenderness throughout. Skin: Warm, dry with normal turgor. Normal color with no rashes, no lesions, and no evidence of cellulitis. 16:47 ENT: External ear(s): are unremarkable, Ear canal(s): are normal, TM's: erythema, that is moderate, on the left, Vital Signs: 16:25 BP 136 / 103; Pulse 79; Resp 16; Temp 98.1(O); Pulse Ox 100% on R/A; Weight 90.72 kg; hb Height 5 ft. 8 in. ; Pain 8/10; 16:25 Body Mass Index 30.41 (90.72 kg, 172.72 cm) hb 16:25 Pain Scale: Adult hb MDM: 16:41 Patient medically screened. ms3 16:47 Differential diagnosis: otitis, trigeminal neuralgia. Data reviewed: vital signs, ms3 nurses notes, and as a result, I will discharge patient. I considered the following discharge prescriptions or medication management in the emergency department Medications were administered in the Emergency Department. See MAR. Administered Medications: 16:48 Drug: HYDROcodone-acetaminophen PO 5 mg-325 mg 1 tabs PO once Route: PO; hb Disposition Summary: 08/23/23 16:42 Discharge Ordered Notes: Location: Home ms3 Condition: Stable ms3 Diagnosis - Acute serous otitis media, left ear ms3 Followup: ms3 - With: Jing Rain MD - When: 2 - 3 days - Reason: Recheck today's complaints Discharge Instructions: - Discharge Summary Sheet ms3 - Otitis Media, Adult ms3 Forms: - Medication Reconciliation Form ms3 - Thank You Letter ms3 - Antibiotic Education ms3 - Prescription Opioid Use ms3 - Patient Portal Instructions ms3 - Leadership Thank You Letter ms3 Prescriptions: - Clindamycin HCl 300 mg Oral capsule - take 1 capsule ORAL route every 8 hours for 10 days; 30 capsule; Refills: 0, ms3 Product Selection Permitted Signatures: Nuzhat Barnett RN RN Cj Rader DO DO ms3
== END ==
LOC: ER 16:18
DX: H65.02 Acute serous otitis media, left ear (principal); I10 Essential (primary) hypertension; F17.210 Nicotine dependence, cigarettes, uncomplicated; Z88.5 Allergy status to narcotic agent

== ENCOUNTER 2024-03-16 14:50 | Emergency (ER) | payer OTHER ==
--- NOTE | 2024-03-16 15:24 | RAD REPORT ---
EXAM DESCRIPTION: RAD - Tib Fib Right - 03/16/2024 3:16 pm CLINICAL HISTORY: Right leg pain FINDINGS: No fracture is seen No bony lesion noted
[2024-03-16] MEDS ORDERED: ACETAMINOPHEN 500 MG TAB ONE (15:37)
[2024-03-16] MEDS ORDERED: methocarbamoL 500 MG TAB ONE (15:38)
--- NOTE | 2024-03-16 15:44 | ER ---
Nurse's Notes [facility] Name: Red Cooper Jr Age: 68 yrs Sex: Male : 1955 Arrival Date: 03/16/2024 Time: 14:50 Bed 9 Private MD: Diagnosis: Sprain of other specified parts of right knee;Sprain of ankle Presentation: 03/16 15:00 Chief complaint: Patient states: Pt states he stepped in a gopher hole on Saturday. Pt tl4 c/o increasing right knee pain with decreased weight bearing on the right leg since that time. No obvious deformity noted. Coronavirus screen: At this time, the client does not indicate any symptoms associated with coronavirus-19. Ebola Screen: No symptoms or risks identified at this time. Initial Sepsis Screen: Does the patient meet any 2 criteria? No. Patient's initial sepsis screen is negative. Does the patient have a suspected source of infection? No. Patient's initial sepsis screen is negative. Risk Assessment: Do you want to hurt yourself or someone else? Patient reports no desire to harm self or others. Onset of symptoms was March 13, 2024. 15:00 Method Of Arrival: EMS: [facility] tl4 15:00 Acuity: JENNY 3 tl4 Triage Assessment: 15:19 General: Appears uncomfortable, Behavior is calm, cooperative. Pain: Complains of pain tl4 in right leg. EENT: No deficits noted. No signs and/or symptoms were reported regarding the EENT system. Neuro: Level of Consciousness is awake, alert, obeys commands, Oriented to person, place, time, situation, Moves all extremities. Full function Speech is normal. Cardiovascular: Capillary refill < 3 seconds Patient's skin is warm and dry. Respiratory: Airway is patent Respiratory effort is even, unlabored, Respiratory pattern is regular, symmetrical. GI: No signs and/or symptoms were reported involving the gastrointestinal system. : No signs and/or symptoms were reported regarding the genitourinary system. Derm: No signs and/or symptoms reported regarding the dermatologic system. Musculoskeletal: Reports pain in right leg. Historical: - Allergies: 15:18 Demerol; tl4 15:18 Morphine; tl4 15:18 Tramadol HCl; tl4 - Home Meds: 15:18 Xarelto 15 mg oral tablet daily [Active]; atorvastatin oral [Active]; tl4 - PMHx: 15:18 Hypertension; pulmonary embolus; tl4 - PSHx: 15:18 IVC filter; Left hip; tl4 - Immunization history:: Adult Immunizations unknown. - Infectious Disease History:: Denies. - Social history:: Smoking status: Patient reports the use of cigarette tobacco products, smokes one-half pack cigarettes per day. Screenin:20 [facility] ED Fall Risk Assessment (Adult) History of falling in the last 3 months, tl4 including since admission Yes- single mechanical fall (1 pt) Confusion or Disorientation No (0 pts) Intoxicated or Sedated No (0 pts) Impaired Gait No (0 pts) Mobility Assist Device Used No (0 pt) Altered Elimination No (0 pt) Score/Fall Risk Level 0 - 2 = Low Risk Oriented to surroundings, Maintained a safe environment, Educated pt \T\ family on fall prevention, incl call for assistance when getting out of bed, Assessed \T\ reinforced patient's understanding of fall precautions. Abuse screen: Denies threats or abuse. Denies injuries from another. Nutritional screening: No deficits noted. Tuberculosis screening: No symptoms or risk factors identified. Assessment: 16:14 Reassessment: Patient and/or family updated on plan of care and expected duration. Pain tl4 level reassessed. Patient is alert, oriented x 3, equal unlabored respirations, skin warm/dry/pink. Patient states feeling better. Vital Signs: 15:00 BP 140 / 88; Pulse 80; Resp 18; Temp 99.8(O); Pulse Ox 96% on R/A; Weight 90.26 kg; tl4 Height 5 ft. 8 in. ; Pain 8/10; 16:14 BP 133 / 76; Pulse 69; Resp 18; Temp 98.2(O); Pulse Ox 97% on R/A; tl4 15:00 Body Mass Index 30.26 (90.26 kg, 172.72 cm) tl4 15:00 Pain Scale: Adult tl4 ED Course: 14:53 Patient arrived in ED. ec2 14:54 Nando Guevara MD is Attending Physician. ec2 15:13 Peewee Zabala RN is Primary Nurse. tl4 15:17 Triage completed. tl4 15:18 Tib Fib Right XRAY In Process Unspecified. EDMS 15:20 Arm band placed on right wrist. tl4 15:20 Patient has correct armband on for positive identification. Bed in low position. Call tl4 light in reach. Side rails up X2. Provided Education on: ed process, call tong. Client placed on continuous cardiac and pulse oximetry monitoring. NIBP monitoring applied. Door closed. Noise minimized. Lights dimmed. Moved to private room. Warm blanket given. 15:21 No provider procedures requiring assistance completed. tl4 16:14 Patient did not have IV access during this emergency room visit. Giovanny wrap to right knee tl4 and right ankle. Administered Medications: 15:55 Drug: Acetaminophen PO 1000 mg PO once Route: PO; iw 15:55 Drug: Methocarbamol PO 500 mg PO once Route: PO; iw 16:05 Drug: HYDROcodone-acetaminophen PO 5 mg-325 mg 1 tabs PO once Route: PO; tl4 16:13 Follow up: Response: No adverse reaction; Medication administered at discharge. tl4 Medication: 15:21 VIS not applicable for this client. tl4 Outcome: 15:44 Discharge ordered by . ec2 16:12 Discharged to home via wheelchair, tl4 16:12 Condition: stable 16:12 Discharge instructions given to patient, Instructed on discharge instructions, follow up and referral plans. medication usage, giovanny bandage use Demonstrated understanding of instructions, follow-up care, medications, splint care, Prescriptions given X 1, 16:15 Patient left the ED. zm Signatures: Dispatcher [employer] Aleshia Perez, JAYA [place] iw Florecita Vogel Edwin, MD MD ec2 Peewee Zabala RN RN tl4
--- NOTE | 2024-03-16 15:45 | EDPHYS ---
Physician Documentation [facility] Name: Red Cooper Jr Age: 68 yrs Sex: Male : 1955 Arrival Date: 03/16/2024 Time: 14:50 Bed 9 Private MD: ED Physician Nando Guevara HPI: 03/16 15:20 This 68 yrs old Male presents to ER via EMS with complaints of Leg Injury. ec2 15:20 Patient arrives today for evaluation of right lower extremity pains. Patient reports ec2 that he was walking and subsequently twisted his knee and ankle in a hole. Patient reports the injury occurred 3 days ago.. Historical: - Allergies: 15:18 Demerol; tl4 15:18 Morphine; tl4 15:18 Tramadol HCl; tl4 - Home Meds: 15:18 Xarelto 15 mg oral tablet daily [Active]; atorvastatin oral [Active]; tl4 - PMHx: 15:18 Hypertension; pulmonary embolus; tl4 - PSHx: 15:18 IVC filter; Left hip; tl4 - Immunization history:: Adult Immunizations unknown. - Infectious Disease History:: Denies. - Social history:: Smoking status: Patient reports the use of cigarette tobacco products, smokes one-half pack cigarettes per day. ROS: 15:20 Constitutional: as per hpi ec2 Exam: 15:20 Constitutional: GEN: NAD Head: atraumatic Eyes: EOMI Ears: External ears are ec2 normal. CV: regular rate LUNGS: no respiratory distress ABD: non-distended SKIN: no evidence of rashes MSK: Swelling and tenderness noted to the right ankle as well as right knee, intact distal neurovascular status. No obvious deformity present. Vital Signs: 15:00 BP 140 / 88; Pulse 80; Resp 18; Temp 99.8(O); Pulse Ox 96% on R/A; Weight 90.26 kg; tl4 Height 5 ft. 8 in. ; Pain 8/10; 16:14 BP 133 / 76; Pulse 69; Resp 18; Temp 98.2(O); Pulse Ox 97% on R/A; tl4 15:00 Body Mass Index 30.26 (90.26 kg, 172.72 cm) tl4 15:00 Pain Scale: Adult tl4 MDM: 14:54 Patient medically screened. ec2 15:20 Data reviewed: vital signs. ED course: Patient arrives today for right lower extremity ec2 pain. Examination remarkable for MSK findings as above. Will obtain radiographs. Evaluating for processes such as bony fracture, ligamentous injury.. 15:30 ED course: Radiographs show no bony fracture. Will discharge home, return precautions ec2 given. . 03/16 14:54 Order name: Tib Fib Right XRAY; Complete Time: 15:28 ec2 03/16 15:30 Order name: Giovanny Wrap; Complete Time: 16:14 ec2 Administered Medications: 15:55 Drug: Acetaminophen PO 1000 mg PO once Route: PO; iw 15:55 Drug: Methocarbamol PO 500 mg PO once Route: PO; iw 16:05 Drug: HYDROcodone-acetaminophen PO 5 mg-325 mg 1 tabs PO once Route: PO; tl4 16:13 Follow up: Response: No adverse reaction; Medication administered at discharge. tl4 Disposition Summary: 03/16/24 15:44 Discharge Ordered Notes: Location: Home ec2 Condition: Stable ec2 Diagnosis - Sprain of other specified parts of right knee ec2 - Sprain of ankle ec2 Followup: ec2 - With: Private Physician - When: - Reason: Re-evaluation by your physician Discharge Instructions: - Discharge Summary Sheet ec2 - Ankle Sprain, [id number] ec2 Forms: - Medication Reconciliation Form ec2 - Antibiotic Education ec2 - Prescription Opioid Use ec2 - Patient Portal Instructions ec2 - Leadership Thank You Letter ec2 Prescriptions: - methocarbamol 500 mg Oral tablet - take 1 tablet ORAL route 4 times per day; 20 tablet; Refills: 0, Product ec2 Selection Permitted Signatures: Dispatcher [employer] Aleshia Perez RN RN iw Nando Guevara MD MD ec2 Logdahl, JAYA Vides RN tl4 Corrections: (The following items were deleted from the chart) 14:55 14:55 Knee Right 3 View+RAD.RAD.BRZ ordered. EDMS EDMS 14:55 14:55 Tib Fib Right+RAD.RAD.BRZ ordered. EDMS EDMS 14:55 14:55 Ankle Right 3 View+RAD.RAD.BRZ ordered. EDMS EDMS
[2024-03-16] MEDS ORDERED: HYDROCODONE/APAP 5/325 MG TAB ONE (16:01)
[2024-03-16 16:46] VITALS: BP 133/76; TEMP 98.2; O2SAT 97
== END 2024-03-16 16:15 | disposition home or self-care (01) ==
LOC: ER 14:50
DX: S83.8X1A Sprain of other specified parts of right knee, initial encounter (principal); S93.401A Sprain of unspecified ligament of right ankle, initial encounter; F17.210 Nicotine dependence, cigarettes, uncomplicated; Z86.711 Personal history of pulmonary embolism; Z79.01 Long term (current) use of anticoagulants
CPT/HCPCS: 99284

== ENCOUNTER 2024-06-27 14:36 | Emergency (ER) | payer OTHER ==
[2024-06-27] MEDS ORDERED: TETRACAINE HCL 0.5% 4ML OPTH ONE (15:11)
[2024-06-27] MEDS ORDERED: FLUORESCEIN SODIUM 1 MG/WRAP ONE (15:11)
--- NOTE | 2024-06-27 16:13 | ER ---
Nurse's Notes [facility] Name: Red Cooper Age: 68 yrs Sex: Male : 1955 Arrival Date: 06/27/2024 Time: 14:36 Bed 15 Private MD: Diagnosis: Left eye foreign body Presentation: 06/27 14:59 Chief complaint: Patient states: sudden onset left eye discomfort while sitting his kc6 recliner this AM. pt states, "I feel like something is just cutting it up.". Coronavirus screen: At this time, the client does not indicate any symptoms associated with coronavirus-19. Ebola Screen: No symptoms or risks identified at this time. Initial Sepsis Screen: Does the patient meet any 2 criteria? No. Patient's initial sepsis screen is negative. Does the patient have a suspected source of infection? No. Patient's initial sepsis screen is negative. Risk Assessment: Do you want to hurt yourself or someone else? Patient reports no desire to harm self or others. Onset of symptoms was June 27, 2024. 14:59 Method Of Arrival: Ambulatory [facility] 14:59 Acuity: JENNY 4 kc6 Historical: - Allergies: 15:01 Demerol; kc6 15:01 Morphine; kc6 15:01 Tramadol HCl; kc6 - PMHx: 15:01 pulmonary embolus; Hypertension; kc6 - PSHx: 15:01 IVC filter; Left hip; kc6 - Immunization history:: Adult Immunizations up to date. - Infectious Disease History:: Denies. - Social history:: Smoking status: Patient reports the use of cigarette tobacco products, smokes one-half pack cigarettes per day. - Family history:: not pertinent. - Hospitalizations: : No recent hospitalization is reported. Screenin:45 [facility] ED Fall Risk Assessment (Adult) History of falling in the last 3 months, me1 including since admission No falls in past 3 months (0 pts) Confusion or Disorientation No (0 pts) Intoxicated or Sedated No (0 pts) Impaired Gait No (0 pts) Mobility Assist Device Used No (0 pt) Altered Elimination No (0 pt) Score/Fall Risk Level 0 - 2 = Low Risk Maintained a safe environment, Provided non-skid footwear, Hourly rounding (assess needs \\T\\ fall precautionary measures) done. Abuse screen: Denies threats or abuse. Nutritional screening: No deficits noted. Tuberculosis screening: No symptoms or risk factors identified. Assessment: 15:45 General: Appears uncomfortable, well developed, well nourished, Behavior is calm, me1 cooperative, appropriate for age, Reports sudden onset left eye discomfort while sitting his recliner this AM. pt states, "I feel like something is just cutting it up.". Pain: Complains of pain in left eye Pain does not radiate. Pain currently is 7 out of 10 on a pain scale. Quality of pain is described as burning, sharp, Pain began suddenly, Is continuous. Neuro: Level of Consciousness is awake, alert, obeys commands, Oriented to person, place, time, situation, Appropriate for age. Cardiovascular: Patient's skin is warm and dry. Respiratory: Airway is patent Respiratory effort is even, unlabored, Respiratory pattern is regular, symmetrical. GI: No signs and/or symptoms were reported involving the gastrointestinal system. : No signs and/or symptoms were reported regarding the genitourinary system. EENT: Eyes are tearing on left eye Reports pain in left eye. Derm: Skin is intact, is healthy with good turgor, Skin is pink, warm \\T\\ dry. Musculoskeletal: No signs and/or symptoms reported regarding the musculoskeletal system. Vital Signs: 14:59 BP 162 / 98; Pulse 75; Resp 16 S; Pulse Ox 100% on R/A; Weight 85.28 kg (R); Height 5 kc6 ft. 8 in. (R); Pain 7/10; 16:00 BP 149 / 91; Pulse 72; Resp 15; Temp 98.6; Pulse Ox 100% ; me1 14:59 Body Mass Index 28.59 (85.28 kg, 172.72 cm) kc6 14:59 Pain Scale: Adult kc6 ED Course: 14:42 Patient arrived in ED. mg5 14:51 Santiago Pinzon MD is Attending Physician. rn 15:01 Triage completed. kc6 15:01 Arm band placed on. kc6 15:14 Yenny Chapman, JAYA is Primary Nurse. me1 15:45 Patient has correct armband on for positive identification. Bed in low position. Call me1 light in reach. Side rails up X 1. Provided Education on: POC. Verbalized understanding.. 15:45 Client placed on continuous cardiac and pulse oximetry monitoring. NIBP monitoring me1 applied. Pulse ox on. NIBP on. 15:45 No provider procedures requiring assistance completed. Patient did not have IV access me1 during this emergency room visit. Administered Medications: 15:44 Drug: Tetracaine Ophthalmic Drops 0.5 % 1 drops Ophthalmic once {Note: Administered by ak1 Dr Pinzon.} Route: Ophthalmic; Site: left eye; 15:44 Follow up: Response: No adverse reaction; Pain is decreased me1 Medication: 15:45 VIS not applicable for this client. me1 Outcome: 16:12 Discharge ordered by . rn 16:15 [place] [facility] [place] Condition: stable 16:15 Discharge instructions given to patient, Instructed on discharge instructions, follow up and referral plans. Demonstrated understanding of instructions, follow-up care, 16:15 Patient left the ED. me1 Signatures: Santiago Pinzon MD MD rn Campbell, Kaitlyn, RN RN kc6 Yenny Chapman RN RN ak1 Tiffany Patel mg5 Corrections: (The following items were deleted from the chart) 44 14:59 Chief complaint: Patient states: sudden onset left eye discomfort while sitting me1 his recliner this AM. pt states, "I feel like something is just cutting it up." kc6
--- NOTE | 2024-06-27 16:13 | EDPHYS ---
Physician Documentation [facility] Name: Red Cooper Age: 68 yrs Sex: Male : 1955 Arrival Date: 06/27/2024 Time: 14:36 Bed 15 Private MD: ED Physician Santiago Pinzon HPI: 06/27 16:06 This 68 yrs old Male presents to ER via Ambulatory with complaints of Foreign Body In rn Eye. 16:06 The patient is experiencing foreign body sensation, The patient sustained None. to the rn left eye. Onset: The symptoms/episode began/occurred just prior to arrival. Aggravated by closing eye, rubbing, Alleviated by nothing. Severity of symptoms: At their worst the symptoms were mild in the emergency department the symptoms are unchanged. The patient has not experienced similar symptoms in the past. Patient states was sitting in his living room when something got in his eye. Does not know what it was. Was not doing anything that could have caused high-speed injury to the eye. Probably just dust or something. Tried to irrigate his eye and did not relieve the discomfort so came in for evaluation. Only feels it in his left eye. Historical: - Allergies: 15:01 Demerol; kc6 15:01 Morphine; kc6 15:01 Tramadol HCl; kc6 - PMHx: 15:01 pulmonary embolus; Hypertension; kc6 - PSHx: 15:01 IVC filter; Left hip; kc6 - Immunization history:: Adult Immunizations up to date. - Infectious Disease History:: Denies. - Social history:: Smoking status: Patient reports the use of cigarette tobacco products, smokes one-half pack cigarettes per day. - Family history:: not pertinent. - Hospitalizations: : No recent hospitalization is reported. ROS: 16:06 Constitutional: Negative for fever, chills, and weight loss, Eyes: Positive for left rn foreign body sensation in left eye Exam: 16:06 Constitutional: This is a well developed, well nourished patient who is awake, alert, rn and in no acute distress. Eyes: Clear eye drainage left eye. Small brown foreign body identified upper eyelid. No fluorescein uptake to indicate ulceration or corneal abrasion. Sensation resolved after tetracaine and irrigation and removal of foreign body. Vital Signs: 14:59 BP 162 / 98; Pulse 75; Resp 16 S; Pulse Ox 100% on R/A; Weight 85.28 kg (R); Height 5 kc6 ft. 8 in. (R); Pain 7/10; 16:00 BP 149 / 91; Pulse 72; Resp 15; Temp 98.6; Pulse Ox 100% ; me1 14:59 Body Mass Index 28.59 (85.28 kg, 172.72 cm) kc6 14:59 Pain Scale: Adult kc6 Procedures: 16:06 Foreign Body Removal: dust, from the left eye, by using a cotton-tipped swab, Dressing: rn none, The patient tolerated the removal well. MDM: 14:51 Medical Screening Exam initiated rn 16:06 Differential diagnosis: Corneal abrasion of Corneal ulcer of Foreign body in. Data rn reviewed: vital signs, nurses notes, and as a result, I will discharge patient. Counseling: I had a detailed discussion with the patient and/or guardian regarding the historical points, exam findings, and any diagnostic results supporting the discharge/admit diagnosis, the need for outpatient follow up, to return to the emergency department if symptoms worsen or persist or if there are any questions or concerns that arise at home. Special discussion: I discussed with the patient/guardian in detail that at this point there is no indication for admission to the hospital. It is understood, however, that if the symptoms persist or worsen the patient needs to return immediately for re-evaluation. 06/27 15:02 Order name: Eye Tray; Complete Time: 15:19 rn 06/27 15:02 Order name: Fluoresene Opth strip; Complete Time: 15:19 rn Administered Medications: 15:44 Drug: Tetracaine Ophthalmic Drops 0.5 % 1 drops Ophthalmic once {Note: Administered by ca1 Dr Pinzon.} Route: Ophthalmic; Site: left eye; 15:44 Follow up: Response: No adverse reaction; Pain is decreased [facility] Disposition Summary: 06/27/24 16:12 Discharge Ordered Notes: Location: Home rn Problem: new rn Symptoms: have improved rn Condition: Stable rn Diagnosis - Left eye foreign body rn Followup: rn - With: Private Physician - When: As needed - Reason: Recheck today's complaints, Re-evaluation by your physician Discharge Instructions: - Discharge Summary Sheet rn - Eye Foreign Body rn Forms: - Medication Reconciliation Form rn - Antibiotic transport rn - Prescription Opioid Use rn - Patient Portal Instructions rn - Leadership Thank You Letter rn Signatures: Santiago Pinzon MD MD rn BrasherPam RN RN kc6 Yenny Chapman RN RN me1
[2024-06-27 16:45] VITALS: O2SAT 100
[2024-06-27 16:46] VITALS: BP 149/91; TEMP 98.6
== END 2024-06-27 16:15 | disposition home or self-care (01) ==
LOC: ER 14:36
PROC: 08C1XZZ Extirpation of Matter from Left Eye, External Approach (ICD-10-PCS; principal; 2024-06-27)
DX: T15.92XA Foreign body on external eye, part unspecified, left eye, initial encounter (principal); F17.210 Nicotine dependence, cigarettes, uncomplicated
CPT/HCPCS: 99283

== ENCOUNTER 2024-06-30 00:45 | Inpatient (IN) | payer OTHER ==
[2024-06-30 01:22] LABS: Absolute Basophils 0.1 K/uL (0-0.5); Absolute Eosinophils 0.3 K/uL (0-0.5); Absolute Lymphocytes (CBC) 0.5 K/uL (0.7-4.9); Absolute Neutrophil 4.7 K/uL (1.8-8.0); Eosinophils % 4.1 % (0-4.4); Hematocrit 38.6 % (39.6-49.0); Hemoglobin 12.7 g/dL (13.6-17.9); MCH 31.1 pg (27.0-35.0); MCHC 32.8 g/dL (32.0-36.0); MCV 94.7 fL (80-100); Monocytes % 15.5 % (3.3-12.3); Neutrophils % 71.4 % (41.7-73.7); Nucleated Red Blood Cells % 0.1 % (0-0); Platelets 161 thou/uL (152-406); RBC Red Blood Cell Count 4.08 M/uL (4.33-5.43); Red Cell Distribution Width 14.6 % (12.1-15.2)
[2024-06-30 01:23] LABS: Protime INR 1.07
[2024-06-30 01:39] LABS: ALT/SGPT 22 U/L (16-61); AST/SGOT 26 U/L (15-37); Albumin 2.8 g/dL (3.4-5.0); Albumin/Globulin Ratio 0.7 (1.1-1.8); Alkaline Phosphatase 72 U/L (45-117); Anion Gap 11.3 mEq/L (5.0-15.0); BUN Blood Urea Nitrogen 39 mg/dL (7-18); Bicarbonate 24 mEq/L (21-32); Bilirubin Total 0.4 mg/dL (0.2-1.0); Glomerular Filtration Rate 26 ml/min (=/>90); Glucose Level 97 mg/dL (74-106); NT PRO-BNP 4019 pg/mL (<125); Potassium 5.3 mEq/L (3.5-5.1); Protein, Total 6.8 g/dL (6.4-8.2); Sodium Level 137 mEq/L (136-145); Troponin High Sensitivity 29.7 pg/mL (<58.9)
[2024-06-30 01:43] LABS: Bilirubin Direct < 0.2 mg/dL (0-0.2); Bilirubin Indirect, Calculated 0.2 mg/dL (0.2-0.8)
[2024-06-30] MEDS ORDERED: predniSONE 20 MG TAB ONE ×2 (02:02→09:24)
[2024-06-30] MEDS ORDERED: IBUPROFEN 400 MG TAB ONE (02:02)
[2024-06-30] MEDS ORDERED: ALBUTEROL 2.5 MG/3 ML NEB SOL ONE (02:02)
[2024-06-30] MEDS ORDERED: IPRATROPIUM BROM 0.5MG/2.5ML ONE (02:02)
[2024-06-30] MEDS ORDERED: BENZONATATE 100 MG CAP PO ONE (02:02)
[2024-06-30] MEDS ORDERED: GUAIFENESIN/DM 5 ML UCUP ONE (02:03)
[2024-06-30] MEDS ORDERED: HYDROCODONE/APAP 5/325 MG TAB ONE (02:03)
[2024-06-30] MEDS ORDERED: NA CHLORIDE 0.9% 1,000 ML ONE ×2 (05:04→07:54)
--- NOTE | 2024-06-30 05:44 | EDPHYS ---
Physician Documentation [facility] [place] Name: Red Cooper Age: 68 yrs Sex: Male : 1955 Arrival Date: 06/30/2024 Time: 00:45 Bed 6 Private MD: ED Physician Brandan Metzger HPI: 06/30 01:13 This 68 yrs old Male presents to ER via Unassigned with complaints of sp4 Shortness Of Breath. 06:11 Very pleasant 68-year-old male with history of pulmonary embolism and hypertension sp4 presents with worsening shortness of breath and cough starting in the morning. Patient reports subjective fever as well. . Historical: - Allergies: 01:23 Demerol; mt4 01:23 Tramadol HCl; mt4 01:23 Morphine; mt4 - PMHx: 01:23 pulmonary embolus; Hypertension; mt4 - PSHx: 01:23 Left hip; IVC filter; mt4 - Immunization history:: Adult Immunizations up to date, Client reports having NOT received the Covid vaccine. patient refuses covid vaccines . - Infectious Disease History:: Denies. - Social history:: Smoking status: Patient reports the use of cigarette tobacco products. - Family history:: not pertinent. - Coronavirus screen:: The patient has NOT traveled to [place] in the past 14 days. ROS: 06:11 Constitutional: Negative for chills, and weight loss, positive for cough, positive sp4 shortness of breath, positive subjective fever 06:11 All other systems are negative, Exam: 06:11 Constitutional: This is a well developed, well nourished patient who is awake, alert, sp4 and in no acute distress. Head/Face: Normocephalic, atraumatic. Eyes: Pupils equal round and reactive to light, extra-ocular motions intact. Lids and lashes normal. Conjunctiva and sclera are not injected. Cornea within normal limits. Periorbital areas with no swelling, redness, or edema. ENT: Nares patent. No nasal discharge, no septal abnormalities noted. Tympanic membranes are normal and external auditory canals are clear. Oropharynx with no redness, swelling, or masses, exudates, or evidence of obstruction, uvula midline. Mucous membranes moist. Neck: Trachea midline, no thyromegaly or masses palpated, and no cervical lymphadenopathy. Supple, full range of motion without nuchal rigidity, or vertebral point tenderness. Chest/axilla: Normal chest wall appearance and motion. Nontender with no deformity. No lesions are appreciated. Cardiovascular: Regular rate and rhythm with a normal S1 and S2. No gallops, murmurs, or rubs. Normal PMI, no JVD. No pulse deficits. Respiratory: Lungs have equal breath sounds bilaterally, clear to auscultation and percussion. No rales, rhonchi or wheezes noted. No increased work of breathing, no retractions or nasal flaring. Abdomen/GI: Soft, with normal bowel sounds. No distension or tympany. No guarding or rebound. No evidence of tenderness throughout. Back: No spinal tenderness. No costovertebral tenderness. Skin: Warm, dry with normal turgor. Normal color with no rashes, no lesions, and no evidence of cellulitis. MS/ Extremity: Pulses equal, no cyanosis. Neurovascular intact. Full, normal range of motion. Neuro: Awake and alert, GCS 15, oriented to person, place, time, and situation. Cranial nerves II-XII grossly intact. Motor strength 5/5 in all extremities. Sensory grossly intact. Psych: Awake, alert, with orientation to person, place and time. Behavior, mood, and affect are within normal limits 06:11 ECG was reviewed by the Attending Physician. EKG at 0051 atrial fibrillation rate 89 Vital Signs: 01:14 BP 132 / 90; Pulse 91; Resp 19; Temp 99.5(O); Pulse Ox 92% on R/A; Weight 85.28 kg (R); mt4 Height 5 ft. 8 in. ; Pain 5/10; 01:27 BP 132 / 90; Pulse 91; Resp 19; Temp 99.5(O); Pulse Ox 92% on R/A; mt4 03:33 BP 117 / 78; Pulse 83; Resp 18; Temp 99.5; Pulse Ox 92% ; Pain 4/10; bm8 05:14 BP 108 / 81; Pulse 77; Resp 19; Temp 98.7; Pulse Ox 100% on R/A; Pain 3/10; bm8 05:45 BP 118 / 84; Pulse 65; Resp 16; Pulse Ox 93% on R/A; mt4 01:14 Body Mass Index 28.59 (85.28 kg, 172.72 cm) mt4 01:14 Pain Scale: Adult mt4 03:33 Pain Scale: Adult bm8 05:14 Pain Scale: Adult bm8 [place] Score: 03:33 Eye Response: spontaneous(4). Motor Response: obeys commands(6). Verbal Response: bm8 oriented(5). Total: 15. 05:14 Eye Response: spontaneous(4). Motor Response: obeys commands(6). Verbal Response: bm8 oriented(5). Total: 15. 06:11 Eye Response: spontaneous(4). Motor Response: obeys commands(6). Verbal Response: sp4 oriented(5). Total: 15. MDM: 04:10 Medical Screening Exam initiated sp4 04:37 ED course: EXAM: XR Chest, 1 View CLINICAL HISTORY: Chest pain. TECHNIQUE: Frontal view sp4 of the chest. COMPARISON: No relevant prior studies available. FINDINGS: Lungs: Coarsened interstitial markings. No focal consolidation. Pleural space: Unremarkable. No pneumothorax. Heart: Unremarkable. No cardiomegaly. Mediastinum: Unremarkable. Normal mediastinal contour. Bones/joints: Unremarkable. No acute fracture. Vasculature: Thoracic aortic atherosclerosis. IMPRESSION: No acute disease. Electronically signed by: Dany Hopkins MD . 06:17 Differential diagnosis: Anemia Bronchitis CHF exacerbation, Chronic Obstructive sp4 Pulmonary Disease pneumonia, Pneumothorax. Data reviewed: vital signs, nurses notes, EMS record, lab test result(s), EKG, radiologic studies, plain films. Consideration of Admission/Observation Patient was admitted/placed on observation. Escalation of care including admission/observation considered. Management of patient was discussed with the following: Hospitalist: Jb LAND Admit team . 06/30 00:48 Order name: Basic Metabolic Panel; Complete Time: 04:10 sp4 06/30 00:48 Order name: CBC with Diff; Complete Time: 04:10 sp4 06/30 00:48 Order name: LFT's; Complete Time: 04:10 sp4 06/30 00:48 Order name: NT PRO-BNP; Complete Time: 04:10 sp4 06/30 00:49 Order name: PT-INR; Complete Time: 04:10 sp4 06/30 00:49 Order name: Troponin HS; Complete Time: 04:10 sp4 12/10 01:18 Order name: Influenza Screen (A ; Complete Time: 04:10 EDMS 06/30 07:28 Order name: Urinalysis w/ reflexes EDMS 06/30 07:28 Order name: Basic Metabolic Panel EDMS 06/30 07:28 Order name: Basic Metabolic Panel EDMS 06/30 07:28 Order name: Basic Metabolic Panel EDMS 06/30 07:28 Order name: Basic Metabolic Panel EDMS 06/30 07:28 Order name: CBC with Automated Diff EDMS 06/30 07:28 Order name: CBC with Automated Diff EDMS 06/30 07:28 Order name: CBC with Automated Diff EDMS 06/30 07:28 Order name: CBC with Automated Diff EDMS 06/30 07:28 Order name: Magnesium EDMS 06/30 07:28 Order name: Magnesium EDMS 06/30 07:28 Order name: Magnesium EDMS 06/30 07:28 Order name: Magnesium EDMS 06/30 07:28 Order name: NT PRO-BNP EDMS 06/30 07:28 Order name: NT PRO-BNP EDMS 06/30 07:28 Order name: NT PRO-BNP EDMS 06/30 07:28 Order name: NT PRO-BNP EDMS 06/30 00:49 Order name: XRAY Chest (1 view); Complete Time: 07:18 sp4 06/30 13:42 Order name: US EDTX 06/30 00:49 Order name: EKG; Complete Time: 00:49 sp4 06/30 00:49 Order name: Cardiac monitoring; Complete Time: 01:06 sp4 06/30 00:49 Order name: EKG - Nurse/Tech; Complete Time: 01:06 sp4 06/30 00:49 Order name: IV Saline Lock; Complete Time: 01: sp4 06/30 00:49 Order name: Labs collected and sent; Complete Time: 01:06 sp4 06/30 00:49 Order name: O2 Per Protocol; Complete Time: 01: sp4 06/30 00:49 Order name: O2 Sat Monitoring; Complete Time: 01: sp4 EC:51 Rate is 89 beats/min. Rhythm is irregularly irregular, A fib. QRS [place] is Normal. QRS sp4 interval is normal. QT interval is normal. No Q waves. T waves are Normal. No ST changes noted. Clinical impression: No evidence of ischemia. Interpreted by me. Reviewed by me. Administered Medications: 02:09 Drug: HYDROcodone-acetaminophen PO 5 mg-325 mg 1 tabs PO once Route: PO; mt4 03:34 Follow up: Response: No adverse reaction bm8 02:09 Drug: Ibuprofen PO 800 mg PO once Route: PO; mt4 03:34 Follow up: Response: No adverse reaction bm8 02:10 Drug: Dextromethorphan-Guaifenesin PO Liquid 10 mg-100 mg/5 mL 10 ml PO once Route: PO; mt4 03:35 Follow up: Response: No adverse reaction bm8 02:10 Drug: Tessalon Perle PO 200 mg PO once Route: PO; mt4 03:35 Follow up: Response: No adverse reaction bm8 02:10 Drug: Albuterol Inhalation 2.5 mg Inhalation once Route: Inhalation; mt4 03:34 Follow up: Response: No adverse reaction bm8 02:10 Drug: Ipratropium Inhalation Aerosol 0.5 mg Inhalation once Route: Inhalation; mt4 03:34 Follow up: Response: No adverse reaction bm8 02:10 Drug: predniSONE PO 60 mg PO once Route: PO; mt4 03:34 Follow up: Response: No adverse reaction bm8 05:10 Drug: NS 0.9% IV 1000 ml IV at 100 ml/hr Per protocol; to be given as a bolus over 60 bm8 minutes Route: IV; Rate: 100 ml/hr; Site: left forearm; 06:30 Follow up: Response: No adverse reaction; IV Status: Completed infusion; IV Intake: bm8 1000ml 06:30 Drug: Enoxaparin Sub-Q 80 mg Sub-Q once Route: Sub-Q; Site: abdomen; bm8 Disposition Summary: 06/30/24 05:43 Hospitalization Ordered Notes: Hospitalization Status: Inpatient Admission sp4 Condition: Fair sp4 Problem: new sp4 Symptoms: have improved sp4 Bed/Room Type: Standard sp4 Provider: Devaughn Muhammad(06/30/24 06:17) sp4 Location: Telemetry/MedSurg (Inpatient)(06/30/24 15:38) bd Room Assignment: [facility](06/30/24 15:38) bd Diagnosis - Acute on chronic renal insufficiency , Congestive Heart Failure Acute, Influenza sp4 A - Unspecified atrial fibrillation sp4 Forms: - Medication Reconciliation Form sp4 - SBAR form sp4 - Leadership Thank You Letter sp4 Signatures: Dispatcher [employer] EDMS Khushbu Rice Irene, RN RN iw Brandan Metzger MD MD sp4 Marcella Prater, DOCUMENT REVIEW ATTORNEY DOCUMENT REVIEW ATTORNEY cm12 Rober Arthur, RN RN bm8 Alison Bosch, RN RN mt4 Corrections: (The following items were deleted from the chart) 00:49 00:49 BASIC METABOLIC PANEL+C.LAB.BRZ ordered. EDMS EDMS 00:49 00:49 CBC+H.LAB.BRZ ordered. EDMS EDMS 00:49 00:49 HEPATIC FUNCTION+C.LAB.BRZ ordered. EDMS EDMS 00:49 00:49 PROBNP+C.LAB.BRZ ordered. EDMS EDMS 00:49 00:49 PROTIME (+INR)+COAG.LAB.BRZ ordered. EDMS EDMS 00:49 00:49 Troponin High Sensitivity+C.LAB.BRZ ordered. EDMS EDMS 06:17 05:43 Tucker Rinaldi sp4 sp4 09:25 05:43 Telemetry/MedSurg (Inpatient) sp4 iw 09:25 05:43 sp4 iw 15:38 09:25 [facility] ER HOLD iw bd 15:38 09:25 ERHOLD- iw bd
--- NOTE | 2024-06-30 05:44 | ER ---
Nurse's Notes [facility] Name: Red Cooper Age: 68 yrs Sex: Male : 1955 Arrival Date: 06/30/2024 Time: 00:45 Bed 6 Private MD: Diagnosis: Acute on chronic renal insufficiency , Congestive Heart Failure Acute, Influenza A ;Unspecified atrial fibrillation Presentation: 06/30 01:14 Chief complaint: EMS states: EMS states SOB with chest discomfort and cough. mt4 Coronavirus screen: cough unrelated to allergies, difficulty breathing. Ebola Screen: Patient denies exposure to infectious person. Initial Sepsis Screen: Does the patient have a suspected source of infection?. Risk Assessment: Do you want to hurt yourself or someone else? Patient reports no desire to harm self or others. Onset of symptoms was June 28, 2024. 01:14 Method Of Arrival: EMS mt4 01:14 Acuity: JENNY 3 mt4 01:14 Acuity: JENNY 2 mt4 Triage Assessment: 01:23 General: Appears in no apparent distress. comfortable, Behavior is calm, cooperative, mt4 appropriate for age. Pain: Complains of pain in chest Pain currently is 5 out of 10 on a pain scale. Quality of pain is described as aching. Neuro: Level of Consciousness is awake, alert, obeys commands, Oriented to person, place, time, situation, [place] [employer] are equal bilaterally Moves all extremities. Speech is normal. Cardiovascular: Capillary refill < 3 seconds. Respiratory: Reports shortness of breath at rest Airway is patent Respiratory effort is unlabored, Respiratory pattern is regular, symmetrical, Breath sounds are diminished in right upper lobe, left upper lobe and right lower lobe Breath sounds with wheezes in left upper lobe Onset: The symptoms/episode began/occurred yesterday, the patient has moderate shortness of breath. GI: Abdomen is non-distended. : Denies burning with urination. Musculoskeletal: Capillary refill < 3 seconds, Range of motion: intact in all extremities. Historical: - Allergies: 01:23 Demerol; mt4 01:23 Tramadol HCl; mt4 01:23 Morphine; mt4 - PMHx: 01:23 pulmonary embolus; Hypertension; mt4 - PSHx: 01:23 Left hip; IVC filter; mt4 - Immunization history:: Adult Immunizations up to date, Client reports having NOT received the Covid vaccine. patient refuses covid vaccines . - Infectious Disease History:: Denies. - Social history:: Smoking status: Patient reports the use of cigarette tobacco products. - Family history:: not pertinent. - Coronavirus screen:: The patient has NOT traveled to [place] in the past 14 days. Screenin:28 [facility] ED Fall Risk Assessment (Adult) History of falling in the last 3 months, mt4 including since admission No falls in past 3 months (0 pts) Confusion or Disorientation No (0 pts) Intoxicated or Sedated No (0 pts) Impaired Gait Yes (1 pt) Mobility Assist Device Used Yes (1 pt) Altered Elimination No (0 pt) Score/Fall Risk Level 3 or more points = High Risk. Abuse screen: Denies injuries from another. Nutritional screening: No deficits noted. Tuberculosis screening: No symptoms or risk factors identified. Exposure risk/Travel Screening: None identified. Assessment: 01:28 General: See triage. Cardiovascular:. Cardiovascular: Reports chest pain, shortness of mt4 breath, Denies Rhythm is atrial fibrillation. Respiratory: Airway is patent Respiratory effort is even, unlabored, Respiratory pattern is regular, symmetrical. Respiratory: Reports shortness of breath at rest since yesterday evening, and cough started the previous day cough that is 03:33 Reassessment: Patient appears in no apparent distress at this time. No changes from bm8 previously documented assessment. Patient and/or family updated on plan of care and expected duration. Pain level reassessed. Patient is alert, oriented x 3, equal unlabored respirations, skin warm/dry/pink. 05:14 Reassessment: Patient appears in no apparent distress at this time. Patient and/or bm8 family updated on plan of care and expected duration. Pain level reassessed. Patient is alert, oriented x 3, equal unlabored respirations, skin warm/dry/pink. pt is resting with eyes closed breathing is even unlabored with rare fits of coughing. Patient states feeling better. Patient states symptoms have improved. 06:29 Reassessment: Patient appears in no apparent distress at this time. Patient and/or bm8 family updated on plan of care and expected duration. Pain level reassessed. Patient is alert, oriented x 3, equal unlabored respirations, skin warm/dry/pink. pt asked to go to restroom, pt escorted to latrine, other [place] no change from prior assessment. 07:39 Reassessment: Patient appears in no apparent distress at this time. pt admitted , iw orders processed, pt requesting breakfast and coffee. Vital Signs: 01:14 BP 132 / 90; Pulse 91; Resp 19; Temp 99.5(O); Pulse Ox 92% on R/A; Weight 85.28 kg (R); mt4 Height 5 ft. 8 in. ; Pain 5/10; 01:27 BP 132 / 90; Pulse 91; Resp 19; Temp 99.5(O); Pulse Ox 92% on R/A; mt4 03:33 BP 117 / 78; Pulse 83; Resp 18; Temp 99.5; Pulse Ox 92% ; Pain 4/10; bm8 05:14 BP 108 / 81; Pulse 77; Resp 19; Temp 98.7; Pulse Ox 100% on R/A; Pain 3/10; bm8 05:45 BP 118 / 84; Pulse 65; Resp 16; Pulse Ox 93% on R/A; mt4 01:14 Body Mass Index 28.59 (85.28 kg, 172.72 cm) mt4 01:14 Pain Scale: Adult mt4 03:33 Pain Scale: Adult bm8 05:14 Pain Scale: Adult bm8 [place] Coma Score: 03:33 Eye Response: spontaneous(4). Motor Response: obeys commands(6). Verbal Response: bm8 oriented(5). Total: 15. 05:14 Eye Response: spontaneous(4). Motor Response: obeys commands(6). Verbal Response: bm8 oriented(5). Total: 15. 06:11 Eye Response: spontaneous(4). Motor Response: obeys commands(6). Verbal Response: sp4 oriented(5). Total: 15. ED Course: 00:45 Patient arrived in ED. jj6 00:48 Brandan Metzger MD is Attending Physician. sp4 01:06 Alison Bosch, JAYA is Primary Nurse. mt4 01:11 Inserted saline lock: 22 gauge in left forearm, using aseptic technique. Blood kmf collected. Flushed with 10 mL NS. 01:12 Initial lab(s) drawn, by wa, sent to lab. kmf 01:23 Triage completed. mt4 01:23 Arm band placed on right wrist. mt4 01:27 XRAY Chest (1 view) In Process Unspecified. EDMS 01:28 No apparent distress. Resting quietly. mt4 01:28 No provider procedures requiring assistance completed. Patient maintains SpO2 mt4 saturation greater than 95% on room air. 01:28 Patient has correct armband on for positive identification. Bed in low position. Call mt4 light in reach. Side rails up X 1. Provided Education on: labs and IV. Client placed on continuous cardiac and pulse oximetry monitoring. NIBP monitoring applied. Door closed. Lights dimmed. Warm blanket given. Pillow given. Verbal reassurance given. Assisted with urinal. 05:42 Tucker Rinaldi is Hospitalizing Provider. sp4 06:16 Hospitalizing Provider role handed off by Tucker Rinaldi sp4 06:16 Devaughn Muhammad MD is Hospitalizing Provider. sp4 07:09 Report given to Maritza RN. bm8 Administered Medications: 02:09 Drug: HYDROcodone-acetaminophen PO 5 mg-325 mg 1 tabs PO once Route: PO; mt4 03:34 Follow up: Response: No adverse reaction bm8 02:09 Drug: Ibuprofen PO 800 mg PO once Route: PO; mt4 03:34 Follow up: Response: No adverse reaction bm8 02:10 Drug: Dextromethorphan-Guaifenesin PO Liquid 10 mg-100 mg/5 mL 10 ml PO once Route: PO; mt4 03:35 Follow up: Response: No adverse reaction bm8 02:10 Drug: Tessalon Perle PO 200 mg PO once Route: PO; mt4 03:35 Follow up: Response: No adverse reaction bm8 02:10 Drug: Albuterol Inhalation 2.5 mg Inhalation once Route: Inhalation; mt4 03:34 Follow up: Response: No adverse reaction bm8 02:10 Drug: Ipratropium Inhalation Aerosol 0.5 mg Inhalation once Route: Inhalation; mt4 03:34 Follow up: Response: No adverse reaction bm8 02:10 Drug: predniSONE PO 60 mg PO once Route: PO; mt4 03:34 Follow up: Response: No adverse reaction bm8 05:10 Drug: NS 0.9% IV 1000 ml IV at 100 ml/hr Per protocol; to be given as a bolus over 60 bm8 minutes Route: IV; Rate: 100 ml/hr; Site: left forearm; 06:30 Follow up: Response: No adverse reaction; IV Status: Completed infusion; IV Intake: bm8 1000ml 06:30 Drug: Enoxaparin Sub-Q 80 mg Sub-Q once Route: Sub-Q; Site: abdomen; bm8 Medication: 01:28 VIS not applicable for this client. mt4 Intake: 06:30 IV: 1000ml; Total: 1000ml. bm8 Outcome: 05:43 Decision to Hospitalize by Provider. sp4 16:39 Patient left the ED. iw Signatures: Dispatcher [employer] EDMS Aleshia Song RN RN iw Michelle Trevino Sergey, MD MD sp4 Yaa Eastf Rober Arthur, RN RN bm8 Alisno Bosch RN RN mt4 Corrections: (The following items were deleted from the chart) 01:13 01:11 Inserted saline lock: 22 gauge in right forearm, using aseptic technique. Blood kmf collected. Flushed with 10 mL NS kmf
--- NOTE | 2024-06-30 06:04 | RAD REPORT ---
EXAM: XR Chest, 1 View CLINICAL HISTORY: Chest pain. TECHNIQUE: Frontal view of the chest. COMPARISON: No relevant prior studies available. FINDINGS: Lungs: Coarsened interstitial markings. No focal consolidation. Pleural space: Unremarkable. No pneumothorax. Heart: Unremarkable. No cardiomegaly. Mediastinum: Unremarkable. Normal mediastinal contour. Bones/joints: Unremarkable. No acute fracture. Vasculature: Thoracic aortic atherosclerosis. IMPRESSION: No acute disease. Electronically signed by: Dany Hopkins MD 06/30/2024 02:57 AM [facility] Due to temporary technical issues with the PACS/PVC Rec[employer] reporting system, reports are being jli d by the in-house radiologist without review as a courtesy to ensure prompt reporting the interpreting radiologist is fully responsible for the content of the report. Transcribed Date/Time: 06/30/2024 6:04 AM
[2024-06-30] MEDS ORDERED: ENOXAPARIN 80 MG/0.8 ML SQ ONE (06:22)
--- NOTE | 2024-06-30 07:11 | P.HP ---
Patient History Date of Service: 06/30/24 Allergies Morpholine Analogues Allergy (Severe, Verified 12/29/13 22:12) Psychosis tramadol Allergy (Intermediate, Verified 12/29/13 22:12) Can't urinate butorphanol tartrate [From Stadol] Allergy (Unknown, Verified 12/29/13 22:12) headache/hot codeine Allergy (Unverified 09/19/16 23:49) Unknown morphine Allergy (Verified 12/29/13 22:12) psychosis Stadol Allergy (Mild, Uncoded 12/29/13 22:12) Headache BP me Allergy (Uncoded 12/17/17 18:33) Unknown Tramadol HCl Allergy (Uncoded 08/01/14 22:46) Unknown Home Medications: Mupirocin Oint [Bactroban 2% Ointment*] 15 gm TP DAILY 04/03/13 Aspirin Enteric Coated [ASPIRIN 81 MG EC*] 81 mg PO DAILY #30 tab 04/04/13 Enalapril [Vasotec*] 10 mg PO DAILY #30 tab 04/04/13 Hydrocodone 10/APAP 325 [[place] 10/325*] 1 tab PO Q6HP PRN #30 tab 04/04/13 Rivaroxaban [Xarelto*] 20 mg PO DAILY AT SUPPER #30 tablet 04/04/13 Zolpidem Tartrate [Ambien*] 5 mg PO BEDTIME PRN PRN #30 tablet 04/04/13 Pantoprazole [Protonix Tab*] 40 mg PO DAILY #30 tab 12/31/13 metroNIDAZOLE [Flagyl*] 500 mg PO Q8H #21 tablet 12/31/13 - Past Medical/Surgical History Diabetic: No -: HTN -: DVT -: Smoker -: Vascular necrosis bilateral femur head -: Shingles -: TB exposure -: Pulmonary embolism -: Appendectomy -: Biopsy of kidney -: agatha filter - Social History Alcohol use: No CD- Drugs: No Caffeine use: Yes Physical Examination - Studies Laboratory Data (last 24 hrs) 06/30/24 06/30/24 06/30/24 00:53 00:53 00:53 WBC 6.60 Hgb 12.7 L Hct 38.6 L Plt Count 161 PT 12.0 INR 1.07 Sodium 137 Potassium 5.3 H BUN 39 H Creatinine 2.60 H Glucose 97 Total Bilirubin 0.4 AST 26 ALT 22 Alkaline Phosphatase 72 Microbiology Data (last 24 hrs): 06/30/24 01:01 Nasopharnyx Influenza Type A Antigen Screen - Final 06/30/24 01:01 Nasopharnyx Influenza Type B Antigen Screen - Final Assessment and Plan - Advance Directives Does patient have a Living Will: No Does patient have a Durable POA for Healthcare: No
[2024-06-30] MEDS ORDERED: ACETAMINOPHEN 500 MG TAB PO PRN (07:21)
[2024-06-30] MEDS ORDERED: ONDANSETRON 4 MG/2 ML VIAL IV PRN (07:21)
[2024-06-30] MEDS: NA CHLORIDE 0.9% 1,000 ML IV SCH (08:00)
[2024-06-30] MEDS: OSELTAMIVIR 75 MG CAP PO ONE (08:16)
[2024-06-30] MEDS ORDERED: ASPIRIN EC 81 MG TAB PO ONE (09:24)
[2024-06-30] MEDS ORDERED: GUAIFENESIN/CODEINE 5ML UCUP ONE ×2 (09:24→16:17)
[2024-06-30] MEDS: predniSONE 20 MG TAB PO SCH (09:37)
[2024-06-30] MEDS: GABAPENTIN 100 MG CAP PO SCH (09:37)
[2024-06-30] MEDS: ASPIRIN EC 81 MG TAB PO SCH (09:37)
[2024-06-30] MEDS: RIVAROXABAN 15 MG TABLET PO SCH (09:37)
[2024-06-30] MEDS: GUAIFENESIN/CODEINE 5ML UCUP PO PRN (09:38)
[2024-06-30] MEDS ORDERED: HYDROCODONE/APAP 10/325 TAB ONE (11:48)
[2024-06-30] MEDS ORDERED: methocarbamoL 750 MG TAB ONE (11:48)
[2024-06-30] MEDS: methocarbamoL 750 MG TAB PO PRN (11:50)
[2024-06-30] MEDS: HYDROCODONE/APAP 10/325 TAB PO PRN (11:50)
[2024-06-30 11:56] VITALS: BMI 28.5
[2024-06-30] MEDS: ARFORMOTEROL TARTRATE 15 MCG/2 ML VIAL.NEB NEB SCH (12:29)
--- NOTE | 2024-06-30 12:31 | P.CNS ---
Date of Consult: 06/30/24 Reason for Consult: Shortness of breath possible COPD Chief Complaint: Shortness of breath History of Present Illness: 68 years of age IV active smoker sick for 1-1/2 days and started complaining of cough congestion chest discomfort shortness of breath and it appeared in the hospital he is feeling better denies any fever or chills tested positive for influenza Allergies Morpholine Analogues Allergy (Severe, Verified 12/29/13 22:12) Psychosis tramadol Allergy (Intermediate, Verified 12/29/13 22:12) Can't urinate butorphanol tartrate [From Stadol] Allergy (Unknown, Verified 12/29/13 22:12) headache/hot codeine Allergy (Unverified 09/19/16 23:49) Unknown morphine Allergy (Verified 12/29/13 22:12) psychosis Stadol Allergy (Mild, Uncoded 12/29/13 22:12) Headache BP me Allergy (Uncoded 12/17/17 18:33) Unknown Tramadol HCl Allergy (Uncoded 08/01/14 22:46) Unknown Home Medications: Mupirocin Oint [Bactroban 2% Ointment*] 15 gm TP DAILY 04/03/13 Aspirin Enteric Coated [ASPIRIN 81 MG EC*] 81 mg PO DAILY #30 tab 04/04/13 Enalapril [Vasotec*] 10 mg PO DAILY #30 tab 04/04/13 Hydrocodone 10/APAP 325 [[place] 10/325*] 1 tab PO Q6HP PRN #30 tab 04/04/13 Rivaroxaban [Xarelto*] 20 mg PO DAILY AT SUPPER #30 tablet 04/04/13 Zolpidem Tartrate [Ambien*] 5 mg PO BEDTIME PRN PRN #30 tablet 04/04/13 Pantoprazole [Protonix Tab*] 40 mg PO DAILY #30 tab 12/31/13 metroNIDAZOLE [Flagyl*] 500 mg PO Q8H #21 tablet 12/31/13 - Past Medical/Surgical History Diabetic: No -: HTN -: DVT -: Smoker -: Vascular necrosis bilateral femur head -: Shingles -: TB exposure -: Pulmonary embolism -: Appendectomy -: Biopsy of kidney -: agatha filter - Social History Smoking Status: Current every day smoker Alcohol use: No CD- Drugs: No Caffeine use: Yes Review of Systems 10-point ROS is otherwise unremarkable General: Weakness Respiratory: Cough, Shortness of Breath Physical Examination Temp Pulse Resp BP Pulse Ox 98.1 F 87 19 116/72 98 06/30/24 08:00 06/30/24 08:00 06/30/24 08:00 06/30/24 08:00 06/30/24 08:00 General: Alert, Oriented x3 HEENT: Atraumatic, Normocephalic Respiratory: Clear to auscultation bilaterally, Diminished Cardiovascular: No edema, Regular rate/rhythm, Normal S1 S2 Gastrointestinal: Normal bowel sounds, Soft and benign Laboratory Data (last 24 hrs) 06/30/24 06/30/24 06/30/24 00:53 00:53 00:53 WBC 6.60 Hgb 12.7 L Hct 38.6 L Plt Count 161 PT 12.0 INR 1.07 Sodium 137 Potassium 5.3 H BUN 39 H Creatinine 2.60 H Glucose 97 Total Bilirubin 0.4 AST 26 ALT 22 Alkaline Phosphatase 72 - Problems (1) COPD exacerbation Current Visit: Yes Status: Acute Plan: Patient is 68 years of age no prior history of COPD admitted with worsening cough congestion I suspect he is at underlying COPD prior history of heavy tobacco abuse x-ray hyperinflated show renal insufficiency. BNP elevated Tx with IV fluids will also need renal ultrasound urinalysis vital signs are stable will need outpatient pulmonary function testing highly likely and he has underlying obstructive airways disease and may benefit from an inhaled bronchodilator at home patient also tested positive for influenza A
--- NOTE | 2024-06-30 12:33 | P.HP ---
Certification for Inpatient With expected LOS: <2 Midnights <Socorro Barrett Q - Last Filed: 06/30/24 12:34> Patient History Date of Service: 06/30/24 Reason for admission: Influenza, renal insufficiency History of Present Illness: 68-year-old man with a past medical history significant for A-fib on Xarelto, HTN, HDL, and history of pulmonary embolism s/p right IVC filter placement presented to the emergency room complaining of shortness of breath x 3 days. The patient tested positive for influenza. He states he has a chronic dry cough, that he believes "is worsening". Also, the patient states he has a" kidney appointment" scheduled for next month to rule out any chronic kidney disease. 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 The patient is a former smoker, who quit a week ago. He is not on home oxygen. The patient denies fever, and urinary symptoms. Home medications list reviewed: Yes - Past Medical/Surgical History Diabetic: No -: HTN -: History of pulmonary embolism s/p right IVC filter -: HDL -: Vascular necrosis bilateral femur head -: Shingles -: TB exposure -: A-fib on Xarelto -: Appendectomy -: Biopsy of kidney -: agatha filter - Social History Smoking Status: Former smoker (Quit 1 week ago) Alcohol use: No CD- Drugs: No Caffeine use: Yes <Socorro Barrett - Last Filed: 06/30/24 12:34> Date of Service: 06/30/24 <Devaughn Muhammad - Last Filed: 07/07/24 02:35> Allergies Morpholine Analogues Allergy (Severe, Verified 12/29/13 22:12) Psychosis tramadol Allergy (Intermediate, Verified 12/29/13 22:12) Can't urinate butorphanol tartrate [From Stadol] Allergy (Unknown, Verified 12/29/13 22:12) headache/hot codeine Allergy (Unverified 09/19/16 23:49) Unknown morphine Allergy (Verified 12/29/13 22:12) psychosis Stadol Allergy (Mild, Uncoded 12/29/13 22:12) Headache BP me Allergy (Uncoded 12/17/17 18:33) Unknown Tramadol HCl Allergy (Uncoded 08/01/14 22:46) Unknown Home Medications: Aspirin Enteric Coated [ASPIRIN 81 MG EC*] 81 mg PO DAILY #30 tab 04/04/13 Rivaroxaban [Xarelto*] 20 mg PO DAILY AT SUPPER #30 tablet 04/04/13 Zolpidem Tartrate [Ambien*] 5 mg PO BEDTIME PRN PRN #30 tablet 04/04/13 Pantoprazole [Protonix Tab*] 40 mg PO DAILY #30 tab 12/31/13 Atorvastatin Calcium [Lipitor*] 20 mg PO BEDTIME 06/30/24 Albuterol Neb [Proventil 0.083% Neb Soln] 2.5 mg NEB Q6HP PRN #60 amp 07/01/24 Arformoterol Tartrate [Brovana] 15 mcg NEB BIDRESP #60 vial.neb 07/01/24 Cyclobenzaprine [Flexeril] 10 mg PO BID PRN #20 tab 07/01/24 Gabapentin [Neurontin*] 100 mg PO TID #90 cap 07/01/24 Guaifen W/Codeine Syrup [ROBITUSSIN A-C Syrup*] 10 ml PO BIDP PRN #150 ml 07/01/24 Oseltamivir Phosphate [Tamiflu] 30 mg PO DAILY #5 cap 07/01/24 predniSONE [Deltasone] 10 mg PO BID #40 tab 07/01/24 Gabapentin 100 mg PO TID #90 tab 07/03/24 Guaifen W/Codeine Syrup [ROBITUSSIN A-C Syrup] 10 ml PO Q12HP PRN #150 ml 07/03/24 Review of Systems General: Malaise Respiratory: Cough (Chronic dry), Shortness of Breath, SOB with Excertion Neurological: Weakness (Generalized) <Socorro Barrett Q - Last Filed: 06/30/24 12:34> Physical Examination - Vital Signs Temperature: 99.5 F Blood Pressure: 116/79 Pulse: 71 Respirations: 18 Pulse Ox (%): 100 (On room air) - Physical Exam General: Oriented x3 HEENT: Atraumatic, Normocephalic Neck: JVD not distended Respiratory: Expiratory wheezes (Right lung) Cardiovascular: No edema, Regular rate/rhythm, No gallops, No rubs, No murmurs Gastrointestinal: Normal bowel sounds, Non-distended, No tenderness Musculoskeletal: No swelling, No erythema, No tenderness, No warmth Neurological: Normal strength at 5/5 x4 extr, Sensation intact - Studies Laboratory Data (last 24 hrs) 06/30/24 06/30/24 06/30/24 00:53 00:53 00:53 WBC 6.60 Hgb 12.7 L Hct 38.6 L Plt Count 161 PT 12.0 INR 1.07 Sodium 137 Potassium 5.3 H BUN 39 H Creatinine 2.60 H Glucose 97 Total Bilirubin 0.4 AST 26 ALT 22 Alkaline Phosphatase 72 Microbiology Data (last 24 hrs): 06/30/24 01:01 Nasopharnyx Influenza Type A Antigen Screen - Final 06/30/24 01:01 Nasopharnyx Influenza Type B Antigen Screen - Final <Socorro Barrett - Last Filed: 06/30/24 12:34> Assessment and Plan - Problems (Diagnosis) (1) Influenza Status: Acute (2) Renal insufficiency Status: Acute (3) A-fib Status: Acute (4) Dyslipidemia (high LDL; low HDL) Status: Acute (5) HTN (hypertension) Status: Acute - Plan Influenza: Admit to floor Pulmonology consulted Given Tamiflu, ibuprofen, [place] 5/325, prednisone, Tessalon Perle, and breathing treatment in ED CXR revealed no acute abnormality Renal insufficiency: Current creatinine 2.60 IVF ordered Renal ultrasound ordered Hypertension: Cardiology consulted for elevated BNP Will continue to trend BNP Echocardiogram not ordered due to elevated creatinine Heart healthy diet HDL: Resume atorvastatin home medication History of pulmonary embolism: Has right IVC filter placement On Xarelto - Advance Directives Does patient have a Living Will: No Does patient have a Durable POA for Healthcare: No <Socorro Barrett Q - Last Filed: 06/30/24 12:34> Date of Service: 06/30/24 Chart has been reviewed. Events of the last 24 hours have been noted. Case discussed with [facility]. I performed a substantial part of the MDM during this patient's care today. I personally made or approved the documented management plan and acknowledge its risk of complications. I agree with the findings and documentation provided in the CUATE's notes <Devaughn Muhammad - Last Filed: 07/07/24 02:35>
[2024-06-30] MEDS ORDERED: ALBUTEROL 2.5 MG/3 ML NEB SOL NEB SCH (13:00)
--- NOTE | 2024-06-30 13:42 | RAD REPORT ---
EXAMINATION: US RENAL ULTRASOUND CLINICAL INDICATION: Renal failure TECHNIQUE: Real-time ultrasonography of the abdomen was performed. COMPARISON: 07/25/2022 FINDINGS: RIGHT KIDNEY: Right renal length measurement: 10.2 x 5.2 x 4.6 cm. Mild increased echogenicity is pre sent. Small cysts are present. LEFT KIDNEY: Left renal length measurement: 11.1 x 5.2 x 4.6 cm. Mild increased echogenicity is prese nt. Small cysts are noted. URINARY BLADDER: Incompletely distended without gross abnormality detected. ADDITIONAL FINDINGS: None. IMPRESSION: Bilateral increased echogenicity affects both kidneys likely indicating underlying medical renal dise ase. No hydronephrosis or worrisome mass. Small benign bilateral renal cysts.
[2024-06-30] MEDS ORDERED: SOD POLYSTYREN SUL 15 GM/60 ML UCUP ONE (15:43)
[2024-06-30] MEDS: SOD POLYSTYREN SUL 15 GM/60 ML UCUP PO ONE (16:13)
[2024-06-30] MEDS ORDERED: RIVAROXABAN 15 MG TABLET PO SCH (17:00)
[2024-06-30] MEDS: ATORVASTATIN 20 MG TAB PO SCH (20:19)
[2024-07-01 06:13] LABS: Absolute Lymphocytes (CBC) 0.5 K/uL (0.7-4.9); Absolute Monocytes 0.6 K/uL (0.1-1.3); Absolute Neutrophil 5.7 K/uL (1.8-8.0); Basophils % 0.1 % (0-1.3); Hematocrit 34.8 % (39.6-49.0); Hemoglobin 11.6 g/dL (13.6-17.9); Lymphocytes % 7.1 % (15.3-44.8); MCH 31.3 pg (27.0-35.0); MCHC 33.2 g/dL (32.0-36.0); MCV 94.3 fL (80-100); MPV 8.3 fL (7.6-11.3); Monocytes % 8.4 % (3.3-12.3); Neutrophils % 84.4 % (41.7-73.7); Nucleated Red Blood Cells % 0.1 % (0-0); Platelets 147 thou/uL (152-406); RBC Red Blood Cell Count 3.69 M/uL (4.33-5.43); Red Cell Distribution Width 14.5 % (12.1-15.2)
[2024-07-01 06:26] LABS: Anion Gap 8.9 mEq/L (5.0-15.0); Magnesium 2.1 mg/dL (1.6-2.4); Potassium 4.9 mEq/L (3.5-5.1)
[2024-07-01] MEDS: ALBUTEROL 2.5 MG/3 ML NEB SOL NEB PRN (07:57)
[2024-07-01] MEDS: OSELTAMIVIR 30 MG CAP PO SCH (08:25)
--- NOTE | 2024-07-01 08:34 | P.PN ---
Date of Service: 07/01/24 subjective Nonproductive cough reports pain with coughing Review of Systems 10-point ROS is otherwise unremarkable Physical Examination - Vital Signs Reviewed - Physical Exam General: Alert, In no apparent distress HEENT: Atraumatic, PERRLA, Mucous membr. Neck: Supple, 2+ carotid pulse no bruit, Respiratory: Diminished, nonproductive cough Cardiovascular: Regular rate/rhythm, Normal S1 S2 Gastrointestinal: Normal bowel sounds, No tenderness Musculoskeletal: No tenderness Integumentary: No rashes Neurological: Normal gait, Normal speech, Assessment & Plan - Problems (Diagnosis) 1 acute hypoxic respiratory failure secondary to influenza /elevated BNP Current Visit: Yes Status: Acute Tamiflu, steroids, cough suppressant Pulmonary consult, CXR revealed no acute abnormality Admit to floor Pulmonology consulted [place] 5/325, Tessalon Perle, and breathing treatment in ED 2 elevated BNP acute Cardiology consulted for elevated BNP Will continue to trend BNP Echocardiogram not ordered due to elevated creatinine Heart healthy diet 3 acute kidney injury unknown baseline Current Visit: Yes Status: Acute IV fluids, trend kidney function Current creatinine 2.60 IVF ordered Renal ultrasound Bilateral increased echogenicity affects both kidneys likely indicating underlying medical renal disease. No hydronephrosis or worrisome mass.Small benign bilateral renal cysts 4 A-fib chronic 5 Chronic anticoagulation chronic 6 History of [place] filter chronic 7 History of pulmonary embolism Current Visit: Yes Status: Acute Home medication On Eliquis 8 Dyslipidemia (high LDL; low HDL) Current Visit: Yes Status: Acute Home medications 9 HTN (hypertension) Current Visit: Yes Status: Acute Resume atorvastatin home medication - Advance Directives Does patient have a Living Will: No Does patient have a Durable POA for Healthcare: Time with patient 35 minutes <Marcella Prater - Last Filed: 07/01/24 21:23> Chart has been reviewed. Events of the last 24 hours have been noted. Case discussed with [facility]. I performed a substantial part of the MDM during this patient's care today. I personally made or approved the documented management plan and acknowledge its risk of complications. I agree with the findings and documentation provided in the [facility]'s notes <Devaughn Muhammad - Last Filed: 07/07/24 02:35>
[2024-07-01 09:48] LABS: Sqamous Epithelial None Seen /HPF (None Seen); Urine Bacteria None Seen /HPF (<20); Urine Bilirubin NEGATIVE (Negative); Urine Blood 2+ (Negative); Urine Clarity Clear (Clear); Urine Color Light-Yellow (Yellow); Urine Culture Reflex Order NOT NEEDED; Urine Glucose 2+ (Negative); Urine Ketones NEGATIVE (Negative); Urine Microscopic Reflex YN ORDER UMIC; Urine Mucus Slight /HPF (None Seen); Urine Nitrite NEGATIVE (Negative); Urine Protein 3+ (Negative); Urine RBC 21-50 /HPF (None Seen); Urine Urobilinogen Normal (Normal); Urine WBC <5 /HPF (<5)
[2024-07-01] MEDS: HYDROMORPHONE HCL 0.5 MG/0.5 ML INJ IV ONE (11:17)
[2024-07-01] MEDS: METHYLPREDNISOLONE 125 MG INJ IV SCH (11:18)
--- NOTE | 2024-07-01 17:46 | P.CNS ---
Date of Consult: 07/01/24 Chief Complaint: Influenza, renal insufficiency History of Present Illness: Patient presented with worsening SOB, non productive cough, associated with chest soreness, diagnosed with flu, denies any other cardiac symptoms. Allergies Morpholine Analogues Allergy (Severe, Verified 12/29/13 22:12) Psychosis tramadol Allergy (Intermediate, Verified 12/29/13 22:12) Can't urinate butorphanol tartrate [From Stadol] Allergy (Unknown, Verified 12/29/13 22:12) headache/hot codeine Allergy (Unverified 09/19/16 23:49) Unknown morphine Allergy (Verified 12/29/13 22:12) psychosis Stadol Allergy (Mild, Uncoded 12/29/13 22:12) Headache BP me Allergy (Uncoded 12/17/17 18:33) Unknown Tramadol HCl Allergy (Uncoded 08/01/14 22:46) Unknown Home medications list reviewed: Yes Home Medications: Aspirin Enteric Coated [ASPIRIN 81 MG EC*] 81 mg PO DAILY #30 tab 04/04/13 Rivaroxaban [Xarelto*] 20 mg PO DAILY AT SUPPER #30 tablet 04/04/13 Zolpidem Tartrate [Ambien*] 5 mg PO BEDTIME PRN PRN #30 tablet 04/04/13 Pantoprazole [Protonix Tab*] 40 mg PO DAILY #30 tab 12/31/13 Atorvastatin Calcium [Lipitor*] 20 mg PO BEDTIME 06/30/24 Albuterol Neb [Proventil 0.083% Neb Soln] 2.5 mg NEB Q6HP PRN #60 amp 07/01/24 Arformoterol Tartrate [Brovana] 15 mcg NEB BIDRESP #60 vial.neb 07/01/24 Cyclobenzaprine [Flexeril] 10 mg PO BID PRN #20 tab 07/01/24 Gabapentin [Neurontin*] 100 mg PO TID #90 cap 07/01/24 Guaifen W/Codeine Syrup [ROBITUSSIN A-C Syrup*] 10 ml PO BIDP PRN #150 ml 07/01/24 Oseltamivir Phosphate [Tamiflu] 30 mg PO DAILY #5 cap 07/01/24 predniSONE [Deltasone] 10 mg PO BID #40 tab 07/01/24 - Past Medical/Surgical History Diabetic: No -: HTN -: History of pulmonary embolism s/p right IVC filter -: HDL -: Vascular necrosis bilateral femur head -: Shingles -: TB exposure -: A-fib on Xarelto -: Appendectomy -: Biopsy of kidney -: agatha filter - Social History Smoking Status: Current every day smoker Alcohol use: No CD- Drugs: No Caffeine use: Yes Review of Systems 10-point ROS is otherwise unremarkable Physical Examination Temp Pulse Resp BP Pulse Ox 98.1 F 71 18 127/74 95 07/01/24 16:00 07/01/24 16:00 07/01/24 16:00 07/01/24 16:00 07/01/24 16:00 General: Alert, In no apparent distress HEENT: Atraumatic, PERRLA, Mucous membr. moist/pink, EOMI, Sclerae nonicteric Neck: Supple, 2+ carotid pulse no bruit, No LAD, Without JVD or thyroid abnormality Respiratory: Clear to auscultation bilaterally, Normal air movement Cardiovascular: Regular rate/rhythm, Normal S1 S2 Gastrointestinal: Normal bowel sounds, No tenderness Musculoskeletal: No tenderness Integumentary: No rashes Neurological: Normal gait, Normal speech, Normal tone, Normal affect Lymphatics: No axilla or inguinal lymphadenopathy - Problems (1) SOB (shortness of breath) Current Visit: Yes Status: Acute Plan: Echo reviewed and shows normal EF, DD with elevated filling pressure Lasix 40 mg po daily monitor input and output and electrolytes. (2) A-fib Current Visit: Yes Status: Acute Plan: Patient is currently in sinus rhythm. continue Xarelto
[2024-07-01] MEDS: NA CHLORIDE 0.9% 1,000 ML IV SCH (23:37)
[2024-07-02] MEDS: FUROSEMIDE 40 MG/4 ML VIAL IV ONE (05:45)
[2024-07-02 07:36] LABS: Absolute Lymphocytes (CBC) 0.3 K/uL (0.7-4.9); Absolute Monocytes 0.1 K/uL (0.1-1.3); Absolute Neutrophil 9.7 K/uL (1.8-8.0); Basophils % 0.1 % (0-1.3); Hematocrit 37.3 % (39.6-49.0); Hemoglobin 12.2 g/dL (13.6-17.9); Lymphocytes % 3.4 % (15.3-44.8); MCHC 32.8 g/dL (32.0-36.0); MCV 94.5 fL (80-100); Monocytes % 1.3 % (3.3-12.3); Neutrophils % 95.2 % (41.7-73.7); Platelets 172 thou/uL (152-406); RBC Red Blood Cell Count 3.94 M/uL (4.33-5.43); Red Cell Distribution Width 14.9 % (12.1-15.2)
[2024-07-02 07:54] LABS: Anion Gap 12.8 mEq/L (5.0-15.0); Magnesium 2.1 mg/dL (1.6-2.4); Potassium 4.8 mEq/L (3.5-5.1)
[2024-07-02 09:15] VITALS: O2SAT 94
[2024-07-02 10:05] VITALS: BP 159/93; TEMP 97.8
--- NOTE | 2024-07-02 17:56 | P.DS ---
Admission Date: 06/30/24 Discharge Date: 07/02/24 Reason for Admission: Influenza, renal insufficiency Brief History of Present Illness: 68-year-old man with a past medical history significant for A-fib on Xarelto, HTN, HDL, and history of pulmonary embolism s/p right IVC filter placement presented to the emergency room complaining of shortness of breath x 3 days. The patient tested positive for influenza. He states he has a chronic dry cough, that he believes "is worsening". Also, the patient states he has a" kidney appointment" scheduled for next month to rule out any chronic kidney disease. 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 The patient is a former smoker, who quit a week ago. He is not on home oxygen. The patient denies fever, and urinary symptoms. - Physical Exam General: Oriented x3 HEENT: Atraumatic, Normocephalic Neck: JVD not distended Respiratory: Expiratory wheezes (Right lung) Cardiovascular: No edema, Regular rate/rhythm, No gallops, No rubs, No murmurs Gastrointestinal: Normal bowel sounds, Non-distended, No tenderness Musculoskeletal: No swelling, No erythema, No tenderness, No warmth Neurological: Normal strength at 5/5 x4 extr, Sensation intact Hospital Course: 68-year-old man with a past medical history significant for A-fib on Xarelto, HTN, HDL, and history of pulmonary embolism s/p right IVC filter placement presented to the emergency room complaining of shortness of breath x 3 days. The patient tested positive for influenza. He states he has a chronic dry cough, that he believes "is worsening". He was noted to have influenza, renal insufficency, Afib,. He was noted to have acute hypoxic respiratory failure secondary to influenza, elevated BNP, acute kidney injury, A-fib. Improved on Tamiflu, cough medications, steroids, stable to discharge home, follow-up with pulmonary after discharge Discharge medication Nebulizers, steroids, Tamiflu, cough medications, inhalers, take as instructed Weaned to room air, at discharge Assessment Acute hypoxic respiratory failure secondary to influenza, elevated BNP, improved Treated with diuretics, steroids, nebulizers, cough medications, oxygen, plan to discharge home on Tamiflu, nebs, inhalers, patient to follow-up with pulmonary after discharge Acute kidney injury, follow-up with PCP after discharge to monitor kidney function Renal ultrasound Renal ultrasound Bilateral increased echogenicity affects both kidneys likely indicating underlying medical renal disease. No hydronephrosis orworrisome mass.Small benign bilateral renal cysts A-fib, chronic anticoagulation, history of a Radha filter, history of a pulmonary PE, resume home antilipid, antihypertensives, anticoagulation after discharge Continue home medicines as previously prescribed GOAL: Clear understanding of disease process INSTRUCTIONS: Physician Discharge Instructions: -Plan for pulmonary after discharge, follow-up with -Follow-up with cardiology after discharge -Follow-up with PCP in 1 to 2 weeks -Please call Dr. Muhammad at [phone] if any questions regarding hospital stay -Please call nursing station at [phone] if any nursing or medication questions -Return to the emergency room if symptoms worsen Diet: ADA, low sodium Activity: Fall precautions <Marcella Prater - Last Filed: 07/04/24 21:36> Admission Date: 06/30/24 Discharge Date: 07/02/24 Hospital Course: Chart has been reviewed. Events of the last 24 hours have been noted. Case discussed with [facility]. I performed a substantial part of the MDM during this patient's care today. I personally made or approved the documented management plan and acknowledge its risk of complications. I agree with the findings and documentation provided in the CUATE's notes <Devaughn Muhammad - Last Filed: 07/07/24 02:35> Disposition: ROUTINE DISCHARGE Discharge Condition: GOOD Vital Signs/Physical Exam: Temp Pulse Resp BP Pulse Ox 97.8 F 70 17 159/93 H 98 07/02/24 08:00 07/02/24 08:00 07/02/24 08:31 07/02/24 08:00 07/02/24 08:31 Laboratory Data at Discharge: WBC 10.10 thou/uL (4.3-10.9) 07/02/24 07:22 Hgb 12.2 g/dL (13.6-17.9) L 07/02/24 07:22 Hct 37.3 % (39.6-49.0) L 07/02/24 07:22 Plt Count 172 thou/uL (152-406) 07/02/24 07:22 PT 12.0 SECONDS (9.4-12.5) 06/30/24 00:53 INR 1.07 06/30/24 00:53 Sodium 136 mEq/L (136-145) 07/02/24 07:22 Potassium 4.8 mEq/L (3.5-5.1) 07/02/24 07:22 BUN 50 mg/dL (7-18) H 07/02/24 07:22 Creatinine 2.36 mg/dL (0.70-1.30) H 07/02/24 07:22 Glucose 294 mg/dL (74-106) H 07/02/24 07:22 Magnesium 2.1 mg/dL (1.6-2.4) 07/02/24 07:22 Total Bilirubin 0.4 mg/dL (0.2-1.0) 06/30/24 00:53 AST 26 U/L (15-37) 06/30/24 00:53 ALT 22 U/L (16-61) 06/30/24 00:53 Alkaline Phosphatase 72 U/L (45-117) 06/30/24 00:53 <Marcella Prater - Last Filed: 07/04/24 21:36> Vital Signs/Physical Exam: Temp Pulse Resp BP Pulse Ox 97.8 F 70 17 159/93 H 98 07/02/24 08:00 07/02/24 08:00 07/02/24 08:31 07/02/24 08:00 07/02/24 08:31 Laboratory Data at Discharge: WBC 10.10 thou/uL (4.3-10.9) 07/02/24 07:22 Hgb 12.2 g/dL (13.6-17.9) L 07/02/24 07:22 Hct 37.3 % (39.6-49.0) L 07/02/24 07:22 Plt Count 172 thou/uL (152-406) 07/02/24 07:22 PT 12.0 SECONDS (9.4-12.5) 06/30/24 00:53 INR 1.07 06/30/24 00:53 Sodium 136 mEq/L (136-145) 07/02/24 07:22 Potassium 4.8 mEq/L (3.5-5.1) 07/02/24 07:22 BUN 50 mg/dL (7-18) H 07/02/24 07:22 Creatinine 2.36 mg/dL (0.70-1.30) H 07/02/24 07:22 Glucose 294 mg/dL (74-106) H 07/02/24 07:22 Magnesium 2.1 mg/dL (1.6-2.4) 07/02/24 07:22 Total Bilirubin 0.4 mg/dL (0.2-1.0) 06/30/24 00:53 AST 26 U/L (15-37) 06/30/24 00:53 ALT 22 U/L (16-61) 06/30/24 00:53 Alkaline Phosphatase 72 U/L (45-117) 06/30/24 00:53 <Devaughn Muhammad - Last Filed: 07/07/24 02:35> Diet: AHA Activity: Fall precautions Time spent managing pt's care (in minutes): 45 <Marcella Prater - Last Filed: 07/04/24 21:36> <Devaughn Muhammad - Last Filed: 07/07/24 02:35> Home Medications: Aspirin Enteric Coated [ASPIRIN 81 MG EC*] 81 mg PO DAILY #30 tab 04/04/13 Rivaroxaban [Xarelto*] 20 mg PO DAILY AT SUPPER #30 tablet 04/04/13 Zolpidem Tartrate [Ambien*] 5 mg PO BEDTIME PRN PRN #30 tablet 04/04/13 Pantoprazole [Protonix Tab*] 40 mg PO DAILY #30 tab 12/31/13 Atorvastatin Calcium [Lipitor*] 20 mg PO BEDTIME 06/30/24 Albuterol Neb [Proventil 0.083% Neb Soln] 2.5 mg NEB Q6HP PRN #60 amp 07/01/24 Arformoterol Tartrate [Brovana] 15 mcg NEB BIDRESP #60 vial.neb 07/01/24 Cyclobenzaprine [Flexeril] 10 mg PO BID PRN #20 tab 07/01/24 Gabapentin [Neurontin*] 100 mg PO TID #90 cap 07/01/24 Guaifen W/Codeine Syrup [ROBITUSSIN A-C Syrup*] 10 ml PO BIDP PRN #150 ml 07/01/24 Oseltamivir Phosphate [Tamiflu] 30 mg PO DAILY #5 cap 07/01/24 predniSONE [Deltasone] 10 mg PO BID #40 tab 07/01/24 Gabapentin 100 mg PO TID #90 tab 07/03/24 Guaifen W/Codeine Syrup [ROBITUSSIN A-C Syrup] 10 ml PO Q12HP PRN #150 ml 07/03/24 New Medications: Arformoterol Tartrate [Brovana] 15 mcg NEB BIDRESP #60 vial.neb Cyclobenzaprine [Flexeril] 10 mg PO BID PRN #20 tab PRN Reason: Muscle Spasms Gabapentin 100 mg PO TID #90 tab Gabapentin [Neurontin*] 100 mg PO TID #90 cap predniSONE [Deltasone] 10 mg PO BID #40 tab Albuterol Neb [Proventil 0.083% Neb Soln] 2.5 mg NEB Q6HP PRN #60 amp PRN Reason: sob Guaifen W/Codeine Syrup [ROBITUSSIN A-C Syrup*] 10 ml PO BIDP PRN #150 ml PRN Reason: Cough Guaifen W/Codeine Syrup [ROBITUSSIN A-C Syrup] 10 ml PO Q12HP PRN #150 ml PRN Reason: Cough Oseltamivir Phosphate [Tamiflu] 30 mg PO DAILY #5 cap Physician Discharge Instructions: [facility] Continuing Nurse Informaticist Call Nancy Becker MA at [phone] for questions or concerns after discharge. Expect a call within 1-2 business days of discharge. -DC IV and DC home -Follow-up with PCP in 1 to 2 weeks -Follow-up with Pulmonary in 1 to 2 weeks -Follow-up with Cardiology in 1 to 2 weeks -Please call Dr. Muhammad at [phone] if any questions regarding hospital stay -Please call nursing station at [phone] if any nursing or medication questions -Return to the emergency room if symptoms worsen Followup: Barber Mcguire MD [ACTIVE - CAN ADMIT] - 1-2 Weeks Edilson Melendez MD [ACTIVE - CAN ADMIT] - 1-2 Weeks Daniel Rodríguez, [Primary Care Provider] - 1-2 Weeks
--- NOTE | 2024-07-03 15:59 | EKG ---
Test Date: 2024-06-30 Test Time: 00:51:48 Clerical Administrator: SHELDON MEASUREMENT RESULTS: Intervals: Rate: 89 KS: QRSD: 82 QT: 336 QTc: 408 Wright: P: KS: QRS: 36 T: 59 INTERPRETIVE STATEMENTS: Atrial fibrillation Abnormal ECG Compared to ECG 03/11/2022 20:38:44 No significant changes Electronically Signed On 07-03-24 15:53:16 [facility]URNER IN by Edilson Melendez
--- NOTE | 2024-07-13 12:31 | ECHO ---
HEIGHT: 5 ft 8 in WEIGHT: 188 lb 0 oz DATE OF STUDY: 07/01/[address]: Barber Mcguire MD 2-DIMENSIONAL: YES M.MODE: YES DOPPLER: YES COLOR FLOW: YES TDS: NO PORTABLE: YES DEFINITY: NO BUBBLE STUDY: NO DIAGNOSIS: POSSIBLE CONGESTIVE HEART FAILURE CARDIAC HISTORY: CATHERIZATION: NO SURGERY: NO PROSTHETIC VALVE: NO PACEMAKER: NO MEASUREMENTS (cm) DIASTOLIC (NORMALS) SYSTOLIC (NORMALS) IVSd 1.3 (0.6-1.2) LA Diam (1.9-4.0) LVEF 55% LVIDd 4.4 (3.5-5.7) LVIDs 3.3 (2.0-3.5) %FS 26% LVPWd 1.3 (0.6-1.2) Ao Diam 3.0 (2.0-3.7) 2 DIMENSIONAL ASSESSMENT: RIGHT ATRIUM: NORMAL LEFT ATRIUM: NORMAL RIGHT VENTRICLE: NORMAL LEFT VENTRICLE: NORMAL TRICUSPID VALVE: MILD TRICUSPID REGURGITATION MITRAL VALVE: NORMAL PULMONIC VALVE: NORMAL AORTIC VALVE: NORMAL PERICARDIAL EFFUSION: NONE AORTIC ROOT: NORMAL LEFT VENTRICULAR WALL MOTION: NORMAL. DOPPLER/COLOR FLOW: GRADE II DIASTOLIC DYSFUNCTION. COMMENTS: 1. NORMAL LEFT VENTRICULAR SYSTOLIC FUNCTION. LEFT VENTRICULAR EJECTION FRACTION 55%. NORMAL WALL MOTION. 2. GRADE II DIASTOLIC DYSFUNCTION. 3. ELEVATED FILLING PRESSURE. RIGHT ATRIAL PRESSURE >20 mmHg. TECHNOLOGIST: GUILLERMO DEE
== END 2024-07-02 14:00 | disposition home or self-care (01) | DRG 682 ==
LOC: ER 00:45 → ERHOLD 07:19 → 2ND 16:24
PROVIDERS: ADMIT Hospitalist; ATTEND Hospitalist
DX: N17.9 Acute kidney failure, unspecified (principal); J96.01 Acute respiratory failure with hypoxia; J44.1 Chronic obstructive pulmonary disease with (acute) exacerbation; I48.20 Chronic atrial fibrillation, unspecified; J10.1 Influenza due to other identified influenza virus with other respiratory manifestations; I11.0 Hypertensive heart disease with heart failure; I50.9 Heart failure, unspecified; E78.5 Hyperlipidemia, unspecified; F17.210 Nicotine dependence, cigarettes, uncomplicated; Z88.5 Allergy status to narcotic agent; Z79.82 Long term (current) use of aspirin; Z79.01 Long term (current) use of anticoagulants; Z79.52 Long term (current) use of systemic steroids; Z90.49 Acquired absence of other specified parts of digestive tract; Z28.310 Unvaccinated for COVID-19; Z79.899 Other long term (current) drug therapy; Z86.711 Personal history of pulmonary embolism; Z86.718 Personal history of other venous thrombosis and embolism
CPT/HCPCS: 36415; 71045; 76770; 80048; 80076; 81001; 83735; 83880; 84132; 84484; 85025; 85610; 87804; 93005; 93306; 94640; 94760; 96360; 96372; 99285; J1171; J1940; J2919; J7030; J7512; J7605; J7613; J7644

== ENCOUNTER 2024-07-08 11:06 | Inpatient (IN) | payer OTHER ==
[2024-07-08] MEDS ORDERED: LEVALBUTEROL 1.25 MG/3 ML NEB ONE (11:37)
[2024-07-08] MEDS ORDERED: METHYLPREDNISOLONE 125 MG INJ ONE (11:37)
[2024-07-08 12:25] LABS: Absolute Basophils 0.1 K/uL (0-0.5); Absolute Eosinophils 0.4 K/uL (0-0.5); Absolute Lymphocytes (CBC) 1.4 K/uL (0.7-4.9); Absolute Monocytes 1.3 K/uL (0.1-1.3); Absolute Neutrophil 6.7 K/uL (1.8-8.0); Basophils % 0.6 % (0-1.3); Eosinophils % 3.6 % (0-4.4); Hemoglobin 11.7 g/dL (13.6-17.9); Lymphocytes % 14.5 % (15.3-44.8); MCH 31.1 pg (27.0-35.0); MCHC 32.5 g/dL (32.0-36.0); MCV 95.8 fL (80-100); Monocytes % 13.3 % (3.3-12.3); Platelets 233 thou/uL (152-406); RBC Red Blood Cell Count 3.76 M/uL (4.33-5.43); Red Cell Distribution Width 14.7 % (12.1-15.2)
--- NOTE | 2024-07-08 12:25 | RAD REPORT ---
EXAMINATION: ONE VIEW CHEST XR CLINICAL INDICATION: Cough;Chest pain TECHNIQUE: Frontal chest projection is submitted. Examination is limited by patient positioning and t echnique. COMPARISON: 06/30/2024 FINDINGS: The lungs are well inflated and clear. The heart is upper limit of normal in size. No displaced fract ures identified. IMPRESSION: No acute intrathoracic abnormalities.
[2024-07-08 12:31] LABS: PT Prothrombin Time 16.4 SECONDS (9.4-12.5); PTT, Activated Partial Thromb 39.1 SECONDS (24.3-36.9); Protime INR 1.48
[2024-07-08 12:44] LABS: Albumin 2.5 g/dL (3.4-5.0); Albumin/Globulin Ratio 0.7 (1.1-1.8); Anion Gap 5.4 mEq/L (5.0-15.0); Bilirubin Total 0.3 mg/dL (0.2-1.0); Globulin 3.6 g/dL (2.3-3.5); Potassium 5.4 mEq/L (3.5-5.1); Protein, Total 6.1 g/dL (6.4-8.2)
[2024-07-08] MEDS ORDERED: KETOROLAC 30 MG/ML INJ ONE (12:51)
--- NOTE | 2024-07-08 13:33 | EDPHYS ---
Physician Documentation [facility] Name: Red Cooper Age: 68 yrs Sex: Male : 1955 Arrival Date: 07/08/2024 Time: 11:06 Bed 7 Private MD: ED Physician Santiago Pinzon HPI: 07/08 13:07 This 68 yrs old Male presents to ER via EMS with complaints of Painful Cough, sob. rn 13:07 Onset: The symptoms/episode began/occurred 1 week(s) ago. Severity of symptoms: At rn their worst the symptoms were moderate, in the emergency department the symptoms are unchanged. The patient has experienced similar episodes in the past. Patient reports admitted to our hospital for flu and breathing problems last week. [place] better while in hospital but discharged and has gotten progressively worse since being home. Reports chest pain with cough, no hemoptysis, positive wheezing. Reports does not have breathing treatments at home.. Historical: - Allergies: 11:14 Demerol; tm6 11:14 Morphine; tm6 11:14 Tramadol HCl; tm6 11:14 Stadol; tm6 - PMHx: 11:14 Hypertension; pulmonary embolus; tm6 - PSHx: 11:14 IVC filter; Left hip; cardiac stent (Left hip); Appendectomy; right rotator cuff; tm6 - Immunization history:: Flu vaccine is up to date. - Infectious Disease History:: Denies. - Social history:: Smoking status: Patient reports the use of cigarette tobacco products, smokes one-half pack cigarettes per day. - Family history:: not pertinent. - Hospitalizations: : The patient was recently seen at [facility]. ROS: 13:07 Constitutional: Negative for fever, chills, and weight loss, Neck: Negative for injury, rn pain, and swelling, Cardiovascular: Negative for palpitations, and edema Respiratory: Positive for cough and wheezing Abdomen/GI: Negative for abdominal pain, nausea, vomiting, diarrhea, and constipation, MS/Extremity: Negative for injury and deformity, Skin: Negative for injury, rash, and discoloration, Neuro: Negative for headache, weakness, numbness, tingling, and seizure, Exam: 13:07 Constitutional: This is a well developed, well nourished patient who is awake, alert, rn mild to moderate tachypnea Head/Face: Normocephalic, atraumatic. Cardiovascular: Regular rate and rhythm. No pulse deficits. Respiratory: Mild to moderate tachypnea, diffuse wheezing, no retractions Abdomen/GI: Soft, non-tender MS/ Extremity: Pulses equal, no cyanosis. Neuro: Awake and alert, GCS 15 Vital Signs: 11:12 BP 143 / 97; Pulse 81; Resp 20; Temp 98.8(O); Pulse Ox 95% on R/A; MAP 111 mmHg; Weight tm6 86.18 kg; Height 5 ft. 8 in. ; Pain 8/10; 15:50 BP 148 / 116; Pulse 73; Resp 18; Temp 98.8; Pulse Ox 99% on 2 lpm NC; MAP 127 mmHg; tm6 Pain 5/10; 11:12 Body Mass Index 28.89 (86.18 kg, 172.72 cm) tm6 11:12 Pain Scale: Adult tm6 15:50 Pain Scale: Adult tm6 MDM: 11:21 Medical Screening Exam initiated rn 13:25 Differential Diagnosis: Bronchitis Upper Respiratory Infection Viral Syndrome rn Pneumonia. Data reviewed: vital signs, nurses notes, lab test result(s), radiologic studies, plain films, and as a result, I will admit patient. Consideration of Admission/Observation Patient was admitted/placed on observation. Escalation of care including admission/observation considered. Counseling: I had a detailed discussion with the patient and/or guardian regarding the historical points, exam findings, and any diagnostic results supporting the discharge/admit diagnosis, lab results, radiology results, the need for further work-up and treatment in the hospital. Response to treatment: There is no appreciated change of the patient's symptoms at this time. ED course: Patient still reports moderate dyspnea, still tachypneic with coarse bilateral breath sounds and diffuse wheezing. Chest x-ray is clear. Will admit for COPD exacerbation. 14:16 ED course: No infectious source identified. Patient is still recovering from influenza..rn 07/08 11:25 Order name: Blood Culture Adult (2) rn 07/08 11:25 Order name: CBC with Diff; Complete Time: 12:46 rn 07/08 11:25 Order name: CMP; Complete Time: 12:46 rn 07/08 11:25 Order name: Lactate w/ 2H reflex if indic.; Complete Time: 12:46 rn 07/08 11:25 Order name: Protime (+inr); Complete Time: 12:46 rn 07/08 11:25 Order name: Ptt, Activated; Complete Time: 12:46 rn 07/08 12:24 Order name: NT PRO-BNP; Complete Time: 12:46 EDMS 07/08 14:29 Order name: SARS-COV-2 Antigen Rapid EDMS 07/08 14:29 Order name: Urinalysis w/ reflexes EDMS 07/08 14:30 Order name: Influenza Screen (A EDMS 07/08 14:30 Order name: Respiratory Syncytial Virus Ag EDMS 07/08 14:30 Order name: Basic Metabolic Panel EDMS 07/08 14:30 Order name: Basic Metabolic Panel EDMS 07/08 14:30 Order name: Basic Metabolic Panel EDMS 07/08 14:30 Order name: Basic Metabolic Panel EDMS 07/08 14:30 Order name: CBC with Automated Diff EDMS 07/08 14:30 Order name: CBC with Automated Diff EDMS 07/08 14:30 Order name: CBC with Automated Diff EDMS 07/08 14:30 Order name: CBC with Automated Diff EDMS 07/08 14:30 Order name: Magnesium EDMS 07/08 14:30 Order name: Magnesium EDMS 07/08 14:30 Order name: Magnesium EDMS 07/08 14:30 Order name: Magnesium EDMS 07/08 14:30 Order name: Phosphorus EDMS 07/08 14:30 Order name: Phosphorus EDMS 07/08 14:30 Order name: Phosphorus EDMS 07/08 14:30 Order name: Phosphorus EDMS 07/08 14:30 Order name: Sputum Culture EDMS 07/08 11:21 Order name: XRAY Chest (1 view); Complete Time: 12:46 rn 07/08 11:25 Order name: EKG; Complete Time: 11:25 rn 07/08 11:25 Order name: Accucheck; Complete Time: 12:16 rn 07/08 11:25 Order name: Cardiac monitoring; Complete Time: 12:16 rn 07/08 11:25 Order name: EKG - Nurse/Tech; Complete Time: 12:17 rn 07/08 11:25 Order name: IV Saline Lock - Large Bore; Complete Time: 12:17 rn 07/08 11:25 Order name: Labs collected and sent; Complete Time: 12:17 rn 07/08 11:25 Order name: O2 Per Protocol; Complete Time: 12:14 rn 07/08 11:25 Order name: O2 Sat Monitoring; Complete Time: 12:14 rn 07/08 11:25 Order name: Vital Signs; Complete Time: 12:14 rn Administered Medications: 12:30 Drug: MethylPrednisoLONE IVP 125 mg IVP once Route: IVP; Site: left wrist; tm6 13:03 Follow up: Response: No adverse reaction iw 12:30 Drug: Levalbuterol Inhalation 1.25 mg Inhalation once Route: Inhalation; tm6 13:03 Follow up: Response: No adverse reaction iw 12:30 Drug: Levalbuterol Inhalation 1.25 mg Inhalation once Route: Inhalation; tm6 13:03 Follow up: Response: No adverse reaction iw 12:53 Drug: Ketorolac IVP 15 mg IVP once Route: IVP; Site: left wrist; tm6 13:03 Follow up: Response: No adverse reaction iw 13:34 Drug: Tussionex Pennkinetic ER PO Suspension 5 ml PO once Route: PO; tm6 15:07 Follow up: Response: No adverse reaction tm6 Disposition Summary: 07/08/24 13:32 Hospitalization Ordered Notes: Hospitalization Status: Observation rn Provider: Brittany Martinez rn Location: Telemetry/MedSurg (observation) rn Condition: Stable rn Problem: an acute exacerbation rn Symptoms: are unchanged rn Bed/Room Type: Standard rn Room Assignment: 207(07/08/24 15:06) bd Diagnosis - COPD/ Chronic obstructive pulmonary disease with (acute) exacerbation rn Forms: - Medication Reconciliation Form rn - SBAR form rn - Leadership Thank You Letter rn Signatures: Dispatcher [employer] EDMS Khushbu Rice Roman, MD MD rn Masterson, Tawney, RN RN tm6 Aleshia Song RN iw Corrections: (The following items were deleted from the chart) 11:21 11:21 Chest Single View+RAD.RAD.BRZ ordered. EDMS EDMS 12:23 11:25 Chest Single View+RAD.RAD.BRZ ordered. EDMS EDMS 12:24 11:31 PROBNP+C.LAB.BRZ ordered. EDMS EDMS 12:48 11:25 Chest For PE Angio+CT.RAD.BRZ ordered. EDMS EDMS 15:06 13:32 rn bd
--- NOTE | 2024-07-08 13:33 | ER ---
Nurse's Notes [facility] Name: Red Cooper Age: 68 yrs Sex: Male : 1955 Arrival Date: 07/08/2024 Time: 11:06 Bed 7 Private MD: Diagnosis: COPD/ Chronic obstructive pulmonary disease with (acute) exacerbation Presentation: 07/08 11:12 Chief complaint: EMS states: here about a week ago for the flu, was admitted, and tm6 released a few days ago. Since discharge, patient has been having persistent cough and wheezing. Patient states cough is painful. DuoNeb administered by EMS. Coronavirus screen: Client denies travel out of the [place] in the last 14 days. Ebola Screen: Patient negative for fever greater than or equal to 101.5 degrees Fahrenheit, and additional compatible Ebola Virus Disease symptoms Patient denies exposure to infectious person. Patient denies travel to an Ebola-affected area in the 21 days before illness onset. No symptoms or risks identified at this time. Initial Sepsis Screen: Does the patient meet any 2 criteria? RR > 20 per min. No. Patient's initial sepsis screen is negative. Does the patient have a suspected source of infection? No. Patient's initial sepsis screen is negative. Initial Sepsis Screen: Does the patient meet any 2 criteria?. Risk Assessment: Do you want to hurt yourself or someone else? Patient reports no desire to harm self or others. Onset of symptoms was July 06, 2024. 11:12 Method Of Arrival: EMS: [facility] 6 11:12 Acuity: JENNY 3 tm6 11:17 Care prior to arrival: Medication(s) given: duo neb. tm6 Triage Assessment: 11:14 General: Appears in no apparent distress. uncomfortable, Behavior is calm, cooperative. tm6 Pain: Complains of pain in lungs Pain currently is 8 out of 10 on a pain scale. Pain began 2-3 days ago. EENT: No signs and/or symptoms were reported regarding the EENT system. Neuro: Level of Consciousness is awake, alert, obeys commands, Oriented to person, place, time, situation. Cardiovascular: Patient's skin is warm and dry. Respiratory: Reports cough that is non-productive, persistent pain with cough Pain is 8 out of 10 on a pain scale. Airway is patent Respiratory effort is even, unlabored, Respiratory pattern is regular, symmetrical. GI: No signs and/or symptoms were reported involving the gastrointestinal system. Abdomen is round non-distended. : No signs and/or symptoms were reported regarding the genitourinary system. Derm: No signs and/or symptoms reported regarding the dermatologic system. Musculoskeletal: No signs and/or symptoms reported regarding the musculoskeletal system. Historical: - Allergies: 11:14 Demerol; tm6 11:14 Morphine; tm6 11:14 Tramadol HCl; tm6 11:14 Stadol; tm6 - PMHx: 11:14 Hypertension; pulmonary embolus; tm6 - PSHx: 11:14 IVC filter; Left hip; cardiac stent (Left hip); Appendectomy; right rotator cuff; tm6 - Immunization history:: Flu vaccine is up to date. - Infectious Disease History:: Denies. - Social history:: Smoking status: Patient reports the use of cigarette tobacco products, smokes one-half pack cigarettes per day. - Family history:: not pertinent. - Hospitalizations: : The patient was recently seen at [facility]. Screenin:16 [facility] ED Fall Risk Assessment (Adult) History of falling in the last 3 months, tm6 including since admission No falls in past 3 months (0 pts) Confusion or Disorientation No (0 pts) Intoxicated or Sedated No (0 pts) Impaired Gait No (0 pts) Mobility Assist Device Used No (0 pt) Altered Elimination No (0 pt) Score/Fall Risk Level 0 - 2 = Low Risk Oriented to surroundings, Maintained a safe environment, Educated pt \T\ family on fall prevention, incl call for assistance when getting out of bed. Abuse screen: Denies threats or abuse. Denies injuries from another. Nutritional screening: No deficits noted. Tuberculosis screening: No symptoms or risk factors identified. Assessment: 11:16 Reassessment: see triage assessment. tm6 15:52 Reassessment: Patient and/or family updated on plan of care and expected duration. Pain tm6 level reassessed. Patient is alert, oriented x 3, equal unlabored respirations, skin warm/dry/pink. patient refused swabs. Vital Signs: 11:12 BP 143 / 97; Pulse 81; Resp 20; Temp 98.8(O); Pulse Ox 95% on R/A; MAP 111 mmHg; Weight tm6 86.18 kg; Height 5 ft. 8 in. ; Pain 8/10; 15:50 BP 148 / 116; Pulse 73; Resp 18; Temp 98.8; Pulse Ox 99% on 2 lpm NC; MAP 127 mmHg; tm6 Pain 5/10; 11:12 Body Mass Index 28.89 (86.18 kg, 172.72 cm) tm6 11:12 Pain Scale: Adult tm6 15:50 Pain Scale: Adult tm6 ED Course: 11:11 Patient arrived in ED. tm6 11:14 Triage completed. tm6 11:14 Arm band placed on right wrist. tm6 11:16 Patient has correct armband on for positive identification. Bed in low position. Call tm6 light in reach. Side rails up X 1. Provided Education on: use of call tong. Client placed on continuous cardiac and pulse oximetry monitoring. NIBP monitoring applied. Pulse ox on. NIBP on. Door closed. Noise minimized. Pillow given. 11:21 Santiago Pinzon MD is Attending Physician. rn 11:33 Topher Fuentes, JAYA is Primary Nurse. tm6 11:50 EKG done, by ED staff, reviewed by Santiago Pinzon MD. zm 12:00 First set of blood cultures drawn by me. zm 12:15 Initial lab(s) drawn, by me, sent to lab. Second set of blood cultures drawn by me. zm Inserted saline lock: 20 gauge in left wrist, using aseptic technique. Blood collected. Flushed with 10 mL NS. 12:19 Blood Culture Adult (2) Sent. zm 12:19 CBC with Diff Sent. zm 12:19 CMP Sent. zm 12:19 Lactate w/ 2H reflex if indic. Sent. zm 12:19 Protime (+inr) Sent. zm 12:19 Ptt, Activated Sent. zm 12:24 XRAY Chest (1 view) In Process Unspecified. EDMS 13:32 Brittany Martinez is Hospitalizing Provider. rn 15:52 No provider procedures requiring assistance completed. tm6 16:24 Patient admitted, IV remains in place. tm6 Administered Medications: 12:30 Drug: MethylPrednisoLONE IVP 125 mg IVP once Route: IVP; Site: left wrist; tm6 13:03 Follow up: Response: No adverse reaction iw 12:30 Drug: Levalbuterol Inhalation 1.25 mg Inhalation once Route: Inhalation; tm6 13:03 Follow up: Response: No adverse reaction iw 12:30 Drug: Levalbuterol Inhalation 1.25 mg Inhalation once Route: Inhalation; tm6 13:03 Follow up: Response: No adverse reaction iw 12:53 Drug: Ketorolac IVP 15 mg IVP once Route: IVP; Site: left wrist; tm6 13:03 Follow up: Response: No adverse reaction iw 13:34 Drug: Tussionex Pennkinetic ER PO Suspension 5 ml PO once Route: PO; tm6 15:07 Follow up: Response: No adverse reaction tm6 Medication: 11:16 VIS not applicable for this client. tm6 Outcome: 13:32 Decision to Hospitalize by Provider. rn 16:24 Admitted to Med/surg accompanied by tech, room 207, with oxygen, with chart, tm6 16:24 Condition: stable 16:24 Instructed on the need for admit, 16:24 Patient left the ED. tm6 Signatures: Dispatcher [employer] Aleshia Perez RN RN iw Nieto, Roman, MD MD rn Martinez, Zaina zm Masterson, Tawney, RN RN tm6 Corrections: (The following items were deleted from the chart) 12:24 12:19 PROBNP+C.LAB.BRZ drawn and sent. carlos CROCKER
[2024-07-08] MEDS ORDERED: HYDROCODONE/CHLORPHEN 5 ML/OSYR ONE (13:34)
--- NOTE | 2024-07-08 13:54 | P.HP ---
Certification for Inpatient Patient admitted to: Observation With expected LOS: <2 Midnights Patient will require the following post-hospital care: None Practitioner: I am a practitioner with admitting privileges, knowledge of patient current condition, hospital course, and medical plan of care. Services: Services provided to patient in accordance with Admission requirements found in Title 42 Section 412.3 of the Code of Federal Regulations Patient History Date of Service: 07/08/24 Reason for admission: postviral bronchitis History of Present Illness: Red Cooper is a 68-year-old male with past medical history of HTN, pulmonary embolism s/p right IVC filter, HDL, vascular necrosis bilateral femur head, shingles, TB exposure, A-fib on xarelto, who presents to the ED with chief complaint of shortness of breath and cough for 1 week. Chest x-ray reports "The lungs are well inflated and clear. The heart is upper limit of normal in size. No displaced fractures identified." He was recently discharged on July 02 at which time he was diagnosed with flu. He was able to be weaned off of oxygen prior to that discharge. He reports not having oxygen or nebulizer treatments at home. While in the ED he was given steroids, nebulizer treatments, Toradol. Laboratory evaluation significant for potassium 5.4, BUN/creatinine 44/1.75, GFR 41, serum glucose 120, BNP 2767. Vitals while in the ER are stable. Kenneth will be admitted to hospital service for further evaluation and treatment of acute hypoxic respiratory distress secondary to post viral bronchitis. Allergies Morpholine Analogues Allergy (Severe, Verified 12/29/13 22:12) Psychosis tramadol Allergy (Intermediate, Verified 12/29/13 22:12) Can't urinate butorphanol tartrate [From Stadol] Allergy (Unknown, Verified 12/29/13 22:12) headache/hot codeine Allergy (Unverified 09/19/16 23:49) Unknown morphine Allergy (Verified 12/29/13 22:12) psychosis Stadol Allergy (Mild, Uncoded 12/29/13 22:12) Headache BP me Allergy (Uncoded 12/17/17 18:33) Unknown Tramadol HCl Allergy (Uncoded 08/01/14 22:46) Unknown Home Medications: Aspirin Enteric Coated [ASPIRIN 81 MG EC*] 81 mg PO DAILY #30 tab 04/04/13 Rivaroxaban [Xarelto*] 20 mg PO DAILY AT SUPPER #30 tablet 04/04/13 Zolpidem Tartrate [Ambien*] 5 mg PO BEDTIME PRN PRN #30 tablet 04/04/13 Pantoprazole [Protonix Tab*] 40 mg PO DAILY #30 tab 12/31/13 Atorvastatin Calcium [Lipitor*] 20 mg PO BEDTIME 06/30/24 Albuterol Neb [Proventil 0.083% Neb Soln] 2.5 mg NEB Q6HP PRN #60 amp 07/01/24 Arformoterol Tartrate [Brovana] 15 mcg NEB BIDRESP #60 vial.neb 07/01/24 Cyclobenzaprine [Flexeril] 10 mg PO BID PRN #20 tab 07/01/24 Gabapentin [Neurontin*] 100 mg PO TID #90 cap 07/01/24 Guaifen W/Codeine Syrup [ROBITUSSIN A-C Syrup*] 10 ml PO BIDP PRN #150 ml 07/01/24 Oseltamivir Phosphate [Tamiflu] 30 mg PO DAILY #5 cap 07/01/24 predniSONE [Deltasone] 10 mg PO BID #40 tab 07/01/24 Gabapentin 100 mg PO TID #90 tab 07/03/24 Guaifen W/Codeine Syrup [ROBITUSSIN A-C Syrup] 10 ml PO Q12HP PRN #150 ml 07/03/24 - Past Medical/Surgical History Diabetic: No -: HTN -: History of pulmonary embolism s/p right IVC filter -: HDL -: Vascular necrosis bilateral femur head -: Shingles -: TB exposure -: A-fib on Xarelto -: Appendectomy -: Biopsy of kidney -: agatha filter - Social History Smoking Status: Former smoker (quit two weeks ago) Alcohol use: No CD- Drugs: No Caffeine use: Yes Review of Systems Respiratory: Cough, Shortness of Breath Physical Examination - Physical Exam General: Alert, Oriented x3, Acute distress, Other (lethargic) HEENT: Atraumatic, Normocephalic, PERRLA Neck: Supple, 2+ carotid pulse no bruit Respiratory: Normal air movement, Expiratory wheezes Cardiovascular: Normal pulses, Regular rate/rhythm, Normal S1 S2 Capillary refill: <2 Seconds Gastrointestinal: Normal bowel sounds, Soft and benign, No tenderness, Distended (obese) Musculoskeletal: No clubbing Integumentary: No rashes Neurological: Normal speech, Normal tone - Studies Laboratory Data (last 24 hrs) 07/08/24 07/08/24 07/08/24 12:15 12:15 12:15 WBC 9.80 Hgb 11.7 L Hct 36.0 L Plt Count 233 PT 16.4 H INR 1.48 APTT 39.1 H Sodium 141 Potassium 5.4 H BUN 44 H Creatinine 1.75 H Glucose 120 H Total Bilirubin 0.3 AST 19 ALT 42 Alkaline Phosphatase 70 Assessment and Plan - Plan Assessment and plan Post viral bronchitis -Chest x-ray reports "The lungs are well inflated and clear. The heart is upper limit of normal in size. No displaced fractures identified." -duonebs -robitussin DM and tessalon perle -Flu, COVID, RSV pending -Supportive care Hypokalemia -K 5.4 -monitor in AM labs -kayexalate x1 dose CKD -BUN/creatinine 44/1.75, GFR 41 -monitor in AM labs Hyperglycemia -Serum glucose 120 -A1C in the AM HTN/ HDL pulmonary embolism s/p right IVC filter shingles TB exposure A-fib on xarelto -continue home medications DVT ppx eliquis Full code LOS 2 days Discharge Plan: Home - Advance Directives Does patient have a Living Will: No Does patient have a Durable POA for Healthcare: No
[2024-07-08] MEDS ORDERED: ACETAMINOPHEN 325 MG TABLET PO PRN (14:19)
[2024-07-08] MEDS ORDERED: ALBUTEROL 2.5 MG/3 ML NEB SOL NEB PRN (14:19)
[2024-07-08] MEDS: SOD POLYSTYREN SUL 15 GM/60 ML UCUP PO ONE (15:00)
[2024-07-08] MEDS ORDERED: GUAIFENESIN/DM 5 ML UCUP ONE (15:41)
[2024-07-08] MEDS: GUAIFENESIN/DM 5 ML UCUP PO PRN (15:49)
[2024-07-08] MEDS ORDERED: BENZONATATE 100 MG CAP PO PRN (16:18)
[2024-07-08 16:53] VITALS: BMI 28.8
[2024-07-08] MEDS ORDERED: HEPARIN 5000 UNIT/ML 1 ML VIAL SQ SCH (17:00)
[2024-07-08] MEDS ORDERED: CYCLOBENZAPRINE 10 MG TAB PO PRN (17:04)
[2024-07-08] MEDS: GUAIFENESIN/CODEINE 5ML UCUP PO PRN (17:35)
[2024-07-08] MEDS: RIVAROXABAN 20 MG TABLET PO SCH (17:35)
[2024-07-08 19:23] LABS: SARS-CoV-2 Antigen CONTROL BLUE LINE VIS/BG OK; SARS-CoV-2 Antigen Rapid Res Negative (Negative)
[2024-07-08] MEDS: HYDROCODONE/APAP 10/325 TAB PO SCH (20:20)
[2024-07-08] MEDS: GABAPENTIN 100 MG CAP PO SCH (20:21)
[2024-07-08] MEDS: IPRATROPIUM BROM 0.5MG/2.5ML NEB SCH (21:37)
[2024-07-08] MEDS: ARFORMOTEROL TARTRATE 15 MCG/2 ML VIAL.NEB NEB SCH (21:37)
[2024-07-09] MEDS: HYDROCODONE/APAP 10/325 TAB PO SCH (03:36)
[2024-07-09 06:27] LABS: Absolute Lymphocytes (CBC) 0.6 K/uL (0.7-4.9); Absolute Monocytes 0.5 K/uL (0.1-1.3); Absolute Neutrophil 9.3 K/uL (1.8-8.0); Basophils % 0.2 % (0-1.3); Hematocrit 36.1 % (39.6-49.0); Hemoglobin 11.5 g/dL (13.6-17.9); Lymphocytes % 5.5 % (15.3-44.8); MCH 30.8 pg (27.0-35.0); MCV 96.2 fL (80-100); MPV 8.1 fL (7.6-11.3); Monocytes % 4.4 % (3.3-12.3); Neutrophils % 89.9 % (41.7-73.7); Platelets 219 thou/uL (152-406); RBC Red Blood Cell Count 3.75 M/uL (4.33-5.43)
[2024-07-09 06:29] LABS: Anion Gap 9.4 mEq/L (5.0-15.0); Magnesium 2.1 mg/dL (1.6-2.4); Phosphorus 2.6 mg/dL (2.5-4.9); Potassium 5.4 mEq/L (3.5-5.1)
[2024-07-09 07:33] LABS: Blood Morphology Comment NOT SEEN (NOT SEEN); Platelet Estimate ADEQ; White Blood Cell Scan OK (OK)
--- NOTE | 2024-07-09 10:05 | P.PN ---
Date of Service: 07/09/24 Red Cooper is a 68-year-old male with past medical history of HTN, pulmonary embolism s/p right IVC filter, HDL, vascular necrosis bilateral femur head, shingles, TB exposure, A-fib on xarelto, who presents to the ED with chief complaint of shortness of breath and cough for 1 week. Chest x-ray reports "The lungs are well inflated and clear. The heart is upper limit of normal in size. No displaced fractures identified." He was recently discharged on July 02 at which time he was diagnosed with flu. He was able to be weaned off of oxygen prior to that discharge. He reports not having oxygen or nebulizer treatments at home. While in the ED he was given steroids, nebulizer treatments, Toradol. Laboratory evaluation significant for potassium 5.4, BUN/creatinine 44/1.75, GFR 41, serum glucose 120, BNP 2767. Vitals while in the ER are stable. Review of Systems Respiratory: Painful Cough, Shortness of Breath, chronic pain Physical Examination - Physical Exam General: Alert, Oriented x3, no acute distress HEENT: Atraumatic, Normocephalic, PERRLA Neck: Supple, 2+ carotid pulse no bruit Respiratory: Normal air movement, Expiratory wheezes bilaterally Cardiovascular: Normal pulses, Regular rate/rhythm, Normal S1 S2 Capillary refill: <2 Seconds Gastrointestinal: Normal bowel sounds, Soft and benign, No tenderness, Distended (obese) Musculoskeletal: No clubbing Integumentary: No rashes Neurological: Normal speech, Normal tone - Studies Laboratory Data (last 24 hrs) 07/08/24 07/08/24 07/08/24 12:15 12:15 12:15 WBC 9.80 Hgb 11.7 L Hct 36.0 L Plt Count 233 PT 16.4 H INR 1.48 APTT 39.1 H Sodium 141 Potassium 5.4 H BUN 44 H Creatinine 1.75 H Glucose 120 H Total Bilirubin 0.3 AST 19 ALT 42 Alkaline Phosphatase 70 Assessment and Plan - Plan Assessment and plan Post viral bronchitis -Chest x-ray reports "The lungs are well inflated and clear. The heart is upper limit of normal in size. No displaced fractures identified." -duonebs -robitussin DM and adin stephense -Flu, COVID, RSV negative -Supportive care, patient states he was sent home with medications but does not have O2 or a nebulizer Pt discharged with prednisone, had IV steroids in ED. Hx of AVN and CKD so careful re-integration of steroids for short course 2nd to airway constriction/swelling Hyperkalemia -K 5.4 -monitor in AM labs - same 07/09/24 CKD -BUN/creatinine 44/1.75, GFR 41 -monitor in AM labs, continues with CKD, no acute changes, creatinine down from early this month Hyperglycemia -Serum glucose 120 (steroids in ED) -A1C in the AM HTN/ HDL pulmonary embolism s/p right IVC filter shingles TB exposure A-fib on xarelto -continue home medications Chronic pain/pleuritic pain Sees pain management DVT ppx eliquis Full code LOS 2 days Discharge Plan: Home 24h - Advance Directives Does patient have a Living Will: No Does patient have a Durable POA for Healthcare: No
--- NOTE | 2024-07-09 11:28 | EKG ---
Test Date: 2024-07-08 Test Time: 11:43:17 Airconditioning Engineer: ANA MARIA MEASUREMENT RESULTS: Intervals: Rate: 78 NM: QRSD: 82 QT: 362 QTc: 412 [place]: P: NM: QRS: 4 T: 45 INTERPRETIVE STATEMENTS: Atrial fibrillation Abnormal ECG Compared to ECG 06/30/2024 00:51:48 No significant changes Electronically Signed On 07-09-24 11:27:05 THERMODYNAMICS PROFESSOR by Edilson Melendez
[2024-07-09 12:49] LABS: Specific Gravity 1.019 (1.005-1.030); Sqamous Epithelial <5 /HPF (None Seen); Urine Bacteria None Seen /HPF (<20); Urine Bilirubin NEGATIVE (Negative); Urine Blood 1+ (Negative); Urine Clarity Clear (Clear); Urine Color Light-Yellow (Yellow); Urine Culture Reflex Order NOT NEEDED; Urine Glucose 3+ (Negative); Urine Ketones NEGATIVE (Negative); Urine Microscopic Reflex YN ORDER UMIC; Urine Mucus Slight /HPF (None Seen); Urine Nitrite NEGATIVE (Negative); Urine Protein 3+ (Negative); Urine Urobilinogen Normal (Normal); Urine WBC <5 /HPF (<5); Urine Yeast (Budding) Trace /HPF (None Seen)
[2024-07-09] MEDS: FUROSEMIDE 40 MG/4 ML VIAL IV SCH (16:47)
[2024-07-09] MEDS: GUAIFENESIN/CODEINE 5ML UCUP PO SCH (16:48)
[2024-07-09] MEDS: HYDROMORPHONE HCL 0.5 MG/0.5 ML INJ IV SCH (18:22)
[2024-07-09] MEDS: predniSONE 20 MG TAB PO SCH (20:25)
[2024-07-09] MEDS ORDERED: predniSONE 10 MG TAB PO SCH (21:00)
[2024-07-10] MEDS: FUROSEMIDE 40 MG/4 ML VIAL IV SCH ×2 (00:10→09:00)
[2024-07-10 05:19] LABS: Absolute Basophils 0.1 K/uL (0-0.5); Absolute Lymphocytes (CBC) 0.8 K/uL (0.7-4.9); Absolute Monocytes 0.7 K/uL (0.1-1.3); Absolute Neutrophil 12.8 K/uL (1.8-8.0); Basophils % 0.4 % (0-1.3); Hemoglobin 12.5 g/dL (13.6-17.9); Lymphocytes % 5.6 % (15.3-44.8); MCH 30.3 pg (27.0-35.0); MCHC 32.1 g/dL (32.0-36.0); MCV 94.3 fL (80-100); MPV 8.1 fL (7.6-11.3); Monocytes % 4.8 % (3.3-12.3); Nucleated Red Blood Cells % 0.1 % (0-0); Platelets 267 thou/uL (152-406); RBC Red Blood Cell Count 4.14 M/uL (4.33-5.43); Red Cell Distribution Width 14.6 % (12.1-15.2)
[2024-07-10 05:21] LABS: Neutrophils % 89.2 % (41.7-73.7)
[2024-07-10 05:33] LABS: Magnesium 1.8 mg/dL (1.6-2.4); Phosphorus 3.4 mg/dL (2.5-4.9)
[2024-07-10] MEDS: ALBUMIN HUMAN 25% 100 ML IV ONE (06:23)
--- NOTE | 2024-07-10 07:51 | P.PN ---
Date of Service: 07/10/24 Red Cooper is a 68-year-old male with past medical history of HTN, pulmonary embolism s/p right IVC filter, HDL, vascular necrosis bilateral femur head, shingles, TB exposure, A-fib on xarelto, who presents to the ED with chief complaint of shortness of breath and cough for 1 week. Chest x-ray reports "The lungs are well inflated and clear. The heart is upper limit of normal in size. No displaced fractures identified." He was recently discharged on July 02 at which time he was diagnosed with flu. He was able to be weaned off of oxygen prior to that discharge. He reports not having oxygen or nebulizer treatments at home. While in the ED he was given steroids, nebulizer treatments, Toradol. Laboratory evaluation significant for potassium 5.4, BUN/creatinine 44/1.75, GFR 41, serum glucose 120, BNP 2767. Vitals while in the ER are stable. Review of Systems Respiratory: Painful Cough, Shortness of Breath, chronic pain, states cough is better this am. Continued wheeze. States he has to urinate q 15 min (lasix initiated yesterday and seems to be alleviating s/s) Physical Examination - Physical Exam General: Alert, Oriented x3, no acute distress HEENT: Atraumatic, Normocephalic, PERRLA Neck: Supple, 2+ carotid pulse no bruit Respiratory: Normal air movement, Expiratory wheezes bilaterally Cardiovascular: Normal pulses, Regular rate/rhythm, Normal S1 S2 Capillary refill: <2 Seconds Gastrointestinal: Normal bowel sounds, Soft and benign, No tenderness, Distended (obese) Musculoskeletal: No clubbing Integumentary: No rashes Neurological: Normal speech, Normal tone - Studies Laboratory Data (last 24 hrs) 07/08/24 07/08/24 07/08/24 12:15 12:15 12:15 WBC 9.80 Hgb 11.7 L Hct 36.0 L Plt Count 233 PT 16.4 H INR 1.48 APTT 39.1 H Sodium 141 Potassium 5.4 H BUN 44 H Creatinine 1.75 H Glucose 120 H Total Bilirubin 0.3 AST 19 ALT 42 Alkaline Phosphatase 70 Assessment and Plan - Plan Assessment and plan Post viral bronchitis -Chest x-ray reports "The lungs are well inflated and clear. The heart is upper limit of normal in size. No displaced fractures identified." -duglas -robitussin DM and dinavedaon perle -Flu, COVID, RSV negative -Supportive care, patient states he was sent home with medications but does not have O2 or a nebulizer Pt discharged with prednisone, had IV steroids in ED. Hx of AVN and CKD so careful re-integration of steroids for short course 2nd to airway constriction/swelling Hyperkalemia -K 5.4 -monitor in AM labs - same 07/09/24 potassium this am 5.0 low K diet CKD -BUN/creatinine 44/1.75, GFR 41 -monitor in AM labs, continues with CKD, no acute changes, creatinine down from early this month Medical JIMENEZ secondary to aggressive IV diuresis Hyperglycemia -Serum glucose 120 (steroids in ED) -A1C in the AM prednisone 20mg BID x short course initiated HTN/ HDL pulmonary embolism s/p right IVC filter shingles TB exposure A-fib on xarelto -continue home medications Chronic pain/pleuritic pain Sees pain management DVT ppx eliquis Full code Discharge Plan: Home 24h nebulizer delivered. Will give 12-24 more hours to reassess with likely early discharge in AM - Advance Directives Does patient have a Living Will: No Does patient have a Durable POA for Healthcare: No
--- NOTE | 2024-07-10 07:57 | P.DS ---
Admission Date: 07/09/24 Discharge Date: 07/11/24 Disposition: ROUTINE DISCHARGE Discharge Condition: GOOD Reason for Admission: postviral bronchitis Brief History of Present Illness: Red Cooper is a 68-year-old male with past medical history of HTN, pulmonary embolism s/p right IVC filter, HDL, vascular necrosis bilateral femur head, shingles, TB exposure, A-fib on xarelto, who presents to the ED with chief complaint of shortness of breath and cough for 1 week. Chest x-ray reports "The lungs are well inflated and clear. The heart is upper limit of normal in size. No displaced fractures identified." He was recently discharged on July 02 at which time he was diagnosed with flu. He was able to be weaned off of oxygen prior to that discharge. He reports not having oxygen or nebulizer treatments at home. While in the ED he was given steroids, nebulizer treatments, Toradol. Laboratory evaluation significant for potassium 5.4, BUN/creatinine 44/1.75, GFR 41, serum glucose 120, BNP 2767. Vitals while in the ER are stable. Kenneth will be admitted to hospital service for further evaluation and treatment of acute hypoxic respiratory distress secondary to post viral bronchitis. Hospital Course: Mr. Cooper did well over the course of his admission. His cough responded well to nebs, pain/cough medications, and aggressive diuresis. He is feeling much better. Medically induced increase in creatinine was expected and will need to be re-evaluated in follow up. Wheezing continues but his nebulizer has been delivered to the hospital room for continuation of his medications at home. He will need to continue his medications from his previous admission and follow up with his PCP in 1-2 weeks. Vital Signs/Physical Exam: Temp Pulse Resp BP Pulse Ox 97.5 F 61 16 139/75 96 07/10/24 03:56 07/10/24 03:56 07/10/24 06:23 07/10/24 03:56 07/10/24 03:56 General: Alert, In no apparent distress, Oriented x3 HEENT: Atraumatic, Normocephalic Neck: Supple Respiratory: Normal air movement, Expiratory wheezes Cardiovascular: No edema, Regular rate/rhythm Capillary refill: <2 Seconds Gastrointestinal: Soft and benign Musculoskeletal: No clubbing Integumentary: No rashes Neurological: Normal speech, Normal tone, Normal affect Lymphatics: No axilla or inguinal lymphadenopathy External genitalia: Deferred Rectal: Deferred Laboratory Data at Discharge: WBC 14.40 thou/uL (4.3-10.9) H 07/10/24 04:49 Hgb 12.5 g/dL (13.6-17.9) L D 07/10/24 04:49 Hct 39.0 % (39.6-49.0) L 07/10/24 04:49 Plt Count 267 thou/uL (152-406) 07/10/24 04:49 PT 16.4 SECONDS (9.4-12.5) H 07/08/24 12:15 INR 1.48 07/08/24 12:15 APTT 39.1 SECONDS (24.3-36.9) H 07/08/24 12:15 Sodium 137 mEq/L (136-145) 07/10/24 04:49 Potassium 5.0 mEq/L (3.5-5.1) 07/10/24 04:49 BUN 53 mg/dL (7-18) H 07/10/24 04:49 Creatinine 2.39 mg/dL (0.70-1.30) H 07/10/24 04:49 Glucose 226 mg/dL (74-106) H 07/10/24 04:49 Phosphorus 3.4 mg/dL (2.5-4.9) 07/10/24 04:49 Magnesium 1.8 mg/dL (1.6-2.4) 07/10/24 04:49 Total Bilirubin 0.3 mg/dL (0.2-1.0) 07/08/24 12:15 AST 19 U/L (15-37) 07/08/24 12:15 ALT 42 U/L (16-61) 07/08/24 12:15 Alkaline Phosphatase 70 U/L (45-117) 07/08/24 12:15 Home Medications: Rivaroxaban [Xarelto*] 20 mg PO DAILY AT SUPPER #30 tablet 04/04/13 Pantoprazole [Protonix Tab*] 40 mg PO DAILY #30 tab 12/31/13 Albuterol Neb [Proventil 0.083% Neb Soln] 2.5 mg NEB Q6HP PRN #60 amp 07/01/24 Arformoterol Tartrate [Brovana] 15 mcg NEB BIDRESP #60 vial.neb 07/01/24 Cyclobenzaprine [Flexeril*] 10 mg PO BID PRN #20 tab 07/01/24 Gabapentin [Neurontin*] 100 mg PO TID #90 cap 07/01/24 predniSONE [Prednisone*] 10 mg PO BID #40 tab 07/01/24 Guaifen W/Codeine Syrup [ROBITUSSIN A-C Syrup*] 10 ml PO Q12HP PRN #150 ml 07/03/24 Hydrocodone Bit/Acetaminophen [Hydrocodon-Acetaminophn 10-325] 10 mg PO Q8H 07/08/24 Albuterol Neb [Proventil 0.083% Neb Soln] 2.5 mg NEB [id number] PRN amp 07/10/24 Benzonatate [Tessalon Perle*] 100 mg PO Q6H PRN cap 07/10/24 Cyclobenzaprine [Flexeril*] 10 mg PO BID PRN tab 07/10/24 Ipratropium Neb [Atrovent*] 0.5 mg NEB [id number] #1 box 07/10/24 New Medications: Ipratropium Neb [Atrovent*] 0.5 mg NEB [id number] #1 box Physician Discharge Instructions: Mr. Cooper did well over the course of his admission. His cough responded well to nebs, pain/cough medications, and aggressive diuresis. He is feeling much better. Medically induced increase in creatinine was expected and will need to be re-evaluated in follow up. Wheezing continues but his nebulizer has been delivered to the hospital room for continuation of his medications at home. He will need to continue his medications from his previous admission and follow up with his PCP in 1-2 weeks. Diet: low potass Activity: Ad sincere Followup: Daniel Rodríguez, [Primary Care Provider] -
[2024-07-10] MEDS: MAGNESIUM SULFATE 1 gm IVPB 1 GM/100 ML BAG IV ONE (09:04)
[2024-07-10] MEDS: ALBUTEROL 2.5 MG/3 ML NEB SOL NEB PRN (20:26)
[2024-07-10 23:26] VITALS: O2SAT 96
[2024-07-11 04:26] VITALS: TEMP 98
[2024-07-11 07:14] LABS: Absolute Basophils 0.1 K/uL (0-0.5); Absolute Monocytes 1.1 K/uL (0.1-1.3); Basophils % 0.5 % (0-1.3); Hematocrit 39.7 % (39.6-49.0); Hemoglobin 13.1 g/dL (13.6-17.9); Lymphocytes % 6.7 % (15.3-44.8); MCHC 33.1 g/dL (32.0-36.0); MCV 93.8 fL (80-100); MPV 8.1 fL (7.6-11.3); Monocytes % 7.3 % (3.3-12.3); Neutrophils % 85.5 % (41.7-73.7); Nucleated Red Blood Cells % 0.1 % (0-0); Platelets 273 thou/uL (152-406); RBC Red Blood Cell Count 4.23 M/uL (4.33-5.43)
[2024-07-11 07:30] LABS: Anion Gap 10.7 mEq/L (5.0-15.0); Phosphorus 3.9 mg/dL (2.5-4.9); Potassium 4.7 mEq/L (3.5-5.1)
[2024-07-11 08:33] VITALS: BP 111/77
[2024-07-11 09:05] LABS: Platelet Estimate ADEQ; White Blood Cell Scan OK (OK)
[2024-07-11 09:06] LABS: Anisocytosis SLIGHT; Blood Morphology Comment NOTED (NOT SEEN); Toxic Granulation 1+
[2024-07-11] MEDS: OXYCODONE *CR* 10 MG TAB PO SCH (12:08)
== END 2024-07-11 13:08 | disposition home or self-care (01) | DRG 202 ==
LOC: ER 11:06 → ERHOLD 14:19 → 2ND 15:40 → OBSVTOIN 07-09 10:01
PROVIDERS: ADMIT Internal Medicine; ATTEND Internal Medicine
DX: J20.8 Acute bronchitis due to other specified organisms (principal); J44.0 Chronic obstructive pulmonary disease with (acute) lower respiratory infection; J44.1 Chronic obstructive pulmonary disease with (acute) exacerbation; N17.9 Acute kidney failure, unspecified; I12.9 Hypertensive chronic kidney disease with stage 1 through stage 4 chronic kidney disease, or unspecified chronic kidney disease; N18.30 Chronic kidney disease, stage 3 unspecified; E87.6 Hypokalemia; E78.5 Hyperlipidemia, unspecified; I48.91 Unspecified atrial fibrillation; G89.4 Chronic pain syndrome; B02.9 Zoster without complications; F17.210 Nicotine dependence, cigarettes, uncomplicated; R73.9 Hyperglycemia, unspecified; R06.03 Acute respiratory distress; Z88.5 Allergy status to narcotic agent; Z95.5 Presence of coronary angioplasty implant and graft; Z20.1 Contact with and (suspected) exposure to tuberculosis; Z88.8 Allergy status to other drugs, medicaments and biological substances; Z11.52 Encounter for screening for COVID-19; Z90.49 Acquired absence of other specified parts of digestive tract; Z79.82 Long term (current) use of aspirin; Z79.52 Long term (current) use of systemic steroids; Z79.899 Other long term (current) drug therapy; Z86.711 Personal history of pulmonary embolism
CPT/HCPCS: 36415; 71045; 80048; 80053; 81001; 83605; 83735; 83880; 84100; 85025; 85610; 85730; 87040; 87804; 87807; 87811; 93005; 94640; 96374; 96375; 99285; G0378; J1171; J1940; J2919; J3475; J7512; J7605; J7613; J7614; J7644; P9047

== ENCOUNTER 2024-09-04 20:48 | Emergency (ER) | payer OTHER ==
[2024-09-04] MEDS ORDERED: NA CHLORIDE 0.9% 100 ML ONE (23:26)
[2024-09-04] MEDS ORDERED: ONDANSETRON 4 MG/2 ML VIAL ONE (23:26)
[2024-09-04] MEDS ORDERED: METHOCARBAMOL 1,000 MG/10 ML VIAL ONE (23:26)
[2024-09-04] MEDS ORDERED: FENTANYL CITR 100 MCG/2 ML ONE (23:26)
[2024-09-04 23:41] LABS: Absolute Basophils 0.1 K/uL (0-0.5); Absolute Eosinophils 0.5 K/uL (0-0.5); Absolute Lymphocytes (CBC) 1.7 K/uL (0.7-4.9); Absolute Monocytes 1.5 K/uL (0.1-1.3); Basophils % 0.6 % (0-1.3); Eosinophils % 4.4 % (0-4.4); Hematocrit 42.7 % (39.6-49.0); Hemoglobin 14.1 g/dL (13.6-17.9); Lymphocytes % 14.4 % (15.3-44.8); MCH 31.2 pg (27.0-35.0); MCHC 33.1 g/dL (32.0-36.0); MCV 94.1 fL (80-100); MPV 7.8 fL (7.6-11.3); Monocytes % 12.8 % (3.3-12.3); Neutrophils % 67.8 % (41.7-73.7); Platelets 256 thou/uL (152-406); RBC Red Blood Cell Count 4.54 M/uL (4.33-5.43); Red Cell Distribution Width 16.1 % (12.1-15.2)
[2024-09-05 00:01] LABS: Albumin 3.4 g/dL (3.4-5.0); Albumin/Globulin Ratio 0.9 (1.1-1.8); Anion Gap 8.4 mEq/L (5.0-15.0); Bilirubin Total 0.3 mg/dL (0.2-1.0); Globulin 3.9 g/dL (2.3-3.5); Potassium 4.4 mEq/L (3.5-5.1); Protein, Total 7.3 g/dL (6.4-8.2)
[2024-09-05 00:13] LABS: Specific Gravity 1.013 (1.005-1.030); Sqamous Epithelial None Seen /HPF (None Seen); Urine Bacteria None Seen /HPF (<20); Urine Bilirubin NEGATIVE (Negative); Urine Blood 1+ (Negative); Urine Clarity Clear (Clear); Urine Color Light-Yellow (Yellow); Urine Culture Reflex Order NOT NEEDED; Urine Glucose NEGATIVE (Negative); Urine Ketones NEGATIVE (Negative); Urine Microscopic Reflex YN ORDER UMIC; Urine Mucus Slight /HPF (None Seen); Urine Nitrite NEGATIVE (Negative); Urine Protein 2+ (Negative); Urine RBC <5 /HPF (None Seen); Urine Urobilinogen Normal (Normal); Urine WBC <5 /HPF (<5); Urine pH 5.5 (5.0-7.0)
--- NOTE | 2024-09-05 00:42 | EDPHYS ---
Physician Documentation [facility] Name: Red Cooper Age: 68 yrs Sex: Male : 1955 Arrival Date: 09/04/2024 Time: 20:48 Bed 15 Private MD: ED Physician Brandan Metzger HPI: 09/04 20:54 This 68 yrs old Male presents to ER via Unassigned with complaints of PT sp4 STATES HE IS HAVING PAIN IN HIS KIDNEYS. 09/05 17:31 This is a 68-year-old male with history of chronic kidney disease stage III, history of sp4 pulmonary emboli hypertension. Patient presents with complaint of left lower back pain that he reports he feels in his left kidney.. Historical: - Allergies: 09/04 22:08 Morphine; al5 22:08 Stadol; al5 22:08 Tramadol HCl; al5 22:09 atorvastatin; al5 - Home Meds: 22:08 Xarelto 15 mg Oral tablet daily [Active]; al5 - PMHx: 22:08 Hypertension; pulmonary embolus; al5 - PSHx: 22:08 Appendectomy; cardiac stent (ip); IVC filter; Left hip; right rotator cuff; al5 - Immunization history:: Adult Immunizations up to date. - Infectious Disease History:: Denies. - Social history:: Smoking status: Patient reports the use of cigarette tobacco products, smokes 0.33 packs per day. - Family history:: not pertinent. ROS: 09/05 17:31 Constitutional: Negative for fever, chills, and weight loss, for left lower back pain. sp4 All other systems are negative, Exam: 17:31 Constitutional: This is a well developed, well nourished patient who is awake, alert, sp4 and in no acute distress. Head/Face: Normocephalic, atraumatic. Eyes: Pupils equal round and reactive to light, extra-ocular motions intact. Lids and lashes normal. Conjunctiva and sclera are not injected. Cornea within normal limits. Periorbital areas with no swelling, redness, or edema. ENT: Nares patent. No nasal discharge, no septal abnormalities noted. Tympanic membranes are normal and external auditory canals are clear. Oropharynx with no redness, swelling, or masses, exudates, or evidence of obstruction, uvula midline. Mucous membranes moist. Neck: Trachea midline, no thyromegaly or masses palpated, and no cervical lymphadenopathy. Supple, full range of motion without nuchal rigidity, or vertebral point tenderness. Chest/axilla: Normal chest wall appearance and motion. Nontender with no deformity. No lesions are appreciated. Cardiovascular: Regular rate and rhythm with a normal S1 and S2. No gallops, murmurs, or rubs. Normal PMI, no JVD. No pulse deficits. Respiratory: Lungs have equal breath sounds bilaterally, clear to auscultation and percussion. No rales, rhonchi or wheezes noted. No increased work of breathing, no retractions or nasal flaring. Abdomen/GI: Soft, with normal bowel sounds. No distension or tympany. No guarding or rebound. No evidence of tenderness throughout. Back: No spinal tenderness. No costovertebral tenderness. Skin: Warm, dry with normal turgor. Normal color with no rashes, no lesions, and no evidence of cellulitis. MS/ Extremity: Pulses equal, no cyanosis. Neurovascular intact. Full, normal range of motion. Neuro: Awake and alert, GCS 15, oriented to person, place, time, and situation. Cranial nerves II-XII grossly intact. Motor strength 5/5 in all extremities. Sensory grossly intact. Psych: Awake, alert, with orientation to person, place and time. Behavior, mood, and affect are within normal limits Vital Signs: 09/04 22:06 BP 113 / 62; Pulse 93; Resp 18; Temp 97.6; Pulse Ox 98% on R/A; Weight 129.73 kg; al5 Height 5 ft. 9 in. ; Pain 10/10; 22:30 BP 119 / 65; Pulse 88; Resp 19; Temp 98; Pulse Ox 97% on R/A; Pain 10/10; rg5 23:21 BP 115 / 63; Pulse 89; Resp 17; Pulse Ox 96% on R/A; Pain 8/10; rg5 09/05 00:30 BP 117 / 61; Pulse 85; Resp 17; Pulse Ox 98% on R/A; Pain 2/10; rg5 09/04 22:06 Body Mass Index 42.23 (129.73 kg, 175.26 cm) al5 09/04 22:06 Pain Scale: Adult al5 22:30 Pain Scale: Adult rg5 23:21 Pain Scale: Adult rg5 09/05 00:30 Pain Scale: Adult rg5 [place] Score: 17:31 Eye Response: spontaneous(4). Motor Response: obeys commands(6). Verbal Response: sp4 oriented(5). Total: 15. MDM: 09/04 20:56 Medical Screening Exam initiated sp4 09/05 00:30 ED course: EXAM DESCRIPTION: Chest Abd Pelvis Wo Con CLINICAL HISTORY: 68 years Male sp4 Chest pain. COMPARISON: Radiograph of Chest 07/08/2024 report only. TECHNIQUE: Images were obtained in axial, coronal and sagittal planes. No contrast administration. This exam was performed according to our departmental dose-optimization program which includes use of Automated Exposure Control, adjustment of the mA and/or kV according to patient size and/or use of iterative reconstruction technique. FINDINGS: CT chest: No dilatation aortic root. Coronary artery calcifications. No pericardial or pleural effusions bilaterally. No adenopathy. No lung parenchymal infiltrates or nodules. No pneumothorax. Calcified granuloma right middle lobe. No acute osseous abnormality involving the thorax. No sternal fracture. No acute fracture or subluxation involving the thoracic spine. No rib fractures bilaterally. CT abdomen and pelvis: No abnormality involving the liver, spleen, pancreas, gallbladder, or right adrenal gland. 9 mm lowattenuation focus left adrenal gland likely benign adenoma. No obstructing renal or ureteral calculi bilaterally. No hydronephrosis bilaterally. Unremarkable bladder. Calcification of abdominal aorta with no dilatation seen. No adenopathy or abnormal fluid collections seen. Appendix not well identified however no secondary signs for appendicitis. Inferior vena cava filter. No bowel obstruction, perforation, or inflammation. Left total hip prosthesis. No acute osseous abnormality involving the lumbosacral spine. Moderate osteoarthritic change L5-S1. More also noted superior endplate L3. Mild retrolisthesis of L5 with relationship to S1. IMPRESSION: 1. No acute intrathoracic abnormality. No infiltrates seen. 2. No acute intra-abdominal abnormality. . 17:31 Differential diagnosis: Fatigue Fracture Hydronephrosis Neoplasm. Data reviewed: vital sp4 signs, nurses notes, EMS record, old medical records, lab test result(s), radiologic studies, CT scan. Consideration of Admission/Observation Escalation of care including admission/observation considered. ED course: Patient's pain was controlled. CAT scan is unremarkable. Patient is stable for discharge home. Recommended bedrest for the next 24 hours. . 09/04 21:15 Order name: CBC with Diff; Complete Time: 23:59 sp4 09/04 21:15 Order name: CMP; Complete Time: 00:21 sp4 09/04 21:15 Order name: Lipase; Complete Time: 00:21 sp4 09/04 21:15 Order name: Urinalysis w/ reflexes; Complete Time: 00:21 sp4 09/04 21:42 Order name: CT Chest Abdomen Pelvis W/O Contrast sp4 09/04 21:15 Order name: IV Saline Lock; Complete Time: 23:43 sp4 09/04 21:15 Order name: Labs collected and sent; Complete Time: 23:43 sp4 Administered Medications: 09/04 23:42 Drug: Ondansetron IVP 4 mg IVP once; over 2 minutes Route: IVP; Site: left antecubital; 5 09/05 00:55 Follow up: Response: No adverse reaction 5 09/04 23:42 Drug: Methocarbamol IVPB 1 grams IVPB once over 1 hrs; (mix in NS 100 mL) Route: IVPB; rg5 Infused Over: 1 hrs; Site: left antecubital; 09/05 00:55 Follow up: IV Status: Completed infusion; IV Intake: 100ml 5 09/04 23:43 Drug: fentaNYL (PF) IVP 100 mcg IVP once Route: IVP; Site: left antecubital; rg5 09/05 00:55 Follow up: Response: No adverse reaction; Pain is decreased rg5 00:40 Drug: HYDROcodone-acetaminophen PO 5 mg-325 mg 2 tabs PO once Route: PO; rg5 00:55 Follow up: Response: No adverse reaction rg5 Disposition Summary: 09/05/24 00:42 Discharge Ordered Notes: Location: Home sp4 Problem: new sp4 Symptoms: have improved sp4 Condition: Stable sp4 Diagnosis - Low back pain sp4 - Acute lumbar musculature sprain sp4 Followup: sp4 - With: Private Physician - When: 7 - 10 days - Reason: Recheck today's complaints Discharge Instructions: - Discharge Summary Sheet sp4 - Acute Back Pain, Adult sp4 Forms: - Patient Portal Instructions sp4 Prescriptions: - acetaminophen-codeine 300-60 mg Oral tablet - take 1 tablet ORAL route every 8 hours PRN pain; 20 tablet; Refills: 0, Product sp4 Selection Permitted - methocarbamol 750 mg Oral tablet - take 2 tablets ORAL route every 8 hours for 3 days PRN pain; 30 tablet; sp4 Refills: 0, Product Selection Permitted Signatures: Dispatcher [employer] EDMS Brandan Metzger MD MD sp4 Ben Barker RN RN rg5 Ashlee Pitts RN RN al5 Corrections: (The following items were deleted from the chart) 09/04 21:42 21:42 Chest Abdomen Pelvis Wo Con+CT.RAD.BRZ ordered. EDMS EDMS 21:47 21:16 Abdomen Pelvis W Con+CT.RAD.BRZ ordered. EDMS EDMS 22:09 22:08 Allergies: Demerol; al5 al5
--- NOTE | 2024-09-05 00:42 | ER ---
Nurse's Notes [facility] Name: Red Cooper Age: 68 yrs Sex: Male : 1955 Arrival Date: 09/04/2024 Time: 20:48 Bed 15 Private MD: Diagnosis: Low back pain;Acute lumbar musculature sprain Presentation: 09/04 22:06 Chief complaint: Patient states: c/o R flank pain since this afternoon at [id number] al5 after starting laundry. no injury noted. Coronavirus screen: At this time, the client does not indicate any symptoms associated with coronavirus-19. Ebola Screen: No symptoms or risks identified at this time. Initial Sepsis Screen: Does the patient meet any 2 criteria? HR > 90 bpm. No. Patient's initial sepsis screen is negative. Does the patient have a suspected source of infection? No. Patient's initial sepsis screen is negative. Risk Assessment: Do you want to hurt yourself or someone else? Patient reports no desire to harm self or others. Onset of symptoms was September 04, 2024. 22:06 Method Of Arrival: EMS: [facility] al5 22:06 Acuity: JENNY 3 al5 Triage Assessment: 22:09 General: Appears in no apparent distress. uncomfortable, Behavior is calm, cooperative. al5 Pain: Complains of pain in right mid back and right low back Pain currently is 10 out of 10 on a pain scale. EENT: No signs and/or symptoms were reported regarding the EENT system. Neuro: Level of Consciousness is awake, alert, obeys commands, Oriented to person, place, time, situation. Cardiovascular: Capillary refill < 3 seconds Patient's skin is warm and dry. Respiratory: Airway is patent Respiratory effort is even, unlabored, Respiratory pattern is regular, symmetrical. GI: No signs and/or symptoms were reported involving the gastrointestinal system. : Reports pain in right flank(s). Derm: Skin is intact, is healthy with good turgor, Skin is pink, warm \T\ dry. normal. Musculoskeletal: No signs and/or symptoms reported regarding the musculoskeletal system. uses a cane. Historical: - Allergies: 22:08 Morphine; al5 22:08 Stadol; al5 22:08 Tramadol HCl; al5 22:09 atorvastatin; al5 - Home Meds: 22:08 Xarelto 15 mg Oral tablet daily [Active]; al5 - PMHx: 22:08 Hypertension; pulmonary embolus; al5 - PSHx: 22:08 Appendectomy; cardiac stent (ip); IVC filter; Left hip; right rotator cuff; al5 - Immunization history:: Adult Immunizations up to date. - Infectious Disease History:: Denies. - Social history:: Smoking status: Patient reports the use of cigarette tobacco products, smokes 0.33 packs per day. - Family history:: not pertinent. Screenin:30 [facility] ED Fall Risk Assessment (Adult) History of falling in the last 3 months, rg5 including since admission No falls in past 3 months (0 pts) Confusion or Disorientation No (0 pts) Intoxicated or Sedated No (0 pts) Impaired Gait Yes (1 pt) Mobility Assist Device Used Yes (1 pt) Altered Elimination No (0 pt) Score/Fall Risk Level 0 - 2 = Low Risk Oriented to surroundings, Maintained a safe environment, Provided non-skid footwear, Hourly rounding (assess needs \T\ fall precautionary measures) done. Abuse screen: Denies threats or abuse. Nutritional screening: No deficits noted. Tuberculosis screening: No symptoms or risk factors identified. Assessment: 22:30 General: Appears in no apparent distress. uncomfortable. Pain: Complains of pain in rg5 back. Neuro: Level of Consciousness is awake, alert, obeys commands, Oriented to person, place, time. Cardiovascular: Denies chest pain, Patient's skin is warm and dry. 22:30 Respiratory: Airway is patent Trachea midline Respiratory effort is even, unlabored, rg5 Respiratory pattern is regular, symmetrical. GI: Abdomen is round non-distended. : No signs and/or symptoms were reported regarding the genitourinary system. EENT: No deficits noted. Derm: Skin is intact, Skin is dry, Skin is normal, Skin temperature is warm. Musculoskeletal: Amputation of Range of motion: intact in all extremities. 23:26 Reassessment: Patient and/or family updated on plan of care and expected duration. Pain rg5 level reassessed. Patient is alert, oriented x 3, equal unlabored respirations, skin warm/dry/pink. Patient states symptoms have improved. 09/05 00:39 Reassessment: Patient and/or family updated on plan of care and expected duration. Pain rg5 level reassessed. Patient is alert, oriented x 3, equal unlabored respirations, skin warm/dry/pink. Patient states feeling better. Vital Signs: 09/04 22:06 BP 113 / 62; Pulse 93; Resp 18; Temp 97.6; Pulse Ox 98% on R/A; Weight 129.73 kg; al5 Height 5 ft. 9 in. ; Pain 10/10; 22:30 BP 119 / 65; Pulse 88; Resp 19; Temp 98; Pulse Ox 97% on R/A; Pain 10/10; rg5 23:21 BP 115 / 63; Pulse 89; Resp 17; Pulse Ox 96% on R/A; Pain 8/10; rg5 09/05 00:30 BP 117 / 61; Pulse 85; Resp 17; Pulse Ox 98% on R/A; Pain 2/10; rg5 09/04 22:06 Body Mass Index 42.23 (129.73 kg, 175.26 cm) al5 09/04 22:06 Pain Scale: Adult al5 22:30 Pain Scale: Adult rg5 23:21 Pain Scale: Adult rg5 09/05 00:30 Pain Scale: Adult rg5 [place] Score: 17:31 Eye Response: spontaneous(4). Motor Response: obeys commands(6). Verbal Response: sp4 oriented(5). Total: 15. ED Course: 09/04 20:48 Patient arrived in ED. [email or web address] 20:54 Brandan Metzger MD is Attending Physician. sp4 22:08 Triage completed. al5 22:10 Arm band placed on right wrist. Patient placed in waiting room, in a wheelchair, on al5 pulse oximetry, Patient notified of wait time. 22:30 Patient has correct armband on for positive identification. Bed in low position. Call rg5 light in reach. Side rails up X 1. Door closed. Noise minimized. Warm blanket given. Verbal reassurance given. 22:30 No provider procedures requiring assistance completed. Inserted saline lock: 20 gauge rg5 in left antecubital area, using aseptic technique. Blood collected. Flushed with 10 mL NS. 23:06 Ben Barker, JAYA is Primary Nurse. rg5 23:53 CT Chest Abdomen Pelvis W/O Contrast In Process Unspecified. EDMS 09/05 01:01 Provided Education on: post er care. rg5 01:01 IV discontinued, bleeding controlled, No redness/swelling at site. Pressure dressing rg5 applied. Administered Medications: 09/04 23:42 Drug: Ondansetron IVP 4 mg IVP once; over 2 minutes Route: IVP; Site: left antecubital; rg5 09/05 00:55 Follow up: Response: No adverse reaction rg5 09/04 23:42 Drug: Methocarbamol IVPB 1 grams IVPB once over 1 hrs; (mix in NS 100 mL) Route: IVPB; rg5 Infused Over: 1 hrs; Site: left antecubital; 09/05 00:55 Follow up: IV Status: Completed infusion; IV Intake: 100ml rg5 09/04 23:43 Drug: fentaNYL (PF) IVP 100 mcg IVP once Route: IVP; Site: left antecubital; rg5 02 00:55 Follow up: Response: No adverse reaction; Pain is decreased rg5 00:40 Drug: HYDROcodone-acetaminophen PO 5 mg-325 mg 2 tabs PO once Route: PO; rg5 00:55 Follow up: Response: No adverse reaction rg5 Medication: 09/04 22:30 VIS not applicable for this client. rg5 Intake: 09/05 00:55 IV: 100ml; Total: 100ml. rg5 Outcome: 00:42 Discharge ordered by . sp4 01:01 Discharged to home ambulatory, rg5 01:01 Condition: stable rg5 01:01 Discharge instructions given to patient, Instructed on discharge instructions, follow up and referral plans. Demonstrated understanding of instructions, follow-up care, medications, Prescriptions given X 2, 01:04 Patient left the ED. rg5 Signatures: Dispatcher [employer] EDHI Uriel Michelle [email or web address] Brandan Metzger MD MD sp4 Ben Barker RN RN rg5 Ashlee Pitts RN RN al5 Corrections: (The following items were deleted from the chart) 09/04 22:09 22:08 Allergies: Demerol; al5 al5
[2024-09-05] MEDS ORDERED: HYDROCODONE/APAP 5/325 MG TAB ONE (00:49)
[2024-09-05 01:11] VITALS: TEMP 98
[2024-09-05 01:14] VITALS: BP 117/61; O2SAT 98
--- NOTE | 2024-09-05 01:19 | RAD REPORT ---
EXAM DESCRIPTION: Chest Abd Pelvis Wo Con CLINICAL HISTORY: 68 years Male Chest pain. COMPARISON: Radiograph of Chest 07/08/2024 report only. TECHNIQUE: Images were obtained in axial, coronal and sagittal planes. No contrast administration. This exam w as performed according to our departmental dose-optimization program which includes use of Automated Exposure Control, adjustment of the mA and/or kV according to patient size and/or use of it erative reconstruction technique. FINDINGS: CT chest: No dilatation aortic root. Coronary artery calcifications. No pericardial or pleural effusi ons bilaterally. No adenopathy. No lung parenchymal infiltrates or nodules. No pneumothorax. Calcified granuloma right middle lobe. No acute osseous abnormality involving the thorax. No sternal fracture. No acute fracture or subluxation involving the thoracic spine. No rib fractures bilaterally. CT abdomen and pelvis: No abnormality involving the liver, spleen, pancreas, gallbladder, or right ad renal gland. 9 mm low-attenuation focus left adrenal gland likely benign adenoma. No obstructing renal or ureteral calculi bilaterally. No hydronephrosis bilaterally. Unremarkable bladder. Calcifica tion of abdominal aorta with no dilatation seen. No adenopathy or abnormal fluid collections seen. Appendix not well identified however no secondary signs for appendicitis. Inferior vena cava filter. No bowel obstruction, perforation, or inflammation. Left total hip prosthesis. No acute osseous abnormality involving the lumbosacral spine. Moderate osteoarthritic change L5-S1. More also noted mancia perior endplate L3. Mild retrolisthesis of L5 with relationship to S1. IMPRESSION: 1. No acute intrathoracic abnormality. No infiltrates seen. 2. No acute intra-abdominal abnormality. Electronically signed by: Marcelle Guevara MD 09/05/2024 12:25 AM [facility] Due to temporary technical issues with the PACS/nivio reporting system, reports are being jil d by the in-house radiologist without review as a courtesy to ensure prompt reporting the interpreting radiologist is fully responsible for the content of the report. Transcribed Date/Time: 09/05/2024 1:18 AM
== END 2024-09-05 01:04 | disposition home or self-care (01) ==
LOC: ER 20:48
DX: S39.012A Strain of muscle, fascia and tendon of lower back, initial encounter (principal); I12.9 Hypertensive chronic kidney disease with stage 1 through stage 4 chronic kidney disease, or unspecified chronic kidney disease; N18.30 Chronic kidney disease, stage 3 unspecified; F17.210 Nicotine dependence, cigarettes, uncomplicated; Z86.711 Personal history of pulmonary embolism; Z79.01 Long term (current) use of anticoagulants; Z95.818 Presence of other cardiac implants and grafts
CPT/HCPCS: 96365; 85025; 81001; 36415; 83690; 80053; 71250; 74176; 96375; 99285; J3010; J2405; J2800

== ENCOUNTER 2024-11-06 23:30 | Emergency (ER) | payer OTHER ==
[2024-11-06] MEDS ORDERED: MORPHINE 4 MG/ML SYR ONE (23:59)
[2024-11-06] MEDS ORDERED: ONDANSETRON 4 MG/2 ML VIAL ONE (23:59)
[2024-11-07] MEDS ORDERED: FENTANYL CITR 100 MCG/2 ML ONE ×3 (00:05→04:36)
[2024-11-07] MEDS ORDERED: ONDANSETRON 4 MG/2 ML VIAL ONE (04:36)
--- NOTE | 2024-11-07 04:58 | ER ---
Nurse's Notes [facility] Name: Red Cooper Age: 69 yrs Sex: Male : 1955 Arrival Date: 11/06/2024 Time: 23:30 Bed 16 Private MD: Diagnosis: Acute fall, Right buttock contusion,, acute right upper thigh contusion Presentation: 11/06 23:44 Chief complaint: Patient states: PT STATES HE TRIPPED AND FELL ON RIGHT SIDE. C/O RIGHT br2 HIP AND RIGHT SHOULDER PAIN. DENIES LOC OR HITTING HEAD. Coronavirus screen: Client denies travel out of the [place] in the last 14 days. Ebola Screen: Patient denies exposure to infectious person. Initial Sepsis Screen: Does the patient meet any 2 criteria? No. Patient's initial sepsis screen is negative. Does the patient have a suspected source of infection? No. Patient's initial sepsis screen is negative. Risk Assessment: Do you want to hurt yourself or someone else? Patient reports no desire to harm self or others. Onset of symptoms was November 06, 2024 at 22:00. 23:44 Method Of Arrival: EMS: [facility] br2 23:44 Acuity: JENNY 3 br2 Triage Assessment: 23:47 General: Appears uncomfortable, Behavior is calm, cooperative. Pain: Complains of pain br2 in right hip AND RIGHT SHOULDER. EENT: No signs and/or symptoms were reported regarding the EENT system. Neuro: Jason Agitation-Sedation Scale (RASS): 0 - Alert and Calm Level of Consciousness is awake, alert, Oriented to person, place, time, situation. Cardiovascular: Denies chest pain, Capillary refill < 3 seconds. Respiratory: Airway is patent Respiratory effort is even, unlabored, Respiratory pattern is regular, symmetrical. GI: No signs and/or symptoms were reported involving the gastrointestinal system. : No signs and/or symptoms were reported regarding the genitourinary system. Derm: No signs and/or symptoms reported regarding the dermatologic system. Musculoskeletal: Reports pain in RIGHT HIP AND RIGHT SHOULDER since RIGHT HIP AND RIGHT SHOULDER. Historical: - Allergies: 23:47 atorvastatin; br2 23:47 Morphine; br2 23:47 Stadol; br2 23:47 Tramadol HCl; br2 - PMHx: 23:47 Hypertension; pulmonary embolus; br2 - PSHx: 23:47 Appendectomy; cardiac stent; IVC filter; Left hip; right rotator cuff; br2 - Immunization history:: Adult Immunizations up to date. - Infectious Disease History:: Denies. - Social history:: Smoking status: Patient reports the use of cigarette tobacco products, smokes one-half pack cigarettes per day, Patient/guardian denies using alcohol, street drugs. Screenin:[facility] ED Fall Risk Assessment (Adult) History of falling in the last 3 months, br2 including since admission Yes- fall prone (multiple falls) (3 pts) Confusion or Disorientation No (0 pts) Intoxicated or Sedated No (0 pts) Impaired Gait No (0 pts) Mobility Assist Device Used No (0 pt) Altered Elimination No (0 pt) Score/Fall Risk Level 0 - 2 = Low Risk Oriented to surroundings. Abuse screen: Denies threats or abuse. Denies injuries from another. Nutritional screening: No deficits noted. Tuberculosis screening: No symptoms or risk factors identified. Assessment: 11/07 00:12 Reassessment: SEE TRIAGE ASSESSMENT. br2 00:49 Reassessment: Patient and/or family updated on plan of care and expected duration. Pain br2 level reassessed. Patient is alert, oriented x 3, equal unlabored respirations, skin warm/dry/pink. Patient states symptoms have improved. 01:46 Reassessment: Patient and/or family updated on plan of care and expected duration. Pain br2 level reassessed. Patient is alert, oriented x 3, equal unlabored respirations, skin warm/dry/pink. Patient states feeling better. Patient states symptoms have improved. Vital Signs: 11/06 23:44 BP 131 / 81; Pulse 82; Resp 18 S; Temp 97.6(TE); Pulse Ox 94% on R/A; Weight 83.91 kg; br2 Height 5 ft. 9 in. ; Pain 9/10; 11/07 00:50 BP 102 / 71; Pulse 65; Resp 18 S; Pulse Ox 91% on R/A; br2 01:46 BP 101 / 72; Pulse 80; Resp 18 S; Pulse Ox 93% on R/A; br2 02:30 BP 102 / 75; Pulse 72; Resp 18; Pulse Ox 93% ; br2 03:30 BP 110 / 82; Pulse 77; Resp 18; Pulse Ox 96% ; br2 04:17 BP 110 / 83; Pulse 81; Resp 16; Pulse Ox 93% on R/A; br2 05:47 BP 116 / 85; Pulse 71; Resp 18; Pulse Ox 95% ; Pain 3/10; br2 11/06 23:44 Body Mass Index 27.32 (83.91 kg, 175.26 cm) br2 11/06 23:44 Pain Scale: Adult br2 05:47 Pain Scale: Adult br2 ED Course: 11/06 23:38 Patient arrived in ED. lg3 23:39 Juancarlos Rodrigues PA is PHCP. cp 23:39 Brandan Metzger MD is Attending Physician. cp 23:44 Kathrin Ohara RN is Primary Nurse. br2 23:45 Inserted saline lock: 20 gauge in left antecubital area, using aseptic technique. Blood br2 collected. Flushed with 10 mL NS. 23:46 Triage completed. br2 23:47 Arm band placed on right wrist. br2 23:51 Patient has correct armband on for positive identification. Provided Education on: PLAN br2 OF CARE. 11/07 00:41 XRAY Pelvis In Process Unspecified. EDMS 00:41 XRAY Femur RIGHT In Process Unspecified. EDMS 00:41 XRAY Humerus RIGHT In Process Unspecified. EDMS 02:01 CT Abd/Pelvis - Without Contrast In Process Unspecified. EDMS 05:47 No provider procedures requiring assistance completed. IV discontinued, intact, br2 bleeding controlled, No redness/swelling at site. Pressure dressing applied. Administered Medications: 00:10 Not Given (Patient Refused; ALLERGICc): morphineor iv 4 mg IVP once over 4 mins br2 00:10 Drug: Ondansetron IVP 4 mg IVP once; over 2 minutes Route: IVP; Site: left antecubital; br2 00:45 Follow up: Response: No adverse reaction br2 00:11 Drug: fentaNYL (PF) IVP 25 mcg IVP once Route: IVP; Site: left antecubital; br2 00:45 Follow up: Response: No adverse reaction; Pain is decreased br2 02:18 Drug: fentaNYL (PF) IVP 25 mcg IVP once Route: IVP; Site: left antecubital; al5 02:50 Follow up: Response: No adverse reaction br2 04:42 Drug: fentaNYL (PF) IVP 50 mcg IVP once Route: IVP; Site: left antecubital; br2 05:24 Follow up: Response: No adverse reaction; Pain is decreased br2 04:42 Drug: Ondansetron IVP 4 mg IVP once; over 2 minutes Route: IVP; Site: left antecubital; br2 05:25 Follow up: Response: No adverse reaction br2 Medication: 00:50 VIS not applicable for this client. br2 Output: 05:30 Urine: 500ml (Voided); Total: 500ml. br2 Outcome: 04:57 Discharge ordered by . sp4 05:47 Discharged to home ambulatory, br2 05:47 Condition: improved 05:47 Discharge instructions given to patient, Instructed on discharge instructions, follow up and referral plans. Demonstrated understanding of instructions, follow-up care, medications, Prescriptions given X 2, 06:04 Patient left the ED. br2 Signatures: Dispatcher [employer] EDMS Juancarlos Rodrigues PA PA cp Able, Lacie RN RN lg3 Brandan Metzger MD MD sp4 Ashlee Pitts RN RN al5 Kathrin Ohara RN RN br2
--- NOTE | 2024-11-07 04:58 | EDPHYS ---
Physician Documentation [facility] Name: Red Cooper Age: 69 yrs Sex: Male : 1955 Arrival Date: 11/06/2024 Time: 23:30 Bed 16 Private MD: ED Physician Brandan Metzger HPI: 11/06 23:45 This 69 yrs old Male presents to ER via EMS with complaints of Fall Injury. cp 23:45 Details of fall: The patient fell from an upright position, while walking. Onset: The cp symptoms/episode began/occurred just prior to arrival. Associated injuries: The patient sustained right hip, painful injury, right shoulder, painful injury. Historical: - Allergies: 23:47 atorvastatin; br2 23:47 Morphine; br2 23:47 Stadol; br2 23:47 Tramadol HCl; br2 - PMHx: 23:47 Hypertension; pulmonary embolus; br2 - PSHx: 23:47 Appendectomy; cardiac stent; IVC filter; Left hip; right rotator cuff; br2 - Immunization history:: Adult Immunizations up to date. - Infectious Disease History:: Denies. - Social history:: Smoking status: Patient reports the use of cigarette tobacco products, smokes one-half pack cigarettes per day, Patient/guardian denies using alcohol, street drugs. ROS: 23:50 Constitutional: Negative for body aches, chills, fever, poor PO intake, cp 23:50 Eyes: Negative for injury, pain, redness, and discharge, cp 23:50 ENT: Negative for drainage from ear(s), ear pain, sore throat, difficulty swallowing, difficulty handling secretions, 23:50 Cardiovascular: Negative for chest pain, edema, palpitations, 23:50 Respiratory: Negative for cough, shortness of breath, wheezing, 23:50 Abdomen/GI: Negative for abdominal pain, nausea, vomiting, and diarrhea, 23:50 Back: Negative for radiated pain, 23:50 MS/extremity: Positive for pain, of the right hip and right shoulder, Negative for paresthesias, 23:50 Neuro: Negative for altered mental status, loss of consciousness, syncope, near syncope, weakness, 23:50 All other systems are negative, Exam: 23:55 Constitutional: The patient appears in no acute distress, alert, awake, non-toxic, well cp developed, well nourished, uncomfortable, 23:55 Head/Face: Normocephalic, atraumatic. cp 23:55 Eyes: Periorbital structures: appear normal, Conjunctiva: normal, no exudate, no injection, Sclera: no appreciated abnormality, Lids and lashes: appear normal, bilaterally, 23:55 ENT: External ear(s): are unremarkable, Nose: is normal, Mouth: Lips: moist, Oral mucosa: moist, Posterior pharynx: Airway: no evidence of obstruction, patent, 23:55 Neck: C-spine: vertebral tenderness, is not appreciated, crepitus, is not appreciated, 23:55 Chest/axilla: Inspection: normal, Palpation: crepitus, is not appreciated, tenderness, is not appreciated, 23:55 Cardiovascular: Rate: normal, 23:55 Respiratory: the patient does not display signs of respiratory distress, Respirations: normal, no use of accessory muscles, no retractions, labored breathing, is not present, Breath sounds: are clear throughout, no decreased breath sounds, no stridor, no wheezing, 23:55 Abdomen/GI: Inspection: abdomen appears normal, Palpation: abdomen is soft and non-tender, in all quadrants, 23:55 Back: vertebral tenderness, is not appreciated, 23:55 Musculoskeletal/extremity: Extremities: noted in the right shoulder: pain, noted in the right hip: pain, ROM: limited passive range of motion due to pain, in the right shoulder and right hip, 23:55 Neuro: Orientation: to person, place \T\ time. Mentation: is normal, Vital Signs: 23:44 BP 131 / 81; Pulse 82; Resp 18 S; Temp 97.6(TE); Pulse Ox 94% on R/A; Weight 83.91 kg; br2 Height 5 ft. 9 in. ; Pain 10; 11/07 00:50 BP 102 / 71; Pulse 65; Resp 18 S; Pulse Ox 91% on R/A; br2 01:46 BP 101 / 72; Pulse 80; Resp 18 S; Pulse Ox 93% on R/A; br2 02:30 BP 102 / 75; Pulse 72; Resp 18; Pulse Ox 93% ; br2 03:30 BP 110 / 82; Pulse 77; Resp 18; Pulse Ox 96% ; br2 04:17 BP 110 / 83; Pulse 81; Resp 16; Pulse Ox 93% on R/A; br2 05:47 BP 116 / 85; Pulse 71; Resp 18; Pulse Ox 95% ; Pain 3/10; br2 11/06 23:44 Body Mass Index 27.32 (83.91 kg, 175.26 cm) br2 11/06 23:44 Pain Scale: Adult br2 05:47 Pain Scale: Adult br2 MDM: 11/06 23:40 Medical Screening Exam initiated cp 11/07 04:39 ED course: EXAM: CTAbdomen and Pelvis Without Intravenous Contrast CLINICAL HISTORY: sp4 The patient is 69 years old and is Male; fall, right hip pain TECHNIQUE: Axial computed tomography images of the abdomen and pelvis without intravenous contrast. Sagittal and coronal reformatted images were created and reviewed. This CT exam was performed using one or more of the following dose reduction techniques: automated exposure control, adjustment of the mA and/or kV according to patient size, and/or use of iterative reconstruction technique. COMPARISON: No relevant prior studies available. FINDINGS: LUNG BASES: Minimal dependent densities in the lung bases are present. No consolidation. HEART: The heart is enlarged. ABDOMEN: LIVER: The liver is enlarged and mildly fatty. GALLBLADDER AND BILE DUCTS: The gallbladder is distended. No calcified gallstones or ductal dilatation is seen. PANCREAS: Fatty infiltration and atrophy of the pancreas is present. No ductal dilation. SPLEEN: Unremarkable. ADRENALS: Unremarkable. No mass. KIDNEYS AND URETERS: Bilateral exophytic renal cysts are present. No follow-up imaging is recommended. There is no hydronephrosis or hydroureter of either kidney. No obstructing calculus is in. STOMACH AND BOWEL: The stomach is minimally filled with fluid. The small bowel is normal in caliber. Stool is present throughout the colon. There is no mucosal thickening or evidence of obstruction. Scattered colonic diverticula are present without surrounding inflammation. PELVIS: APPENDIX: No findings to suggest acute appendicitis. BLADDER: The bladder is well distended. No stones. REPRODUCTIVE: Unremarkable as visualized. ABDOMEN and PELVIS: INTRAPERITONEAL SPACE: Unremarkable. No free air. No significant fluid collection. BONES/JOINTS: A left hip prosthesis is present. The hardware is engaged without surrounding lucency. Mild degenerative change of the spine is present. There is no acute fracture of the visualized axial and appendicular skeleton. The vertebral body heights and alignment are maintained. SOFT TISSUES: The soft tissues are normal. VASCULATURE: Atherosclerosis of the vasculature is present. The vessels are normal in caliber. An infrarenal IVC filter is in place. No abdominal aortic aneurysm. LYMPH NODES: Unremarkable. No enlarged lymph nodes. IMPRESSION: No evidence of solid organ injury or traumatic bony findings on this noncontrast CT of the abdomen and pelvis.. 04:39 ED course: EXAM: XR Right Humerus, 2 or More Views CLINICAL HISTORY: The patient is 69 sp4 years old and is Male; fall;Pain TECHNIQUE: Frontal and lateral views of the right humerus. COMPARISON: No relevant prior studies available. FINDINGS: BONES/JOINTS: Unremarkable. No acute fracture. No dislocation. SOFT TISSUES: Unremarkable. IMPRESSION: Normal right humerus radiographs. Electronically signed by: Jolene Johnson MD 11/07/2024 . ED course: EXAM: XR Pelvis, 1 or 2 Views CLINICAL HISTORY: The patient is 69 years old and is Male; PAIN TECHNIQUE: Frontal view of the pelvis. COMPARISON: No relevant prior studies available. FINDINGS: BONES/JOINTS: A left hip prosthesis is present. The hardware is engaged without surrounding lucency. The femoral heads are located. The SI joints and pubic symphysis are intact without evidence of diastases. No acute fracture. No dislocation. SOFT TISSUES: Unremarkable. VASCULATURE: Atherosclerosis of the vasculature is noted. IMPRESSION: No acute findings in the pelvis. . ED course: EXAM: XR Right Femur, 2 Views CLINICAL HISTORY: The patient is 69 years old and is Male; PAIN TECHNIQUE: Frontal and lateral views of the right femur. COMPARISON: No relevant prior studies available. FINDINGS: BONES/JOINTS: Unremarkable. No acute fracture. No dislocation. SOFT TISSUES: Unremarkable. VASCULATURE: Atherosclerosis of the vasculature is present. IMPRESSION: No acute findings in the right femur. . 04:56 ED course: EXAM: XR Right Femur, 2 Views CLINICAL HISTORY: The patient is 69 years old sp4 and is Male; PAIN TECHNIQUE: Frontal and lateral views of the right femur. COMPARISON: No relevant prior studies available. FINDINGS: BONES/JOINTS: Unremarkable. No acute fracture. No dislocation. SOFT TISSUES: Unremarkable. VASCULATURE: Atherosclerosis of the vasculature is present. IMPRESSION: No acute findings in the right femur. 04:56 Differential diagnosis: abrasion, closed head injury, contusion, fracture, laceration, sp4 multiple trauma, sprain, strain. Data reviewed: vital signs, nurses notes, old medical records, lab test result(s), radiologic studies, CT scan, plain films. Consideration of Admission/Observation Escalation of care including admission/observation considered. ED course: Patient managed to stand up and ambulate. Patient stable for discharge home with as needed pain medication.. 11/06 23:41 Order name: XRAY Pelvis cp 11/06 23:41 Order name: XRAY Femur RIGHT cp 11/06 23:44 Order name: XRAY Humerus RIGHT cp 11/07 01:09 Order name: CT Abd/Pelvis - Without Contrast cp 11/06 23:41 Order name: IV; Complete Time: 00:11 cp Administered Medications: 00:10 Not Given (Patient Refused; ALLERGICc): morphineor iv 4 mg IVP once over 4 mins br2 00:10 Drug: Ondansetron IVP 4 mg IVP once; over 2 minutes Route: IVP; Site: left antecubital; br2 00:45 Follow up: Response: No adverse reaction br2 00:11 Drug: fentaNYL (PF) IVP 25 mcg IVP once Route: IVP; Site: left antecubital; br2 00:45 Follow up: Response: No adverse reaction; Pain is decreased br2 02:18 Drug: fentaNYL (PF) IVP 25 mcg IVP once Route: IVP; Site: left antecubital; al5 02:50 Follow up: Response: No adverse reaction br2 04:42 Drug: fentaNYL (PF) IVP 50 mcg IVP once Route: IVP; Site: left antecubital; br2 05:24 Follow up: Response: No adverse reaction; Pain is decreased br2 04:42 Drug: Ondansetron IVP 4 mg IVP once; over 2 minutes Route: IVP; Site: left antecubital; br2 05:25 Follow up: Response: No adverse reaction br2 Disposition: 04:47 Co-signature as Attending Physician, Brandan Metzger MD I agree with the assessment sp4 and plan of care. I reviewed the patient's care provided by Advanced Practice Provider \T\ agree w/ the diagnosis \T\ care plan. I personally saw the pt \T\ performed a substantive portion of the visit, incldng all aspects of the (History/Exam/Medical Decision Making). Disposition Summary: 11/07/24 04:57 Discharge Ordered Notes: Location: Home sp4 Problem: new sp4 Symptoms: have improved sp4 Condition: Stable sp4 Diagnosis - Acute fall, Right buttock contusion,, acute right upper thigh contusion sp4 Followup: sp4 - With: Private Physician - When: 7 - 10 days - Reason: Recheck today's complaints Discharge Instructions: - Discharge Summary Sheet sp4 - Contusion, [id number] sp4 Forms: - Patient Portal Instructions sp4 Prescriptions: - Ibuprofen 800 mg Oral Tablet - take 1 tablet ORAL route every 8 hours As needed take with food; 30 tablet; sp4 Refills: 0, Product Selection Permitted - methocarbamol 750 mg Oral tablet - take 1 tablet ORAL route every 8 hours for 10 days PRN pain; 60 tablet; sp4 Refills: 0, Product Selection Permitted Signatures: Dispatcher [employer] EDMS Juancarlos Rodrigues PA PA cp Potepalov, Sergey, MD MD sp4 Ashlee Pitts RN RN al5 Kathrin Ohara RN RN br2
--- NOTE | 2024-11-07 05:23 | RAD REPORT ---
EXAM: XR Pelvis, 1 or 2 Views CLINICAL HISTORY: The patient is 69 years old and is Male; PAIN TECHNIQUE: Frontal view of the pelvis. COMPARISON: No relevant prior studies available. FINDINGS: BONES/JOINTS: A left hip prosthesis is present. The hardware is engaged without surrounding lucen cy. The femoral heads are located. The SI joints and pubic symphysis are intact without evidence of diastases. No acute fracture. No dislocation. SOFT TISSUES: Unremarkable. VASCULATURE: Atherosclerosis of the vasculature is noted. IMPRESSION: No acute findings in the pelvis. Electronically signed by: Jolene Johnson MD 11/07/2024 01:09 AM CDT RP Due to temporary technical issues with the PACS/[employer] reporting system, reports are being jil d by the in-house radiologist without review as a courtesy to ensure prompt reporting the interpreting radiologist is fully responsible for the content of the report. Transcribed Date/Time: 11/07/2024 5:23 AM
--- NOTE | 2024-11-07 05:24 | RAD REPORT ---
EXAM: XR Right Femur, 2 Views CLINICAL HISTORY: The patient is 69 years old and is Male; PAIN TECHNIQUE: Frontal and lateral views of the right femur. COMPARISON: No relevant prior studies available. FINDINGS: BONES/JOINTS: Unremarkable. No acute fracture. No dislocation. SOFT TISSUES: Unremarkable. VASCULATURE: Atherosclerosis of the vasculature is present. IMPRESSION: No acute findings in the right femur. Electronically signed by: Jolene Johnson MD 11/07/2024 01:09 AM CDT RP Due to temporary technical issues with the PACS/[employer] reporting system, reports are being jil d by the in-house radiologist without review as a courtesy to ensure prompt reporting the interpreting radiologist is fully responsible for the content of the report. Transcribed Date/Time: 11/07/2024 5:24 AM
--- NOTE | 2024-11-07 05:24 | RAD REPORT ---
EXAM: XR Right Humerus, 2 or More Views CLINICAL HISTORY: The patient is 69 years old and is Male; fall;Pain TECHNIQUE: Frontal and lateral views of the right humerus. COMPARISON: No relevant prior studies available. FINDINGS: BONES/JOINTS: Unremarkable. No acute fracture. No dislocation. SOFT TISSUES: Unremarkable. IMPRESSION: Normal right humerus radiographs. Electronically signed by: Jolene Johnson MD 11/07/2024 01:09 AM CDT RP Due to temporary technical issues with the PACS/[employer] reporting system, reports are being jil d by the in-house radiologist without review as a courtesy to ensure prompt reporting the interpreting radiologist is fully responsible for the content of the report. Transcribed Date/Time: 11/07/2024 5:24 AM
--- NOTE | 2024-11-07 06:34 | RAD REPORT ---
EXAM: CT Abdomen and Pelvis Without Intravenous Contrast CLINICAL HISTORY: The patient is 69 years old and is Male; fall, right hip pain TECHNIQUE: Axial computed tomography images of the abdomen and pelvis without intravenous contrast. Sagittal and coronal reformatted images were created and reviewed. This CT exam was performed using one or more of the following dose reduction techniques: automated exposure control, adjustment of the m A and/or kV according to patient size, and/or use of iterative reconstruction technique. COMPARISON: No relevant prior studies available. FINDINGS: LUNG BASES: Minimal dependent densities in the lung bases are present. No consolidation. HEART: The heart is enlarged. ABDOMEN: LIVER: The liver is enlarged and mildly fatty. GALLBLADDER AND BILE DUCTS: The gallbladder is distended. No calcified gallstones or ductal dilat ation is seen. PANCREAS: Fatty infiltration and atrophy of the pancreas is present. No ductal dilation. SPLEEN: Unremarkable. ADRENALS: Unremarkable. No mass. KIDNEYS AND URETERS: Bilateral exophytic renal cysts are present. No follow-up imaging is recomme nded. There is no hydronephrosis or hydroureter of either kidney. No obstructing calculus is in. STOMACH AND BOWEL: The stomach is minimally filled with fluid. The small bowel is normal in calib er. Stool is present throughout the colon. There is no mucosal thickening or evidence of obstruction. Scattered colonic diverticula are present without surrounding inflammation. PELVIS: APPENDIX: No findings to suggest acute appendicitis. BLADDER: The bladder is well distended. No stones. REPRODUCTIVE: Unremarkable as visualized. ABDOMEN and PELVIS: INTRAPERITONEAL SPACE: Unremarkable. No free air. No significant fluid collection. BONES/JOINTS: A left hip prosthesis is present. The hardware is engaged without surrounding lucen cy. Mild degenerative change of the spine is present. There is no acute fracture of the visualized axial and appendicular skeleton. The vertebral body heights and alignment are maintained. SOFT TISSUES: The soft tissues are normal. VASCULATURE: Atherosclerosis of the vasculature is present. The vessels are normal in caliber. An infrarenal IVC filter is in place. No abdominal aortic aneurysm. LYMPH NODES: Unremarkable. No enlarged lymph nodes. IMPRESSION: No evidence of solid organ injury or traumatic bony findings on this noncontrast CT of the abdomen and pelvis. Electronically signed by: Jolene Johnson MD 11/07/2024 02:59 AM CDT RP Due to temporary technical issues with the PACS/[employer] reporting system, reports are being jil d by the in-house radiologist without review as a courtesy to ensure prompt reporting the interpreting radiologist is fully responsible for the content of the report. Transcribed Date/Time: 11/07/2024 6:34 AM
[2024-11-07 06:39] VITALS: TEMP 97.6
[2024-11-07 06:46] VITALS: BP 116/85; O2SAT 95
== END 2024-11-07 06:04 | disposition home or self-care (01) ==
LOC: ER 23:30
DX: S30.0XXA Contusion of lower back and pelvis, initial encounter (principal); S70.11XA Contusion of right thigh, initial encounter; W18.30XA Fall on same level, unspecified, initial encounter; F17.210 Nicotine dependence, cigarettes, uncomplicated; Z95.818 Presence of other cardiac implants and grafts; Z86.711 Personal history of pulmonary embolism
CPT/HCPCS: 74176; 72170; 73060; 73552; J3010 ×3; J2405 ×2; 96374; 96375; 99284